=== PATIENT | female | born 2005 | race Caucasian/White ===

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

== ENCOUNTER 2024-01-23 22:48 | Emergency (ER) | payer BC, SELFPAY ==
[2024-01-23 22:49] VITALS: BP 115/69; PULSE 73; RESP 18; TEMP 36.1; O2SAT 100; BMI 21.1
--- NOTE | 2024-01-23 23:15 | EDS_ITS ---
HPI HPI - Psych History of Present Illness Chief Complaint: Mental Health Detail of Chief Complaint: Anxiety. Informant: patient and parent Onset/Context/Timing Onset: Days Context: Gradual Onset Timing: Continuous Current Severity: Moderate Maximum Severity: Moderate Associated Symptoms Associated Symptoms - Psych: Positive for - (Anxiety); Negative for Suicidal Thoughts Specific plan (suicidal thought): No suicide plan Narrative Narrative: 18-year-old female history of anxiety. Currently on Lexapro. Recently moved to the area has appointment to follow-up with the counseling center on Sunday. She has not been evaluated by them as of yet. She has been on the Lexapro for months. Says she has been very emotional lately. It has been a roller coaster over the last week. States her dad has bipolar. She denies being homicidal or suicidal. She did have a mental health admission earlier this year. Denies any drug or alcohol use. States she is not . Prior similar symptoms: Yes Recent Illness/Hospitalization: No PFSH [facility] [place] Medical History (Updated 01/24/24 @ 01:[address] Chester Roach MD) Depression Anxiety Scoliosis Home Medications ?Medication ?Instructions ?Recorded ?Last Taken ?Type escitalopram oxalate 20 mg tablet 20 mg PO QHS mood 12/15/23 12/14/23 19:00 History (Lexapro) 20 mg Allergy/AdvReac Type Severity Reaction Status Date / Time No Known Allergies Allergy Verified 01/23/24 22:51 Social History Smoking Status: Never smoker ROS ROS ED ROS Narrative Denies recent illness. Constitutional Constitutional ED: Denies fever(s) Eyes Eyes: Denies blurry vision ENT ENT ED: Denies ear pain Cardiovascular Cardiovascular: Denies chest pain Respiratory/Chest Respiratory/Chest: Denies cough Gastrointestinal Gastrointestinal: Denies abdominal pain Genitourinary Genitourinary ED: Denies dysuria Musculoskeletal Musculoskeletal: Denies arthralgias Integumentary Denies abscess Neurologic Neurologic: Denies headache(s) Psychiatric Psychiatric: Reports anxiety and depression; Denies suicidal ideation or suicidal thoughts Endocrine Endocrinology: Denies polydipsia Hematologic/Lymphatic Hematologic/Lymphatic: Denies easy bleeding Allergic/Immunologic Allergic/Immunologic ED: Denies mouth swelling EXAM Physical Exam Narrative Exam Narrative: 89-year-old female very emotionally upset. Tearful. Anxious. Physically no acute distress. Vital signs stable afebrile. Female present in the room with her I believe it is her mom. H EENT exam unremarkable. Neck nontender. No signs of trauma. Lungs clear to auscultation bilaterally. Heart regular rhythm no murmur. Abdomen soft nontender. Moving all 4 extremities. Nontender no edema. Neurologically she is awake and alert. No focal motor deficits. Const Vital Signs: 01/23/24 22:49 Temperature 96.9 F L Temperature Source Temporal Pulse Rate 73 Respiratory Rate 18 Blood Pressure 115/69 Blood Pressure Mean 84 Pulse Ox 100 Oxygen Delivery Method Room Air Positive well nourished and well developed; Negative for obese, cachectic, contractures or unkempt General Appearance ED: well developed and NAD; Negative for unkempt, cachectic, contractures or pallor Nutritional Appearance: Negative for cachectic or obese HEENT Reports moist mucous membranes normocephalic and atraumatic; Negative for trauma or tenderness Eyes PERRL and EOMs intact bilaterally General Eye ED: Negative for pale conjunctiva Neck no lymphadenopathy, supple and no JVD General: Negative for tenderness Resp normal respiratory effort and clear to auscultation bilaterally Effort and Inspection: Negative for retractions Auscultation: Negative for rales, rhonchi or wheezes Cardio S1 normal heart sound, S2 normal heart sound and no murmurs Rate: regular rate Rhythm: regular rhythm GI non-tender, non-distended and no masses Palpation: soft; Negative for tender or guarding Back/Spine no CVA tenderness General Back: Negative for CVA tenderness Cervical Spine: Negative for cervical spine tenderness Extremity normal to inspection General Extremety ED: Negative for edema or tenderness General Extremity: Negative for edema Neuro oriented x3 and CN's II-XII intact bilaterally Sensorium / Orientation: alert, oriented to person, oriented to place and oriented to time; Negative for orientation impaired, confused or lethargic Motor Exam: strength 5/5 throughout Psych thought process normal, cooperative, speech normal, activity/motor behavior normal, denies hallucinations, denies homicidal ideation and denies suicidal ideation; Negative for mental status grossly normal or affect normal Appearance: grossly normal; Negative for unkempt Attitude: No calm, engaged, No paranoid and other Activity / Motor Behavior: fidgetting and restless Speech: normal speech Mood & Affect: anxious Thought Process: normal thought process Thought Content: normal thought content Attention / Concentration: attention grossly intact Memory / Cognition: memory grossly intact Insight: insight good Judgement: judgement good Skin General Skin Exam: Negative for jaundice or pallor Lesions: no lesions Rashes: no rashes Trauma: Negative for abrasion Wounds: Negative for amputation or wounds noted MDM MDM MDM Narrative Medical decision making narrative: 18-year-old female very anxious. History of mental health illness. Currently has been on Lexapro for months. She denies being suicidal or homicidal. She denies alcohol or drug use. Her exam physically is benign. Counseling center is here we will have them evaluate her. Alem orozco evaluated the patient. Spoke to me around 1:05 AM. They are more than comfortable with her being discharged home. 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 They will also follow her up they told me. I will write the patient for six 1 mg Ativan pills. Which she can use over the next several days for anxiety. Patient is accompanied by her grandmother sherwin. Both are comfortable with her being discharged to home. Patient again verbalizes to me that she is neither suicidal or homicidal. History & Record Review Discussion w/independent historian: Patient Additional record(s) reviewed:: Prior inpatient record, Prior outpatient record, Prior ED visit and Prior labs Discharge Plan Triage Chief Complaint: Mental Health ED Provider: Chester Roach Dx/Rx/DC Orders Clinical Impression: Anxiety Instructions: ED Anxiety Reaction Prescriptions: No Action escitalopram oxalate [Lexapro] 20 mg tablet 20 mg PO QHS Patient Comments: pt takes at hs Primary Care Provider: Care Physician,No Primary Referrals: Care Physician,No Primary [Primary Care Provider] - Counseling,Center [Group of Physicians] - As soon as possible (Call them tomorrow to get set up with an appointment as soon as possible.) Activity Restrictions/Additional Instructions: Follow-up with [facility] with your scheduled appointment next week. Call the counseling center later today and get set up with an appointment with them as soon as possible. Ativan as needed and prescribed for anxiety. Do not drive or drink alcohol if using the Ativan. Return if you are feeling worse or develop any suicidal thoughts. Print Language: Yakut Disposition Disposition: Home, Self Care
[2024-01-23] MEDS: LORazepam 1 MG Tablet PO (23:22)
[2024-01-24] MEDS: LORazepam 1 MG Tablet PO (01:49)
--- NOTE | 2024-01-24 01:59 | ED.RN ---
Addendum entered by Irina Thompson 01/24/24 02:20: Pt refused for vitals to be taken again. Explained to mom and pt again that they need to follow up with all resources that they were given. Pt stomped out of room and out of ER. Mom thanked this nurse for care and apologized numerous times for pts behavior. Original Note: This nurse into d/c pt and give PO ativan. Pt upset, yelling at mom, pacing/stomping around the room. Expressing concerns to be frustrated with hospital, doctor, and the whole mental health system. This nurse explained process to pt of being seen by the doctor and crisis. Explained all paperwork to pt and pts mother of following up with counseling center and [facility]. I came here for a script for a mood stabilizer and you guys have not done anything for me. Why can I not just stay here and sleep and you give me a script for something better? Explained to pt that there was a script for a medications sent to the pharmacy that will need picked up in the morning for Ativan. Pt expressing concerns of wanting to stay in the ER. This nurse questioning why pt needs to stay here d/t mom and this nurse not understanding pt. This nurse went into through detail about the process of being seen in the ER, crisis talking to pt and coming up with a plan for discharge after. Explained to pt again that the ER is not a place to just sleep and again went into thorough detail about how the process works. pt stating You do not understand me and where I am coming from. You should be able to give me a script for a mood stabilizer and that is it. Can you admit me here for my mental health? This nurse went into great detail again how [facility] does not have a psychiatric unit in the hospital and if the pt would require placement that she would be transferred somewhere else. pt expressing concerns again about not being SI/HI or needing to go somewhere. Pts mom agreeable with this nurse and understand D/C paperwork and attempting to educate pt on the same information as this nurse. Pt yelling at mom and stomping around in room. Mom in agreence with all the information Tami Callejas from crisis and myself gave pt and herself. Pts o
== END 2024-01-24 02:20 | disposition home or self-care (01) ==
PROVIDERS: Emergency Provider Emergency Medicine; Visit Provider Emergency Medicine
DX: F41.9 Anxiety disorder, unspecified (principal); Z79.899 Other long term (current) drug therapy; F32.A Depression, unspecified; M41.9 Scoliosis, unspecified
CPT/HCPCS: 99284

== ENCOUNTER 2024-02-14 18:25 | Emergency (ER) | payer BC, SELFPAY ==
[2024-02-14 18:26] VITALS: BP 73/63; PULSE 73; RESP 18; TEMP 36.6; O2SAT 100; BMI 21.6
[2024-02-14 18:28] VITALS: BP 96/61; RESP 16
== END 2024-02-14 19:00 | disposition left against medical advice (07) ==
LOC: ED 19:17
DX: F41.9 Anxiety disorder, unspecified (principal); Z53.21 Procedure and treatment not carried out due to patient leaving prior to being seen by health care provider

== ENCOUNTER → 2024-02-28 | Outpatient (CLI) | payer BC, SELFPAY ==
[2024-02-28 15:19] LABS: Absolute Lymphocyte Count 1.67 X10^3/uL (0.83-4.51); Absolute Neutrophil Count 3.4 X10^3/uL (2.0-7.7); Basophil# 0.04 X10^3/uL; Basophil% 0.7 % (0-1); Eosinophil# 0.12 X10^3/uL; Eosinophils% 2.2 % (0-5); Hemoglobin 12.4 g/dL (12.0-15.0); Lymphocyte # 1.67 X10^3/ul (0.83-4.51); Lymphocyte % 30.4 % (19-41); Mean Corpuscular Hgb 27.3 pg (27.0-32.0); Mean Corpuscular Volume 88.1 fL (81-99); Mean Platelet Vol. 11.3 fl (6.2-12.0); Monocyte# 0.23 X10^3/uL; Monocyte% 4.2 % (0-10); NRBC Flagged by Analyzer 0 % (0-5); Neutrophil # 3.41 X10^3/uL (2.7-7.7); Neutrophil % 62.1 % (47-70); Platelet Count 226 K/mm3 (150-450); RBC Distribution Width CV 13.2 % (11.6-14.6); RBC Distribution Width SD 42.8 fl (35.1-43.9); Red Blood Count 4.54 M/mm3 (4.2-5.4); White Blood Count 5.5 K/mm3 (4.4-11.0)
[2024-02-28 15:29] LABS: ALB/GLOB Ratio 1.2 RATIO (0.9-2.4); AST(SGOT) 19 U/L (15-37); Alanine Aminotransfer ALT/SGPT 19 U/L (13-56); Albumin, Serum 4.1 g/dL (3.2-5.0); Alkaline Phosphatase 63 U/L (45-117); Anion Gap 6 (5-15); BUN 12 mg/dL (7-18); BUN/Creat Ratio 18.1 RATIO (10-20); Calcium,Total 9.4 mg/dL (8.5-10.1); Chloride 105 mmol/L (98-107); Creatinine, Serum 0.66 mg/dL (0.55-1.02); EST Glomerular Filtration Rate 121 mL/min (>60); Est Glom Filt Rate - Afr Amer 147 mL/min (>60); Globulin 3.5 g/dL (2.2-4.2); Glucose 90 mg/dL (74-106); Potassium 3.8 mmol/L (3.5-5.1); Protein, Total 7.6 g/dL (6.4-8.2); Sodium Level 140 mmol/L (136-145)
[2024-02-29 11:06] LABS: Vitamin D,25 Hydroxy 34.4 ng/mL
== END | disposition home or self-care (01) ==
LOC: MFPLAB 11:03
PROVIDERS: PCP Family Medicine; Visit Provider Family Medicine
DX: R53.83 Other fatigue (principal); R41.840 Attention and concentration deficit
CPT/HCPCS: 36415; 80053; 82306; 84443; 85025

== ENCOUNTER 2024-03-08 18:47 | Emergency (ER) | payer BC, SELFPAY ==
[2024-03-08 18:48] VITALS: BP 110/68; PULSE 82; RESP 20; TEMP 36.2; O2SAT 100; BMI 22.1
--- NOTE | 2024-03-08 19:00 | EDS_ITS ---
HPI History of Present Illness Chief Complaint: Anxiety Informant: patient Onset/Context/Timing Onset: Month(s) Context: Gradual Onset Timing: Continuous Quality: Restless Location: Generalized Worsened by: Nothing Relieved by: Nothing Narrative Narrative: Patient presents with increased anxiety that has been getting worse over the past few months. Patient states she has been on Lexapro for a long time. Patient was recently started on BuSpar. Patient was also instructed to increase her Lexapro from 20 mg to 30 mg. Patient states this made it worse and mother states that she went back to the 20 mg dosage. Patient is also on Abilify. Patient states she just feels restless. Patient states nothing makes it worse and nothing makes it better. Mother states patient does see a counselor for this. Mother states that patient has an appoint with a psychiatrist in the near future. [facility] Medical History Depression Anxiety Scoliosis Home Medications ?Medication ?Instructions ?Recorded ?Last Taken ?Type escitalopram oxalate 20 mg tablet 20 mg PO QHS mood 12/15/23 12/14/23 19:00 History (Lexapro) 20 mg lorazepam 1 mg tablet (Ativan) 1 mg PO BID PRN anxiety 3 days #6 01/24/24 Unknown Rx tabs hydroxyzine pamoate 25 mg capsule 50 mg (2 x 25 mg) PO TID PRN PRN 03/08/24 Unknown Rx Anxiety #30 CAPSULES Allergy/AdvReac Type Severity Reaction Status Date / Time No Known Allergies Allergy Verified 03/08/24 18:48 Surgical History no surgical history no surgical history Social History Smoking Status: Never smoker ROS ROS ED Constitutional Constitutional ED: Denies chills or fever(s) Eyes Eyes: Denies blurry vision or change in vision ENT ENT ED: Denies rhinorrhea or sore throat Cardiovascular Cardiovascular: Denies chest pain or palpitations Respiratory/Chest Respiratory/Chest: Denies cough or dyspnea Gastrointestinal Gastrointestinal: Denies nausea or vomiting Genitourinary Genitourinary ED: Denies dysuria or hematuria Musculoskeletal Musculoskeletal: Reports back pain; Denies neck pain Integumentary Denies abscess or rash Neurologic Neurologic: Denies headache(s) or weakness Psychiatric Psychiatric: Reports anxiety; Denies suicidal ideation or suicidal thoughts Allergic/Immunologic Allergic/Immunologic ED: Denies mouth swelling or urticaria EXAM Physical Exam Const Vital Signs: 03/08/24 18:48 Temperature 97.2 F L Temperature Source Temporal Pulse Rate 82 Respiratory Rate 20 H Blood Pressure 110/68 Blood Pressure Mean 82 Pulse Ox 100 Oxygen Delivery Method Room Air Positive well nourished and well developed General Appearance ED: well developed and NAD HEENT Reports moist mucous membranes Neck supple and no JVD Resp normal respiratory effort and clear to auscultation bilaterally Cardio regular rate and regular rhythm GI non-tender and non-distended Palpation: soft Neuro oriented x3, CN's II-XII intact bilaterally and no sensory deficits noted Sensorium / Orientation: alert Motor Exam: strength 5/5 throughout Psych Mood & Affect: anxious MDM MDM MDM Narrative Medical decision making narrative: Patient was ordered a dose of hydroxyzine here. Patient was instructed to continue her medications as previously prescribed. Patient is given a prescription for a short course of hydroxyzine to take as needed. Patient did not want to wait for her medication. Patient left prior to completing treatment. Patient was instructed to follow-up with her primary care physician in 3 to 5 days for further evaluation. Patient was instructed return if worse in any way. Patient and mother understood and were agreeable with the plan. All questions were answered. Discharge Plan Triage Chief Complaint: Anxiety ED Provider: Urban Martel Dx/Rx/DC Orders Clinical Impression: Acute anxiety Instructions: ED Anxiety Reaction Prescriptions: New hydroxyzine pamoate 25 mg capsule 50 mg PO TID PRN PRN (Reason: Anxiety) Qty: 30 0RF No Action escitalopram oxalate [Lexapro] 20 mg tablet 20 mg PO QHS Patient Comments: pt takes at hs lorazepam [Ativan] 1 mg tablet 1 mg PO BID MDD 2 PRN (Reason: anxiety) 3 Days Qty: 6 0RF Primary Care Provider: Ashlyn Mart Referrals: Ashlyn Mart MD [Primary Care Provider] - 3-5 Days Print Language: Polish Disposition Disposition: Home, Self Care
--- NOTE | 2024-03-08 19:20 | ED.RN ---
Pt came out of room several times stating she was leaving. This RN informed pt that MD had signed up for her case and would be in. Pt returned to room. After pt was seen by MD she stated she was going to leave and this RN stated that the MD was putting meds in for her as we were speaking. Pt felt it was going to take too long to get the meds from pharmacy. This RN attempted to assure pt that as soon as the med was available this RN would be in to give it to her. Pt returned to her room for a few minutes then came out again and said she couldn't stay. Left prior to prescribed treatment. MD informed.
--- OUTSIDE RECORDS SUMMARY | 2024-03-08 19:25 | XMS RPT_ITS | CCD ---
Author Organization [facility] Care Team Providers Care Bath Steward Name Role Phone BEBE PLASCENCIA Primary Care Unavailable JAVIER HEIN Attending Unavailable REFERRED, SELF Referring Unavailable BEBE PLASCENCIA Primary Care Unavailable BEBE PLASCENCIA Attending Unavailable REFERRED, SELF Referring Unavailable BEBE PLASCENCIA Primary Care Unavailable REFERRED, SELF Referring Unavailable ARNOLDO KRUSE Attending Unavail able Inc, [facility] Primary Care Provider Unav ailable Venita Antunez DO Primary Care Provider Unavailable Primary Care Provider UnavailSammie Montes MD Primary Care Provider [phone] Nayla Coy MD Primary Care Provider Jaime Macias MD Unavailable Venita Antunez DO Primary Care Provider [phone] VENITA ANTUNEZ Primary Care Unavailable JAIME MACIAS Attending Unavailable VENITA ANTUNEZ Primary Care Unavailable VENITA ANTUNEZ Primary Care Unavailable VENITA ANTUNEZ Primary Care Unavailable JAIME MACIAS Referring Unavailable JAIME MACIAS Attending Unavailable NAYLA COY Primary Care Unavailable RIKKI CHAVEZ Attending Unavailable NAYLA COY Primary Care Unavailable SAMMIE CHOI Attending Unavailable SAMMIE CHOI Primary Care Unavailable [facility] Unavailable PRABHA CORONA Admitting Unavailable ROSE MASON Attending Unavailable Medications Current Medications Medication Drug Class(es) Dates Sig (Normalized) Sig (Original) ARIPiprazole 2 mg oral tablet (2 sources) Atypical Antipsychotic Start: 01-29-2024 End: 02-28-2024 take 1 tablet by mouth once daily ARIPiprazole (Abilify) 2 MG tablet Indications: Severe episode of recurrent major depressive disorder, without psychotic features (HCC) , Anxiety , Mood disorder (HCC) Take 1 tablet (2 mg) by mouth Nightly. 30 tablet 01/29/2024 02/28/2024 Active famotidine 20 mg oral tablet (12 sources) Histamine-2 Receptor Antagonist Start: 08-27-2023 End: 02-23-2024 take 1 tablet by mouth once daily famotidine (Pepcid) 20 MG tablet Indications: Nausea , Decreased appetite TAKE 1 TABLET BY MOUTH EVERY DAY 90 tablet 1 12/31/2023 Active Multiple Vitamin (multivitamin) capsule (8 sources) take 1 capsule by mouth once daily Multiple Vitamin (multivitamin) capsule Take 1 capsule by mouth daily. Active take 1 capsule by mouth once helena ly Multiple Vitamin (multivitamin) capsule Take 1 capsule by mouth daily. 0 Active sulfamethoxazole 800 mg / trimethoprim 160 mg oral tablet (3 sources) Dihydrofolate Reductase Inhibitor Antibacterial, Sulfonamide Antimicrobial Start: 12-14-2023 End: 12-28-2023 take 1 tablet by mouth twice daily sulfamethoxazole-trimethoprim (BACTRIM DS) 800-160 mg per tablet Take 1 tablet by mouth two times a day for 14 days. 28 tablet 0 12/14/2023 12/28/2023 Active Completed/Discontinued Medications Medication Drug Class(es) Dates Sig (Normalized) Sig (Original) Acetaminophen (2 sources) Start: 12-30-2022 End: 12-30-2022 take 1 tablet by mouth every six hours as needed for pain and fever acetaminophen (Tylenol) tablet 650 mg 0.4 ml enoxaparin sodium 100 mg/ml prefilled syringe (2 sources) Low Molecular Weight Heparin Start: 12-30-2022 End: 12-30-2022 enoxaparin (Lovenox) syringe 40 mg escitalopram 20 mg oral tablet (20 sources) Serotonin Reuptake Inhibitor Start: 04-19-2023 End: 04-28-2024 take 1 tablet by mouth once daily escitalopram (Lexapro) 20 MG tablet Indications: Major Depressive Disorder Take 1 tablet (20 mg) by mouth Nightly. 90 tablet 08/27/2023 01/29/2024 Discontinued (Reorder) Comment on above: Take 20 mg by mouth once daily. ibuprofen 400 mg oral tablet (2 sources) Nonsteroidal Anti-inflammatory Drug Start: 12-30-2022 End: 12-30-2022 ibuprofen tablet 400 mg levonorgestrel 0.634035 mg/hr intrauterine system (9 sources) Progestin, Progestin-containi ng Intrauterine Device Start: 03-13-2023 End: 03-13-2023 levonorgestrel 17.5 mcg/24 hrs (5 yrs) 19.5 mg 1 Each intrauterine device (KYLEENA) Levonorgestrel ( Kyleena) 19.5 MG intrauterine device Indications: Contraceptive Therapy 1 each by IntraUTERine route Once. Placed by dr graham macias 02/2203 Active ondansetron ODT (Zofran-ODT) disintegrating tablet 4 mg (2 sources) Start: 12-30-2022 End: 12-30-2022 take 1 tablet by mouth every eight hours as needed for nausea and vomiting ondansetron ODT (Zofran-ODT) disintegrating tablet 4 mg polyethylene glycol 3350 52399 mg powder for oral solution (2 sources) Osmotic Laxative Start: 12-30-2022 End: 12-30-2022 take 17 g by mouth every twenty-four hours as needed for constipation polyethylene glycol (PEG) 3350 (Miralax) packet 17 g rizatriptan 10 mg oral tablet (1 source) Serotonin-1b and Serotonin-1d Receptor Agonist Start: 11-15-2018 End: 01-23-2023 rizatriptan (MAXALT) 10 mg tablet Take one at onset of migraine. Repeat once if no better in 2 hours. 0 11/15/2018 01/23/2023 Discontinued Comment on above: Take one at onset of migraine. Repeat once if no better in 2 hours. 50 ml sodium chloride 9 mg/ml injection (4 sources) Start: 12-30-2022 End: 12-30-2022 sodium chloride 0.9 % bolus 500 mL Start: 12-30-2022 End: 12-30-2022 sodium chloride 0.9 % infusi on topiramate 25 mg oral tablet (1 source) Start: 01-03-2019 End: 01-23-2023 topiramate (TOPAMAX) 25 mg tablet See titrations scale 0 01/03/2019 01/23/2023 Discontinued Comment on above: See titrations scale Problems Active Problems Problem Classification Problem Date Documented Da te Episodic/Chronic Anxiety disorders (15 sources) Anxiety; Translations: [Anxiety disorder, unspecified] Onset: 08-27-2023 08-27-2023 Chronic Genitourinary symptoms and ill-defined conditions (1 source) Scalding pain on urination ; Translations: [Dysuria] 12-14-2023 Episodic Headache; including migraine (7 sources) Migraine; Translations: [Migraine, unspecified, not intractable, without status migrainosus] Onset: 01-23-2023 01-23-2023 Chronic Menstrual disorders (9 sources) Menometrorrhagia; Translations: [Excessive and frequent menstruation with irregular cycle] Onset: 01-23-2023 01-23-2023 Chronic Mood disorders (20 sources) Depressive disorder; Translations: [Depression] Onset: 04-18-2023 04-18-2023 Chronic Other screening for suspected conditions (not mental disorders or infectious disease) (4 sources) Decreased vitamin D; Translations: [Other specified abnormal findings of blood chemistry] Onset: 01-29-2024 01-29-2024 Episodic Superficial injury; contusion (1 source) Blister of foot; Translations: [Blister (nonthermal), left foot, initial encounter] 12-14-2023 Episodic Unclassified (1 source) New Patient Onset: 01-23-2023 Urinary tract infections (1 source) Urinary tract infectious disease; Translations: [Urinary tract infection, site not specified] 12-14-2023 Episodic Past or Other Problems Problem Classification Problem Date Documented Date Episodic/Chronic Conditions associated with dizziness or vertigo (4 sources) Dizziness; Translations: [Dizziness and giddiness] Onset: 10-09-2023 10-09-2023 Episodic Contraceptive and procreative management (20 sources) Patient encounter status; Translations: [Encounter for initial prescription of intrauterine contraceptive device] Onset: 01-23-2023 01-23-2023 Episodic Immunizations and screening for infectious disease (9 sources) Viral screening status; Translations: [Encounter for screening for other viral diseases] Onset: 08-27-2023 08-27-2023 Episodic Mood disorders (9 sources) Mood disorders Onset: 04-18-2023 04-18-2023 Nausea and vomiting (6 sources) Nausea; Translations: [Nausea] Onset: 08-27-2023 08-27-2023 Episodic Other nutritional; endocrine; and metabolic disorders (12 sources) Decrease in appetite; Translations: [Anorexia] Onset: 08-27-2023 08-27-2023 Episodic Other nutritional; endocrine; and metabolic disorders (2 sources) Anorexia; Translations: [Anorexia] Onset: 08-27-2023 Episodic Poisoning by nonmedicinal substances (20 sources) Ingestion of foreign material; Translations: [Toxic effect of unspecified substance, accidental (unintentional), initial encounter] Onset: 12-30-2022 Resolved: 08-21-2023 12-30-2022 Episodic Screening and history of mental health and substance abuse codes (8 sources) H/O: attempted suicide; Translations: [H/O suicide attempt] Onset: 12-30-2022 08-22-2023 Episodic Suicide and intentional self-inflicted injury (11 sources) Suicidal thoughts; Translations: [Suicidal ideations] Onset: 04-17-2023 Resolved: 08-22-2023 04-17-2023 Episodic Results Test Name Value Interpretation Reference Range Facility 36on 02-20-2024 36 Last office visit: 08/26 telemed on 01/29/24 Next office visit: none- pt no showed to appt 02/19/24, pt cancelled appt 02/27/24 reason: changed provider [facility] 36on 02-13-2024 36 This will have to be addressed during her office visit on 02/19/2024 [facility] Progress Noteon 01-29-2024 Progress Note [address] [address] Dept: [phone] Dept Loc: [phone] Subjective Sara Chiang is a 18 y.o. who presents for a telehealth visit. Patient was identified and seen today via Telehealth by agreement and consent. I used the following Telehealth technology: Audio and video capabilities. Patient location: Patient Location: Home. This patient encounter is appropriate and reasonable under the circumstances: Behavioral Health . The patient has been advised of the potential risks and limitations of this mode of treatment (including but not limited to the absence of in-person examination) and has agreed to be treated in a remote fashion in spite of them. Any and all of the patient's/patient's family's questions on this issue have been answered and I have made no promises or guarantees to the patient. The patient has also been advised to contact this office for worsening conditions or problems, and seek emergency medical treatment and/or call 911 if the patient deems either necessary. The patient stated that they are currently in the [facility]. If the patient is a minor, permission has been obtained by the parent or guardian for the patient to receive medical care at this visit. Chief complaint: Chief Complaint Patient presents with Follow-up Depression Mood disorder HPI Hx provided by patient's mother, patient was not cooperative during the telehealth visit. Patient has hx of depression and anxiety and possible mood disorder. Mother states that patient thinks that the lexapro 20mg is not working. Hx of bipolar disorder in father. Thinks she needs to be on a mood stabilizer. Patient saw her Counsellor today for therapy. Patient denies SI/HI Patient has trouble with sleep. Patient refuses to answer when asked No Known Allergies [x] PMH, allergies, and social history reviewed and updated as appropriate [x] Medication list reviewed/updated [x] Allergies reviewed/updated [x] Problem list reviewed/updated [] Patient requests medication refills, see below for orders. Depression: None or minimal depression (04/18/2023) PHQ-9 PHQ-9 Score: 2 (Provider: if last PHQ done >/= 9 mos from today, consider repeating today or include in plan for next visit): Failed to redirect to the Timeline version of the [employer]. If PHQ-2 is positive, in the follow up for this appointment, please have them scheduled for an appointment to discuss depression. O: -pt reported vitals: none Patient seen laying on the sofa and whenever put on the video camera she will cover her head with her blanket. Patient refused to talk and give further answers. Only answered to her mother for some questions. Does not appear to be in manic state. Assessment/Plan 1. Severe episode of recurrent major depressive disorder, without psychotic features (HCC) - ARIPiprazole (Abilify) 2 MG tablet; Take 1 tablet (2 mg) by mouth Nightly., Starting Sun01/29/2024, Until Sun02/28/2024, Normal 2. Anxiety - TSH - escitalopram (Lexapro) 20 MG tablet; Take 1 tablet (20 mg) by mouth Nightly., Starting Sun01/29/2024, Until Sun04/28/2024, Normal - ARIPiprazole (Abilify) 2 MG tablet; Take 1 tablet (2 mg) by mouth Nightly., Starting Sun01/29/2024, Until Radha 02/28/2024, Normal 3. Recurrent major depressive disorder, remission status unspecified (HCC) - escitalopram (Lexapro) 20 MG tablet; Take 1 tablet (20 mg) by mouth Nightly., Starting Sun01/29/2024, Until Sun04/28/2024, Normal 4. Mood disorder (HCC) - escitalopram (Lexapro) 20 MG tablet; Take 1 tablet (20 mg) by mouth Nightly., Starting Sun01/29/2024, Until Sun04/28/2024, Normal - ARIPiprazole (Abilify) 2 MG tablet; Take 1 tablet (2 mg) by mouth Nightly., Starting Sun01/29/2024, Until Radha 02/28/2024, Normal 5. Low vitamin D level - Vitamin D Deficiency Screening (Vit D 25) Continue lexapro 20 mg and start Abilify 2 mg for mood stabilizer and augmentation purposes. Patient will need to be seen in clinic in 2 weeks for close follow up. Patient not cooperative during the telehealth. Denies SI/HI. Follow up in about 2 weeks (around 02/12/2024) for mood. Patient acknowledged full understanding and agreeable with plan. All questions were answered appropriately. Costs of various treatment options were considered in formulating this treatment plan with the patient. Rikki Chavez MD 01/29/24 5:47 PM [facility] Progress Note INDIRECT SUPERVISION THIS SERVICE IS TO BE BILLED UNDER THE PRIMARY CARE EXCEPTION (MODIFIER -GE) During or immediately after this visit, I discussed this case with the treating resident. Our discussion included the history obtained by the resident, the resident's exam findings, and the resident's treatment plan. The resident's note reflects the information we discussed, and I agree with the resident's assessment and treatment plan. -Alex Riddle MDSALAS Family Medicine [facility] 36on 12-31-2023 36 Last office visit: 08/27/23 Next office visit: none ( supposed to follow up 5 weeks 10/01/23) [facility] CNCOon 12-18-2023 CNCO Letter Text [facility] 12-18-2023 CNPN Telephone (OBGWMA) SARA CHIANG ([id number]) 3 F Date Time Provider Department 12/18/23 JAIME MACIAS [facility] During your visit today, we recorded the following information about you: Aditya Mccrary 12/18/2023 3:26 PM Signed Patient did not arrive for her scheduled appointment today. A missed appointment letter sent by mail. Allergies As of Date: 12/18/2023 (No Known Allergies) Date Reviewed: 12/14/2023 Reviewed by: Gayatri Suarez MA - Fully Assessed Reason for Visit: Missed Appointment [1304] Cmt: No show Prescriptions as of 12/18/2023 - famotidine (PEPCID) 20 mg tablet Take 20 mg by mouth once daily. - sulfamethoxazole-trim ethoprim (BACTRIM DS) 800-160 mg per tablet Take 1 tablet by mouth two times a day for 14 days. - escitalopram oxalate (LEXAPRO) 20 mg tablet Take 20 mg by mouth once daily. Problem List As Of Date 12/18/2023 Noted Resolved Migraine without status migrainosus, not intrac*01/23/2023 Menorrhagia with irregular cycle [N92.1] 01/23/2023 Encounter for initial prescription of intrauter*01/23/2023 Encounter Status:Closed [facility]WSTR[facility] SARA CHIANG ([id number]) 3 F Date Time Provider Department 12/16/23 YASSINE HOWARD [facility] During your visit today, we recorded the following information about you: Yassine Howard, KEERTHI 12/16/2023 8:14 AM Signed Called mom to make sure patient is improving. She ended up in ER and is on different antibiotic. Mom unsure what it is called. Advised to continue as prescribed and follow-up with PCP. Allergies As of Date: 12/16/2023 (No Known Allergies) Date Reviewed: 12/14/2023 Reviewed by: Gayatri Suarez MA - Fully Assessed Reason for Visit: Results [95] Prescriptions as of 12/16/2023 - famotidine (PEPCID) 20 mg tablet Take 20 mg by mouth once daily. - sulfamethoxazole-trim ethoprim (BACTRIM DS) 800-160 mg per tablet Take 1 tablet by mouth two times a day for 14 days. - escitalopram oxalate (LEXAPRO) 20 mg tablet Take 20 mg by mouth once daily. Problem List As Of Date 12/16/2023 Noted Resolved Migraine without status migrainosus, not intrac*01/23/2023 Menorrhagia with irregular cycle [N92.1] 01/23/2023 Encounter for initial prescription of intrauter*01/23/2023 Encounter Status:Closed by YASSINE HOWARD on 12/16/23 Normal [facility] Bacteria Ur Culton 4 Bacteria identified Cx Nom (U) ORGANISM ID: 1 >=100,000 CFU/ml Staphylococcus saprophyticus Routine susceptibility testing of S. saprophyticus urine isolates is not performed because uncomplicated UTIs respond to urine concentrations of agents commonly used (e.g. Nitrofurantoin, TMP/SMX, or a quinolone). Normal [facility] Comment on above: Performed By: #### 6 30-4 #### [facility] CLIA [id number] [address] [place] [address] [place] CNOVon 12-14-2023 CNOV Office Visit (UCWSTR ) SARA CHIANG ([id number]) 3 F Date Time Provider Department 12/14/23 3:00 PM YASSINE HOWARD [facility] During your visit today, we recorded the following information about you: Temperature Pulse Respiration Blood pressure 100 degrees 102/minute 18/minute 102/69 Weight 62.5 kg Yassine Howard PA 12/14/2023 3:13 PM Signed This note was created using [employer]. Subjective Sara Chiang is a 18 year old female. HPI 18-year-old female presents for dysuria, urgency, frequency x 1 week. Patient states that she has been having urinary frequency, urgency and dysuria for the past week. She states that she had to urinate urgently the other day and actually urinated in her pants because she did not make it to the bathroom in time. Otherwise, has not had any incontinence. She has not seen any blood in her urine. She had bodyaches yesterday and fever today. She has not had any Tylenol or Motrin. Patient does report she has some low back pain. She denies any vomiting. Still eating and drinking. No vaginal discharge, concern for STD. She has an IUD, no concern for . Patient also reporting blister of left foot after walking on hot pavement yesterday. No drainage. No other complaint regarding the blister. PAST MEDICAL HISTORY No date: Migraine No date: Scoliosis No past surgical history on file. ALLERGIES Patient has no known allergies. MEDICATIONS escitalopram oxalate (LEXAPRO) 20 mg tablet Take 20 mg by mouth once daily. famotidine (PEPCID) 20 mg tablet Take 20 mg by mouth once daily. (Patient not taking: Reported on 12/14/2023) FAMILY HISTORY Problem Relation Age of Onset Diabetes Paternal Grandmother Breast Cancer Paternal Grandmother Social History Tobacco Use Smoking status: Never Smokeless tobacco: Never Review of Systems Constitutional: Positive for chills and fever. HENT: Negative for congestion, ear pain and sore throat. Respiratory: Negative for cough and shortness of breath. Cardiovascular: Negative for chest pain. Gastrointestinal: Negative for diarrhea and vomiting. Genitourinary: Positive for dysuria, frequency and urgency. Negative for decreased urine volume and flank pain. Musculoskeletal: Positive for back pain. Objective BP 102/69 Pulse 102 Temp 37.8 ?C (100 ?F) Resp 18 Wt 62.5 kg (137 lb 12.6 oz) LMP 02/27/2023 (Approximate) SpO2 97% Physical Exam Vitals and nursing note reviewed. Constitutional: General: She is not in acute distress. Appearance: Normal appearance. She is not toxic-appearing. HENT: Nose: Nose normal. Mouth/Throat: Mouth: Mucous membranes are moist. Eyes: Conjunctiva/sclera: Conjunctivae normal. Cardiovascular: Rate and Rhythm: Normal rate and regular rhythm. Pulmonary: Effort: Pulmonary effort is normal. Breath sounds: Normal breath sounds. Abdominal: General: Abdomen is flat. Palpations: Abdomen is soft. Tenderness: There is no abdominal tenderness. There is right CVA tenderness. There is no left CVA tenderness, guarding or rebound. Comments: Mild right CVA tenderness. No abdominal tenderness. Musculoskeletal: Feet: Feet: Left foot: Skin integrity: Blister present. Comments: Small blister on bottom of left foot. No erythema, warmth, drainage. No signs of infection. Skin: General: Skin is warm and dry. Neurological: Mental Status: She is alert. Assessment and Plan ASSESSMENT/PLAN: 1. Urinary tract infection with hematuria, site unspecified - ICD9: 599.0, 599.70, ICD10: N39.0, R31.9 (primary diagnosis) acute - UA positive for caity esterase, hematuria, and proteinuria - Send urine for culture -Patient does have fever today and mild CVA tenderness, will cover for potential early pyelonephritis. She is nontoxic appearing. - Begin treatment with Bactrim DS BID for 14 days - Patient education for prevention given 2. Burning with urination - ICD9: 788.1, ICD10: R30.0 - UA DIP, URINE (POC) - URINE CULTURE 3. Blister of left foot, initial encounter - ICD9: 917.2, ICD10: S90.822A -Recommend corn pad around the blister if is difficult to walk on. -No signs of infection. Diagnosis and treatment plan were discussed and questions were answered to the patient's satisfaction. Pt acknowledged understanding of concepts and follow up plan. Specific signs and symptoms that would indicate the need for higher level of care were discussed in detail warranting prompt ER evaluation. KEERTHI Cortes Allergies As of Date: 12/14/2023 (No Known Allergies) Date Reviewed: 12/14/2023 Reviewed by: Gayatri Suarez MA - Fully Assessed Reason for Visit: UTI [116] Cmt: Low back pain, burning with urination x1 week Primary Visit Diagnosis:Urinary tract infection with hematuria, site unspecified [N39.0, R31.9] Other Visit Diagnoses:Burning with ur (more content not included)... Normal [facility] UA DIP, URINE (POC)on 2023 BILIRUBIN UA (POCT) Small Abnormal Negative [facility] CLARITY UA (POCT) Slightly Cloudy Cl [facility] COLOR UA (POCT) Yellow [facility] GLUCOSE UA (POCT) Negative Negative mg/dL [facility] Hemoglobin Ql (U) Moderate Abnormal Negative [facility] Interpretation and review of laboratory results Abnormal [facility] KETONE UA (POCT) 15 mg/dL Abnormal Negative [facility] LEUKOCYTES UA (POCT) Moderate Abnormal Negative [facility] NITRITE UA (POCT) Negative Negative [facility] PH UA (POCT) 6.5 4.5 - 8.0 [facility] Protein Ql (U) 100 mg/dL Abnormal Negative [facility] SPECIFIC GRAVITY UA (POCT) 1.020 1.005 - 1.030 [facility] UROBILINOGEN UA (POCT) 1.0 Makenzie l E.U./dL [facility] Location:[address], [place], [place], [id number] [place] [address] POINT OF CARE [facility] Progress Noteon 10-11-2023 Progress Note RN CARE COORDINATION NOTE: ED DISCHARGE FOLLOW UP Care Coordination goal: ED follow up Patient seen in [facility] on 10/09/2023 Reason:Dizziness ED visits in last yr:3 Hosp/ED adm risk: 52 % Per ED discharge instructions: Follow up with PCP LAST APPOINTMENT: 08/27/2023 NEXT APPOINTMENT: Visit date not found Plan: Left voicemail requesting callback to schedule ED follow-up appointment (per ED discharge instructions). If patient calls back, please assist with scheduling a ED follow up appointment. This result has been reviewed by Jenni López RN on 10/11/23 at 11:55 AM. Normal [facility] ECG 12-LEADon 10-10-2023 ECG 12-LEAD IMPRESSION: Sinus rhythm RSR' in V1 or V2, probably normal variant Electronically Signed On 10-10-2023 07:46:06 EDT by Evan Berg Normal [facility] CBC W Auto Differential pane l (Bld)Ordered By: Camila Chiang on 10-09-2023 Basophils (Bld) [#/Vol] 0.0 10*3/uL 0.0 - 0.2 10*3/uL [facility] Basophils/100 WBC (Bld) 0.7 % 0.0 - 2.0 % [facility] Eosinophils (Bld) [#/Vol] 0.2 10*3/uL 0.0 - 0.5 10*3/uL [facility] Eosinophils/100 WBC (Bld) 2.9 % 0.0 - 6.0 % [facility] Erythrocyte distribution width (RBC) [Ratio] 15.0 % 11.5 - 15.0 % [facility] Hematocrit (Bld) [Volume fraction] 38.8 % 35.0 - 47.0 % [facility] Hemoglobin (Bld) [Mass/Vol] 12.2 g/dL 11.7 - 16.0 g/dL [facility] [employer] Immature granulocytes (Bld) [#/Vol] 0.0 10*3/uL NINF - 0.1 10*3/uL [facility] [employer] Immature granulocytes/100 WBC (Bld) 0.2 % 0.0 - 2.0 % [facility] [employer] Interpretation and review of laboratory results Normal [facility] Lymphocytes (Bld) [#/Vol] 2.1 10*3/uL 1.0 - 4.3 10*3/uL [facility] Lymphocytes/100 WBC (Bld) 35.6 % 15.0 - 45.0 % [facility] MCH (RBC) [Entitic mass] 26.0 pg 26.0 - 34.0 pg [facility] MCHC (RBC) [Mass/Vol] 31.4 % 30.5 - 36.0 % [facility] MCV (RBC) [Entitic vol] 82.7 fL 77.0 - 99.0 fL [facility] Monocytes (Bld) [#/Vol] 0.3 10*3/uL 0.0 - 0.9 10*3/uL [facility] Monocytes/100 WBC (Bld) 5.5 % 5.0 - 13.0 % [facility] Neutrophils (Bld) [#/Vol] 3.3 10*3/uL 1.8 - 7.5 10*3/uL [facility] Neutrophils/100 WBC (Bld) 55.1 % 38.0 - 82.0 % [facility] Nucleated RBC/100 WBC (Bld) [Ratio] 0.0 % [facility] Platelet mean volume (Bld) [Entitic vol] 10.8 fL 9.0 - 12.7 fL [facility] Comment on above: MPV is a calculated measurement using platelet volume ratio Platelets (Bld) [#/Vol] 200 10*3/uL 140 - 440 10*3/uL [facility] RBC (Bld) [#/Vol] 4.69 10*6/uL 3.80 - 5.2 0 10*6/uL [facility] WBC (Bld) [#/Vol] 6.0 10*3/uL 3.6 - 10.7 10*3/uL [facility] CBC WITH AUTO DIFFERENTIALon 10-09-2023 Basophils (Bld) [#/Vol] 0.0 10*3/uL Normal 0.0-0.2 [facility] Comment on above: Performed By: #### L [id number] ####Washer Repairman: CHRISTA FORD ([id number])[facility] ([facility])[address] [place] [address] Basophils/100 WBC (Bld) 0.7 % Normal 0.0-2.0 [facility] Comment on above: Performed By: #### L [id number] ####Washer Repairman: CHRISTA FORD ([id number])[facility] Eosinophils (Bld) [#/Vol] 0.2 10*3/uL Normal 0.0-0.5 [facility] Comment on above: Performed By: #### L [id number] ####Washer Repairman: CHRISTA FORD ([phone])[facility])[address] Eosinophils/100 WBC (Bld) 2.9 % Normal 0.0-6.0 [facility] Comment on above: Performed By: #### L [id number] ####Washer Repairman: CHRISTA FORD ([phone])[facility])[address] Erythrocyte distribution width (RBC) [Ratio] 15.0 % Normal 11.5-15.0 [facility] Comment on above: Performed By: #### L [id number] ####Washer Repairman: CHRISTA FORD ([phone])[facility])[address] Hematocrit (Bld) [Volume fraction] 38.8 % Normal 35.0-47.0 [facility] Comment on above: Performed By: #### L [id number] ####Washer Repairman: CHRISTA FORD ([id number])[facility])[address] Hemoglobin (Bld) [Mass/Vol] 12.2 g/dL Normal 11.7-16.0 [facility] Comment on above: Performed By: #### L [id number] ####Washer Repairman: CHRISTA FORD ([id number])[facility] IMMATURE GRANS % 0.2 % Normal 0.0-2.0 [facility] Comment on above: Performed By: #### L [id number] ####Washer Repairman: CHRISTA FORD ([phone])[facility] IMMATURE GRANS ABSOLUTE 0.0 10*3/uL Normal <0.1 [facility] Comment on above: Performed By: #### L [id number] ####Washer Repairman: CHRISTA FORD ([id number])[facility])[address] Lymphocytes (Bld) [#/Vol] 2.1 10*3/uL Normal 1.0-4.3 [facility] Comment on above: Performed By: #### L [id number] ####Washer Repairman: CHRISTA FORD ([phone])[facility] ([facility])[address] Lymphocytes/100 WBC (Bld) 35.6 % Normal 15.0-45.0 [facility] Comment on above: Performed By: #### L [id number] ####Washer Repairman: CHRISTA FORD ([phone])[facility] ([facility])[address] MCH (RBC) [Entitic mass] 26.0 pg Normal 26.0-34.0 [facility] Comment on above: Performed By: #### L [id number] ####Washer Repairman: CHRISTA FORD ([phone])[facility])[address] MCHC 31.4 % Normal 30.5-36.0 [facility] Comment on above: Performed By: #### L [id number] ####Washer Repairman: CHRISTA FORD ([id number])[facility] MCV (RBC) [Entitic vol] 82.7 fL Normal 77.0-99.0 [facility] Comment on above: Performed By: #### L [id number] ####Washer Repairman: CHRISTA FORD ([id number])[facility] Monocytes (Bld) [#/Vol] 0.3 10*3/uL Normal 0.0-0.9 [facility] Comment on above: Performed By: #### L [id number] ####Washer Repairman: CHRISTA FORD ([phone])[facility] [place] [address] [place] Monocytes/100 WBC (Bld) 5.5 % Normal 5.0-13.0 [facility] Comment on above: Performed By: #### L [id number] ####Washer Repairman: CHRISTA FORD ([id number])[facility] [place] [address] [place] NEUTROPHILS ABSOLUTE 3.3 10*3/uL Normal 1.8-7.5 [facility] Comment on above: Performed By: #### L [id number] ####Washer Repairman: CHRISTA FORD ([id number])[facility] [place] [address] [place] Neutrophils/100 WBC (Bld) 55.1 % Normal 38.0-82.0 [facility] Comment on above: Performed By: #### L [id number] ####Washer Repairman: CHRISTA FORD ([phone])[facility] [place] [address] [place] NRBC 0.0 /100 WBCs Normal 0.0-2.0 [facility] Comment on above: Performed By: #### L [id number] ####Washer Repairman: CHRISTA FORD ([phone])[facility])[address] Platelet mean volume (Bld) [Entitic vol] 10.8 fL Normal 9.0-12.7 [facility] Comment on above: Result Comment: MPV is a calculated measurement using platelet volume ratio Performed By: #### L [id number] ####Washer Repairman: CHRISTA FORD ([id number])[facility] ([facility])[address] [place] [address] Platelets (Bld) [#/Vol] 200 10*3/uL Normal 140-440 [facility] Comment on above: Performed By: #### L [id number] ####Washer Repairman: CHRISTA FORD ([phone])[facility] RBC (Bld) [#/Vol] 4.69 10*6/uL Normal 3.80-5.20 [facility] Comment on above: Performed By: #### L [id number] ####Washer Repairman: CHRISTA FORD ([id number])[facility])[address] WBC (Bld) [#/Vol] 6.0 10*3/uL Normal 3.6-10.7 [facility] Comment on above: Performed By: #### L [id number] ####Washer Repairman: CHRISTA FORD ([id number])[facility])[address] COMPREHENSIVE METABOLIC PANE Mendez 10-09-2023 Albumin [Mass/Vol] 4.4 g/dL Normal 3.5-5.0 [facility] Comment on above: Performed By: #### L [id number], [id number] ####Washer Repairman: CHRISTA FORD ([id number])[facility] [place] [address] [facility] ALP [Catalytic activity/Vol] 53 U/L Normal 38-126 [facility] Comment on above: Performed By: #### L AB17, [id number] ####Washer Repairman: CHRISTA FORD ([id number])[facility] [place] [address] [facility] ALT [Catalytic activity/Vol] 14 U/L Normal 0-34 [facility] Comment on above: Performed By: #### L AB17, [id number] ####Washer Repairman: CHRISTA FORD ([id number])[facility] ([facility])[address] Anion gap [Moles/Vol] 8 mmol/L Normal 3-13 [facility] Comment on above: Performed By: #### L AB17, [id number] ####Washer Repairman: CHRISTA FORD ([phone])[facility] ([facility])[address] [place] [address] [place] AST [Catalytic activity/Vol] 20 U/L Normal 15-46 [facility] Comment on above: Performed By: #### L AB17, [id number] ####Washer Repairman: CHRISTA FORD ([id number])[facility] [place] [address] [facility] Bilirubin [Mass/Vol] 0.5 mg/dL Normal 0.2-1.3 [facility] Comment on above: Performed By: #### L AB17, [id number] ####Washer Repairman: CHRISTA FORD ([phone])[facility] ([facility])[address] [place] [address] [place] Calcium [Mass/Vol] 9.5 mg/dL Normal 8.4-10.4 [facility] Comment on above: Performed By: #### L AB17, [id number] ####Washer Repairman: CHRISTA FORD ([id number])[facility] [place] [address] [place] Chloride [Moles/Vol] 106 mmol/L Normal 98-107 [facility] Comment on above: Performed By: #### L AB17, [id number] ####Washer Repairman: CHRISTA FORD ([phone])[facility] [place] [address] [place] CO2 [Moles/Vol] 27 mmol/L Normal 22-30 [facility] Comment on above: Performed By: #### Maryellen ADAIR, [id number] ####Washer Repairman: CHRISTA FORD ([phone])[facility] [place] [address] [place] Creatinine [Mass/Vol] 0.51 mg/dL Low 0.52-1.04 [facility] Comment on above: Performed By: #### Maryellen CALI17, [id number] ####Washer Repairman: CHRISTA FORD ([id number])[facility] [place] [address] [facility] GLOMERULAR FILTRATION RATE ML/MIN/1.73 SQ M.PREDICTED >90.0 Normal >60.0 [facility] Comment on above: Result Comment: Calc ulation based on the Chronic Kidney Disease Epidemiology Collaboration (CKD-EPI) equation refit without adjustment for race Performed By: #### L 17, [id number] ####Washer Repairman: CHRISTA FORD ([id number])[facility] [place] [address] [place] Glucose [Mass/Vol] 88 mg/dL Normal 70-100 [facility] Comment on above: Performed By: #### L AB17, [id number] ####Washer Repairman: CHRISTA FORD ([id number])[facility] [place] [address] [facility] Potassium [Moles/Vol] 4.0 mmol/L Normal 3.5-5.1 [facility] Comment on above: Performed By: #### L AB17, [id number] ####Washer Repairman: CHRISTA FORD ([phone])[facility] [place] [address] [facility] Protein [Mass/Vol] 7.6 g/dL Normal 6.3-8.2 [facility] Comment on above: Performed By: #### L AB17, [id number] ####Washer Repairman: CHRISTA FORD ([id number])[facility] ([facility])[address] [place] [address] [facility] Sodium [Moles/Vol] 141 mmol/L Normal 135-145 [facility] Comment on above: Performed By: #### L AB17, [id number] ####Washer Repairman: CHRISTA FORD ([phone])[facility] [place] [address] [facility] Urea nitrogen [Mass/Vol] 10 mg/dL Normal 7-17 [facility] Comment on above: Performed By: #### L AB17, [id number] ####Washer Repairman: CHRISTA FORD ([id number])[facility] [place] [address] [facility] Comprehensive metabolic 1998 panelon 10-09-2023 Albumin [Mass/Vol] 4.4 g/dL 3.5 - 5.0 g/dL [facility] ALP [Catalytic activity/Vol] 53 U/L 38 - 126 U/L [facility] ALT [Catalytic activity/Vol] 14 U/L 0 - 34 U/L [facility] Anion gap [Moles/Vol] 8 mmol/L 3 - 13 mmol/L [facility] AST [Catalytic activity/Vol] 20 U/L 15 - 46 U/L [facility] Bilirubin [Mass/Vol] 0.5 mg/dL 0.2 - 1 .3 mg/dL [facility] Calcium [Mass/Vol] 9.5 mg/dL 8.4 - 10. 4 mg/dL [facility] Chloride [Moles/Vol] 106 mmol/L 98 - 10 7 mmol/L [facility] CO2 [Moles/Vol] 27 mmol/L 22 - 30 mmol/L [facility] Creatinine [Mass/Vol] 0.51 mg/dL Low 0.52 - 1.04 mg/dL [facility] GFR/1.73 sq M.predicted MDRD (S/P/Bld) [Vol rate/Area] - PINF [facility] Comment on above: Calculation based on the Chronic Kidney Disease Epidemiology Collaboration (CKD-EPI) equation refit without adjustment for race Glucose [Mass/Vol] 88 mg/dL 70 - 100 mg/dL [facility] Interpretation and review of laboratory results Abnormal [facility] Potassium [Moles/Vol] 4.0 mmol/L 3.5 - 5.1 mmol/L [facility] Protein [Mass/Vol] 7.6 g/dL 6.3 - 8.2 g/dL [facility] Sodium [Moles/Vol] 141 mmol/L 135 - 145 mmol/L [facility] Urea nitrogen [Mass/Vol] 10 mg/dL 7 - 17 mg/dL [facility] ED Provider Noteon ED Provider Note EMERGENCY DEPARTMENT ENCOUNTER Pt Name: Sara Chiang Birthdate 2005 Date of evaluation: 10/09/2023 ED Provider: Stephany Davila PA-C CHIEF COMPLAINT Chief Complaint Patient presents with Dizziness Pt reports dizziness on and off for 3 months, pt also reports lower abdominal pain and decreased appetite for 3 months. Per pt's mother she is supposed to have outpatient lab work down but has not followed up. Pt placed on pepcid but unsure why. Denies dizziness at this time. Pt also reports headaches. HISTORY OF PRESENT ILLNESS (Location/Symptom, Timing/Onset, Context/Setting, Quality, Duration, Modifying Factors, Severity) Note limiting factors. I wore appropriate PPE for the entirety of this encounter. HPI Sara Chiang is a 18 y.o. female who presents to the emergency department for dizziness that has been ongoing since June with associated decreased appetite and lower abdominal discomfort. The patient states she has been seen by her primary care for this and was ordered outpatient blood work but states that she did not get this done because she did not feel that that was going to answer any of her questions. The patient denies any worsening symptoms today prompting her visit to the ED. She states that her primary care gave her a prescription of Pepcid and states that she does not know why that she was given this but will not take it. She denies chance of , urinary symptoms, fever, chills. She does note that after she eats she will occasionally feel nauseous causing her lack of appetite. Nursing Notes were reviewed. Limitations to history: None Outside historians: None REVIEW OF SYSTEMS Review of Systems 14 systems reviewed, positives and pertinent negatives as per HPI. All other systems were reviewed and are negative. PAST MEDICAL HISTORY Past Medical History: Diagnosis Date Anxiety Depression SURGICAL HISTORY No past surgical history on file. CURRENT MEDICATIONS Previous Medications ESCITALOPRAM (LEXAPRO) 20 MG TABLET Take 1 tablet (20 mg) by mouth Nightly. FAMOTIDINE (PEPCID) 20 MG TABLET Take 1 tablet (20 mg) by mouth daily. LEVONORGESTREL (KYLEENA) 19.5 MG INTRAUTERINE DEVICE 1 each by IntraUTERine route Once. Placed by dr graham macias 02/2203 MULTIPLE VITAMIN (MULTIVITAMIN) CAPSULE Take 1 capsule by mouth daily. ALLERGIES Patient has no known allergies. FAMILY HISTORY Family History Problem Relation Name Age of Onset Drug abuse Father Depression Father Substance Abuse Father Bipolar disorder Father Anxiety disorder Father Breast cancer Paternal Grandmother Diabetes Paternal Grandmother Bipolar disorder Paternal Grandmother SOCIAL HISTORY Social History Socioeconomic History Marital status: Single Tobacco Use Smoking status: Never Passive exposure: Never Smokeless tobacco: Never Vaping Use Vaping Use: Never used Substance and Sexual Activity Alcohol use: Never Drug use: Never Sexual activity: Yes Social Determinants of Health Financial Resource Strain: Low Risk (04/18/2023) Overall Financial Resource Strain (CARDIA) Difficulty of Paying Living Expenses: Not hard at all Food Insecurity: No Food Insecurity (04/18/2023) Hunger Vital Sign Worried About Running Out of Food in the Last Year: Never true Ran Out of Food in the Last Year: Never true Transportation Needs: No Transportation Needs (04/18/2023) PRAPARE - Transportation Lack of Transportation (Medical): No Lack of Transportation (Non-Medical): No Physical Activity: Sufficiently Active (04/18/2023) Exercise Vital Sign Days of Exercise per Week: 7 days Minutes of Exercise per Session: 40 min Stress: No Stress Concern Present (04/18/2023) [employer] - Occupational Stress Questionnaire Feeling of Stress : Only a little Social Connections: Moderately Integrated (04/18/2023) Social Connection and Isolation Panel [NHANES] Frequency of Communication with Friends and Family: More than three times a week Frequency of Social Gatherings with Friends and Family: More than three times a week Attends Judaism Services: More than 4 times per year Active Member of Clubs or Organizations: Yes Attends Club or Organization Meetings: More than 4 times per year Marital Status: Never Housing Stability: Low Risk (04/18/2023) Housing Stability Vital Sign Unable to Pay for Housing in the Last Year: No Number of Places Lived in the Last Year: 1 Unstable Housing in the Last Year: No SCREENINGS Emmett Coma Scale Best Eye Response: Spontaneous Best Verbal Response: Oriented Best Motor Response: Follows commands Elisha Coma Scale Score: 15 PHYSICAL EXAM ED Triage Vitals [10/09/23 1524] Temp Heart Rate Resp BP 36.7 ?C (98.1 ?F) 69 16 120/75 SpO2 Temp Source Heart Rate Source Patient Position 99 % Oral Monitor Sitting BP Location FiO2 (%) Left arm -- Physical Exam Kylie (more content not included)... Normal [facility] HCG QUANTITATIVE BLOODon HCG QUANTITATIVE <2 Normal Females <=5 [facility] Comment on above: Result Comment: JAMES Ramírez COMMENTS: Values in should double every 2 to 3 days for the first 6 weeks. Elevated concentrations of human chorionic gonadotropin (hCG) measured in the first trimester of are observed in normal , but may serve as an indication of chorionic carcinoma, hydatiform mole, or multiple . Decreasing hCG concentrations indicate threatened or missed , recent termination of , ectopic , gestosis or intrauterine . Elizabeth- and postmenopausal females may have detectable hCG concentrations (< or = to 14 mIU/mL) due to pituitary production of hCG. Serum follicle-stimulating hormone measurement may aid in ruling-out in this population. Cutoffs of greater than 20 to 45 mIU/mL have been suggested and are method dependent. False-elevations (called phantom human chorionic gonadotropin: hCG) may occur with patients who have human antianimal or heterophilic antibodies. Some specimens may not dilute linearly due to abnormal forms of hCG. Elevated hCG concentrations not associated with are found in patients with other diseases such as tumors of the germ cells, ovaries, bladder, pancreas, stomach, lungs, and liver. This test is not intended to detect or monitor tumors or gestational trophoblastic disease. Performed By: #### L AB17, [id number] ####Washer Repairman: CHRISTA FORD ([phone])[facility] ([facility])[address] Laboratory - Chemistry and C hemistry - challengeon 10-09-2023 HCG.beta subunit Qn Females <=5 mIU/mL [facility] No Panel Informationon 10-08 Values in should double every 2 to 3 days for the first 6 weeks. Elevated concentrations of human chorionic gonadotropin (hCG) measured in the first trimester of are observed in normal , but may serve as an indication of chorionic carcinoma, hydatiform mole, or multiple . Decreasing hCG concentrations indicate threatened or missed , recent termination of , ectopic , gestosis or intrauterine . Elizabeth- and postmenopausal females may have detectable hCG concentrations (< or = to 14 mIU/mL) due to pituitary production of hCG. Serum follicle-stimulating hormone measurement may aid in ruling-out in this population. Cutoffs of greater than 20 to 45 mIU/mL have been suggested and are method dependent. False-elevations (called phantom human chorionic gonadotropin: hCG) may occur with patients who have human antianimal or heterophilic antibodies. Some specimens may not dilute linearly due to abnormal forms of hCG. Elevated hCG concentrations not associated with are found in patients with other diseases such as tumors of the germ cells, ovaries, bladder, pancreas, stomach, lungs, and liver. This test is not intended to detect or monitor tumors or gestational trophoblastic disease. [facility] CHLAMYDIA/GONORRHEAon 2023 CHLAMYDIA/GONORRHEA NEISSERIA GONORRHOEA E DNA PROBE Reference Not Detected Not Detected CHLAMYDIA TRACHOMATIS DNA PROBE Reference Not Detected Not Detected ORDER COMMENTS: Methodology: real-time PCR This test is intended for medical purposes only and is not intended for the evaluation of suspected sexual abuse or for other forensic purposes. In certain contexts, culture may be required to meet applicable laws and regulations for diagnosis of C. trachomatis and N. gonorrhoeae infections. Per 2014 CDC recommmendations, this test does not include confirmation of positive results by an alternative nucleic acid target. A negative result does not exclude the possibility of infection. A result of invalid indicates that a new specimen should be collected if clinically indicated. Normal [facility] Comment on above: Order Comment: [facility] - PLEASE SEND TO [facility]. Performed By: #### L [id number] ####Washer Repairman: RANDY JOLLY ([phone])[facility] ([facility])[address] [place] [address] N. gonorrhoeae DNA ALIREZA+probe Ql (Cervical mucus)on 08-27-2023 C. trachomatis DNA ALIREZA+probe Ql (Unsp spec) Not detected Not Detected [facility] Interpretation and review of laboratory results Normal [facility] N gonorrhoeae, DNA Probe Not detected Not Detected [facility] Methodology: real-time PCR This test is intended for medical purposes only and is not intended for the evaluation of suspected sexual abuse or for other forensic purposes. In certain contexts, culture may be required to meet applicable laws and regulations for diagnosis of C. trachomatis and N. gonorrhoeae infections. Per 2014 CDC recommmendations, this test does not include confirmation of positive results by an alternative nucleic acid target. A negative result does not exclude the possibility of infection. A result of invalid indicates that a new specimen should be collected if clinically indicated. [facility] Office Visiton 08-27-2023 Follow-up visit [id number] Sara Chiang 2005 F Date Provider Department Center 08/27/2023 [facility] FAMILY P None Family History Problem Relation Age of Onset Drug abuse Father Depression Father Substance Abuse Father Bipolar disorder Father Anxiety disorder Father Breast cancer Paternal Grandmother Diabetes Paternal Grandmother Bipolar disorder Paternal Grandmother Family Status - Relation Status Age at Mother Alive Father Alive Maternal Grandmother Alive Maternal Grandfather Paternal Grandmother Alive Paternal Grandfather Alive Level of Service:07992 [place] OFFICE/OUTPATIENT NEW MODERATE MDM 45 MINUTES Reason for Visit and Comments: New Patient [542] - Check up Referral [825] - Would like to get set up with a counselor Nausea [70] - Has been going on for 4-6 weeks Normal [facility] PATINSon 08-27-2023 PATINS keep a food diary fo r 2 weeks Take multivitamin and famotidine daily Keep fluids up up to 64 ounces daily Start eating pb and j / soups/ based on symptoms expand [facility] Health Resources office: [address] [phone] 2. [facility]: [address] [facility] And other locations in [facility]. [phone] 3.[facility]: [address] [facility], 4. [facility] 580 [facility] [phone] 5. [facility]: [address] [facility] [phone] .6. [facility], [facility] [address] [place] [address], [facility] [address] PH: Other options: [facility] at [phone], [facility] at [phone] [facility] at [phone] You may also go to [email or web address] and find a counselor in your area and refine the search by adding your insurance. The following options do not always take medicaid types of insurance, but you can call and discuss finances with them to find out their billing process. [facility] [address] [place] [address] or [address] [place], [place] [phone] for Appointments www.[employer] Suzanne Delarosa, EdS, [facility] [address] [facility] [address] [place], [place] [email or web address] [phone] [facility] Women [address] [facility] [phone] [facility], [address], [address] [place], [place] [phone] [facility] ([facility]) [address] [place] [address] (on line counseling available to those who live in [place] and are unable to get to the office) [facility] ([facility]) [phone] - You can request woman counselor specializing in Women's issues and life adjustment issues. National suicide hotline - (TALK) or call/text 781 Crisis Text Line Text 4HOPE to 507590 anytime, any day and anonymous [facility] resources: Mental Health Hotline: 796.866.1350 ADM Addiction crisis hotline 762-873-4457 [facility] Emergency Services (PES) 04/12 Support Hotline: 648.701.4884 Addiction Helpline at 807-920-0811 when someone is ready to make an appointment for addiction help. Hours of operation are Sunday through Sunday from 8:30am - 4:00pm. Mental Health Crisis anytime at 925-585-2239 [facility] Psychiatric Intake Response Center at 950-109-8330 or 066-148-2832 National Suicide Prevention Lifeline anytime at 3-752-034-VXDQ (7034) Homeless Hotline at 642-527-0457 Domestic Violence help line anytime at 943-362-3702 [facility] at 880-434-7507 National Disaster Distress Helpline at 603-164-7409 or text TalkWithUs to 55461 Additional resources for food, housing, and emergency services available on the [employer] Card or call 211 to be connected with resources. [facility]: 04/12 Crisis & Behavioral Health Helpline: [facility]: Crisis line: [phone] Normal [facility] Progress Noteon 08-27-2023 Progress Note Patient was able to ambulate safely to the examination room. Provider was not notified of possible fall risk Normal [facility] Progress Note Pt asked if they hav e been to specialist,been in ER /hospitalized or had testing since last visit. No Normal [facility] Progress Note [facility] [address] [facility] [address] Dept: [phone] Dept Loc: [phone] Visit type: New patient Reason for Visit: New Patient (Check up), Referral (Would like to get set up with a counselor ), and Nausea (Has been going on for 4-6 weeks ) Assessment and Plan 1. Recurrent major depressive disorder, remission status unspecified (HCC) - [facility] - escitalopram (Lexapro) 20 MG tablet; Take 1 tablet (20 mg) by mouth Nightly., Starting 08/27/2023, Until 11/25/2023, Normal 2. Routine screening for STI (sexually transmitted infection) - Chlamydia/Gonorrhea 3. Need for hepatitis C screening test - Hepatitis C antibody 4. Encounter for screening for HIV - HIV-1 and HIV-2 Antigen-Antibody Screen 5. Anxiety - escitalopram (Lexapro) 20 MG tablet; Take 1 tablet (20 mg) by mouth Nightly., Starting 08/27/2023, Until 11/25/2023, Normal 6. Nausea - famotidine (Pepcid) 20 MG tablet; Take 1 tablet (20 mg) by mouth daily., Starting 08/27/2023, Until 02/23/2024, Normal 7. Decreased appetite - famotidine (Pepcid) 20 MG tablet; Take 1 tablet (20 mg) by mouth daily., Starting 08/27/2023, Until 02/23/2024, Normal Chronic issue. Patient currently on Lexapro 20mg daily, refilled. Interested in counseling, provided resources and referral. 2. - 4. Screening. Pt amenable to STI screening. 6. - 7. Acute issues. 1.5 month history, decreased tolerance to food due to nausea. Encouraged to keep food journal, increase water intake, daily multivitamin, and active intake when able. Will trial famotidine and fu in 5wks. Patient was involved and agreeable in shared decision making.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 ([facility])[address] Monocytes (Bld) [#/Vol] 0.4 10*3/uL Normal 0.3-0.6 [facility] Comment on above: Performed By: #### L [id number] ####Washer Repairman: CHRISTA CRYSTALSUZIDES ([id number])[facility] [place] ([facility])[address] Monocytes/100 WBC (Bld) 4.8 % Normal 3.0-6.0 [facility] Comment on above: Performed By: #### L [id number] ####Washer Repairman: CHRISTA JONESDES ([id number])[facility] [place] ([facility])[address] Neutrophils (Bld) [#/Vol] 6.0 10*3/uL Normal 3.4-6.1 [facility] Comment on above: Performed By: #### L [id number] ####Washer Repairman: CHRISTA JONESDES ([id number])[facility] [place] ([facility])[address] Neutrophils/100 WBC (Bld) 75.8 % High 34.0-64.0 [facility] Comment on above: Performed By: #### L [id number] ####Washer Repairman: CHRISTA JONESDES ([id number])[facility] [place] ([facility])[address] NRBC (PER 100 WBCS) BY AUTOMATED COUNT 0.1 /100 WBCs Normal 0.0-2.0 [facility] Comment on above: Performed By: #### L [id number] ####Washer Repairman: CHRISTA FORD ([id number])[facility] [place] ([facility])[address] Platelet mean volume (Bld) [Entitic vol] 8.5 fL Normal 7.4-12.4 [facility] Comment on above: Performed By: #### L [id number] ####Washer Repairman: CHRISTA FORD ([id number])[facility] [place] ([facility])[address] Platelets (Bld) [#/Vol] 264 10*3/uL Normal 150-450 [facility] Comment on above: Performed By: #### L [id number] ####Washer Repairman: CHRISTA FORD ([id number])[facility] ([facility])[address] RBC (Bld) [#/Vol] 5.31 10*6/uL High 4.10-4.80 [facility] Comment on above: Performed By: #### L [id number] ####Washer Repairman: CHRISTA FORD ([id number])[facility] ([facility])[address] WBC (Bld) [#/Vol] 8.0 10*3/uL Normal 4.5-13.0 [facility] Comment on above: Performed By: #### L [id number] ####Washer Repairman: CHRISTA FORD ([id number])[facility] ([facility])[address] COMPLETE URINALYSISon 2022 BACTERIA (#/HPF) IN URINE Few Abnormal Negative [facility] Comment on above: Performed By: #### L [id number] #### Washer Repairman: CHRISTA FORD ([id number]) [facility] ([facility]) [address] BILIRUBIN, TOTAL PRESENCE IN URINE Negative Normal Negative [facility] Comment on above: Performed By: #### L [id number] #### Washer Repairman: CHRISTA FORD ([phone]) [facility]) [address] Clarity (U) Clear Normal Clear [facility] Comment on above: Performed By: #### L AB347 #### Washer Repairman: CHRISTA FORD ([id number]) [facility]) [address] Color (U) Light Yellow Normal Lt. Yellow [facility] Comment on above: Performed By: #### L [id number] #### Washer Repairman: CHRISTA FORD ([id number]) [facility]) [address] GLUCOSE (MG/DL) IN URINE Normal Normal Normal (<70) [facility] Comment on above: Performed By: #### L [id number] #### Washer Repairman: CHRISTA FORD ([id number]) [facility]) [address] HEMOGLOBIN PRESENCE IN URINE Negative Normal Negative [facility] Comment on above: Performed By: #### L [id number] #### Washer Repairman: CHRISTA FORD ([id number]) [facility]) [address] Ketones Ql (U) Trace Abnormal Negative [facility] Comment on above: Performed By: #### L [id number] #### Washer Repairman: CHRISTA FORD ([id number]) [facility]) [address] LEUKOCYTE ESTERASE PRESENCE IN URINE BY TEST STRIP Negative Normal Negative [facility] Comment on above: Performed By: #### L [id number] #### Washer Repairman: CHRISTA FORD ([id number]) [facility]) [address] [place] [address] [place] MUCUS (#/LPF) IN URINE SEDIMENT Many Abnormal Negative [facility] Comment on above: Performed By: #### L [id number] #### Washer Repairman: CHRISTA JONESDES ([id number]) [facility] [address] NITRITE PRESENCE IN URINE Negative Normal Negative [facility] Comment on above: Performed By: #### L [id number] #### Washer Repairman: CHRISTA FORD ([id number]) [facility] [address] pH (U) 6.0 [pH] Normal 5.0-8.0 [facility] Comment on above: Performed By: #### L [id number] #### Washer Repairman: CHRISTA JONESDES ([id number]) [facility] [address] Protein (U) [Mass/Vol] 10 mg/dL Abnormal Negative [facility] Comment on above: Performed By: #### L [id number] #### Washer Repairman: CHRISTA JONESDES ([id number]) [facility] [address] [place] [address] [place] RBC (#/HPF) IN URINE SEDIMENT 0-2 Normal 0-2 [facility] Comment on above: Performed By: #### L [id number] #### Washer Repairman: CHRISTA FORD ([id number]) [facility] [address] Specific gravity (U) [Rel density] 1.024 Normal 1.005-1.030 [facility] Comment on above: Performed By: #### L [id number] #### Washer Repairman: CHRISTA FORD ([id number]) [facility] [address] SQUAMOUS EPITHELIAL CELLS (#/HPF) IN URINE SEDIMENT 3-5 Normal 3-5 [facility] Comment on above: Performed By: #### L [id number] #### Washer Repairman: CHRISTA FORD ([id number]) [facility] ([facility]) [address] UROBILINOGEN (MG/DL) IN URINE Normal Normal Normal (0-1) [facility] Comment on above: Performed By: #### L [id number] #### Washer Repairman: CHRISTA FORD ([id number]) [facility] ([facility]) [address] WBC (LEUKOCYTE) (#/HPF) IN URINE SEDIMENT 0-2 Normal 0-5 [facility] Comment on above: Performed By: #### L [id number] #### Washer Repairman: CHRISTA FORD ([id number]) [facility] ([facility]) [address] [place] [address] COMPREHENSIVE METABOLIC PANE Mendez 04-17-2023 Albumin [Mass/Vol] 4.9 g/dL Normal 3.5-5.0 [facility] Comment on above: Performed By: #### L AB46, LAB17 ####Washer Repairman: CHRISTA FORD ([id number])[facility] ([facility])[address] ALP [Catalytic activity/Vol] 71 U/L Normal 38-126 [facility] Comment on above: Performed By: #### L AB46, LAB17 ####Washer Repairman: CHRISTA FORD ([id number])[facility] ([facility])[address] ALT [Catalytic activity/Vol] 16 U/L Normal 0-34 [facility] Comment on above: Performed By: #### L AB46, LAB17 ####Washer Repairman: CHRISTA FORD ([id number])[facility] ([facility])[address] Anion gap [Moles/Vol] 16 mmol/L High 3-13 [facility] Comment on above: Performed By: #### L AB46, LAB17 ####Washer Repairman: CHRISTA FORD ([id number])[facility] [place] ([facility])[address] AST [Catalytic activity/Vol] 24 U/L Normal 15-46 [facility] Comment on above: Performed By: #### L AB46, LAB17 ####Washer Repairman: CHRISTA FORD ([id number])[facility] ([facility])[address] Bilirubin [Mass/Vol] 1.0 mg/dL Normal 0.2-1.3 [facility] Comment on above: Performed By: #### L AB46, LAB17 ####Washer Repairman: CHRISTA FORD ([id number])[facility] ([facility])[address] Calcium [Mass/Vol] 9.7 mg/dL Normal 8.4-10.4 [facility] Comment on above: Performed By: #### L AB46, LAB17 ####Washer Repairman: CHRISTA FORD ([id number])[facility] ([facility])[address] [place] [address] [place] Chloride [Moles/Vol] 103 mmol/L Normal 98-107 [facility] Comment on above: Performed By: #### L AB46, LAB17 ####Washer Repairman: CHRISTA FORD ([id number])[facility] ([facility])[address] [place] [address] [place] CO2 [Moles/Vol] 22 mmol/L Normal 22-30 [facility] Comment on above: Performed By: #### L AB46, LAB17 ####Washer Repairman: CHRISTA FORD ([id number])[facility] [place] ([facility])[address] [place] [address] [place] Creatinine [Mass/Vol] 0.57 mg/dL Normal 0.52-1.04 [facility] Comment on above: Performed By: #### L AB46, LAB17 ####Washer Repairman: CHRISTA FORD ([id number])[facility] ([facility])[address] [place] [address] [place] GLOMERULAR FILTRATION RATE ML/MIN/1.73 SQ M.PREDICTED >90.0 Normal >60.0 [facility] Comment on above: Result Comment: Calc ulation based on the Chronic Kidney Disease Epidemiology Collaboration (CKD-EPI) equation refit without adjustment for race Performed By: #### L AB46, LAB17 ####Washer Repairman: CHRISTA FORD ([id number])[facility] ([facility])[address] [place] [address] [place] Glucose [Mass/Vol] 109 mg/dL High 70-100 [facility] Comment on above: Performed By: #### L AB46, LAB17 ####Washer Repairman: CHRISTA JONESDES ([id number])[facility] ([facility])[address] [place] [address] [place] Potassium [Moles/Vol] 3.6 mmol/L Normal 3.5-5.1 [facility] Comment on above: Performed By: #### L AB46, LAB17 ####Washer Repairman: CHRISTA FORD ([id number])[facility] ([facility])[address] [place] [address] [place] Protein [Mass/Vol] 9.1 g/dL High 6.3-8.2 [facility] Comment on above: Performed By: #### L AB46, LAB17 ####Washer Repairman: CHRISTA FORD ([id number])[facility] ([facility])[address] [place] [address] [place] Sodium [Moles/Vol] 141 mmol/L Normal 135-145 [facility] Comment on above: Performed By: #### L AB46, LAB17 ####Washer Repairman: CHRISTA FORD ([id number])[facility] ([facility])[address] [place] [address] [place] Urea nitrogen [Mass/Vol] 10 mg/dL Normal 7-17 [facility] Comment on above: Performed By: #### L AB46, LAB17 ####Washer Repairman: CHRISTA FORD ([id number])[facility] [place] ([facility])[address] DRUGS OF ABUSEon 04-17-2023 AMPHETAMINE SCREEN Negative Normal [facility] Comment on above: Performed By: #### L [id number] ####Washer Repairman: CHRISTA FORD ([id number])[facility] [place] ([facility])[address] BARBITURATES SCREEN Negative Normal [facility] Comment on above: Performed By: #### L [id number] ####Washer Repairman: CHRISTA FORD ([id number])[facility] [place] ([facility])[address] BENZODIAZEPINE SCREEN Negative Normal [facility] Comment on above: Performed By: #### L [id number] ####Washer Repairman: CHRISTA FORD ([id number])[facility] [place] ([facility])[address] COCAINE METAB. SCREEN Negative Normal [facility] Comment on above: Performed By: #### L [id number] ####Washer Repairman: CHRISTA FORD ([id number])[facility] [place] ([facility])[address] METHADONE SCREEN Negative Normal [facility] Comment on above: Performed By: #### L [id number] ####Washer Repairman: CHRISTA FORD ([id number])[facility] [place] ([facility])[address] OPIATES SCREEN Negative Normal [facility] Comment on above: Performed By: #### L [id number] ####Washer Repairman: CHRISTA FORD ([id number])[facility] [place] ([facility])[address] OXYCODONE SCREEN Negative Normal [facility] Comment on above: Performed By: #### L [id number] ####Washer Repairman: CHRISTA JONESDES ([id number])[facility] ([facility])[address] [place] [address] PHENCYCLIDINE SCREEN Negative [facility] Comment on above: Result Comment: JAMES Ramírez COMMENTS: The expected value for all of the drugs listed above is Negative. The following drugs or drug groups have been screened for by Immunoassay at the following thresholds: Amphetamine class (1000 ng/mL) Barbiturates (200 ng/mL) Benzodiazepines (200 ng/mL) Cocaine (300 ng/mL) Methadone (300 ng/mL) Opiates (300 ng/mL) Oxycodone (100 ng/mL) PCP (25 ng/mL) NOTE: These results are for medical treatment only. Analysis performed using non-forensic procedures. POSITIVE results are NOT confirmed by a more specific alternative method unless requested. If confirmation is needed, request confirmation under separate order. Performed By: #### L [id number] ####Washer Repairman: CHRISTA FORD ([id number])[facility] [place] [address] ED Nursing Noteon 04-17-2023 ED Nursing Note Bed: 15 Expected date: Expected time: Means of arrival: Comments: EMS Bibiana Abernathy RN 04/17/231926 [facility] ED Nursing Note Pt stated her boyfriend and her were fighting. Pt stated he broke up with her and that she wanted to kill herself. Pt denies having active suicidal thoughts. Pt stated she has been having active suicidal thoughts for years and actively tried to commit suicide taking her prescription medication. [facility] ED Provider Noteon 3 ED Provider Note EMERGENCY DEPARTMENT ENCOUNTER Pt Name: Sara Chiang Birthdate 2005 Date of evaluation: 04/17/2023 ED Provider: Jesus Oliver MD CHIEF COMPLAINT No chief complaint on file. HISTORY OF PRESENT ILLNESS (Location/Symptom, Timing/Onset, Context/Setting, Quality, Duration, Modifying Factors, Severity) Note limiting factors. I wore appropriate PPE for the entirety of this encounter. HPI Sara Chiang is a 17 y.o. female who presents to the emergency department with chief complaint of suicidal thoughts. Patient states she texted her boyfriend who she states just broke up with her. She texted him that she was going to harm herself. She has a history of a suicide attempt earlier this year leading to psychiatric evaluation in the hospital few months ago. She notes that she had not followed up with any counseling or psychiatry since that hospitalization. Apparently the boyfriend's family called police and patient was brought in by paramedics per police. Patient denies recent fevers chills cough or cold. Patient denies drug or alcohol use Nursing Notes were reviewed. Limitations to history: None Outside historians: None REVIEW OF SYSTEMS Review of Systems: Pertinent positives as above per history of present illness. Other systems reviewed and found to be negative to a total of 10 systems reviewed. PAST MEDICAL HISTORY Past Medical History: Diagnosis Date Anxiety Depression SURGICAL HISTORY No past surgical history on file. CURRENT MEDICATIONS Previous Medications ESCITALOPRAM (LEXAPRO) 20 MG TABLET Take 20 mg by mouth Nightly. ALLERGIES Patient has no known allergies. FAMILY HISTORY No family history on file. SOCIAL HISTORY Social History Socioeconomic History Marital status: Single Tobacco Use Smoking status: Never Smokeless tobacco: Never Substance and Sexual Activity Alcohol use: Never Drug use: Never Sexual activity: Yes SCREENINGS PHYSICAL EXAM ED Triage Vitals [04/17/231931] Temp Heart Rate Resp BP 36.8 ?C (98.3 ?F) 79 20 136/82 SpO2 Temp Source Heart Rate Source Patient Position 100 % Temporal Monitor -- BP Location FiO2 (%) -- -- Physical Exam: Vital signs reviewed in nurse's notes. Patient is nontoxic in appearance. No respiratory distress. Head: Normocephalic, atraumatic Eyes: Pupils are equal, round and reactive to light. EOMI. Conjunctiva clear. Sclera anicteric ENT: Mucous membranes moist. Throat shows no erythema exudates or edema. Neck: No anterior adenopathy. No tenderness or stiffness. Lungs: Clear to auscultation bilaterally. No wheezing rales or rhonchi. Heart: Regular rate and rhythm. No audible murmur or gallop. Abdomen: Soft, nondistended, nontender. No rebound or guarding. No signs of peritonitis. Back: No midline tenderness. No flank area tenderness. Extremities: No gross deformity. No obvious tenderness. No obvious joint swelling. No calf tenderness. Good distal pulses in all 4 extremities. Neurologic: Alert and fully oriented. No focal motor, sensory deficits in all 4 extremities. Cranial nerves II through XII grossly intact. Cerebellar testing intact. DIAGNOSTIC RESULTS LABS: Labs Reviewed CBC WITH AUTO DIFFERENTIAL - Abnormal Result Value Auto WBC 8.0 RBC 5.31 (*) Hemoglobin 13.2 Hematocrit 41.3 MCV 77.8 (*) MCH 24.9 (*) MCHC 32.0 RDW 16.9 (*) Platelets 264 MPV 8.5 nRBC 0.1 Neutrophils Relative 75.8 (*) Lymphocytes Relative 17.1 (*) Monocytes Relative 4.8 Eosinophils Relative 1.6 Basophils Relative 0.7 Neutrophils Absolute 6.0 Lymphocytes Absolute 1.4 (*) Monocytes Absolute 0.4 Eosinophils Absolute 0.1 Basophils Absolute 0.1 COMPREHENSIVE METABOLIC PANEL - Abnormal SODIUM 141 POTASSIUM 3.6 CHLORIDE 103 CARBON DIOXIDE 22 ANION GAP 16 (*) UREA NITROGEN 10 CREATININE 0.57 GLUCOSE 109 (*) CALCIUM 9.7 AST (SGOT) 24 ALT 16 ALKALINE PHOSPHATASE 71 ALBUMIN 4.9 BILIRUBIN, TOTAL 1.0 TOTAL PROTEIN 9.1 (*) eGFR >90.0 COMPLETE URINALYSIS - Abnormal Color, Urine Light Yellow Clarity, Urine Clear pH, Urine 6.0 Leukocytes, Urine Negative Nitrite, Urine Negative Protein, Urine 10 (*) Glucose, Urine Normal Bilirubin, Urine Negative Ketones, Urine Trace (*) Urobilinogen, Urine Normal Blood, Urine Negative RBC, Urine 0-2 WBC, Urine 0-2 Squamous Epithelial, Urine 3-5 Bacteria, Urine Few (*) Mucus, Urine Many (*) SPECIFIC GRAVITY OF URINE (NUMERIC) 1.024 SARS-COV-2 ANTIGEN - Normal SARS-CoV-2 Antigen Negative ETHANOL - Normal ETHANOL IN SER/PLAS <0.010 Narrative: NOTE: This result is for medical treatment only. Analysis performed using non-forensic procedures. DRUGS OF ABUSE AMPHETAMINE SCREEN Negative BARBITURATES SCREEN Negative BENZODIAZEPINE SCREEN Negative COCAINE METAB. SCREEN Negative METHADONE SCREEN Negative OPIATES SCREEN Negative OXYCODONE SCREEN Negative PHENCYCLI (more content not included)... Normal [facility] ETHANOLon 04-17-2023 ETHANOL IN SER/PLAS <0.010 Normal 0.000-0.010 [facility] Comment on above: Result Comment: JAMES Ramírez COMMENTS: NOTE: This result is for medical treatment only. Analysis performed using non-forensic procedures. Performed By: #### L [id number], [id number] ####Washer Repairman: CHRISTA FORD ([id number])[facility] [place] [address] HCG QUALITATIVE URINEon 12-0 Beta HCG ( test) Ql (U) Negative Normal Negative [facility] Comment on above: Result Comment: Jen liriano note: Very dilute urine specimens, as indicated by a low specific gravity, may not contain community service representative levels of hCG. If is still suspected, a first morning urine specimen should be collected 48 hours later and tested. ORDER COMMENTS: is the most common reason for HCG in urine, although choriocarcinoma, hydatidiform mole, and certain nontrophoblastic malignancies also result in detectable urinary HCG levels. Sensitivity = 20mIU/mL. Performed By: #### L [id number] ####Washer Repairman: CHRISTA FORD ([phone])[facility])[address] [place] [address] SARS-COV-2 ANTIGENon 023 SARS-COV-2 ANTIGEN SARS-COV-2 ANTIGEN -BINAX Reference Negative Negative A negative result does not rule out the possibility of SARS-CoV-2 infection. NAAT-based methods should be considered for symptomatic patients presenting greater than seven days after onset of symptoms. Method: Lateral flow immunoassay. Fact sheets for healthcare providers and patients can be found at the following sites: https://www.fda.gov/m edia/905542/download https://www.fda.gov/m edia/267146/download Normal [facility] Comment on above: Performed By: #### L [id number] #### Washer Repairman: CHRISTA FORD ([id number]) [facility]) [address] CNOVon 03-13-2023 CNOV Office Visit (OBGWMA ) SARA CHIANG ([id number]) 3 F Date Time Provider Department 03/13/23 2:45 PM JAIME MACIAS During your visit today, we recorded the following information about you: Blood pressure Weight Height Last Period 118/75 69.1 kg 1.651 m 02/27/23 Jaime Macias MD 03/13/2023 3:02 PM Signed Sara Chiang presents today for IUD insertion for contraception. Patient's last menstrual period was 02/27/2023 (approximate). INFORMED CONSENT The procedure including risks, benefits, options and personnel performing the procedure was discussed with the patient. There are no contraindications to the procedure. Sara Chiang expressed understanding and agreed to proceed. UNIVERSAL PROTOCOL / SAFETY CHECKLIST Procedure to be performed: IUD Insertion Sign in Communication: Completed Time Out: Team Confirms the Correct Patient, Correct Procedure, Correct Site and Site Marking, Correct Position (if applicable). Time: yes Affirmation of Time Out: YES Sign Out Discussion: Completed Jaime Macias MD, MD IUD INFO: Type: KYLEENA Lot#: [id number] Expiration Date: Anesthesia: The uterus was sounded to 7 cm and the uterus is Midposition.. After prepping the cervix with betadine and using sterile technique, the Kyleena IUD was inserted without difficulty and the string was cut to 2cm's from the external os of the cervix. The patient tolerated the procedure well. PLAN: Pt. understands to look for signs and symptoms of infection including but not limited to fever, malodorous vaginal discharge and/or pain. Antibiotic ordered no. She was told to check the string monthly for accurate placement and shown how to do it. ASSESSMENT/PLAN: 1. Encounter for IUD insertion - ICD9: V25.11, ICD10: Z30.430 - Recheck in 4 weeks - LEVONORGESTREL 17.5 MCG/24 HRS (5YRS) 19.5MG INTRAUTERINE DEVICE Jaime Macias MD Referring Provider: JAIME MACIAS [[id number]] Allergies As of Date: 03/13/2023 (No Known Allergies) Date Reviewed: 03/13/2023 Reviewed by: Jaime Macias MD - Fully Assessed Reason for Visit: Procedure [88] Cmt: Kyleena Primary Visit Diagnosis:Encounter for IUD insertion [Z30.430] Order(s):[] levonorgestrel 17.5 mcg/24 hrs (5 yrs) 19.5 mg 1 Each intrauterine device (KYLEENA)Disp: Rfl: Prescriptions as of 03/13/2023 - escitalopram oxalate (LEXAPRO) 20 mg tablet Take 20 mg by mouth once daily. Problem List As Of Date 03/13/2023 Noted Resolved Migraine without status migrainosus, not intrac*01/23/2023 Menorrhagia with irregular cycle [N92.1] 01/23/2023 Encounter for initial prescription of intrauter*01/23/2023 Prescriptions ordered this encounter Disp Refills Start End LEVONORGESTREL 17.5 MCG/24 HRS (5YRS* 03/13/2023 03/13/2023 Route: INTRAUTERINE Disposition: Return in about 4 weeks (around 04/10/2023). Follow-up and Disposition History for Encounter Date Provider Department Center 03/13/2023 [id number] MACIAS OBGW[facility] ER[facility]Y Sadia CLAY Encounter Status:Closed by JAIME MACIAS on 03/13/23 Normal [facility] B-HCG SerPl-aCncon 3 HCG.beta subunit Qn m[IU]/mL Normal <5.0 [facility] Comment on above: Order Comment: Speci men Type: BLOOD SPECIMEN Ordering Facility: [facility] Address: [address] [place] [id number] Performed By: #### 2 1198-7 #### [facility] CLIA [id number] [address] [place] [id number] [place] Nathalie 01-25-2023 DAPHNEY Telephone (AGOBGRN) SARA CHIANG ([id number]) 3 F Date Time Provider Department 01/25/23 JAIME MACIASBGRCelia During your visit today, we recorded the following information about you: Allergies As of Date: 01/25/2023 (No Known Allergies) Date Reviewed: 01/23/2023 Reviewed by: Jaime Macias MD - Fully Assessed Reason for Visit: Orders [681] Primary Visit Diagnosis:Secondary amenorrhea [N91.1] Order(s):HCG QUANTITATIVE [SQHCGQT] Order #: [id number] FUTURE Prescriptions as of 01/25/2023 - escitalopram oxalate (LEXAPRO) 20 mg tablet Take 20 mg by mouth once daily. Problem List As Of Date 01/25/2023 Noted Resolved Migraine without status migrainosus, not intrac*01/23/2023 Menorrhagia with irregular cycle [N92.1] 01/23/2023 Encounter for initial prescription of intrauter*01/23/2023 Encounter Status:Closed by JAIME MACIAS on 01/25/23 [facility] Celestine 01-23-2023 CNOV Office Visit (OBGWMA ) SARA CHIANG ([id number]) 3 F Date Time Provider Department 01/23/23 3:00 PM JAIME MACIASGELIAS During your visit today, we recorded the following information about you: Blood pressure Weight Height Last Period 106/74 65.8 kg 1.651 m 01/09/23 Jaime Macias MD 01/23/2023 2:58 PM Signed Sara Chiang is an 17 year old woman who presents for contraception. LMP: Patient's last menstrual period was 01/09/2023 (approximate). Periods are irregular, lasting 6 days. Dysmenorrhea:moderate , occurring first 1-2 days of flow. Cyclic symptoms include moodiness. Sexually active? Yes Contraception: none Sexual dysfunction: none Vaginitis symptoms: none PAST MEDICAL HISTORY Diagnosis Date Migraine Scoliosis History reviewed. No pertinent surgical history. FAMILY HISTORY Problem Relation Age of Onset Diabetes Paternal Grandmother Breast Cancer Paternal Grandmother Social History Tobacco Use Smoking status: Never Smokeless tobacco: Never MEDICATIONS: escitalopram oxalate (LEXAPRO) 20 mg tablet Take 20 mg by mouth once daily. ALLERGIES:Patient has no known allergies. Hx of abnormal pap? Not Applicable Regular self-breast exam? Not Applicable History of abnormal mammogram? Not Applicable REVIEW OF SYSTEMS: GENERAL:Denies fever, chills, night sweats, or changes in weight. DERMATOLOGIC: Denies any new skin conditions, rashes or changing moles. EYES: Denies recent visual changes. ENT: Denies hearing loss or tinnitus. RESPIRATORY: Denies any cough, dyspnea, or wheezing. CARDIOVASCULAR:Denies any chest pain with exertion or at rest, palpitations, syncope, shortness of breath or edema. BREASTS: Denies any breast lumps, tenderness, dimpling, skin changes, or nipple discharge. GASTROINTESTINAL: Denies any nausea, vomiting, or abdominal pain. , Denies heartburn., Denies any change in bowel habits. GENITOURINARY:Denies urinary frequency, dysuria, hematuria, nocturia, incontinence. 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 NEURO:Denies weakness, numbness or tingling., Reports headaches PSYCHIATRIC: Positive for depression. HEMATOLOGIC/LYMPHATIC /IMMUNOLOGIC: Denies anemia, bruising, bleeding abnormalities. ENDOCRINE: Denies any heat or cold intolerance, polyuria, polyphasia or polydipsia. OBJECTIVE: GENERAL APPEARANCE: cooperative, in no acute distress, alert. SKIN:Color normal, Vascularity normal, No evidence of bleeding or bruising, No lesions noted, No edema, Temperature normal, Texture normal, Mobility and turgor normal, Nails normal without clubbing NECK: Supple, no adenopathy; thyroid symmetric, normal size, no bruits BREASTS: deferred exam HEART:Normal PMI, Regular rate and rhythm, Normal heart sounds, S1 and S2, and No murmurs. ABDOMEN: soft, non-tender, no masses, no hepatosplenomegaly, and no lymphadenopathy EXTREMITIES: No skin discoloration, No edema, and Normal pulses bilaterally. PELVIC EXAM : deferred RECTAL EXAM: deferred PATIENT EDUCATION:Women's Health counselling done. ASSESSMENT/PLAN: 1. Menorrhagia with irregular cycle - ICD9: 626.2, ICD10: N92.1 (primary diagnosis) - We discussed BCP vs IUD 2. Migraine without status migrainosus, not intractable, unspecified migraine type - ICD9: 346.90, ICD10: G43.909 - She was using the patch, but experienced an increase in her headaches 3. Encounter for initial prescription of intrauterine contraceptive device (IUD) - ICD9: V25.02, ICD10: Z30.014 - Rx Haider Macias MD Allergies As of Date: 01/23/2023 (No Known Allergies) Date Reviewed: 01/23/2023 Reviewed by: Jaime Macias MD - Fully Assessed Reason for Visit: New Patient [172] Cmt: control Primary Visit Diagnosis:Menorrhagia with irregular cycle [N92.1] Other Visit Diagnoses:Migraine without status migrainosus, not intractable, unspecified migraine type [G43.909] Encounter for initial prescription of intrauterine contraceptive device (IUD) [Z30.014] Prescriptions as of 01/23/2023 - escitalopram oxalate (LEXAPRO) 20 mg tablet Take 20 mg by mouth once daily. Problem List As Of Date 01/23/2023 Noted Resolved Migraine without status migrainosus, not intrac*01/23/2023 Menorrhagia with irregular cycle [N92.1] 01/23/2023 Encounter for initial prescription of intrauter*01/23/2023 Medications Discontinued During This Encounter Prescriptions - rizatriptan (MAXALT) 10 mg tablet (Discontinued) No sig reported - topiramate (TOPAMAX) 25 mg tablet (Discontinued) No sig reported Encounter Status:Closed by JAIME MACIAS on 01/23/23 Normal [facility] No Panel InformationOrdered By: Rekha Fitch on 12-31-2022 P [place] 54 degrees [facility] Work Phone: AR Interval 134 ms [facility] Work Phone: QRS [place] 30 degrees [facility] Work Phone: QRSD Interval 84 ms [facility] Work Phone: QT Interval 406 ms [facility] Work Phone: QTC Interval 484 ms [facility] Work Phone: T Wave [place] 37 degrees [facility] Work Phone: [facility] [employer] Work Phone: No Panel Informationon 12-31 Sinus rhythm Probable left atrial enlargement RSR' in V1 or V2, probably normal variant Borderline prolonged QT interval No previous ECG available for comparison Electronically Signed On 12-31-2022 1:04:36 EDT by Rekha Chavez DO - 12/31/2022 IMPRESSION: Sinus rhythm Probable left atrial enlargement RSR' in V1 or V2, probably normal variant Borderline prolonged QT interval No previous ECG available for comparison Electronically Signed On 12-31-2022 1:04:36 EDT by Rekha Fitch [facility] [employer] Vital signsOrdered By: Lazaro Fitch on 12-31-2022 Heart rate 85 /min bpm [employer] Work Phone: CBC W Auto Differential pane l (Bld)Ordered By: Ana Luisa Knox on 12-30-2022 Basophils (Bld) [#/Vol] 0.0 10*3/uL 0.0 - 0.1 10*3/uL [employer] [facility] Basophils/100 WBC (Bld) 0.9 % 0.0 - 1.0 % [employer] [facility] Eosinophils (Bld) [#/Vol] 0.0 10*3/uL 0.0 - 0.5 10*3/uL [employer] [facility] Eosinophils/100 WBC (Bld) 0.6 % 0.0 - 3.0 % [facility] [employer] Erythrocyte distribution width (RBC) [Ratio] 16.4 % High 11.5 - 14.5 % [facility] Hematocrit (Bld) [Volume fraction] 35.9 % Low 37.0 - 46.0 % [facility] Hemoglobin (Bld) [Mass/Vol] 11.3 g/dL Low 12.0 - 15.0 g/dL [facility] Interpretation and review of laboratory results Abnormal [facility] Lymphocytes (Bld) [#/Vol] 1.4 10*3/uL Low 2.5 - 4.5 10*3/uL [facility] Lymphocytes/100 WBC (Bld) 27.3 % 25.0 - 45.0 % [facility] MCH (RBC) [Entitic mass] 23.5 pg Low 26.0 - 34.0 pg [facility] MCHC (RBC) [Mass/Vol] 31.5 % 31.0 - 37.0 % [facility] MCV (RBC) [Entitic vol] 74.4 fL Low 78.0 - 96.0 fL [facility] Monocytes (Bld) [#/Vol] 0.3 10*3/uL 0.3 - 0.6 10*3/uL [facility] Monocytes/100 WBC (Bld) 6.2 % High 3.0 - 6.0 % [facility] Neutrophils (Bld) [#/Vol] 3.5 10*3/uL 3.4 - 6.1 10*3/uL [facility] Neutrophils/100 WBC (Bld) 65.0 % High 34.0 - 64.0 % [facility] Nucleated RBC/100 WBC (Bld) [Ratio] 0.1 % [facility] Platelet mean volume (Bld) [Entitic vol] 8.3 fL 7.4 - 12.4 fL [facility] Platelets (Bld) [#/Vol] 271 10*3/uL 150 - 450 10*3/uL [facility] RBC (Bld) [#/Vol] 4.83 10*6/uL High 4.10 - 4.8 0 10*6/uL [facility] WBC (Bld) [#/Vol] 5.3 10*3/uL 4.5 - 13.0 10*3/uL [facility] Comprehensive metabolic 1998 panelon 12-30-2022 Albumin [Mass/Vol] 4.6 g/dL 3.5 - 5.0 g/dL [facility] ALP [Catalytic activity/Vol] 60 U/L 38 - 126 U/L [facility] ALT [Catalytic activity/Vol] 12 U/L 0 - 34 U/L [facility] Anion gap [Moles/Vol] 9 mmol/L 3 - 13 mmol/L [facility] AST [Catalytic activity/Vol] 27 U/L 15 - 46 U/L [facility] Bilirubin [Mass/Vol] 0.3 mg/dL 0.2 - 1 .3 mg/dL [facility] Calcium [Mass/Vol] 8.7 mg/dL 8.4 - 10. 4 mg/dL [facility] Chloride [Moles/Vol] 104 mmol/L 98 - 10 7 mmol/L [facility] CO2 [Moles/Vol] 29 mmol/L 22 - 30 mmol/L [facility] Creatinine [Mass/Vol] 0.60 mg/dL 0.52 - 1.04 mg/dL [facility] GFR/1.73 sq M.predicted MDRD (S/P/Bld) [Vol rate/Area] - PINF [facility] Comment on above: Calculation based on the Chronic Kidney Disease Epidemiology Collaboration (CKD-EPI) equation refit without adjustment for race Glucose [Mass/Vol] 96 mg/dL 70 - 100 mg/dL [facility] Potassium [Moles/Vol] 4.1 mmol/L 3.5 - 5.1 mmol/L [facility] Protein [Mass/Vol] 8.2 g/dL 6.3 - 8.2 g/dL [facility] Sodium [Moles/Vol] 142 mmol/L 135 - 145 mmol/L [facility] Urea nitrogen [Mass/Vol] 7 mg/dL 7 - 17 mg/dL [facility] Ethanol (Bld) [Mass/Vol]on 0 12-30-2022 Ethanol [Mass/Vol] 0.097 g/dL High 0.000 - 0 .010 g/dL [facility] Laboratory - Chemistry and C hemistry - challengeon 12-30-2022 Lactate [Moles/Vol] 0.5 mmol/L Low 0.7 - 2. 0 mmol/L [facility] HCG.beta subunit Qn Females < 5 mIU/mL [facility] - Drug toxicology Ordered By: Garcia Emmanuel on 12-30-2022 Amphetamines Screen method >1000 ng/mL Ql (U) Negative [facility] Barbiturates Screen method >200 ng/mL Ql (U) Negative [facility] Benzodiazepines Ql (U) Negative [facility] Methadone Screen Ql (U) Negative [facility] Opiates Screen Ql (U) Negative [facility] oxyCODONE Ql (U) Negative [facility] alth Phencyclidine Ql (U) Negative [facility] - Drug toxicology on 12-30-2022 Acetaminophen [Mass/Vol] ug/mL Low 10.0 - 30.0 ug/mL [facility] Salicylates [Mass/Vol] mg/dL 0.0 - 20.0 mg/dL [facility] No Panel Informationon 12-30 Interpretation and review of laboratory results Abnormal [facility] Values in should double every 2 to 3 days for the first 6 weeks. Elevated concentrations of human chorionic gonadotropin (hCG) measured in the first trimester of are observed in normal , but may serve as an indication of chorionic carcinoma, hydatiform mole, or multiple . Decreasing hCG concentrations indicate threatened or missed , recent termination of , ectopic , gestosis or intrauterine . Elizabeth- and postmenopausal females may have detectable hCG concentrations (< or = to 14 mIU/mL) due to pituitary production of hCG. Serum follicle-stimulating hormone measurement may aid in ruling-out in this population. Cutoffs of greater than 20 to 45 mIU/mL have been suggested and are method dependent. False-elevations (called phantom human chorionic gonadotropin: hCG) may occur with patients who have human antianimal or heterophilic antibodies. Some specimens may not dilute linearly due to abnormal forms of hCG. Elevated hCG concentrations not associated with are found in patients with other diseases such as tumors of the germ cells, ovaries, bladder, pancreas, stomach, lungs, and liver. This test is not intended to detect or monitor tumors or gestational trophoblastic disease. [facility] Interpretation and review of laboratory results Abnormal [facility] Interpretation and review of laboratory results Normal [facility] No Panel InformationOrdered By: Garcia Emmanuel on 12-30-2022 COCAINE METAB. SCREEN Negative [facility] The expected value for all of the drugs listed above is Negative. The following drugs or drug groups have been screened for by Immunoassay at the following thresholds: Amphetamine class (1000 ng/mL) Barbiturates (200 ng/mL) Benzodiazepines (200 ng/mL) Cocaine (300 ng/mL) Methadone (300 ng/mL) Opiates (300 ng/mL) Oxycodone (100 ng/mL) PCP (25 ng/mL) NOTE: These results are for medical treatment only. Analysis performed using non-forensic procedures. POSITIVE results are NOT confirmed by a more specific alternative method unless requested. If confirmation is needed, request confirmation under separate order. [employer] [facility] [facility] C. trachomatis/GC PCR Panel on [employer] 07-07-2022 C. trachomatis/GC PCR Panel on Gene[employer] Reason for preventing automatic release->Other Is this specimen being sent to an external lab?->No Release to patient->Manual release only [id number]&Urine-First Void^^^Urine&Urine C. trachomatis PCR on GeneXpert: NEGATIVE-Chlamydia trachomatis DNA: NOT DETECTED. Source: [facility] Collected: 07/07/22 11:21 Site: Urine Received : 07/07/22 15:06 C. trachomatis PCR on [employer] FINAL 07/08/22 09:14 NEGATIVE-Chlamydia trachomatis DNA: NOT DETECTED. - GC PCR on Gene[employer] FINAL 07/08/22 09:14 NEGATIVE-Neisseria gonorrhea DNA: NOT DETECTED. - Method: DNA detection by RT PCR on a GeneXpert analyzer. - NOTE: This Amplified DNA Assay should not be used for the evaluation of suspected sexual abuse or for other medico-legal indications. - Screening urine specimens for Chlamydia trachomatis and Neisseria gonorrhoeae using nucleic acid amplification is an accurate and sensitive method compared to standard techniques of detection of these pathogens. Because the pathogen is diluted in urine, it is somewhat less sensitive than a direct swab specimen evaluated by nucleic acid amplification techniques. Normal [facility] Comment on above: Performed By: #### [facility] #### [place] [address] Progress Noteon 07-07-2022 Digital Marketing Intern Authentication Interface Message Text Patient ID: Sara Chiang is a 17 y.o. female. Her chief complaint(s) include: Depression (Anxiety recheck) Assessment 1. Moderate episode of recurrent major depressive disorder 2. examination or test, unconfirmed 3. Encounter for other general counseling and advice on contraception 4. Tuberculosis screening 5. Screening examination for pulmonary tuberculosis Plan Sara was seen today for depression. Diagnoses and associated orders for this visit: Moderate episode of recurrent major depressive disorder - escitalopram (LEXAPRO) 20 MG tablet; Take 1 Tablet (20 mg) by mouth daily examination or test, unconfirmed - POCT Urine HCG - C.trachomatis/GC PCR Panel Encounter for other general counseling and advice on contraception - norelgestromin-ethiny l estradiol (XULANE) 150-35 MCG/24HR patch; Place 1 Patch onto the skin once a week Tuberculosis screening - Cancel: PPD - place [place] Screening examination for pulmonary tuberculosis Return in 6 months (on 01/04/2023) for 30m. Sara Chiang is here for depression/anxiety recheck and has additional concerns as below: Depression/anxiety - stopped counseling. Doing ok on medications and desires to stay on dose for now. Occasionally misses doses and feeling a slump after. We discussed consistency of medication. If worsening, attempt to find new counselor. Otherwise would have to switch to zoloft or see psych as on max dose lexapro. control: desires management for cycles and contraception. Start patch. Discussed benefits (controls cycles, decreases length of bleeding and heaviness and acne control) and risks (nausea, bloating, breast tenderness and headaches, Blood clots minimal, rare HTN (we screen your history), unscheduled bleeding). Still use condoms for STD prevention. HCG negative. ANA/raman sent - call [phone]- Sara's number with results. Needs PPD for job-placed today. Return early Sunday morning before 11 am for read. Counseling and /or coordination of care was greater then 45min which is more then 50% of the total time of minutes spent on the encounter. Discussed with the family regarding diagnosis , benefits and side effects of medication, follow up and prescription refill policy. Subjective HPI Comments: Taking 20mg lexapro Its working well. Out of counselor for few months. Pretty good with mediction. Prozac didn't fit. Less panic than previous. Tolerating. Drinking well. Senior at [employer] - no plans after. Mom: medications. Also interested in control. Depression is worse at night. No Friends is go. Mom is go to. Home: mom; cat, guinea pig Likes Lexapro 20mg. Menarche: 6th grade. Periods are predicdable in the same 4 weeks. 4-5 days. Tampon: heaviest days 5-6 tampons, sometimes bleed trhough. Cramps - beginning. Midol. Consult for OCPs: Is there a close Family member with a history of blood clots in legs or lungs? no If so, under what circumstance: travel, cancer, obesity, immobility, . no Did you or a close family member require blood thinning medication? no DO YOU HAVE A MEDICAL HISTORY OF; Migraines with aura - NO Sickle cell disease - NO HTN - NO Liver disease - NO History of a stroke - NO Diabetes - NO Seizures/ seizure medication - NO Do you smoke - NO Clotting problems - NO She is accompanied by her mother. Independent history obtained from mother. Depression Primary Care Review of Systems Objective Vital Signs 07/07/22 1024 BP: 108/63 Pulse: 87 Weight: 62.9 kg Height: 167 cm Body mass index is 22.55 kg/m . Physical Exam Nursing note reviewed. Constitutional: She appears well. She is active. No distress. HENT: Head: Atraumatic. Ears: Right Ear: Tympanic membrane normal. Left Ear: Tympanic membrane normal. Mouth/Throat: Mucous membranes are moist. Cardiovascular: Normal rate and regular rhythm. Heart murmur not heard. Pulmonary/Chest: Breath sounds normal. There is normal air entry. Neurological: She is alert. Vitals reviewed: Blood pressure 108/63, pulse 87, height 167 cm, weight 62.9 kg. Last Result POCT Urine HCG Collection Time: 07/07/22 11:23 AM Result Value Ref Range hCG Urine POCT Negative Negative Control Line *Present Clear Background *Present LOT # [id number] Normal [facility] Progress Noteon 12-01-2021 Digital Marketing Intern Authentication Interface Message Text Patient ID: Sara Chiang is a 16 y.o. female. Her chief complaint(s) include: 16 YEAR WELL CHILD Assessment 1. Encounter for routine child health examination without abnormal findings 2. Exercise counseling 3. Encounter for dietary counseling and surveillance 4. Need for vaccination 5. Moderate episode of recurrent major depressive disorder 6. Anxiety 7. Inattention 8. Adolescent idiopathic scoliosis of thoracolumbar region 9. DUB (dysfunctional uterine bleeding) 10. Dysmenorrhea Plan Sara was seen today for 16 year well child. Diagnoses and all orders for this visit: Encounter for routine child health examination without abnormal findings Exercise counseling Encounter for dietary counseling and surveillance - Meningococcal conjugate ACWY vaccine (MENQUADFI) - PHQ9 Assessment With Score = 6 - Health Risk Assessment - CRAFFT = 0 - COVID-19 MRNA VACCINE PFIZER 30MCG/0.3ML IM SUSP - Meningococcal B (BEXSERO) Need for vaccination - Meningococcal conjugate ACWY vaccine (MENQUADFI) - COVID-19 MRNA VACCINE PFIZER 30MCG/0.3ML IM SUSP - Meningococcal B (BEXSERO) Moderate episode of recurrent major depressive disorder Anxiety Inattention - escitalopram (LEXAPRO) 20 MG tablet; Take 10 mg (0.5 tab) PO qday for the first 3 weeks, then increase to 20 mg (1 tab) PO qday onwards. - PHQ = 6, no SI/HI/Solomon; chronic depression, anxiety, inattention for years, worse over this past year. Established with private counselor, recommended increasing frequency of visits to q2w as she had done over last school year. Responded poorly to Prozac, so instead will start Lexapro, [facility] review with PCP at recheck in 6-8 weeks. Mental health counseling, supportive care, anticipatory guidance provided. - Discussed the risks, benefits, and alternatives to the use of antidepressant medication, as well as the expected outcomes with and without medications. Discussed the possible risk of suicidal thinking and behavior in children and adolescents treated with antidepressants. Also discussed risk of behavioral activation, plus physical complaints such as headache or upset stomach. Guardians expressed understanding and provided consent to begin treatment with medication. Adolescent idiopathic scoliosis of thoracolumbar region - AMB Referral To Orthopedic Surgery; Future - SCOLIOSIS SERIES 2 to 3 VIEWS; Future - Previously established with Ortho for scoliosis, nocturnal bracing, lost to follow-up after October 2017 encounter; stopped wearing brace during interim and c/o constant back pain. Overt scoliosis on exam, repeat XR ordered, re-referred to Ortho to reestablish care. DUB (dysfunctional uterine bleeding) Dysmenorrhea - heterosexual, acoitarchal female who achieved menarche at 11yo, has always had menses abnormal in frequency and excessively painful. No concern for or STI today. - DUB/dysmenorrhea counseling, supportive care, anticipatory guidance provided. Patient adamant against further intervention, hormone management. At least recommended helping mental health dx, which will hopefully improve lifestyle habits and result in less symptomatic menses. - Keep track of menses on period rory, reassess at follow-up visit Return in about 2 months (around 02/01/2022) for new behavioral health check with [facility]CP [facility]), DUB/dysmenorrhea recheck (30 min). Total time spent managing this patient's extra dx today: 50 Minutes (MDD, anxiety, inattention, scoliosis, DUB, dysmenorrhea). Subjective HPI Comments: May 2021, referred to psych Mom calling, she has concerns that Sara is depressed and may be bi polar as dad is bi polar. Mom says she has tried several counseling agencies but they are either not taking new patients or have a long wait. I did give her several other [facility] She said she would try those to see if she can get Sara in somewhere. Private counselor mentioned concerns for ADHD, depression, anxiety. Counselor q2w during school, over the summer has had a couple visits (last visit 2 weeks ago). Rising senior in , last year mom has noticed grades starting to slip. More withdrawn, less motivated. Works at local [employer], no hobbies or regular hang outs with friends. On phone all the time. Worsening over the past year, but has been ongoing for years. COVID last December 2020, had to be out of tennis for 2 weeks, then decided not to continue tennis (lost interest). Mom and patient want to start SSRI today. H/O panic attack on Prozac (half initial dose) on day 3 of initiation years ago. Dad with BP disorder. +Scoliosis requiring nocturnal bracing, established with Ortho, last visit October 2017 with recs to RTC 6mos to discuss discontinuing brace, lost to follow-up. Stopped wearing brace, still with constant back pain. She is accompanied by her mother (Meg). Independen (more content not included)... Normal [facility] XR HAND 3V PA/LAT/OBL BILon 02-02-2019 XR HAND 3V PA/LAT/OBL MARIANNE * * *Final Report* * * DATE OF EXAM: Feb 02 2019 5:10PM [id number] - XR HAND 3V PA/LAT/OBL MARIANNE / PROCEDURE REASON: Hand pain, traumatic * * * * Physician Interpretation * * * * TECHNIQUE: XR HAND 3V PA/LAT/OBL MARIANNE - EXAM DATE: 02/02/2019 5:10 PM CLINICAL HISTORY: Hand pain, traumatic COMPARISON: None FINDINGS: 3 views of the right hand show no fracture, dislocation, or radiopaque foreign body. 3 views of the left hand show no fracture, dislocation, or radiopaque foreign body. IMPRESSION: Normal radiographs of the hands. Cotton Tipper: PSCB Transcribe Date/Time: Feb 02 2019 5:45P Dictated by : GENARO MEYER MD This examination was interpreted and the report reviewed and electronically signed by: GENARO MEYER MD on Feb 02 2019 5:46PM EST Normal [facility] ABDOMEN 1 VIEWon 02-06-2018 ABDOMEN 1 VIEW Performed at [facility] APPROVED BY: ASH CONN MD TYPE OF EXAM: Abdomen single supine view INDICATION: Constipation IMPRESSION: . There is no evidence of bowel obstruction. There are no abnormal calcifications. The included lung bases are clear. Scoliosis of the lumbar spine is present convex towards the left. Moderately large amount of stool is present in the colon consistent with the clinical history of constipation This report has been created using voice recognition software Normal [facility] Vital Signs Date Time Vital Sign Value Performing Clinician Mehul lazo 12-14-2023 14:54-0400 Body temperature 100 [degF] Krislyn Aberegg PA Work Phone: [facility] 12-14-2023 14:54-0400 Body weight 62.5 kg Krislyn Aberegg PA Work Phone: [facility] 12-14-2023 14:54-0400 Diastolic blood pressure 69 mm[Hg] Krislyn Aberegg PA Work Phone: [facility] 12-14-2023 14:54-0400 Heart rate 102 /min Krislyn Aberegg PA Work Phone: [facility] 12-14-2023 14:54-0400 Respiratory rate 18 /min Krislyn Aberegg PA Work Phone: [facility] 12-14-2023 14:54-0400 SaO2% (BldA) [Mass fraction] 97 % Krislyn Aberegg PA Work Phone: [facility] 12-14-2023 14:54-0400 Systolic blood pressure 102 mm[Hg] Krislyn Aberegg PA Work Phone: [facility] 10-09-2023 15:26-0400 Body height 167.6 cm Nayla Coy MD Work Phone: [facility] 10-09-2023 15:26-0400 Body mass index (BMI) [Ratio] 24.21 kg/m2 Nayla Coy MD Work Phone: [facility] 10-09-2023 15:26-0400 Body weight 68.04 kg Nayla Coy MD Work Phone: [facility] 10-09-2023 15:24-0400 Body temperature 98.1 [degF] Nayla Coy MD Work Phone: [facility] 10-09-2023 15:24-0400 Diastolic blood pressure 75 mm[Hg] Nayla Coy MD Work Phone: [facility] 10-09-2023 15:24-0400 Heart rate 69 /min Nayla Coy MD Work Phone: [facility] 10-09-2023 15:24-0400 Respiratory rate 16 /min Nayla Coy MD Work Phone: [facility] 10-09-2023 15:24-0400 SaO2% (BldA) [Mass fraction] 99 % Nayla Coy MD Work Phone: [facility] 10-09-2023 15:24-0400 Systolic blood pressure 120 mm[Hg] Nayla Coy MD Work Phone: [facility] 08-27-2023 14:08-0400 Body height 167.6 cm Sammie Choi MD Work Phone: [facility] 08-27-2023 14:08-0400 Body mass index (BMI) [Ratio] 24.18 kg/m2 Sammei Choi MD Work Phone: [facility] 08-27-2023 14:08-0400 Body temperature 97.5 [degF] Sammie Choi MD Work Phone: [facility] 08-27-2023 14:08-0400 Body weight 67.95 kg Sammie Choi MD Work Phone: [facility] 08-27-2023 14:08-0400 Diastolic blood pressure 56 mm[Hg] Sammie Choi MD Work Phone: [facility] 08-27-2023 14:08-0400 Heart rate 64 /min Sammie Choi MD Work Phone: [facility] 08-27-2023 14:08-0400 Systolic blood pressure 93 mm[Hg] Sammie Choi MD Work Phone: [facility] 03-13-2023 14:37-0400 Body height 165.1 cm Jaime Macias MD Work Phone: [facility] 03-13-2023 14:37-0400 Body mass index (BMI) [Percentile] Per age and sex 82.38 % Jaime Macias MD Work Phone: [facility] 03-13-2023 14:37-0400 Body weight 69.13 kg Jaime Macias MD Work Phone: [facility] 03-13-2023 14:37-0400 Diastolic blood pressure 75 mm[Hg] Jaime Macias MD Work Phone: [facility] 03-13-2023 14:37-0400 Systolic blood pressure 118 mm[Hg] Jaime Macias MD Work Phone: [facility] 01-23-2023 14:27-0400 Body height 165.1 cm Jaime Macias MD Work Phone: [facility] 01-23-2023 14:27-0400 Body mass index (BMI) [Percentile] Per age and sex 75.76 % Jaime Macias MD Work Phone: [facility] 01-23-2023 14:27-0400 Body weight 65.77 kg Jaime Macias MD Work Phone: [facility] 01-23-2023 14:27-0400 Diastolic blood pressure 74 mm[Hg] Jaime Macias MD Work Phone: [facility] 01-23-2023 14:27-0400 Systolic blood pressure 106 mm[Hg] Jaime Macias MD Work Phone: [facility] 12-30-2022 18:10-0400 Diastolic blood pressure 76 mm[Hg] Maduh Nesheim DO Work Phone: [facility] 12-30-2022 18:10-0400 Heart rate 89 /min Madhu Nesheim DO Work Phone: [facility] 12-30-2022 18:10-0400 Systolic blood pressure 131 mm[Hg] Madhu Nesheim DO Work Phone: [facility] 12-30-2022 15:55-0400 Body temperature 97.5 [degF] Madhu Nesheim DO Work Phone: [facility] 12-30-2022 15:55-0400 Respiratory rate 16 /min Madhu Nesheim DO Work Phone: [facility] 12-30-2022 15:55-0400 SaO2% (BldA) [Mass fraction] 98 % Madhu Nesheim DO Work Phone: [facility] 12-30-2022 09:51-0400 Body height 167.6 cm Madhu Nesheim DO Work Phone: [facility] 12-30-2022 09:51-0400 Body mass index (BMI) [Percentile] Per age and sex 63.33 % Madhu Nesheim DO Work Phone: [facility] 12-30-2022 09:51-0400 Body mass index (BMI) [Ratio] 22.6 kg/m2 Madhu [facility] Work Phone: [facility] 12-30-2022 09:51-0400 Body weight 63.5 kg Archiver's Work Phone: [facility] Encounters Encounter Date Encounter Type Care Provider Facility Start: 01-29-2024 End: 01-29-2024 Office outpatient visit 15 minutes Rikki Chavez MD Work Phone: [facility] Comment on above: Severe episode of re current major depressive disorder, without psychotic features (HCC) (Primary Dx); Anxiety; Recurrent major depressive disorder, remission status unspecified (HCC); Mood disorder (HCC); Low vitamin D level Start: 01-29-2024 End: 01-29-2024 ambulatory [facility] Start: 12-29-2023 End: 12-31-2023 Refill Sammie Choi MD Work Phone: [facility] Comment on above: Nausea; Decreased appetite Start: 12-18-2023 Telephone encounter Jaime Tejeda MD Work Phone: [facility] Comment on above: Missed Appointment ( No show) Start: 12-16-2023 Telephone encounter Yassine PENDLETON Work Phone: [facility] Comment on above: Results Start: 12-14-2023 End: 12-14-2023 ambulatory VENITA ANTUNEZ Facility:[facility] Start: 12-14-2023 End: 12-14-2023 Patient encounter procedure Yassine PENDLETON Work Phone: [facility] Comment on above: Urinary tract infect ion with hematuria, site unspecified (Primary Dx); Burning with urination; Blister of left foot, initial encounter Start: 10-09-2023 End: 10-09-2023 Emergency department patient visit NAYLA COY [facility] Comment on above: Dizziness (Primary D x) Start: 08-27-2023 End: 08-27-2023 Office outpatient new 45 minutes Sammie Choi MD Work Phone: [facility] Comment on above: Recurrent major depr essive disorder, remission status unspecified (HCC) (Primary Dx); Routine screening for STI (sexually transmitted infection); Need for hepatitis C screening test; Encounter for screening for HIV; Anxiety; Nausea; Decreased appetite Start: 08-27-2023 End: 08-27-2023 ambulatory SAMMIE CHOI [facility] Start: 04-19-2023 Telephone encounter Nayla bansal MD Work Phone: [facility] Comment on above: Appointment; New Pat ient Start: 04-17-2023 End: 04-19-2023 ambulatory [facility] Start: 03-13-2023 End: 03-13-2023 Patient encounter procedure Jaime Macias MD Work Phone: [facility] Comment on above: Encounter for IUD in sertion (Primary Dx) Start: 03-13-2023 End: 03-13-2023 ambulatory VENITA ANTUNEZ Facility:[facility] Start: 03-12-2023 End: 03-12-2023 ambulatory VENITA ANTUNEZ Facility:[facility] Start: 01-25-2023 Telephone encounter Jaime Tejeda MD Work Phone: [facility] Comment on above: Orders Start: 01-23-2023 End: 01-23-2023 Patient encounter procedure Jaime Macias MD Work Phone: [facility] Comment on above: Menorrhagia with irr egular cycle (Primary Dx); Migraine without status migrainosus, not intractable, unspecified migraine type; Encounter for initial prescription of intrauterine contraceptive device (IUD) Start: 01-23-2023 End: 01-23-2023 ambulatory JAIME MACIAS Facility:[facility] Start: 12-30-2022 End: 12-30-2022 Evaluation and management of inpatient Madhu Esparza DO Work Phone: [facility] Comment on above: Ingestion of substan ce, intentional self-harm, initial encounter (HCC) (Primary Dx) Start: 07-10-2022 End: 07-10-2022 ambulatory [facility] Start: 07-07-2022 End: 07-07-2022 ambulatory [facility] Start: 12-01-2021 End: 12-01-2021 ambulatory [facility] Procedures Date Procedure Procedure Detail Performing Clinician Start: 12-14-2023 Urnls dip stick/tabl et rgnt auto w/o microscopy Yassine PENDLETON Work Phone: Start: 10-09-2023 Comprehensive metabo lic panel Stephany Davila PA-C Work Phone: Start: 10-09-2023 Ecg routine ecg w/le ast 12 lds trcg only w/o i&r Stephany PENDLETON-C Work Phone: Start: 08-27-2023 Iadna chlamydia trac homatis amplified probe tq Sammie Choi MD Work Phone: Start: 12-30-2022 Assay of lactate Ross Cheatham MD Work Phone: Start: 12-30-2022 Comprehensive metabo lic panel Madhu G Nesheim DO Work Phone: Start: 12-30-2022 End: 12-30-2022 Drug screen analgesics non-opioid 1 or 2 Madhu G Nesheim DO Work Phone: Start: 12-30-2022 Ecg routine ecg w/le ast 12 lds trcg only w/o i&r Madhu G Nesheim DO Work Phone: Plan of Treatment Date Care Activity Detail Author Start: 2064 RSV Immunization age d 60 or older (1 - 1-dose 60+ series) RSV Immunization aged 60 or older (1 - 1-dose 60+ series) [facility] Start: 2054 Zoster Vaccines (1 of 2) Zoste r Vaccines (1 of 2) [facility] Start: 10-21-2025 DTaP/Tdap/Td Vaccine s (7 - Td or Tdap) DTaP/Tdap/Td Vaccines (7 - Td or Tdap) [facility] Start: 10-21-2025 Urine microalbumin profile DTaP,Tdap,Td Vaccine (7 - Td or Tdap) [facility] Start: 08-26-2024 Screening for Chlamy genia trachomatis Chlamydia and Gonorrhea Screening [facility] Start: 04-19-2024 Diabetes mellitus screening Diabetes Screening [facility] Start: 04-18-2024 Adolescent Depressio n Screening Adolescent Depression Screening [facility] Start: 02-19-2024 End: 02-19-2024 Patient encounter procedure 02/19/2024 2:45 PM EDT [facility] Visit [facility] [address] [place] [address] Rikki Chavez MD [address] [place] [address] [facility] Start: 01-29-2024 End: 01-28-2025 25-hydroxyvitamin D3 [Mass/volume] in Serum or Plasma Vitamin D Deficiency Screening (Vit D 25) Lab Routine Low vitamin D level Expected: 01/29/2024 (Approximate), Expires: 01/28/2025 [facility] Comment on above: Expected: 01/29/2024 (Approximate), Expires: 01/28/2025 Start: 01-29-2024 End: 01-28-2025 Thyrotropin [Units/volume] in Serum or Plasma TSH Lab Routine Anxiety Expected: 01/29/2024 (Approximate), Expires: 01/28/2025 [facility] Work Phone: Comment on above: Expected: 01/29/2024 (Approximate), Expires: 01/28/2025 Start: 01-13-2024 COVID-19 Vaccine ( season) COVID-19 Vaccine ( season) [facility] Start: 01-13-2024 Influenza vaccination [facility] Start: 12-18-2023 End: 12-18-2023 Patient encounter procedure 12/18/2023 3:00 PM EDT Office Visit [facility] [address] [place] [address] Jaime Macias MD [address] [place], [place] [id number] Grabiel Maloney [facility] Comment on above: Graibel Maloney Start: 10-18-2023 Depression Monitoring Depression Mon itoring [facility] Start: 10-18-2023 Depresssion Monitoring Depresssion M antionetet [facility] Start: 08-27-2023 End: 08-26-2024 Hepatitis C virus Ab [Presence] in Serum or Plasma by Immunoassay Hepatitis C antibody Lab Routine Need for hepatitis C screening test Expected: 08/27/2023 (Approximate), Expires: 08/26/[address] [facility] Work Phone: Comment on above: Expected: 08/27/2023 (Approximate), Expires: 08/26/2024 Start: 08-27-2023 End: 08-26-2024 HIV 1+2 Ab+HIV1 p24 Ag [Presence] in Serum or Plasma by Immunoassay HIV-1 and HIV-2 Antigen-Antibody Screen Lab Routine Encounter for screening for HIV Expected: 08/27/2023 (Approximate), Expires: 08/26/2024 [facility] Comment on above: Expected: 08/27/2023 (Approximate), Expires: 08/26/2024 Start: 06-01-2023 End: 06-01-2023 Patient encounter procedure 06/01/2023 10:45 AM EST Office Visit [address] [address] Nayla Coy MD [address] [place] [address] [facility] Start: 01-25-2023 End: 03-27-2023 Choriogonadotropin.beta subunit [Units/volume] in Serum or Plasma HCG QUANTITATIVE Lab Routine Secondary amenorrhea Expected: 01/25/2023, Expires: 03/27/2023 [facility] Work Phone: Comment on above: Expected: 01/25/2023 , Expires: 03/27/2023 Start: 01-12-2023 Covid-19 Vaccine ( season) Covid-19 Vaccine () [facility] Start: 01-12-2023 Influenza vaccination Influenza Vacc ine (#1) [facility] Start: 2022 Anxiety Screening Anxiety Screening [facility] Start: 2022 Chlamydia Screening () Chlamydia Screening () [facility] Start: 2022 Depression Screening Depression Scre ening [facility] Start: 2022 Diabetes mellitus screening Diabetes Screening [facility] Start: 2022 GC (Gonorrhea) Scree kayla () GC (Gonorrhea) Screening () [facility] Start: 2022 Hepatitis C [facility] Start: 2022 Hepatitis C Screening Hepatitis C Sc reening [facility] Start: 2022 HIV Screening HIV Screening [facility] Start: 2022 HIV screening HIV Screening [facility] Start: 2022 Screening for Chlamy genia trachomatis Chlamydia Screening () [facility] Start: 05-14-2022 Depression Assessment Depression Ass essment [facility] Start: 01-26-2022 COVID-19 Vaccine (3 - Booster for Pfizer series) COVID-19 Vaccine (3 - Booster for Pfizer series) [facility] Start: 01-26-2022 Covid-19 Vaccine (4 - Pfizer series) Covid-19 Vaccine (4 - Pfizer series) [facility] Start: 12-29-2021 Meningococcal B Vacc ine: Consider Based On Risk (2 of 2 - Risk Bexsero 2-dose series) Meningococcal B Vaccine: Consider Based On Risk (2 of 2 - Risk Bexsero 2-dose series) [facility] Start: 2020 Meningococcal B Vacc ine: Consider Based On Risk (1 of 2 - Patient Seeks Protection) Meningococcal B Vaccine: Consider Based On Risk (1 of 2 - Patient Seeks Protection) [facility] Start: 2020 Meningococcal Conjug ate Vaccine (1 - 2-dose series) Meningococcal Conjugate Vaccine (1 - 2-dose series) [facility] Start: 2018 Peds To Adult Transi tion Annual Assessment Peds To Adult Transition Annual Assessment [facility] Start: 2016 Adolescent Depressio n Screening Adolescent Depression Screening [facility] Start: 2016 Depression Screening Depression Scre ening [facility] Start: 2016 Peds To Adult Transi tion Initial Discussion Peds To Adult Transition Initial Discussion [facility] Start: 2013 HPV Vaccine (1 - 2-d ose series) HPV Vaccine (1 - 2-dose series) [facility] Start: 2011 Urine microalbumin profile DTaP,Tdap,Td Vaccine (1 - Tdap) [facility] Start: 02-15-2005 Application of denta l fluoride varnish Fluoride Varnish [facility] Start: 2004 Hepatitis B Vaccine (1 of 3 - 3-dose series) Hepatitis B Vaccine (1 of 3 - 3-dose series) [facility] Start: 2004 HIV screening HIV Screening [facility] Start: 2004 Screening for Chlamy genia trachomatis Chlamydia and Gonorrhea Screening [facility] Bacteria identified in Urine by Culture URINE CULTURE Microbiology Routine Burning with urination Ordered: 12/14/2023 [facility] Work Phone: Comment on above: Ordered: 12/14/2023 ECG 12 lead ECG 12 lead CV E CG STAT 10/09/2023 4:22 PM EDT [facility] Work Phone: [facility] Immunizations Immunization Date Immunization Notes Care Provider Fa cility 06-24-2019 influenza virus vacc ine, unspecified formulation Madhu Esparza DO Work Phone: [facility] Payers Date Payer Category Payer Unknown [id number] 2017 Unknown [id number] 2004 Unknown [id number] 2004 Unknown [id number] 1980 Unknown [id number] Social History Date Type Detail Facility Start: 12-30-2022 End: 08-27-2023 Tobacco smoking status NHIS Never smoked tobacco [facility] Start: 12-30-2022 End: 08-27-2023 Tobacco use and exposure Smokeless tobacco non-user [facility] Start: 12-30-2022 End: 08-27-2023 Alcohol intake Lifetime non-drinker (finding) [facility] Start: 12-30-2022 End: 04-18-2023 History of Social function [facility] Start: 12-30-2022 End: 04-18-2023 Tobacco use panel [facility] Start: 2004 Sex Assigned At Not on file [facility] Start: 12-20-2022 End: 12-30-2022 Exposure to SARS-CoV-2 (event) Not sure [facility] Do you belong to any clubs or organizations such as hoahaoism groups, unions, fraternal or athletic groups, or school groups? Yes [facility] Are you now , , , , never or living with a partner? Never [facility] How often to you hav e a drink containing alcohol? Never [facility] Do you feel stress - tense, restless, nervous, or anxious, or unable to sleep at night because your mind is troubled all the time - these days [OSQ] Only a little [facility] (I/We) worried wheth er (my/our) food would run out before (I/we) got money to buy more. Never true [facility] In the past 12 month s, was there a time when you were not able to pay the mortgage or rent on time? No [facility] NEGATED: Highlighted rowStart: NINF History of tobacco use Passive smoker [facility] Clinical Notes 12-30-2022 to 01-29-2024 Rikki Chavez MD - 01/29/2024 4:15 PM EDChary Chavez MD - 01/29/2024 4:15 PM Preeti Riddle MD - 01/29/2024 4:15 PM Yassine More PA - 12/14/2023 3:00 PM EDT Note Date & Type Note Facility 01-29-2024 History of Presen t illness Narrative Images from the original note were not included. [facility] [address] [facility] [address] Dept: [phone] Dept Loc: [phone] Subjective Sara Chiang is a 18 y.o. who presents for a telehealth visit. Patient was identified and seen today via Telehealth by agreement and consent. I used the following Telehealth technology: Audio and video capabilities. Patient location: Patient Location: Home. This patient encounter is appropriate and reasonable under the circumstances: Behavioral Health . The patient has been advised of the potential risks and limitations of this mode of treatment (including but not limited to the absence of in-person examination) and has agreed to be treated in a remote fashion in spite of them. Any and all of the patient's/patient's family's questions on this issue have been answered and I have made no promises or guarantees to the patient. The patient has also been advised to contact this office for worsening conditions or problems, and seek emergency medical treatment and/or call 911 if the patient deems either necessary. The patient stated that they are currently in the [facility]. If the patient is a minor, permission has been obtained by the parent or guardian for the patient to receive medical care at this visit. Chief complaint: Chief Complaint Patient presents with Follow-up Depression Mood disorder HPI Hx provided by patient's mother, patient was not cooperative during the telehealth visit. Patient has hx of depression and anxiety and possible mood disorder. Mother states that patient thinks that the lexapro 20mg is not working. Hx of bipolar disorder in father. Thinks she needs to be on a mood stabilizer. Patient saw her Counsellor today for therapy. Patient denies SI/HI Patient has trouble with sleep. Patient refuses to answer when asked No Known Allergies [x] PMH, allergies, and social history reviewed and updated as appropriate [x] Medication list reviewed/updated [x] Allergies reviewed/updated [x] Problem list reviewed/updated [] Patient requests medication refills, see below for orders. Depression: None or minimal depression (04/18/2023) PHQ-9 PHQ-9 Score: 2 (Provider: if last PHQ done >/= 9 mos from today, consider repeating today or include in plan for next visit): Failed to redirect to the Timeline version of the [employer]. If PHQ-2 is positive, in the follow up for this appointment, please have them scheduled for an appointment to discuss depression. O: -pt reported vitals: none Patient seen laying on the sofa and whenever put on the video camera she will cover her head with her blanket. Patient refused to talk and give further answers. Only answered to her mother for some questions. Does not appear to be in manic state. Assessment/Plan 1. Severe episode of recurrent major depressive disorder, without psychotic features (HCC) - ARIPiprazole (Abilify) 2 MG tablet; Take 1 tablet (2 mg) by mouth Nightly., Starting Sun01/29/2024, Until Sun02/28/2024, Normal 2. Anxiety - TSH - escitalopram (Lexapro) 20 MG tablet; Take 1 tablet (20 mg) by mouth Nightly., Starting Sun01/29/2024, Until Sun04/28/2024, Normal - ARIPiprazole (Abilify) 2 MG tablet; Take 1 tablet (2 mg) by mouth Nightly., Starting Sun01/29/2024, Until Sun02/28/2024, Normal 3. Recurrent major depressive disorder, remission status unspecified (HCC) - escitalopram (Lexapro) 20 MG tablet; Take 1 tablet (20 mg) by mouth Nightly., Starting Sun01/29/2024, Until Sun04/28/2024, Normal 4. Mood disorder (HCC) - escitalopram (Lexapro) 20 MG tablet; Take 1 tablet (20 mg) by mouth Nightly., Starting Sun01/29/2024, Until Sun04/28/2024, Normal - ARIPiprazole (Abilify) 2 MG tablet; Take 1 tablet (2 mg) by mouth Nightly., Starting 01/29/2024, Until Radha 02/28/2024, Normal 5. Low vitamin D level - Vitamin D Deficiency Screening (Vit D 25) Continue lexapro 20 mg and start Abilify 2 mg for mood stabilizer and augmentation purposes. Patient will need to be seen in clinic in 2 weeks for close follow up. Patient not cooperative during the telehealth. Denies SI/HI. Follow up in about 2 weeks (around 02/12/2024) for mood. Patient acknowledged full understanding and agreeable with plan. All questions were answered appropriately. Costs of various treatment options were considered in formulating this treatment plan with the patient. Rikki Chavez MD 01/29/24 5:47 PM documented in this encounter [facility] 01-29-2024 History of Presen t illness Narrative Images from the original note were not included. [address] [address] Dept: [phone] Dept Loc: [phone] Subjective Sara Chiang is a 18 y.o. who presents for a telehealth visit. Patient was identified and seen today via Telehealth by agreement and consent. I used the following Telehealth technology: Audio and video capabilities. Patient location: Patient Location: Home. This patient encounter is appropriate and reasonable under the circumstances: Behavioral Health . The patient has been advised of the potential risks and limitations of this mode of treatment (including but not limited to the absence of in-person examination) and has agreed to be treated in a remote fashion in spite of them. Any and all of the patient's/patient's family's questions on this issue have been answered and I have made no promises or guarantees to the patient. The patient has also been advised to contact this office for worsening conditions or problems, and seek emergency medical treatment and/or call 911 if the patient deems either necessary. The patient stated that they are currently in the state [facility]. If the patient is a minor, permission has been obtained by the parent or guardian for the patient to receive medical care at this visit. Chief complaint: Chief Complaint Patient presents with Follow-up Depression Mood disorder HPI Hx provided by patient's mother, patient was not cooperative during the telehealth visit. Patient has hx of depression and anxiety and possible mood disorder. Mother states that patient thinks that the lexapro 20mg is not working. Hx of bipolar disorder in father. Thinks she needs to be on a mood stabilizer. Patient saw her Counsellor today for therapy. Patient denies SI/HI Patient has trouble with sleep. Patient refuses to answer when asked No Known Allergies [x] PMH, allergies, and social history reviewed and updated as appropriate [x] Medication list reviewed/updated [x] Allergies reviewed/updated [x] Problem list reviewed/updated [] Patient requests medication refills, see below for orders. Depression: None or minimal depression (04/18/2023) PHQ-9 PHQ-9 Score: 2 (Provider: if last PHQ done >/= 9 mos from today, consider repeating today or include in plan for next visit): Failed to redirect to the Timeline version of the [employer]. If PHQ-2 is positive, in the follow up for this appointment, please have them scheduled for an appointment to discuss depression. O: -pt reported vitals: none Patient seen laying on the sofa and whenever put on the video camera she will cover her head with her blanket. Patient refused to talk and give further answers. Only answered to her mother for some questions. Does not appear to be in manic state. Assessment/Plan 1. Severe episode of recurrent major depressive disorder, without psychotic features (HCC) - ARIPiprazole (Abilify) 2 MG tablet; Take 1 tablet (2 mg) by mouth Nightly., Starting Sun01/29/2024, Until Radha 02/28/2024, Normal 2. Anxiety - TSH - escitalopram (Lexapro) 20 MG tablet; Take 1 tablet (20 mg) by mouth Nightly., Starting Sun01/29/2024, Until 04/28/2024, Normal - ARIPiprazole (Abilify) 2 MG tablet; Take 1 tablet (2 mg) by mouth Nightly., Starting Sun01/29/2024, Until Radha 02/28/2024, Normal 3. Recurrent major depressive disorder, remission status unspecified (HCC) - escitalopram (Lexapro) 20 MG tablet; Take 1 tablet (20 mg) by mouth Nightly., Starting Sun01/29/2024, Until Sun04/28/2024, Normal 4. Mood disorder (HCC) - escitalopram (Lexapro) 20 MG tablet; Take 1 tablet (20 mg) by mouth Nightly., Starting Sun01/29/2024, Until Sun04/28/2024, Normal - ARIPiprazole (Abilify) 2 MG tablet; Take 1 tablet (2 mg) by mouth Nightly., Starting Sun01/29/2024, Until Radha 02/28/2024, Normal 5. Low vitamin D level - Vitamin D Deficiency Screening (Vit D 25) Continue lexapro 20 mg and start Abilify 2 mg for mood stabilizer and augmentation purposes. Patient will need to be seen in clinic in 2 weeks for close follow up. Patient not cooperative during the telehealth. Denies SI/HI. Follow up in about 2 weeks (around 02/12/2024) for mood. Patient acknowledged full understanding and agreeable with plan. All questions were answered appropriately. Costs of various treatment options were considered in formulating this treatment plan with the patient. Rikki Chavez MD 01/29/24 5:47 PM Images from the original note were not included. INDIRECT SUPERVISION THIS SERVICE IS TO BE BILLED UNDER THE PRIMARY CARE EXCEPTION (MODIFIER -GE) During or immediately after this visit, I discussed this case with the treating resident. Our discussion included the history obtained by the resident, the resident's exam findings, and the resident's treatment plan. The resident's note reflects the information we discussed, and I agree with the resident's assessment and treatment plan. -Alex Riddle MD, [facility] Family Medicine documented in this encounter [facility] 12-31-2023 Telephone encounter Note Last office visit: 08/27/23 Next office visit: none ( supposed to follow up 5 weeks 10/01/23) [facility] 12-31-2023 Miscellaneous Notes Last office visit: 08/27/23 Next office visit: none ( supposed to follow up 5 weeks 10/01/23) documented in this encounter [facility] 12-18-2023 Miscellaneous Notes Patient did not arrive for her scheduled appointment today. A missed appointment letter sent by mail. documented in this encounter [facility] 12-18-2023 Telephone encounter Note Patient did not arrive for her scheduled appointment today. A missed appointment letter sent by mail. [facility] 12-16-2023 Telephone encounter Note Called mom to make sure patient is improving. She ended up in ER and is on different antibiotic. Mom unsure what it is called. Advised to continue as prescribed and follow-up with PCP. [facility] 12-16-2023 Miscellaneous Notes Called mom to make sure patient is improving. She ended up in ER and is on different antibiotic. Mom unsure what it is called. Advised to continue as prescribed and follow-up with PCP. documented in this encounter [facility] 12-14-2023 Note HNO ID: [id number] Author: YASSINE HOWARD PA Service: ? Author Type: Physician Implementation Project Coordinator Type: Progress Notes Filed: 12/14/2023 15:13 Note Text: This note was created using [employer]. Subjective Sara Chiang is a 18 year old female. HPI 18-year-old female presents for dysuria, urgency, frequency x 1 week. Patient states that she has been having urinary frequency, urgency and dysuria for the past week. She states that she had to urinate urgently the other day and actually urinated in her pants because she did not make it to the bathroom in time. Otherwise, has not had any incontinence. She has not seen any blood in her urine. She had bodyaches yesterday and fever today. She has not had any Tylenol or Motrin. Patient does report she has some low back pain. She denies any vomiting. Still eating and drinking. No vaginal discharge, concern for STD. She has an IUD, no concern for . Patient also reporting blister of left foot after walking on hot pavement yesterday. No drainage. No other complaint regarding the blister. PAST MEDICAL HISTORY No date: Migraine No date: Scoliosis No past surgical history on file. ALLERGIES Patient has no known allergies. MEDICATIONS escitalopram oxalate (LEXAPRO) 20 mg tablet Take 20 mg by mouth once daily. famotidine (PEPCID) 20 mg tablet Take 20 mg by mouth once daily. (Patient not taking: Reported on 12/14/2023) FAMILY HISTORY Problem Relation Age of Onset Diabetes Paternal Grandmother Breast Cancer Paternal Grandmother Social History Tobacco Use Smoking status: Never Smokeless tobacco: Never Review of Systems Constitutional: Positive for chills and fever. HENT: Negative for congestion, ear pain and sore throat. Respiratory: Negative for cough and shortness of breath. Cardiovascular: Negative for chest pain. Gastrointestinal: Negative for diarrhea and vomiting. Genitourinary: Positive for dysuria, frequency and urgency. Negative for decreased urine volume and flank pain. Musculoskeletal: Positive for back pain. Objective BP 102/69 Pulse 102 Temp 37.8 ?C (100 ?F) Resp 18 Wt 62.5 kg (137 lb 12.6 oz) LMP 02/27/2023 (Approximate) SpO2 97% Physical Exam Vitals and nursing note reviewed. Constitutional: General: She is not in acute distress. Appearance: Normal appearance. She is not toxic-appearing. HENT: Nose: Nose normal. Mouth/Throat: Mouth: Mucous membranes are moist. Eyes: Conjunctiva/sclera: Conjunctivae normal. Cardiovascular: Rate and Rhythm: Normal rate and regular rhythm. Pulmonary: Effort: Pulmonary effort is normal. Breath sounds: Normal breath sounds. Abdominal: General: Abdomen is flat. Palpations: Abdomen is soft. Tenderness: There is no abdominal tenderness. There is right CVA tenderness. There is no left CVA tenderness, guarding or rebound. Comments: Mild right CVA tenderness. No abdominal tenderness. Musculoskeletal: Feet: Feet: Left foot: Skin integrity: Blister present. Comments: Small blister on bottom of left foot. No erythema, warmth, drainage. No signs of infection. Skin: General: Skin is warm and dry. Neurological: Mental Status: She is alert. Assessment and Plan ASSESSMENT/PLAN: 1. Urinary tract infection with hematuria, site unspecified - ICD9: 599.0, 599.70, ICD10: N39.0, R31.9 (primary diagnosis) acute - UA positive for caity esterase, hematuria, and proteinuria - Send urine for culture -Patient does have fever today and mild CVA tenderness, will cover for potential early pyelonephritis. She is nontoxic appearing. - Begin treatment with Bactrim DS BID for 14 days - Patient education for prevention given 2. Burning with urination - ICD9: 788.1, ICD10: R30.0 - UA DIP, URINE (POC) - URINE CULTURE 3. Blister of left foot, initial encounter - ICD9: 917.2, ICD10: S90.822A -Recommend corn pad around the blister if is difficult to walk on. -No signs of infection. Diagnosis and treatment plan were discussed and questions were answered to the patient's satisfaction. Pt acknowledged understanding of concepts and follow up plan. Specific signs and symptoms that would indicate the need for higher level of care were discussed in detail warranting prompt ER evaluation. KEERTHI Cortes [facility] 12-14-2023 History of Presen t illness Narrative Images from the original note were not included. This note was created using [employer]. Subjective Sara Chiang is a 18 year old female. HPI 18-year-old female presents for dysuria, urgency, frequency x 1 week. Patient states that she has been having urinary frequency, urgency and dysuria for the past week. She states that she had to urinate urgently the other day and actually urinated in her pants because she did not make it to the bathroom in time. Otherwise, has not had any incontinence. She has not seen any blood in her urine. She had bodyaches yesterday and fever today. She has not had any Tylenol or Motrin. Patient does report she has some low back pain. She denies any vomiting. Still eating and drinking. No vaginal discharge, concern for STD. She has an IUD, no concern for . Patient also reporting blister of left foot after walking on hot pavement yesterday. No drainage. No other complaint regarding the blister. PAST MEDICAL HISTORY No date: Migraine No date: Scoliosis No past surgical history on file. ALLERGIES Patient has no known allergies. MEDICATIONS escitalopram oxalate (LEXAPRO) 20 mg tablet Take 20 mg by mouth once daily. famotidine (PEPCID) 20 mg tablet Take 20 mg by mouth once daily. (Patient not taking: Reported on 12/14/2023) FAMILY HISTORY Problem Relation Age of Onset Diabetes Paternal Grandmother Breast Cancer Paternal Grandmother Social History Tobacco Use Smoking status: Never Smokeless tobacco: Never Review of Systems Constitutional: Positive for chills and fever. HENT: Negative for congestion, ear pain and sore throat. Respiratory: Negative for cough and shortness of breath. Cardiovascular: Negative for chest pain. Gastrointestinal: Negative for diarrhea and vomiting. Genitourinary: Positive for dysuria, frequency and urgency. Negative for decreased urine volume and flank pain. Musculoskeletal: Positive for back pain. Objective BP 102/69 Pulse 102 Temp 37.8 C (100 F) Resp 18 Wt 62.5 kg (137 lb 12.6 oz) LMP 02/27/2023 (Approximate) SpO2 97% Physical Exam Vitals and nursing note reviewed. Constitutional: General: She is not in acute distress. Appearance: Normal appearance. She is not toxic-appearing. HENT: Nose: Nose normal. Mouth/Throat: Mouth: Mucous membranes are moist. Eyes: Conjunctiva/sclera: Conjunctivae normal. Cardiovascular: Rate and Rhythm: Normal rate and regular rhythm. Pulmonary: Effort: Pulmonary effort is normal. Breath sounds: Normal breath sounds. Abdominal: General: Abdomen is flat. Palpations: Abdomen is soft. Tenderness: There is no abdominal tenderness. There is right CVA tenderness. There is no left CVA tenderness, guarding or rebound. Comments: Mild right CVA tenderness. No abdominal tenderness. Musculoskeletal: Feet: Feet: Left foot: Skin integrity: Blister present. Comments: Small blister on bottom of left foot. No erythema, warmth, drainage. No signs of infection. Skin: General: Skin is warm and dry. Neurological: Mental Status: She is alert. Assessment and Plan ASSESSMENT/PLAN: 1. Urinary tract infection with hematuria, site unspecified - ICD9: 599.0, 599.70, ICD10: N39.0, R31.9 (primary diagnosis) acute - UA positive for caity esterase, hematuria, and proteinuria - Send urine for culture -Patient does have fever today and mild CVA tenderness, will cover for potential early pyelonephritis. She is nontoxic appearing. - Begin treatment with Bactrim DS BID for 14 days - Patient education for prevention given 2. Burning with urination - ICD9: 788.1, ICD10: R30.0 - UA DIP, URINE (POC) - URINE CULTURE 3. Blister of left foot, initial encounter - ICD9: 917.2, ICD10: S90.822A -Recommend corn pad around the blister if is difficult to walk on. -No signs of infection. Diagnosis and treatment plan were discussed and questions were answered to the patient's satisfaction. Pt acknowledged understanding of concepts and follow up plan. Specific signs and symptoms that would indicate the need for higher level of care were discussed in detail warranting prompt ER evaluation. KEERTHI Cortes documented in this encounter [facility] 10-09-2023 Emergency department Note Images from the original note were not included. EMERGENCY DEPARTMENT ENCOUNTER Pt Name: Sara Chiang Birthdate 2005 Date of evaluation: 10/09/2023 ED Provider: Stephany Davila PA-C CHIEF COMPLAINT Chief Complaint Patient presents with Dizziness Pt reports dizziness on and off for 3 months, pt also reports lower abdominal pain and decreased appetite for 3 months. Per pt's mother she is supposed to have outpatient lab work down but has not followed up. Pt placed on pepcid but unsure why. Denies dizziness at this time. Pt also reports headaches. HISTORY OF PRESENT ILLNESS (Location/Symptom, Timing/Onset, Context/Setting, Quality, Duration, Modifying Factors, Severity) Note limiting factors. I wore appropriate PPE for the entirety of this encounter. HPI Sara Chiang is a 18 y.o. female who presents to the emergency department for dizziness that has been ongoing since June with associated decreased appetite and lower abdominal discomfort. The patient states she has been seen by her primary care for this and was ordered outpatient blood work but states that she did not get this done because she did not feel that that was going to answer any of her questions. The patient denies any worsening symptoms today prompting her visit to the ED. She states that her primary care gave her a prescription of Pepcid and states that she does not know why that she was given this but will not take it. She denies chance of , urinary symptoms, fever, chills. She does note that after she eats she will occasionally feel nauseous causing her lack of appetite. Nursing Notes were reviewed. Limitations to history: None Outside historians: None REVIEW OF SYSTEMS Review of Systems 14 systems reviewed, positives and pertinent negatives as per HPI. All other systems were reviewed and are negative. PAST MEDICAL HISTORY Past Medical History: Diagnosis Date Anxiety Depression SURGICAL HISTORY No past surgical history on file. CURRENT MEDICATIONS Previous Medications ESCITALOPRAM (LEXAPRO) 20 MG TABLET Take 1 tablet (20 mg) by mouth Nightly. FAMOTIDINE (PEPCID) 20 MG TABLET Take 1 tablet (20 mg) by mouth daily. LEVONORGESTREL (KYLEENA) 19.5 MG INTRAUTERINE DEVICE 1 each by IntraUTERine route Once. Placed by dr graham macias 02/2203 MULTIPLE VITAMIN (MULTIVITAMIN) CAPSULE Take 1 capsule by mouth daily. ALLERGIES Patient has no known allergies. FAMILY HISTORY Family History Problem Relation Name Age of Onset Drug abuse Father Depression Father Substance Abuse Father Bipolar disorder Father Anxiety disorder Father Breast cancer Paternal Grandmother Diabetes Paternal Grandmother Bipolar disorder Paternal Grandmother SOCIAL HISTORY Social History Socioeconomic History Marital status: Single Tobacco Use Smoking status: Never Passive exposure: Never Smokeless tobacco: Never Vaping Use Vaping Use: Never used Substance and Sexual Activity Alcohol use: Never Drug use: Never Sexual activity: Yes Social Determinants of Health Financial Resource Strain: Low Risk (04/18/2023) Overall Financial Resource Strain (CARDIA) Difficulty of Paying Living Expenses: Not hard at all Food Insecurity: No Food Insecurity (04/18/2023) Hunger Vital Sign Worried About Running Out of Food in the Last Year: Never true Ran Out of Food in the Last Year: Never true Transportation Needs: No Transportation Needs (04/18/2023) PRAPARE - Transportation Lack of Transportation (Medical): No Lack of Transportation (Non-Medical): No Physical Activity: Sufficiently Active (04/18/2023) Exercise Vital Sign Days of Exercise per Week: 7 days Minutes of Exercise per Session: 40 min Stress: No Stress Concern Present (04/18/2023) [employer] - Occupational Stress Questionnaire Feeling of Stress : Only a little Social Connections: Moderately Integrated (04/18/2023) Social Connection and Isolation Panel [NHANES] Frequency of Communication with Friends and Family: More than three times a week Frequency of Social Gatherings with Friends and Family: More than three times a week Attends Judaism Services: More than 4 times per year Active Member of Clubs or Organizations: Yes Attends Club or Organization Meetings: More than 4 times per year Marital Status: Never Housing Stability: Low Risk (04/18/2023) Housing Stability Vital Sign Unable to Pay for Housing in the Last Year: No Number of Places Lived in the Last Year: 1 Unstable Housing in the Last Year: No SCREENINGS Emmett Coma Scale Best Eye Response: Spontaneous Best Verbal Response: Oriented Best Motor Response: Follows commands Emmett Coma Scale Score: 15 PHYSICAL EXAM ED Triage Vitals [10/09/23 1524] Temp Heart Rate Resp BP 36.7 C (98.1 F) 69 16 120/75 SpO2 Temp Source Heart Rate Source Patient Position 99 % Oral Monitor Sitting BP Location FiO2 (%) Left arm -- Physical Exam Vitals and nursing note reviewed. Constitutional: General: She is not in acute distress. Appearance: She is well-developed. Comments: 18-year-old female, in no acute distress. Answering questions appropriately. Nontoxic-appearing. HENT: Head: Normocephalic and atraumatic. Eyes: Conjunctiva/sclera: Conjunctivae normal. Cardiovascular: Rate and Rhythm: Normal rate and regular rhythm. Heart sounds: No murmur heard. Pulmonary: Effort: Pulmonary effort is normal. No respiratory distress. Breath sounds: Normal breath sounds. No wheezing. Abdominal: General: There is no distension. Palpations: Abdomen is soft. Tenderness: There is no abdominal tenderness. There is no right CVA tenderness, left CVA tenderness, guarding or rebound. Musculoskeletal: General: No swelling. Cervical back: Neck supple. Skin: General: Skin is warm and dry. Capillary Refill: Capillary refill takes less than 2 seconds. Neurological: Mental Status: She is alert. Psychiatric: Mood and Affect: Mood normal. DIAGNOSTIC RESULTS RADIOLOGY (Per Emergency Physician): Interpretation per the Radiologist below, if available at the time of this note: No orders to display LABS: Labs Reviewed COMPREHENSIVE METABOLIC PANEL - Abnormal Result Value SODIUM 141 POTASSIUM 4.0 CHLORIDE 106 CARBON DIOXIDE 27 ANION GAP 8 UREA NITROGEN 10 CREATININE 0.51 (*) GLUCOSE 88 CALCIUM 9.5 AST (SGOT) 20 ALT 14 ALKALINE PHOSPHATASE 53 ALBUMIN 4.4 BILIRUBIN, TOTAL 0.5 TOTAL PROTEIN 7.6 eGFR >90.0 CBC WITH AUTO DIFFERENTIAL - Normal Auto WBC 6.0 RBC 4.69 Hemoglobin 12.2 Hematocrit 38.8 MCV 82.7 MCH 26.0 MCHC 31.4 RDW 15.0 Platelets 200 MPV 10.8 nRBC 0.0 Neutrophils Relative 55.1 Lymphocytes Relative 35.6 Monocytes Relative 5.5 Eosinophils Relative 2.9 Basophils Relative 0.7 Immature Grans % 0.2 Neutrophils Absolute 3.3 Lymphocytes Absolute 2.1 Monocytes Absolute 0.3 Eosinophils Absolute 0.2 Basophils Absolute 0.0 Immature Grans Absolute 0.0 HCG QUANTITATIVE BLOOD HCG QUANTITATIVE <2 Narrative: Values in should double every 2 to 3 days for the first 6 weeks. Elevated concentrations of human chorionic gonadotropin (hCG) measured in the first trimester of are observed in normal , but may serve as an indication of chorionic carcinoma, hydatiform mole, or multiple . Decreasing hCG concentrations indicate threatened or missed , recent termination of , ectopic , gestosis or intrauterine . Elizabeth- and postmenopausal females may have detectable hCG concentrations (< or = to 14 mIU/mL) due to pituitary production of hCG. Serum follicle-stimulating hormone measurement may aid in ruling-out in this population. Cutoffs of greater than 20 to 45 mIU/mL have been suggested and are method dependent. False-elevations (called phantom human chorionic gonadotropin: hCG) may occur with patients who have human antianimal or heterophilic antibodies. Some specimens may not dilute linearly due to abnormal forms of hCG. Elevated hCG concentrations not associated with are found in patients with other diseases such as tumors of the germ cells, ovaries, bladder, pancreas, stomach, lungs, and liver. This test is not intended to detect or monitor tumors or gestational trophoblastic disease. All other labs were within normal range or not returned as of this dictation. EMERGENCY DEPARTMENT COURSE and DIFFERENTIAL DIAGNOSIS/MDM: Vitals: Vitals: 10/09/23 1524 10/09/23 1526 BP: 120/75 BP Location: Left arm Patient Position: Sitting Pulse: 69 Resp: 16 Temp: 36.7 C (98.1 F) TempSrc: Oral SpO2: 99% Weight: 68 kg (150 lb) Height: 1.676 m (5' 6 ) Medications - No data to display I independently evaluated the patient with supervising attending physician available as needed for collaboration. In brief, Sara Chiang is a 18 y.o. female who presented to the emergency department for dizziness, lower abdominal discomfort, decreased appetite intermittent for the past 3 months. She presents to the ED with complete unremarkable vital signs. Nursing notes and medical records reviewed, patient was previously admitted on 04/17/2023 for suicidal ideation -she denies SI or HI today. She has since been seen by her primary care on 08/27/2023 for recurrent major depression, STI screening, anxiety nausea and decreased appetite. She is on Lexapro 20 mg. It appears that these are chronic complaints for the patient and do not feel that emergent imaging is necessary at the time. She is completely neurovascularly intact, NIH of 0 with no head trauma. Will plan to obtain basic labs and an EKG to rule out dysrhythmia versus electrolyte abnormality versus anemia. Initial workup includes EKG, CBC, CMP, hCG Lab workup results hCG is negative. CMP shows no Qiana abnormality or ELIZABETH. CBC shows no leukocytosis or anemia. EKG is sinus rhythm with no dysrhythmias MEDICAL DECISION MAKING: I considered, but did not perform, additional testing such CT stroke and Brain MRI, as well as admission or transfer to a higher level of care. I utilized an evidence-based risk rating tool (CMT) along with my training and experience to weigh the risk of discharge against the risks of further testing, imaging, or hospitalization. At this time, I estimate the risks of additional testing, imaging, or hospitalization (in the case of discharge home) to be equal to or greater than the risk of discharge. I have performed and NIHSS exam, and it is 0 with no cerebellar findings. The chance of missing a stroke is less than 1%. MRI at this time would not benefit the patient. MRI is higher risk than performing a NIHSS, and MRI is not as sensitive for acute stroke. With an NIHSS of 0 and no cerebellar findings, acute interventions such as thrombolytics, angiogram, or new anticoagulation most likely have more risk than benefit. [id number] SHARED DECISION MAKING: I discussed my risk assessment with the patient. The patient understands and consents to the risk of disposition/plan, as well as the risk of uncertainty in estimating outcomes. [id number] Discussed ED return precautions, recommended consulting their primary doctor or returning to the ED if there are any new or worsening of symptoms, particularly chest pain, shortness of breath Follow-up with PCP in 1 week PROCEDURES: Unless otherwise noted below, none Procedures FINAL IMPRESSION 1. Dizziness DISPOSITION Discharge 10/09/2023 05:25:55 PM PATIENT REFERRED TO: Nayla Coy MD [address] [facility] [phone] Schedule an appointment as soon as possible for a visit in 1 week [facility] [address] [facility] [address] Go to If symptoms worsen DISCHARGE MEDICATIONS: New Prescriptions No medications on file (Comment: Please note this report has been produced using speech recognition software and may contain errors related to that system including errors in grammar, punctuation, and spelling, as well as words and phrases that may be inappropriate. If there are any questions or concerns please feel free to contact the dictating provider for clarification.) Stephany Davila PA-C (electronically signed) Emergency Medicine Provider Stephany Davila PA-C 10/09/23 1733 documented in this encounter [facility] 10-09-2023 Physician Emergency department Note Images from the original note were not included. EMERGENCY DEPARTMENT ENCOUNTER Pt Name: Sara Chiang Birthdate 2005 Date of evaluation: 10/09/2023 ED Provider: Stephany Davila PA-C CHIEF COMPLAINT Chief Complaint Patient presents with Dizziness Pt reports dizziness on and off for 3 months, pt also reports lower abdominal pain and decreased appetite for 3 months. Per pt's mother she is supposed to have outpatient lab work down but has not followed up. Pt placed on pepcid but unsure why. Denies dizziness at this time. Pt also reports headaches. HISTORY OF PRESENT ILLNESS (Location/Symptom, Timing/Onset, Context/Setting, Quality, Duration, Modifying Factors, Severity) Note limiting factors. I wore appropriate PPE for the entirety of this encounter. HPI Sara Chiang is a 18 y.o. female who presents to the emergency department for dizziness that has been ongoing since June with associated decreased appetite and lower abdominal discomfort. The patient states she has been seen by her primary care for this and was ordered outpatient blood work but states that she did not get this done because she did not feel that that was going to answer any of her questions. The patient denies any worsening symptoms today prompting her visit to the ED. She states that her primary care gave her a prescription of Pepcid and states that she does not know why that she was given this but will not take it. She denies chance of , urinary symptoms, fever, chills. She does note that after she eats she will occasionally feel nauseous causing her lack of appetite. Nursing Notes were reviewed. Limitations to history: None Outside historians: None REVIEW OF SYSTEMS Review of Systems 14 systems reviewed, positives and pertinent negatives as per HPI. All other systems were reviewed and are negative. PAST MEDICAL HISTORY Past Medical History: Diagnosis Date Anxiety Depression SURGICAL HISTORY No past surgical history on file. CURRENT MEDICATIONS Previous Medications ESCITALOPRAM (LEXAPRO) 20 MG TABLET Take 1 tablet (20 mg) by mouth Nightly. FAMOTIDINE (PEPCID) 20 MG TABLET Take 1 tablet (20 mg) by mouth daily. LEVONORGESTREL (KYLEENA) 19.5 MG INTRAUTERINE DEVICE 1 each by IntraUTERine route Once. Placed by dr graham macias 02/2203 MULTIPLE VITAMIN (MULTIVITAMIN) CAPSULE Take 1 capsule by mouth daily. ALLERGIES Patient has no known allergies. FAMILY HISTORY Family History Problem Relation Name Age of Onset Drug abuse Father Depression Father Substance Abuse Father Bipolar disorder Father Anxiety disorder Father Breast cancer Paternal Grandmother Diabetes Paternal Grandmother Bipolar disorder Paternal Grandmother SOCIAL HISTORY Social History Socioeconomic History Marital status: Single Tobacco Use Smoking status: Never Passive exposure: Never Smokeless tobacco: Never Vaping Use Vaping Use: Never used Substance and Sexual Activity Alcohol use: Never Drug use: Never Sexual activity: Yes Social Determinants of Health Financial Resource Strain: Low Risk (04/18/2023) Overall Financial Resource Strain (CARDIA) Difficulty of Paying Living Expenses: Not hard at all Food Insecurity: No Food Insecurity (04/18/2023) Hunger Vital Sign Worried About Running Out of Food in the Last Year: Never true Ran Out of Food in the Last Year: Never true Transportation Needs: No Transportation Needs (04/18/2023) PRAPARE - Transportation Lack of Transportation (Medical): No Lack of Transportation (Non-Medical): No Physical Activity: Sufficiently Active (04/18/2023) Exercise Vital Sign Days of Exercise per Week: 7 days Minutes of Exercise per Session: 40 min Stress: No Stress Concern Present (04/18/2023) [employer] - Occupational Stress Questionnaire Feeling of Stress : Only a little Social Connections: Moderately Integrated (04/18/2023) Social Connection and Isolation Panel [NHANES] Frequency of Communication with Friends and Family: More than three times a week Frequency of Social Gatherings with Friends and Family: More than three times a week Attends Judaism Services: More than 4 times per year Active Member of Clubs or Organizations: Yes Attends Club or Organization Meetings: More than 4 times per year Marital Status: Never Housing Stability: Low Risk (04/18/2023) Housing Stability Vital Sign Unable to Pay for Housing in the Last Year: No Number of Places Lived in the Last Year: 1 Unstable Housing in the Last Year: No SCREENINGS Elisha Coma Scale Best Eye Response: Spontaneous Best Verbal Response: Oriented Best Motor Response: Follows commands Elisha Coma Scale Score: 15 PHYSICAL EXAM ED Triage Vitals [10/09/23 1524] Temp Heart Rate Resp BP 36.7 C (98.1 F) 69 16 120/75 SpO2 Temp Source Heart Rate Source Patient Position 99 % Oral Monitor Sitting BP Location FiO2 (%) Left arm -- Physical Exam Vitals and nursing note reviewed. Constitutional: General: She is not in acute distress. Appearance: She is well-developed. Comments: 18-year-old female, in no acute distress.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 Helpline at 205-112-9572 when someone is ready to make an appointment for addiction help. Hours of operation are Sunday through Sunday from 8:30am - 4:00pm. Mental Health Crisis anytime at 387-885-8362 [facility] Psychiatric Intake Response Center at 973-960-7367 or 656-339-0448 National Suicide Prevention Lifeline anytime at 3-286-608-THCZ (8515) Homeless Hotline at 755-044-6879 Domestic Violence help line anytime at 423-997-2602 [facility] at 855-739-2334 National Disaster Distress Helpline at 807-849-5325 or text TalkWithUs to [address] Additional resources for food, housing, and emergency services available on the [employer] Card or call 211 to be connected with resources. [facility]: 04/12 Crisis & Behavioral Health Helpline: [facility]: Crisis line: [phone] documented in this encounter [facility] 04-19-2023 Telephone encounter Note Name of caller:Eunice Relation to patient: Nurse Contact phone number: [phone] Appointment scheduled with: Nayla Coy Appointment date & time: 06/01 at 10:45 Reason for visit (are you having any symptoms) : Establish Care Transportation issues/ concerns: no Snopecial accommodations? ( wheel chair, etc) : no Current medications: no Any refills need: no Any chronic conditions the provider should be aware of: no [facility] 04-19-2023 Miscellaneous Notes Name of caller:Eunice Relation to patient: Nurse Contact phone number: [phone] Appointment scheduled with: Nayla Coy Appointment date & time: 06/01 at 10:45 Reason for visit (are you having any symptoms) : Establish Care Transportation issues/ concerns: no Snopecial accommodations? ( wheel chair, etc) : no Current medications: no Any refills need: no Any chronic conditions the provider should be aware of: no documented in this encounter [facility] 04-19-2023 Note DEPARTMENT OF PSYCHI ATRY Resident History and Physical - Inpatient Adult IDENTIFYING INFORMATION Name: Sara Chiang : 2005 TODAY: 04/19/2023 CHIEF COMPLAINT: SI w/o plan [x] Patient was seen and examined in person [x] Chart reviewed [x] Labs reviewed [x] Patient's case discussed with staff/team Per ED Note: No chief complaint on file. HISTORY OF PRESENT ILLNESS Sara Chiang is a 17 y.o. female with a history of anxiety and depression (on Lexapro 20 mg at home) who presented to [facility] ED 04/17 via EMS for psychiatric evaluation of suicidal ideation. Per ED notes, patient sent texts threatening self harm to her boyfriend whose mother called police. ED labs largely unremarkable---CBC, CMP, UA, UDS and ethanol within normal limits. EKG from 12/2022 reveals sinus rhythm with Qtc 484. Patient seen this morning by attending, resident and medical student. Calm and cooperative on approach. She reports that she is here because she got into a fight with her boyfriend and said some things I didn't mean. Reports that she and her boyfriend have been arguing for the past few weeks about stupid stuff and he broke up with her over text two nights ago. I felt really upset because I felt like he ended things over something dumb. So, I texted him saying I was going to kill myself. She explains that she said that out of anger/frustration and had no intent of actually hurting her self and never started devising plans on how she could end her life. I just said that and then went and laid in bed. Explains that she expected her boyfriend to just say okay and wasn't sure what she was trying to get out of him by saying that. Sometimes I just don't think things through all the way. Says she ended up in the hospital because he told his mother, who called police. Patient denies any other stressors contributing to her presentation. Reports that she's just been arguing with her boyfriend for the past few weeks, which she attributes to both of them being off of their meds. Reports that she's been taking her Lexapro inconsistently for the past month, missing doses most days and only taking it when she remembers. She does mention that when she took it consistently for a few months after [place] hospitalization it was helpful. Patient currently denies SI, HI, AVH. Endorses a low mood for the past few weeks due to relationship issues, but denies anhedonia. Endorses some guilt related to threatening suicide. Endorses ongoing anxiety about work, romantic relationships & family that's excessive, difficult to control and has been keeping her up at night more recently. Also endorses difficulty concentrating and irritability due to her anxiety. At present, patient endorses a mood that is good now that I got to talk about all of this with you guys. Describes her plan to focus on herself when she leaves here. Specifically, patient mentions going back to therapy and starting to take her Lexapro consistently again. Spoke with patient's mother, Meg ([phone]): Meg denies any outstanding concerns for patient and attests to her return to psychiatric baseline. Feels she can return back home safely with outpatient psychiatry follow up. All questions answered. PSYCHIATRIC REVIEW OF SYSTEMS DEPRESSION: Endorses low mood, guilt, decreased concentration and appetite, but denies anhedonia, weight or energy changes AGUEDA: Denies euphoric mood, intense irritability, quick distraction, impulsiveness, risky behaviors, decrease need for sleep, racing thoughts, hyper-focused goals, difficulty calming down ANXIETY: Endorses excessive worry, restlessness, irritability, muscle tension, panic OCD: Denies obsessive thoughts, compulsions, irrational repetitive behaviors such as checking, counting, cleaning excessively, or other rituals EATING: Denies disordered binging, purging, caloric restriction, excessive exercise, negative body image PSYCHOSIS: Denies hallucinations, delusions, disorganized thinking, catatonic behavior, paranoid thoughts PTSD: Denies hyperarousal, flashbacks, nightmares, intrusive thoughts/behaviors, avoidance, trouble functioning due to past trauma CLUSTER B: Endorses dysregulated mood, unstable relationships, fear of abandonment DEMENTIA/DELIRIUM: Denies short or chcf memory loss, forgetfulness, abrupt personality change MEDICAL REVIEW OF SYSTEMS CONSTITUTIONAL: Negative for weight change, appetite change, fever, chills, night sweats HEENT: Negative for sinus congestion, sore throat, change in hearing, change in vision, eye pain RESPIRATORY: Negative for cough, shortness of breath, wheezing CARDIOVASCULAR: Negative for chest pain, palpitations NEUROLOGICAL: Negative for dizziness, numbness, tingling, weakness, tremors, seizures, headaches GASTROINTESTINAL: Negative for constipation, diarrhea, nausea, vomiting, dysphagia GENITOU (more content not included)... [facility] 04-18-2023 Note Sara Chiang is a 17 y.o.female No chief complaint on file. Patient here for panic attack, suicidal thoughts mother accompanies and patient declines private interview. Says BF broke up with her yesterday and she had a panic attack, says she told BF in a text that she was thinking of harming herself. She had attempted suicide earlier this year, prompting safety check and transport to ED via police and EMS. Patient tried to elope from ED due to anxiety and frustration at delays in receiving definitive care. Presently disavowing suicidal feelings. But winders if antidepressant could be increased (lexapro, already at 20 mg daily) Patient was referred to [facility] Psychiatry by Dr. Murcia after overdose (December 2022) Patient denies significant medical history. 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 Lives at home with family members. Denies substance use, except tobacco. Denies traumatic experiences. Past Medical History: Diagnosis Date Anxiety Depression Current Outpatient Medications Medication Instructions escitalopram (LEXAPRO) 20 mg, Oral, Nightly No Known Allergies No past surgical history on file. No family history on file. Social History Tobacco Use Smoking status: Never Smokeless tobacco: Never Substance Use Topics Alcohol use: Never Drug use: Never Vitals: 04/17/23 1932 04/17/23 1958 04/18/23 0237 04/18/23 0927 BP: 136/82 110/71 103/66 Pulse: 79 72 72 Resp: 20 16 16 Temp: 36.8 ?C (98.3 ?F) 36.8 ?C (98.2 ?F) 36.9 ?C (98.5 ?F) TempSrc: Temporal Temporal Temporal SpO2: 100% 98% 97% Height: 1.676 m (5' 6 ) Review of Systems Constitutional: Negative for fatigue and fever. Respiratory: Negative for cough and shortness of breath. Cardiovascular: Negative for chest pain and leg swelling. Gastrointestinal: Negative for diarrhea, nausea and vomiting. Musculoskeletal: Negative for gait problem. Psychiatric/Behavioral: Positive for dysphoric mood, sleep disturbance and suicidal ideas. The patient is nervous/anxious. Physical Exam Vitals reviewed. Constitutional: Appearance: Normal appearance. Cardiovascular: Rate and Rhythm: Normal rate. Pulmonary: Effort: Pulmonary effort is normal. Neurological: General: No focal deficit present. Mental Status: She is alert and oriented to person, place, and time. Mental status is at baseline. Psychiatric: Attention and Perception: She is attentive. She does not perceive auditory or visual hallucinations. Mood and Affect: Affect normal. Mood is anxious and depressed. Speech: She is communicative. Speech is not tangential. Behavior: Behavior is not agitated or hyperactive. Thought Content: Thought content is not paranoid or delusional. Thought content does not include suicidal ideation. Cognition and Memory: Cognition is not impaired. She does not exhibit impaired recent memory. Judgment: Judgment is not impulsive or inappropriate. Comments: Ortiz appears cognitively and emotionally able to consent to needed care and to medications Assessment Problem List Items Addressed This Visit Other * (Principal) Suicidal ideation - Primary Depression with anxiety Severe symptoms at present Plan Will admit to P-7, and discuss medication alternative regimen to present Rx (decrease lexapro and add mirtazapine, versus trial of SNRI, versus augmentation with SGA). Follow up with [facility] Psychiatry provider in [place], versus LIBRARY INFORMATION TECHNICIAN . Patient likely unable due to work schedule to participate in PHP or IOP. [facility] 03-13-2023 Note HNO ID: [id number] Author: Jaime Macais MD Service: ? Author Type: Physician Type: Progress Notes Filed: 03/13/2023 3:02 PM Note Text: Sara Chiang presents today for IUD insertion for contraception. Patient's last menstrual period was 02/27/2023 (approximate). INFORMED CONSENT The procedure including risks, benefits, options and personnel performing the procedure was discussed with the patient. There are no contraindications to the procedure. Sara Chiang expressed understanding and agreed to proceed. UNIVERSAL PROTOCOL / SAFETY CHECKLIST Procedure to be performed: IUD Insertion Sign in Communication: Completed Time Out: Team Confirms the Correct Patient, Correct Procedure, Correct Site and Site Marking, Correct Position (if applicable). Time: yes Affirmation of Time Out: YES Sign Out Discussion: Completed Jaime Macias MD, MD IUD INFO: Type: KYLEENA Lot#: [id number] Expiration Date: Anesthesia: The uterus was sounded to 7 cm and the uterus is Midposition.. After prepping the cervix with betadine and using sterile technique, the Kyleena IUD was inserted without difficulty and the string was cut to 2cm's from the external os of the cervix. The patient tolerated the procedure well. PLAN: Pt. understands to look for signs and symptoms of infection including but not limited to fever, malodorous vaginal discharge and/or pain. Antibiotic ordered no. She was told to check the string monthly for accurate placement and shown how to do it. ASSESSMENT/PLAN: 1. Encounter for IUD insertion - ICD9: V25.11, ICD10: Z30.430 - Recheck in 4 weeks - LEVONORGESTREL 17.5 MCG/24 HRS (5YRS) 19.5MG INTRAUTERINE DEVICE Jaime Macias MD [facility] 03-13-2023 History of Presen t illness Narrative Sara Chiang presents today for IUD insertion for contraception. Patient's last menstrual period was 02/27/2023 (approximate). INFORMED CONSENT The procedure including risks, benefits, options and personnel performing the procedure was discussed with the patient. There are no contraindications to the procedure. Sara Chiang expressed understanding and agreed to proceed. UNIVERSAL PROTOCOL / SAFETY CHECKLIST Procedure to be performed: IUD Insertion Sign in Communication: Completed Time Out: Team Confirms the Correct Patient, Correct Procedure, Correct Site and Site Marking, Correct Position (if applicable). Time: yes Affirmation of Time Out: YES Sign Out Discussion: Completed Jaime Macias MD, MD IUD INFO: Type: KYLEENA Lot#: [id number] Expiration Date: Anesthesia: The uterus was sounded to 7 cm and the uterus is Midposition.. After prepping the cervix with betadine and using sterile technique, the Kyleena IUD was inserted without difficulty and the string was cut to 2cm's from the external os of the cervix. The patient tolerated the procedure well. PLAN: Pt. understands to look for signs and symptoms of infection including but not limited to fever, malodorous vaginal discharge and/or pain. Antibiotic ordered no. She was told to check the string monthly for accurate placement and shown how to do it. ASSESSMENT/PLAN: 1. Encounter for IUD insertion - ICD9: V25.11, ICD10: Z30.430 - Recheck in 4 weeks - LEVONORGESTREL 17.5 MCG/24 HRS (5YRS) 19.5MG INTRAUTERINE DEVICE Jaime Macias MD documented in this encounter [facility] 01-23-2023 History of Presen t illness Narrative Sara Chiang is an 17 year old woman who presents for contraception. LMP: Patient's last menstrual period was 01/09/2023 (approximate). Periods are irregular, lasting 6 days. Dysmenorrhea:moderate, occurring first 1-2 days of flow. Cyclic symptoms include moodiness. Sexually active? Yes Contraception: none Sexual dysfunction: none Vaginitis symptoms: none PAST MEDICAL HISTORY Diagnosis Date Migraine Scoliosis History reviewed. No pertinent surgical history. FAMILY HISTORY Problem Relation Age of Onset Diabetes Paternal Grandmother Breast Cancer Paternal Grandmother Social History Tobacco Use Smoking status: Never Smokeless tobacco: Never MEDICATIONS: escitalopram oxalate (LEXAPRO) 20 mg tablet Take 20 mg by mouth once daily. ALLERGIES:Patient has no known allergies. Hx of abnormal pap? Not Applicable Regular self-breast exam? Not Applicable History of abnormal mammogram? Not Applicable REVIEW OF SYSTEMS: GENERAL:Denies fever, chills, night sweats, or changes in weight. DERMATOLOGIC: Denies any new skin conditions, rashes or changing moles. EYES: Denies recent visual changes. ENT: Denies hearing loss or tinnitus. RESPIRATORY: Denies any cough, dyspnea, or wheezing. CARDIOVASCULAR:Denies any chest pain with exertion or at rest, palpitations, syncope, shortness of breath or edema. BREASTS: Denies any breast lumps, tenderness, dimpling, skin changes, or nipple discharge. GASTROINTESTINAL: Denies any nausea, vomiting, or abdominal pain. , Denies heartburn., Denies any change in bowel habits. GENITOURINARY:Denies urinary frequency, dysuria, hematuria, nocturia, incontinence. 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 NEURO:Denies weakness, numbness or tingling., Reports headaches PSYCHIATRIC: Positive for depression. HEMATOLOGIC/LYMPHATIC/IMMUNOLOGI C: Denies anemia, bruising, bleeding abnormalities. ENDOCRINE: Denies any heat or cold intolerance, polyuria, polyphasia or polydipsia. OBJECTIVE: GENERAL APPEARANCE: cooperative, in no acute distress, alert. SKIN:Color normal, Vascularity normal, No evidence of bleeding or bruising, No lesions noted, No edema, Temperature normal, Texture normal, Mobility and turgor normal, Nails normal without clubbing NECK: Supple, no adenopathy; thyroid symmetric, normal size, no bruits BREASTS: deferred exam HEART:Normal PMI, Regular rate and rhythm, Normal heart sounds, S1 and S2, and No murmurs. ABDOMEN: soft, non-tender, no masses, no hepatosplenomegaly, and no lymphadenopathy EXTREMITIES: No skin discoloration, No edema, and Normal pulses bilaterally. PELVIC EXAM : deferred RECTAL EXAM: deferred PATIENT EDUCATION:Women's Health counselling done. ASSESSMENT/PLAN: 1. Menorrhagia with irregular cycle - ICD9: 626.2, ICD10: N92.1 (primary diagnosis) - We discussed BCP vs IUD 2. Migraine without status migrainosus, not intractable, unspecified migraine type - ICD9: 346.90, ICD10: G43.909 - She was using the patch, but experienced an increase in her headaches 3. Encounter for initial prescription of intrauterine contraceptive device (IUD) - ICD9: V25.02, ICD10: Z30.014 - Rx Haider Macias MD documented in this encounter [facility] 01-23-2023 Note HNO ID: [id number] Author: Jaime Macias MD Service: ? Author Type: Physician Type: Progress Notes Filed: 01/23/2023 2:58 PM Note Text: aSra Chiang is an 17 year old woman who presents for contraception. LMP: Patient's last menstrual period was 01/09/2023 (approximate). Periods are irregular, lasting 6 days. Dysmenorrhea:moderate, occurring first 1-2 days of flow. Cyclic symptoms include moodiness. Sexually active? Yes Contraception: none Sexual dysfunction: none Vaginitis symptoms: none PAST MEDICAL HISTORY Diagnosis Date Migraine Scoliosis History reviewed. No pertinent surgical history. FAMILY HISTORY Problem Relation Age of Onset Diabetes Paternal Grandmother Breast Cancer Paternal Grandmother Social History Tobacco Use Smoking status: Never Smokeless tobacco: Never MEDICATIONS: escitalopram oxalate (LEXAPRO) 20 mg tablet Take 20 mg by mouth once daily. ALLERGIES:Patient has no known allergies. Hx of abnormal pap? Not Applicable Regular self-breast exam? Not Applicable History of abnormal mammogram? Not Applicable REVIEW OF SYSTEMS: GENERAL:Denies fever, chills, night sweats, or changes in weight. DERMATOLOGIC: Denies any new skin conditions, rashes or changing moles. EYES: Denies recent visual changes. ENT: Denies hearing loss or tinnitus. RESPIRATORY: Denies any cough, dyspnea, or wheezing. CARDIOVASCULAR:Denies any chest pain with exertion or at rest, palpitations, syncope, shortness of breath or edema. BREASTS: Denies any breast lumps, tenderness, dimpling, skin changes, or nipple discharge. GASTROINTESTINAL: Denies any nausea, vomiting, or abdominal pain. , Denies heartburn., Denies any change in bowel habits. GENITOURINARY:Denies urinary frequency, dysuria, hematuria, nocturia, incontinence. 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 NEURO:Denies weakness, numbness or tingling., Reports headaches PSYCHIATRIC: Positive for depression. HEMATOLOGIC/LYMPHATIC/IMMUNOLOGI C: Denies anemia, bruising, bleeding abnormalities. ENDOCRINE: Denies any heat or cold intolerance, polyuria, polyphasia or polydipsia. OBJECTIVE: GENERAL APPEARANCE: cooperative, in no acute distress, alert. SKIN:Color normal, Vascularity normal, No evidence of bleeding or bruising, No lesions noted, No edema, Temperature normal, Texture normal, Mobility and turgor normal, Nails normal without clubbing NECK: Supple, no adenopathy; thyroid symmetric, normal size, no bruits BREASTS: deferred exam HEART:Normal PMI, Regular rate and rhythm, Normal heart sounds, S1 and S2, and No murmurs. ABDOMEN: soft, non-tender, no masses, no hepatosplenomegaly, and no lymphadenopathy EXTREMITIES: No skin discoloration, No edema, and Normal pulses bilaterally. PELVIC EXAM : deferred RECTAL EXAM: deferred PATIENT EDUCATION:Women's Health counselling done. ASSESSMENT/PLAN: 1. Menorrhagia with irregular cycle - ICD9: 626.2, ICD10: N92.1 (primary diagnosis) - We discussed BCP vs IUD 2. Migraine without status migrainosus, not intractable, unspecified migraine type - ICD9: 346.90, ICD10: G43.909 - She was using the patch, but experienced an increase in her headaches 3. Encounter for initial prescription of intrauterine contraceptive device (IUD) - ICD9: V25.02, ICD10: Z30.014 - Rx Haider Macias MD [facility] 12-30-2022 Hospital Discharg e instructions Jayjay Cheatham MD - 12/30/2022 4:56 PM EDT As tolerated Jayjay Cheatham MD - 12/30/2022 4:56 PM EDT Regular diet documented in this encounter [facility] 12-30-2022 Consult note Associated Order (s): IP CONSULT TO PSYCHIATRY [facility]SULT [facility] PATIENT NAME: Sara Chinag : 2005 ADMISSION DATE: 12/30/2022 REASON FOR CONSULT: overdose CHIEF COMPLAINT AND IDENTIFYING INFORMATION: Sara Chiang is a 17 y.o., not individual who was hospitalized at [facility] for overdose on Lexapro on 12/30/2022. HISTORY OF PRESENT ILLNESS: Sara is currently admitted to [facility] for medical management following an overdose on Lexapro 20mg x 5. Reports she was sad and took more than prescribed impulsively. Denies she was actually trying to kill herself. Afterwards she told her mother who brought her in to the hospital. Reports a history of depression and anxiety. States recently has had some intermittent depression but it comes and goes. Reports Lexapro has been helpful for mood since being on it. Denies isolation, anhedonia, poor sleep/appetite, though sometimes falling asleep is difficult. Reports recently losing job, but in process of finding another job. Currently denies SI/HI, no intent or plan. Denies AVH, delusional thoughts. Denies history of manic episodes, psychosis, OCD, PTSD. Her mother was present, who does not think she tried to kill herself. Does not believe she needs to be admitted to psych unit but would like her set up with outpatient care. PAST PSYCHIATRIC HISTORY: Depression, Anxiety. Does not see provider currently. Tried Prozac in past. Denies SA/admissions. SUBSTANCE USE HISTORY: Denies alcohol or drug use. SOCIAL AND DEVELOPMENTAL HISTORY: Reports from the area. Only child. Graduated HS. Currently lives with mother. Not working at this time. No children. FAMILY HISTORY: Hx of depression/bipolar with father MEDICALHISTORY: Past Medical History: Diagnosis Date Anxiety Depression History reviewed. No pertinent surgical history. MEDICATIONS: charcoal activated, 50 g, Oral, Once enoxaparin, 40 mg, SubCUTAneous, Daily sodium chloride, 500 mL, IntraVENous, Once sodium chloride, 125 mL/hr, Last Rate: 100 mL/hr (12/30/22 1022) PRN medications: acetaminophen OR acetaminophen, ondansetron ODT OR ondansetron, polyethylene glycol (PEG) 3350 PCP: Jasmin Chambers Allergies: No Known Allergies REVIEW OF SYSTEMS: ROS: [x] All negative/unchanged except if checked. Explain positive(checked items) below: [] Constitutional [] Eyes [] Ear/Nose/Mouth/Throat [] Respiratory [] CV [] GI [] [] Musculoskeletal [] Skin/Breast [] Neurological [] Endocrine [] Heme/Lymph [] Allergic/Immunologic Explanation: denies VITAL SIGNS: BP 97/64 (BP Location: Left arm, Patient Position: Lying) Pulse 86 Temp 36.4 C (97.5 F) (Temporal) Resp 16 Ht 1.676 m (5' 6 ) Wt 63.5 kg (140 lb) LMP 12/16/2022 (Approximate) SpO2 98% BMI 22.60 kg/m LABORATORY DATA AND IMAGING: Recent Labs 12/30/22 0607 WBC 5.3 HGB 11.3* PLT 271 Recent Labs 12/30/22 0607 NA 142 K 4.1 CL 104 CO2 29 BUN 7 CREATININE 0.60 GLUCOSE 96 Recent Labs 12/30/22 0607 BILITOT 0.3 ALKPHOS 60 AST 27 ALT 12 Lab Results Component Value Date COCAINESCRN Negative 12/30/2022 ETOH 0.097 (H) 12/30/2022 No results found for: TSH, FREET4 No results found for: LITHIUM No results found for: VALPROATE, CBMZ No results found for: LITHIUM, VALPROATE MENTAL STATUS EXAM: Vitals : BP 97/64 (BP Location: Left arm, Patient Position: Lying) Pulse 86 Temp 36.4 C (97.5 F) (Temporal) Resp 16 Ht 1.676 m (5' 6 ) Wt 63.5 kg (140 lb) LMP 12/16/2022 (Approximate) SpO2 98% BMI 22.60 kg/m APPEARANCE: Fairly groomed. BEHAVIOR: normal PSYCHOMOTOR: within normal limits SPEECH: Coherent and Regular rate, rhythm, volume and articulation LANGUAGE: Naming intact MOOD: Euthymic AFFECT: Euthymic, full-range THOUGHT PROCESS: Goal-directed THOUGHT CONTENT: normal PERCEPTIONS/HALLUCINATIONS: denies ABSTRACTION: good INSIGHT: good, including concerning psychiatric condition. JUDGMENT: good, including concerning psychiatric condition. ORIENTATION: oriented to person, place, time/date, and situation MEMORY: recent and remote memory intact ATTENTION SPAN: good CONCENTRATION: good FUND OF KNOWLEDGE: good GAIT: Within normal limits ASSESSMENT: 1.) Unspecified depressive disorder 2.) Unspecified anxiety disorder PLAN: -Patient denies this was a suicide attempt, and that it was impulsive and now regretful. Denies current suicidal ideation. Does not have a history of previous suicide attempts. Her mother who was present does not think she needs psychiatric admission, she lives with her and will be keeping an eye on her. Discussed talking to mom or calling suicide prevention hotline number in the future if needed. Recommend holding Lexapro while admitted and OK to restart when returns home. Will refer to [facility] Psych including PHP/IOP. OK for discharge home when medically stable. OK to stop sitter and yellow slip. Will sign off. Electronically signed by Brett Murcia MD 12/30/2022 4:25 PM Note: Please note this report has been produced using speech recognition software and may contain errors related to that system including errors in grammar, punctuation, and spelling, as well as words and phrases that may be inappropriate. If there are any questions or concerns please feel free to contact the dictating provider for clarification. [facility] 12-30-2022 Consult note Associated Order (s): IP CONSULT TO PSYCHIATRY [facility] PATIENT NAME: Sara Chiang : 2005 ADMISSION DATE: 12/30/2022 REASON FOR CONSULT: overdose CHIEF COMPLAINT AND IDENTIFYING INFORMATION: Sara Chiang is a 17 y.o., not individual who was hospitalized at [facility] for overdose on Lexapro on 12/30/2022. HISTORY OF PRESENT ILLNESS: Sara is currently admitted to [facility] for medical management following an overdose on Lexapro 20mg x 5. Reports she was sad and took more than prescribed impulsively. Denies she was actually trying to kill herself. Afterwards she told her mother who brought her in to the hospital. Reports a history of depression and anxiety. States recently has had some intermittent depression but it comes and goes. Reports Lexapro has been helpful for mood since being on it. Denies isolation, anhedonia, poor sleep/appetite, though sometimes falling asleep is difficult. Reports recently losing job, but in process of finding another job. Currently denies SI/HI, no intent or plan. Denies AVH, delusional thoughts. Denies history of manic episodes, psychosis, OCD, PTSD. Her mother was present, who does not think she tried to kill herself. Does not believe she needs to be admitted to psych unit but would like her set up with outpatient care. PAST PSYCHIATRIC HISTORY: Depression, Anxiety. Does not see provider currently. Tried Prozac in past. Denies SA/admissions. SUBSTANCE USE HISTORY: Denies alcohol or drug use. SOCIAL AND DEVELOPMENTAL HISTORY: Reports from the area. Only child. Graduated HS. Currently lives with mother. Not working at this time. No children. FAMILY HISTORY: Hx of depression/bipolar with father MEDICALHISTORY: Past Medical History: Diagnosis Date Anxiety Depression History reviewed. No pertinent surgical history. MEDICATIONS: charcoal activated, 50 g, Oral, Once enoxaparin, 40 mg, SubCUTAneous, Daily sodium chloride, 500 mL, IntraVENous, Once sodium chloride, 125 mL/hr, Last Rate: 100 mL/hr (12/30/22 1022) PRN medications: acetaminophen OR acetaminophen, ondansetron ODT OR ondansetron, polyethylene glycol (PEG) 3350 PCP: [employer] [facility] Allergies: No Known Allergies REVIEW OF SYSTEMS: ROS: [x] All negative/unchanged except if checked. Explain positive(checked items) below: [] Constitutional [] Eyes [] Ear/Nose/Mouth/Throat [] Respiratory [] CV [] GI [] [] Musculoskeletal [] Skin/Breast [] Neurological [] Endocrine [] Heme/Lymph [] Allergic/Immunologic Explanation: denies VITAL SIGNS: BP 97/64 (BP Location: Left arm, Patient Position: Lying) Pulse 86 Temp 36.4 C (97.5 F) (Temporal) Resp 16 Ht 1.676 m (5' 6 ) Wt 63.5 kg (140 lb) LMP 12/16/2022 (Approximate) SpO2 98% BMI 22.60 kg/m LABORATORY DATA AND IMAGING: Recent Labs 12/30/22 0607 WBC 5.3 HGB 11.3* PLT 271 Recent Labs 12/30/22 0607 NA 142 K 4.1 CL 104 CO2 29 BUN 7 CREATININE 0.60 GLUCOSE 96 Recent Labs 12/30/22 0607 BILITOT 0.3 ALKPHOS 60 AST 27 ALT 12 Lab Results Component Value Date COCAINESCRN Negative 12/30/2022 ETOH 0.097 (H) 12/30/2022 No results found for: TSH, FREET4 No results found for: LITHIUM No results found for: VALPROATE, CBMZ No results found for: LITHIUM, VALPROATE MENTAL STATUS EXAM: Vitals : BP 97/64 (BP Location: Left arm, Patient Position: Lying) Pulse 86 Temp 36.4 C (97.5 F) (Temporal) Resp 16 Ht 1.676 m (5' 6 ) Wt 63.5 kg (140 lb) LMP 12/16/2022 (Approximate) SpO2 98% BMI 22.60 kg/m APPEARANCE: Fairly groomed. BEHAVIOR: normal PSYCHOMOTOR: within normal limits SPEECH: Coherent and Regular rate, rhythm, volume and articulation LANGUAGE: Naming intact MOOD: Euthymic AFFECT: Euthymic, full-range THOUGHT PROCESS: Goal-directed THOUGHT CONTENT: normal PERCEPTIONS/HALLUCINATIONS: denies ABSTRACTION: good INSIGHT: good, including concerning psychiatric condition. JUDGMENT: good, including concerning psychiatric condition. ORIENTATION: oriented to person, place, time/date, and situation MEMORY: recent and remote memory intact ATTENTION SPAN: good CONCENTRATION: good FUND OF KNOWLEDGE: good GAIT: Within normal limits ASSESSMENT: 1.) Unspecified depressive disorder 2.) Unspecified anxiety disorder PLAN: -Patient denies this was a suicide attempt, and that it was impulsive and now regretful. Denies current suicidal ideation. Does not have a history of previous suicide attempts. Her mother who was present does not think she needs psychiatric admission, she lives with her and will be keeping an eye on her. Discussed talking to mom or calling suicide prevention hotline number in the future if needed. Recommend holding Lexapro while admitted and OK to restart when returns home. Will refer to [facility] Psych including PHP/IOP. OK for discharge home when medically stable. OK to stop sitter and yellow slip. Will sign off. Electronically signed by Brett Murcia MD 12/30/2022 4:25 PM Note: Please note this report has been produced using speech recognition software and may contain errors related to that system including errors in grammar, punctuation, and spelling, as well as words and phrases that may be inappropriate. If there are any questions or concerns please feel free to contact the dictating provider for clarification. documented in this encounter [facility] 12-30-2022 History and physical note Images from the original note were not included. Attending History and Physical Admit Date: 12/30/2022 PCP: Jasmin Chambers CHIEF COMPLAINT: lexapro overdose/possible suicide attempt Reason for Admission: lexapro overdose/possible suicide attempt History Obtained From: patient/grandmother/chart HISTORY OF PRESENT ILLNESS: Sara is a 17 y.o. female with past medical history below who presents with chief complaint listed above. She denies chest pain, sob, abdominal pain, nausea, vomiting, diarrhea, constipation, fevers, or chills. Will admit for further evaluation and management. D/w pt and grandmother at bedside. Past Medical History: Past Medical History: Diagnosis Date Anxiety Depression Past Surgical History: History reviewed. No pertinent surgical history. Social History: Social History Socioeconomic History Marital status: Single Spouse name: Not on file Number of children: Not on file Years of education: Not on file Highest education level: Not on file Occupational History Not on file Tobacco Use Smoking status: Never Smokeless tobacco: Never Substance and Sexual Activity Alcohol use: Never Drug use: Never Sexual activity: Yes Other Topics Concern Not on file Social History Narrative Not on file Social Determinants of Health Financial Resource Strain: Not on file Food Insecurity: Not on file Transportation Needs: Not on file Physical Activity: Not on file Stress: Not on file Social Connections: Not on file Intimate Partner Violence: Not on file Housing Stability: Not on file Family History: No family history on file. Medications Prior to Admission: No current facility-administered medications on file prior to encounter. Current Outpatient Medications on File Prior to Encounter Medication Sig Dispense Refill escitalopram (Lexapro) 20 MG tablet Take 20 mg by mouth Nightly. Allergies: No Known Allergies REVIEW OF SYSTEMS: As per HPI otherwise 10 system review is unremarkable. Vitals: BP 109/58 (BP Location: Right arm, Patient Position: Lying) Pulse 80 Temp 36.6 C (97.8 F) (Temporal) Resp 16 Ht 5' 6 (1.676 m) Wt 140 lb (63.5 kg) LMP 12/16/2022 (Approximate) SpO2 95% BMI 22.60 kg/m BMI Classification: Normal Weight (BMI 18.5-24.9) Pulse Ox: SpO2 Av.8 % Min: 95 % Max: 99 % Supplemental O2: PHYSICAL EXAM: Physical Exam Vitals and nursing note reviewed. Constitutional: Appearance: She is not toxic-appearing. HENT: Head: Normocephalic and atraumatic. Eyes: Extraocular Movements: Extraocular movements intact. Pupils: Pupils are equal, round, and reactive to light. Cardiovascular: Rate and Rhythm: Normal rate and regular rhythm. Pulses: Normal pulses. Pulmonary: Effort: Pulmonary effort is normal. Breath sounds: Normal breath sounds. Abdominal: General: Bowel sounds are normal. There is no distension. Palpations: Abdomen is soft. Tenderness: There is no abdominal tenderness. Musculoskeletal: General: Normal range of motion. Cervical back: Normal range of motion and neck supple. Right lower leg: No edema. Left lower leg: No edema. Skin: General: Skin is warm. Neurological: General: No focal deficit present. Mental Status: She is alert and oriented to person, place, and time. Mental status is at baseline. Psychiatric: Mood and Affect: Mood normal. DATA: CBC: Recent Labs 12/30/22 0607 WBC 5.3 RBC 4.83* HGB 11.3* HCT 35.9* MCV 74.4* RDW 16.4* PLT 271 BMP: Recent Labs 12/30/22 0607 NA 142 K 4.1 CL 104 CO2 29 BUN 7 CREATININE 0.60 GLUCOSE 96 CALCIUM 8.7 ANIONGAP 9 LIVER PROFILE: Recent Labs 12/30/22 0607 AST 27 ALT 12 BILITOT 0.3 ALKPHOS 60 PROT 8.2 PT/INR: No results for input(s): PROTIME, INR in the last 72 hours. CARDIAC ENZYMES: No results for input(s): TROPONINI in the last 72 hours. Procalcitonin: No results found for: PROCAL Urine Culture: No results found for this or any previous visit. COVID-19 PCR: No results for input(s): COVID19 in the last 72 hours. I reviewed: [x] laboratory results [x] radiographic results At the time of today's encounter. Pt was advised of the results. IMPRESSION: Lexapro overdose Possible suicidal ideation Depression/anxiety anemia Medical Decision Making: Discussed management with ED clinician and agree with hospitalization, monitor for signs of complications, monitor on telemetry, IVF, follow up labs, Psychiatry evaluation, discharge planning, see admission orders. -Discussed with ED provider and agree with their plan for admission -PT/OT eval/increase activity -am labs, replace lytes prn -vitals per routine -home meds as ordered -DVT prophylaxis: [x] Lovenox [] Heparin [] SCDs [x] Encourage ambulation [] Already on Anticoagulation Anticipated Discharge - Date - 12/31 - Location - Inpatient Psych - Pending the following - when OK with Psychiatry Total time spent (which include face to face and non face to face encounters) : 59 minutes Toxic drug monitoring/narrow therapeutic index drug monitoring : # Drug name : lovenox # Route administered : SQ # Method of monitoring : daily CBC Extended Emergency Contact Information Primary Emergency Contact: Meg Jenkins Relation: Mother Code status: Full Code -see below for additional orders, further recommendations to follow Orders Placed This Encounter Procedures CBC auto differential Comprehensive metabolic panel Drug screen panel, emergency Ethanol hCG, quantitative, Acetaminophen level Salicylate level CBC auto differential Comprehensive Metabolic Panel w/ Mg Reflex Adult diet Regular Vital Signs Telemetry monitoring for Arrhythmia Management Vital Signs Notify patient's primary care provider of admission Activity No Restrictions Pulse Oximetry Intake and output Daily weights Full code Inpatient consult to Psychiatry--[facility] Initiate Oxygen Therapy Protocol ECG 12 lead Insert peripheral IV Initiate observation status Admit to inpatient Suicide precautions Please forward a copy of this H&P to the patient's PCP. Thank you. [facility] 12-30-2022 History and physical note Images from the original note were not included. Attending History and Physical Admit Date: 12/30/2022 PCP: [facility] CHIEF COMPLAINT: lexapro overdose/possible suicide attempt Reason for Admission: lexapro overdose/possible suicide attempt History Obtained From: patient/grandmother/chart HISTORY OF PRESENT ILLNESS: Sara is a 17 y.o. female with past medical history below who presents with chief complaint listed above. She denies chest pain, sob, abdominal pain, nausea, vomiting, diarrhea, constipation, fevers, or chills. Will admit for further evaluation and management. D/w pt and grandmother at bedside. Past Medical History: Past Medical History: Diagnosis Date Anxiety Depression Past Surgical History: History reviewed. No pertinent surgical history. Social History: Social History Socioeconomic History Marital status: Single Spouse name: Not on file Number of children: Not on file Years of education: Not on file Highest education level: Not on file Occupational History Not on file Tobacco Use Smoking status: Never Smokeless tobacco: Never Substance and Sexual Activity Alcohol use: Never Drug use: Never Sexual activity: Yes Other Topics Concern Not on file Social History Narrative Not on file Social Determinants of Health Financial Resource Strain: Not on file Food Insecurity: Not on file Transportation Needs: Not on file Physical Activity: Not on file Stress: Not on file Social Connections: Not on file Intimate Partner Violence: Not on file Housing Stability: Not on file Family History: No family history on file. Medications Prior to Admission: No current facility-administered medications on file prior to encounter. Current Outpatient Medications on File Prior to Encounter Medication Sig Dispense Refill escitalopram (Lexapro) 20 MG tablet Take 20 mg by mouth Nightly. Allergies: No Known Allergies REVIEW OF SYSTEMS: As per HPI otherwise 10 system review is unremarkable. Vitals: BP 109/58 (BP Location: Right arm, Patient Position: Lying) Pulse 80 Temp 36.6 C (97.8 F) (Temporal) Resp 16 Ht 5' 6 (1.676 m) Wt 140 lb (63.5 kg) LMP 12/16/2022 (Approximate) SpO2 95% BMI 22.60 kg/m BMI Classification: Normal Weight (BMI 18.5-24.9) Pulse Ox: SpO2 Av.8 % Min: 95 % Max: 99 % Supplemental O2: PHYSICAL EXAM: Physical Exam Vitals and nursing note reviewed. Constitutional: Appearance: She is not toxic-appearing. HENT: Head: Normocephalic and atraumatic. Eyes: Extraocular Movements: Extraocular movements intact. Pupils: Pupils are equal, round, and reactive to light. Cardiovascular: Rate and Rhythm: Normal rate and regular rhythm. Pulses: Normal pulses. Pulmonary: Effort: Pulmonary effort is normal. Breath sounds: Normal breath sounds. Abdominal: General: Bowel sounds are normal. There is no distension. Palpations: Abdomen is soft. Tenderness: There is no abdominal tenderness. Musculoskeletal: General: Normal range of motion. Cervical back: Normal range of motion and neck supple. Right lower leg: No edema. Left lower leg: No edema. Skin: General: Skin is warm. Neurological: General: No focal deficit present. Mental Status: She is alert and oriented to person, place, and time. Mental status is at baseline. Psychiatric: Mood and Affect: Mood normal. DATA: CBC: Recent Labs 12/30/22 06 WBC 5.3 RBC 4.83* HGB 11.3* HCT 35.9* MCV 74.4* RDW 16.4* PLT 271 BMP: Recent Labs 12/30/22 06 NA 142 K 4.1 CL 104 CO2 29 BUN 7 CREATININE 0.60 GLUCOSE 96 CALCIUM 8.7 ANIONGAP 9 LIVER PROFILE: Recent Labs 12/30/22 0607 AST 27 ALT 12 BILITOT 0.3 ALKPHOS 60 PROT 8.2 PT/INR: No results for input(s): PROTIME, INR in the last 72 hours. CARDIAC ENZYMES: No results for input(s): TROPONINI in the last 72 hours. Procalcitonin: No results found for: PROCAL Urine Culture: No results found for this or any previous visit. COVID-19 PCR: No results for input(s): COVID19 in the last 72 hours. I reviewed: [x] laboratory results [x] radiographic results At the time of today's encounter. Pt was advised of the results. IMPRESSION: Lexapro overdose Possible suicidal ideation Depression/anxiety anemia Medical Decision Making: Discussed management with ED clinician and agree with hospitalization, monitor for signs of complications, monitor on telemetry, IVF, follow up labs, Psychiatry evaluation, discharge planning, see admission orders. -Discussed with ED provider and agree with their plan for admission -PT/OT eval/increase activity -am labs, replace lytes prn -vitals per routine -home meds as ordered -DVT prophylaxis: [x] Lovenox [] Heparin [] SCDs [x] Encourage ambulation [] Already on Anticoagulation Anticipated Discharge - Date - 12/31 - Location - Inpatient Psych - Pending the following - when OK with Psychiatry Total time spent (which include face to face and non face to face encounters) : 59 minutes Toxic drug monitoring/narrow therapeutic index drug monitoring : # Drug name : lovenox # Route administered : SQ # Method of monitoring : daily CBC Extended Emergency Contact Information Primary Emergency Contact: Meg Jenkins Relation: Mother Code status: Full Code -see below for additional orders, further recommendations to follow Orders Placed This Encounter Procedures CBC auto differential Comprehensive metabolic panel Drug screen panel, emergency Ethanol hCG, quantitative, Acetaminophen level Salicylate level CBC auto differential Comprehensive Metabolic Panel w/ Mg Reflex Adult diet Regular Vital Signs Telemetry monitoring for Arrhythmia Management Vital Signs Notify patient's primary care provider of admission Activity No Restrictions Pulse Oximetry Intake and output Daily weights Full code Inpatient consult to Psychiatry--[facility] Initiate Oxygen Therapy Protocol ECG 12 lead Insert peripheral IV Initiate observation status Admit to inpatient Suicide precautions Please forward a copy of this H&P to the patient's PCP. Thank you. documented in this encounter [facility] 12-30-2022 Emergency department Note Patient moved to 4S with protective services. Malinda Hernández RN 12/30/22818 [facility] 12-30-2022 Emergency department Note Patient moved to 4S with protective services. Malinda Hernández RN 12/30/22818 Emergency Department Encounter [facility] ED Patient: Sara Chiang : 2005 Date of Evaluation: 12/30/2022 ED Provider: Madhu Espraza DO Chief Complaint No chief complaint on file. JAYLEN Chiang is a 17 y.o. female who presents to the emergency department complaining of drug overdose. Patient reports that she took Lexapro about 40 minutes prior to arrival. She took 5 extra tablets. She is unsure why she did this as she states that she was feeling anxious. She will not commit to saying that she was trying to kill herself. States she currently feels nervous but denies any other symptoms. Additional history obtained from : n/a Barriers to obtaining history from patient: n/a ROS: Review of Systems completed as follows: (Bold = positive, Not bold = negative) GENERAL: fevers, chills, malaise ENT: runny nose, congestion, sore throat, ear pain NEURO: weakness, numbness of tingling, headache CARDIOVASCULAR: chest pain, syncope PULMONARY: shortness of breath, cough, wheezing GASTROINTESTINAL: nausea, vomiting, abdominal pain, diarrhea, constipation, MUSCULOSKELETAL: pain GENITAL/URINARY: dysuria, hematuria, increased urinary frequency, hesitancy, flank pain SKIN: rash, lesions, wound Past History No past medical history on file. No past surgical history on file. Social History Socioeconomic History Marital status: Single I have reviewed the history above as provided by nursing notes. Medications/Allergies Previous Medications No medications on file Not on File I have reviewed the history above as provided by nursing notes. Physical Exam ED Triage Vitals Temp Heart Rate Resp BP 12/30/2242112/30/2242112/30/2242112/30/22421 36.7 C (98 F) 109 18 (!) 110/95 SpO2 Temp Source Heart Rate Source Patient Position 12/30/2242112/30/2242112/30/2242112/30/22 043 99 % Temporal Monitor Sitting BP Location FiO2 (%) 12/30/22 0433 -- Left arm GENERAL: The patient appears nourished and normally developed. Vital signs as documented. EYES: PERRL. No scleral icterus or orbital trauma noted. HEENT: Mucous membranes moist. Nares patent without copious rhinorrhea. LUNGS: Lungs are clear to auscultation, without any respiratory distress. CARDIAC: Rhythm is regular. No murmur appreciated ABDOMEN: Nontender, soft, with no obvious masses, and no peritoneal signs. EXTREMITIES: Non edematous, with no obvious deformities. SKIN: Good color, with no significant rashes. No pallor. NEURO: No obvious neurological deficits, normal sensation and strength bilaterally. Diagnostics Labs: Results for orders placed or performed during the hospital encounter of 12/30/22 CBC auto differential Result Value Ref Range Auto WBC 5.3 4.5 - 13.0 10*3/uL RBC 4.83 (H) 4.10 - 4.80 10*6/uL Hemoglobin 11.3 (L) 12.0 - 15.0 g/dL Hematocrit 35.9 (L) 37.0 - 46.0 % MCV 74.4 (L) 78.0 - 96.0 fL MCH 23.5 (L) 26.0 - 34.0 pg MCHC 31.5 31.0 - 37.0 % RDW 16.4 (H) 11.5 - 14.5 % Platelets 271 150 - 450 10*3/uL MPV 8.3 7.4 - 12.4 fL nRBC 0.1 0.0 - 2.0 /100 WBCs Neutrophils Relative 65.0 (H) 34.0 - 64.0 % Lymphocytes Relative 27.3 25.0 - 45.0 % Monocytes Relative 6.2 (H) 3.0 - 6.0 % Eosinophils Relative 0.6 0.0 - 3.0 % Basophils Relative 0.9 0.0 - 1.0 % Neutrophils Absolute 3.5 3.4 - 6.1 10*3/uL Lymphocytes Absolute 1.4 (L) 2.5 - 4.5 10*3/uL Monocytes Absolute 0.3 0.3 - 0.6 10*3/uL Eosinophils Absolute 0.0 0.0 - 0.5 10*3/uL Basophils Absolute 0.0 0.0 - 0.1 10*3/uL Comprehensive metabolic panel Result Value Ref Range SODIUM 142 135 - 145 mmol/L POTASSIUM 4.1 3.5 - 5.1 mmol/L CHLORIDE 104 98 - 107 mmol/L CARBON DIOXIDE 29 22 - 30 mmol/L ANION GAP 9 3 - 13 mmol/L UREA NITROGEN 7 7 - 17 mg/dL CREATININE 0.60 0.52 - 1.04 mg/dL GLUCOSE 96 70 - 100 mg/dL CALCIUM 8.7 8.4 - 10.4 mg/dL AST (SGOT) 27 15 - 46 U/L ALT 12 0 - 34 U/L ALKALINE PHOSPHATASE 60 38 - 126 U/L ALBUMIN 4.6 3.5 - 5.0 g/dL BILIRUBIN, TOTAL 0.3 0.2 - 1.3 mg/dL TOTAL PROTEIN 8.2 6.3 - 8.2 g/dL eGFR >90.0 >60.0 mL/min/1.73m*2 Drug screen panel, emergency Result Value Ref Range AMPHETAMINE SCREEN Negative BARBITURATES SCREEN Negative BENZODIAZEPINE SCREEN Negative COCAINE METAB. SCREEN Negative METHADONE SCREEN Negative OPIATES SCREEN Negative OXYCODONE SCREEN Negative PHENCYCLIDINE SCREEN Negative Ethanol Result Value Ref Range ETHANOL IN SER/PLAS 0.097 (H) 0.000 - 0.010 g/dL hCG, quantitative, Result Value Ref Range HCG QUANTITATIVE <2 Females < 5 mIU/mL Acetaminophen level Result Value Ref Range ACETAMINOPHEN <10.0 (L) 10.0 - 30.0 ug/mL Salicylate level Result Value Ref Range SALICYLATES <1.0 0.0 - 20.0 mg/dL ECG 12 lead Result Value Ref Range Heart Rate 85 bpm QRSD Interval 84 ms QT Interval 406 ms QTC Interval 484 ms P [place] 54 degrees QRS [place] 30 degrees T Wave [place] 37 degrees AR Interval 134 ms Radiographs: No orders to display Procedures/EKG: EKG Interpreted in Twice software by myself SCREENINGS EMERGENCY DEPARTMENT COURSE and DIFFERENTIAL DIAGNOSIS/MDM: Vitals: Vitals: 12/30/22 0422 12/30/22 0433 BP: (!) 110/95 105/72 BP Location: Left arm Patient Position: Sitting Pulse: 109 100 Resp: 18 18 Temp: 36.7 C (98 F) 36.4 C (97.5 F) TempSrc: Temporal Temporal SpO2: 99% 98% The patient presented with a chief complaint of drug ingestion. Vital signs reviewed. Concern for possible suicidal intent. Coingestion considered. I spoke with poison control, reviewed patient's reported overdose of 100 mg of Lexapro. They recommended 7-hour observation time to ensure patient did not have complications. Laboratory evaluation was ordered, essentially unremarkable with exception of mildly elevated alcohol level. EKG shows normal QTc. Patient did have 1 episode of vomiting I initially considered treated with charcoal however after the vomiting I did not feel this would be appropriate. Patient now stating that she was not feeling suicidal and she would like to go home today. I would like her to be evaluated by psychiatry. Discussed with the hospitalist team, Dr. Schuster who agreed accept patient for continued cardiac observation, consultation of psychiatry when medically clear. Diagnoses as of 12/30/22 0749 Ingestion of substance, intentional self-harm, initial encounter ([facility]) Diagnostics interpreted by me: Personally reviewed EKG that shows sinus rhythm without acute ischemic findings, no QTc prolongation Discussions with other clinicians: Discussed with hospitalist as above Chronic conditions impacting care: Anxiety/depression ED Medications managed: Medications charcoal activated liquid 50 g (50 g Oral Not Given 12/30/22 0450) ibuprofen tablet 400 mg (has no administration in time range) Patients symptoms are consistent with sepsis, severe sepsis or septic shock (if yes, use .sepsiscoremeasure ) - no Critical Care note: This patient was unstable and required constant supervision by me for 45 minutes during their visit. The patient's condition requiring intervention included: Concern for overdose. The interventions included: Consultation with poison control, documentation, additional history taking, frequent reevaluation. This critical care time did not include time for procedures or time spent by the physicians elder assistant if they were caring for this patient. Final Impression 1. Ingestion of substance, intentional self-harm, initial encounter ([facility]) DISPOSITION admit Comment: Please note this report has been produced using speech recognition software and may contain errors related to that system including errors in grammar, punctuation, and spelling, as well as words and phrases that may be inappropriate. If there are any questions or concerns please feel free to contact the dictating provider for clarification. Madhu Esparza DO [employer] Madhu Esparza DO 12/30/22 0749 Madhu Esparza DO 12/31/22 0007 Pt presents from home after taking 5, 20mg lexapro at home in an attempt to end her life. Pt states she feels sad at night . Pt has had suicidal thoughts before around 3 years ago. documented in this encounter [facility] 12-30-2022 Note NOTE: This result is for medical treatment only. Analysis performed using non-forensic procedures. [facility] 12-30-2022 Emergency department Triage note Pt presents from home after taking 5, 20mg lexapro at home in an attempt to end her life. Pt states she feels sad at night . Pt has had suicidal thoughts before around 3 years ago. [facility] 12-30-2022 Physician Emergency department Note Emergency Department Encounter [facility] ED Patient: Sara Chiang : 2005 Date of Evaluation: 12/30/2022 ED Provider: Madhu Esparza DO Chief Complaint No chief complaint on file. JAYLEN Chiang is a 17 y.o. female who presents to the emergency department complaining of drug overdose. Patient reports that she took Lexapro about 40 minutes prior to arrival. She took 5 extra tablets. She is unsure why she did this as she states that she was feeling anxious. She will not commit to saying that she was trying to kill herself. States she currently feels nervous but denies any other symptoms. Additional history obtained from : n/a Barriers to obtaining history from patient: n/a ROS: Review of Systems completed as follows: (Bold = positive, Not bold = negative) GENERAL: fevers, chills, malaise ENT: runny nose, congestion, sore throat, ear pain NEURO: weakness, numbness of tingling, headache CARDIOVASCULAR: chest pain, syncope PULMONARY: shortness of breath, cough, wheezing GASTROINTESTINAL: nausea, vomiting, abdominal pain, diarrhea, constipation, MUSCULOSKELETAL: pain GENITAL/URINARY: dysuria, hematuria, increased urinary frequency, hesitancy, flank pain SKIN: rash, lesions, wound Past History No past medical history on file. No past surgical history on file. Social History Socioeconomic History Marital status: Single I have reviewed the history above as provided by nursing notes. Medications/Allergies Previous Medications No medications on file Not on File I have reviewed the history above as provided by nursing notes. Physical Exam ED Triage Vitals Temp Heart Rate Resp BP 12/30/2242112/30/2242112/30/2242112/30/22421 36.7 C (98 F) 109 18 (!) 110/95 SpO2 Temp Source Heart Rate Source Patient Position 12/30/22 0422 12/30/22 0422 12/30/2242112/30/22432 99 % Temporal Monitor Sitting BP Location FiO2 (%) 08/19/23 0433 -- Left arm GENERAL: The patient appears nourished and normally developed. Vital signs as documented. EYES: PERRL. No scleral icterus or orbital trauma noted. HEENT: Mucous membranes moist. Nares patent without copious rhinorrhea. LUNGS: Lungs are clear to auscultation, without any respiratory distress. CARDIAC: Rhythm is regular. No murmur appreciated ABDOMEN: Nontender, soft, with no obvious masses, and no peritoneal signs. EXTREMITIES: Non edematous, with no obvious deformities. SKIN: Good color, with no significant rashes. No pallor. NEURO: No obvious neurological deficits, normal sensation and strength bilaterally. Diagnostics Labs: Results for orders placed or performed during the hospital encounter of 12/30/22 CBC auto differential Result Value Ref Range Auto WBC 5.3 4.5 - 13.0 10*3/uL RBC 4.83 (H) 4.10 - 4.80 10*6/uL Hemoglobin 11.3 (L) 12.0 - 15.0 g/dL Hematocrit 35.9 (L) 37.0 - 46.0 % MCV 74.4 (L) 78.0 - 96.0 fL MCH 23.5 (L) 26.0 - 34.0 pg MCHC 31.5 31.0 - 37.0 % RDW 16.4 (H) 11.5 - 14.5 % Platelets 271 150 - 450 10*3/uL MPV 8.3 7.4 - 12.4 fL nRBC 0.1 0.0 - 2.0 /100 WBCs Neutrophils Relative 65.0 (H) 34.0 - 64.0 % Lymphocytes Relative 27.3 25.0 - 45.0 % Monocytes Relative 6.2 (H) 3.0 - 6.0 % Eosinophils Relative 0.6 0.0 - 3.0 % Basophils Relative 0.9 0.0 - 1.0 % Neutrophils Absolute 3.5 3.4 - 6.1 10*3/uL Lymphocytes Absolute 1.4 (L) 2.5 - 4.5 10*3/uL Monocytes Absolute 0.3 0.3 - 0.6 10*3/uL Eosinophils Absolute 0.0 0.0 - 0.5 10*3/uL Basophils Absolute 0.0 0.0 - 0.1 10*3/uL Comprehensive metabolic panel Result Value Ref Range SODIUM 142 135 - 145 mmol/L POTASSIUM 4.1 3.5 - 5.1 mmol/L CHLORIDE 104 98 - 107 mmol/L CARBON DIOXIDE 29 22 - 30 mmol/L ANION GAP 9 3 - 13 mmol/L UREA NITROGEN 7 7 - 17 mg/dL CREATININE 0.60 0.52 - 1.04 mg/dL GLUCOSE 96 70 - 100 mg/dL CALCIUM 8.7 8.4 - 10.4 mg/dL AST (SGOT) 27 15 - 46 U/L ALT 12 0 - 34 U/L ALKALINE PHOSPHATASE 60 38 - 126 U/L ALBUMIN 4.6 3.5 - 5.0 g/dL BILIRUBIN, TOTAL 0.3 0.2 - 1.3 mg/dL TOTAL PROTEIN 8.2 6.3 - 8.2 g/dL eGFR >90.0 >60.0 mL/min/1.73m*2 Drug screen panel, emergency Result Value Ref Range AMPHETAMINE SCREEN Negative BARBITURATES SCREEN Negative BENZODIAZEPINE SCREEN Negative COCAINE METAB. SCREEN Negative METHADONE SCREEN Negative OPIATES SCREEN Negative OXYCODONE SCREEN Negative PHENCYCLIDINE SCREEN Negative Ethanol Result Value Ref Range ETHANOL IN SER/PLAS 0.097 (H) 0.000 - 0.010 g/dL hCG, quantitative, Result Value Ref Range HCG QUANTITATIVE <2 Females < 5 mIU/mL Acetaminophen level Result Value Ref Range ACETAMINOPHEN <10.0 (L) 10.0 - 30.0 ug/mL Salicylate level Result Value Ref Range SALICYLATES <1.0 0.0 - 20.0 mg/dL ECG 12 lead Result Value Ref Range Heart Rate 85 bpm QRSD Interval 84 ms QT Interval 406 ms QTC Interval 484 ms P [place] 54 degrees QRS [place] 30 degrees T Wave [place] 37 degrees AR Interval 134 ms Radiographs: No orders to display Procedures/EKG: EKG Interpreted in Twice software by myself SCREENINGS EMERGENCY DEPARTMENT COURSE and DIFFERENTIAL DIAGNOSIS/MDM: Vitals: Vitals: 12/30/22 0422 12/30/22 0433 BP: (!) 110/95 105/72 BP Location: Left arm Patient Position: Sitting Pulse: 109 100 Resp: 18 18 Temp: 36.7 C (98 F) 36.4 C (97.5 F) TempSrc: Temporal Temporal SpO2: 99% 98% The patient presented with a chief complaint of drug ingestion. Vital signs reviewed. Concern for possible suicidal intent. Coingestion considered. I spoke with poison control, reviewed patient's reported overdose of 100 mg of Lexapro. They recommended 7-hour observation time to ensure patient did not have complications. Laboratory evaluation was ordered, essentially unremarkable with exception of mildly elevated alcohol level. EKG shows normal QTc. Patient did have 1 episode of vomiting I initially considered treated with charcoal however after the vomiting I did not feel this would be appropriate. Patient now stating that she was not feeling suicidal and she would like to go home today. I would like her to be evaluated by psychiatry. Discussed with the hospitalist team, Dr. Schuster who agreed accept patient for continued cardiac observation, consultation of psychiatry when medically clear. Diagnoses as of 12/30/22748 Ingestion of substance, intentional self-harm, initial encounter ([facility]) Diagnostics interpreted by me: Personally reviewed EKG that shows sinus rhythm without acute ischemic findings, no QTc prolongation Discussions with other clinicians: Discussed with hospitalist as above Chronic conditions impacting care: Anxiety/depression ED Medications managed: Medications charcoal activated liquid 50 g (50 g Oral Not Given 12/30/22 0450) ibuprofen tablet 400 mg (has no administration in time range) Patients symptoms are consistent with sepsis, severe sepsis or septic shock (if yes, use .sepsiscoremeasure ) - no Critical Care note: This patient was unstable and required constant supervision by me for 45 minutes during their visit. The patient's condition requiring intervention included: Concern for overdose. The interventions included: Consultation with poison control, documentation, additional history taking, frequent reevaluation. This critical care time did not include time for procedures or time spent by the physicians elder assistant if they were caring for this patient. Final Impression 1. Ingestion of substance, intentional self-harm, initial encounter ([facility]) DISPOSITION admit Comment: Please note this report has been produced using speech recognition software and may contain errors related to that system including errors in grammar, punctuation, and spelling, as well as words and phrases that may be inappropriate. If there are any questions or concerns please feel free to contact the dictating provider for clarification. Madhu Esparza DO [employer] Madhu Esparza DO 12/30/22 0749 Madhu Esparza DO 12/31/22 0007 [facility] Evaluation note Diagnosis Ingestion of substance, accidental or unintentional, initial encounter- Primary Ingestion of substance, intentional self-harm, initial encounter (HCC) Ingestion of substance, intentional self-harm, initial encounter ([facility]) documented in this encounter [facility] note* Diagnosis Menorrhagia with irregular cycle- Primary Excessive or frequent menstruation Migraine without status migrainosus, not intractable, unspecified migraine type Encounter for initial prescription of intrauterine contraceptive device (IUD) [facility] Diagnosis Secondary amenorrhea- Primary Absence of menstruation [facility]* Diagnosis Encounter for IUD insertion- Primary Encounter for insertion of intrauterine contraceptive device documented in this encounter [facility] note* Diagnosis Recurrent major depressive disorder, remission status unspecified ([facility])- Primary Routine screening for STI (sexually transmitted infection) Screening examination for venereal disease Need for hepatitis C screening test Special screening examination for other specified viral diseases Encounter for screening for HIV Anxiety Anxiety state, unspecified Nausea Nausea alone Decreased appetite Anorexia [facility] Diagnosis Dizziness- Primary Dizziness and giddiness [facility] Diagnosis Urinary tract infection with hematuria, site unspecified- Primary Burning with urination Dysuria Blister of left foot, initial encounter documented in this encounter [facility] note* Diagnosis Nausea Nausea alone Decreased appetite Anorexia documented in this encounter [facility] note* Diagnosis Severe episode of recurrent major depressive disorder, without psychotic features (HCC)- Primary Anxiety Anxiety state, unspecified Recurrent major depressive disorder, remission status unspecified (HCC) Mood disorder (HCC) Unspecified episodic mood disorder Low vitamin D level [facility] Diagnosis Severe episode of recurrent major depressive disorder, without psychotic features (HCC)- Primary Anxiety Anxiety state, unspecified Recurrent major depressive disorder, remission status unspecified (HCC) Mood disorder (HCC) Unspecified episodic mood disorder Low vitamin D level [facility]* Attachments The following attachments cannot be sent through Care Everywhere. * Dizziness, Adult ED ([place]) [facility] Attachments The following attachments cannot be sent through Care Everywhere. * Tips for How to Help Your Mood ([place]) * Tips for Getting Better Sleep ([place]) * Tips to Help You Worry Less ([place]) * Generalized Anxiety Disorder ([place]) * Depression ([place]) [facility]* Attachments The following attachments cannot be sent through Care Everywhere. * Tips for How to Help Your Mood ([place]) * Tips for Getting Better Sleep ([place]) * Tips to Help You Worry Less ([place]) * Generalized Anxiety Disorder ([place]) * Depression ([place]) documented in [facility] for referral (narrative)* Consultation (Routine) - Pending Review Specialty Diagnoses / Procedures Referred By Princess t Referred To Contact Psychology / Behavioral Health Diagnoses Recurrent major depressive disorder, remission status unspecified ([facility]) Procedures AR OFFICE/OUTPATIENT [facility] MDM 60 MINUTES Sammie Choi MD [address] [facility] [address] [place] [address] Octavia Flynn, PhD [facility] [place] [address] Referral ID Status Reason Start Date Expiration Date Visits Requested Visits Authorized [id number] Pending Review Specialty Services Required 08/27/2023 08/26/2024 [address] [facility] Health Summary Purpose Family History No Family History Records FoundNo Family History Records FoundNo Family History Records FoundNo Family History Records FoundNo Family History Records Found Advance Directives No Advanced Directives Records FoundLatest Code Status on File Code Status Date Activated Date Inactivated Comments Full Code 12/30/2022 9:46 AM 12/30/2022 9:09 PM Latest Code Status on File Code Status Date Activated Date Inactivated Comments Full Code 04/18/2023 6:11 PM 04/19/2023 5:45 PM Code Status History Code Status Date Activated Date Inactivated Comments Full Code 12/30/2022 9:46 AM 12/30/2022 9:09 PM Latest Code Status on File Code Status Date Activated Date Inactivated Comments Full Code 04/18/2023 6:11 PM 04/19/2023 5:45 PM Code Status History Code Status Date Activated Date Inactivated Comments Full Code 12/30/2022 9:46 AM 12/30/2022 9:09 PM Date Activated Date Inactivated Comments 04/18/2023 6:11 PM 04/19/2023 5:45 PM Date Activated Date Inactivated Comments 12/30/2022 9:46 AM 12/30/2022 9:09 PM Medications Administered Section Inactive Administered Medications - up to 3 most recent administrations Medication Order MAR Action Action Date Dose Rate Site levonorgestrel 17.5 mcg/24 hrs (5 yrs) 19.5 mg 1 Each intrauterine device (KYLEENA) 1 Each, INTRAUTERINE, ONCE (UP TO 30 DAYS AMB), 1 dose, On Sun03/13/23 at 1530, Hazardous Potential Reproductive Risk Drug: Use appropriate PPE. For Intrauterine Use Only. Given 03/13/2023 3:01 PM EDT 1 Each Other Additional Source Comments INFORMATION SOURCE (unrecogn ized section and content) DATE CREATED AUTHOR 02/02/2019 [facility] DATE CREATED AUTHOR AUTHOR'S ORGANIZ ATION 07/10/2022 [facility] DATE CREATED AUTHOR AUTHOR'S ORGANIZ ATION 12/17/2023 [facility] DATE CREATED AUTHOR AUTHOR'S ORGANIZ ATION 12/21/2023 [facility] DATE CREATED AUTHOR AUTHOR'S ORGANIZ ATION 02/22/2024 [facility] Scheduled Active and Recently Administ ered Medications (unrecognized section and content) Medication Order 12/28/2022 12/29/2022 12/30/2022 charcoal activated liquid 50 g 50 g, Oral, Once, On 12/30/22 at 0450, For 1 dose 0450 (Not Given - Pr ovider: Chester Jean-Baptiste RN - Reason: See Provider Order) enoxaparin (Lovenox) syringe 40 mg 40 mg, SubCUTAneous, Every 24 hours scheduled (Daily), First dose on 12/30/22 at 1000, Indication of Use: Prophylaxis-DVT/PE, Indications: Prophylaxis of Venous Thromboembolism 1000 (Not Given - Pr ovider: Michael Perez RN - Reason: Patient/family refused) ibuprofen tablet 400 mg (COMPLETED) 400 mg, Oral, Once, On 12/30/22 at 0630, For 1 dose 0749 (Given - Provid er: Malinda Hernández RN) sodium chloride 0.9 % bolus 500 mL (COMPLETED) 500 mL, IntraVENous, at 500 mL/hr, Administer over 1 Hours, Once, On 12/30/22 at 1630, For 1 dose 1641 (New Bag - Prov ider: Cami Foote, JONG)[id number] (Stopped - Provider: Cami Foote RN) Continuous Medication Order 12/28/2022 12/29/2022 12/30/2022 sodium chloride 0.9 % infusion 125 mL/hr, IntraVENous, Continuous, Starting on 12/30/22 at 1000 1022 (New Bag - Prov ider: Michael Perez RN)1619 (Rate/Dose Change - Provider: Cami Foote RN) PRN Medication Order 12/28/2022 12/29/2022 12/30/2022 acetaminophen (Tylenol) suppository 650 mg(Linked Group 1) 650 mg, Rectal, Every 6 hours PRN, mild pain (1-3), fever, For temp greater than 100.4 F (38 C), Starting on 12/30/22 at 0945, Administer if oral route cannot be used. Maximum dose of acetaminophen is 4000 mg from all sources in 24 hours. acetaminophen (Tylenol) tablet 650 mg(Linked Group 1) 650 mg, Oral, Every 6 hours PRN, mild pain (1-3), fever, For temp greater than 100.4 F (38 C), Starting on 12/30/22 at 0945, Maximum dose of acetaminophen is 4000 mg from all sources in 24 hours. ondansetron (Zofran) injection 4 mg(Linked Group 2) 4 mg, IntraVENous, Every 6 hours PRN, nausea, vomiting, Starting on 12/30/22 at 0945, 1st Line. Give IV if patient is unable to take orally. If inadequate response within 60 minutes, proceed to next-line agent or contact provider if no further options ordered. ondansetron ODT (Zofran-ODT) disintegrating tablet 4 mg(Linked Group 2) 4 mg, Oral, Every 8 hours PRN, nausea, vomiting, Starting on 12/30/22 at 0945, 1st Line. If inadequate response within 60 minutes, proceed to next-line agent or contact provider if no further options ordered. Patient should allow tablet to dissolve on tongue. Do not remove from blister pack until just before administering. polyethylene glycol (PEG) 3350 (Miralax) packet 17 g 17 g, Oral, Daily PRN, constipation, Starting on 12/30/22 at 0945, 1st line for treatment of constipation - give scheduled if no bowel movement in past 24 hours. Linked Groups Order Group 1: acetaminophen (Tylenol) tablet 650 mgJump to med 650 mg, Oral, Every 6 hours PRN, mild pain (1-3), fever, For temp greater than 100.4 F (38 C), Starting on 12/30/22 at 0945
Maximum dose of acetaminophen is 4000 mg from all sources in 24 hours.
Or acetaminophen (Tylenol) suppository 650 mgJump to med 650 mg, Rectal, Every 6 hours PRN, mild pain (1-3), fever, For temp greater than 100.4 F (38 C), Starting on 12/30/22 at 0945
Administer if oral route cannot be used. Maximum dose of acetaminophen is 4000 mg from all sources in 24 hours.
Group 2: ondansetron ODT (Zofran-ODT) disintegrating tablet 4 mgJump to med 4 mg, Oral, Every 8 hours PRN, nausea, vomiting, Starting on 12/30/22 at 0945
1st Line. If inadequate response within 60 minutes, proceed to next-line agent or contact provider if no further options ordered. Patient should allow tablet to dissolve on tongue. Do not remove from blister pack until just before administering.
Or ondansetron (Zofran) injection 4 mgJump to med 4 mg, IntraVENous, Every 6 hours PRN, nausea, vomiting, Starting on 12/30/22 at 0945
1st Line. Give IV if patient is unable to take orally. If inadequate response within 60 minutes, proceed to next-line agent or contact provider if no further options ordered.
Care Teams (unrecognized sec tion and content) Bath Steward Relationship Specialty Start Date End Date Jasmin Chambers [address] [place] [id number] PCP - General 12/30/22 Bath Steward Relationship Specialty Start Date End Date Venita Antunez DO PCP - General Pediatrics 09/16/20 Bath Steward Relationship Specialty Start Date End Date Venita Antunez DO PCP - General Pediatrics 09/16/20 Bath Steward Relationship Specialty Start Date End Date Venita Antunez DO PCP - General Pediatrics 09/16/20 Bath Steward Relationship Specialty Start Date End Date Sammie Choi MD [address] [address] PCP - General Family Medicine 08/27/23 Bath Steward Relationship Specialty Start Date End Date Nayla Coy MD [address] [place] [address] PCP - General Family Medicine 10/09/23 Jaime Macias MD [address] [place] [address] Gynecology 10/09/23 Bath Steward Relationship Specialty Start Date End Date Venita Antunez DO PCP - General Pediatrics 09/16/20 Bath Steward Relationship Specialty Start Date End Date Venita Antunez DO PCP - General Pediatrics 09/16/20 Bath Steward Relationship Specialty Start Date End Date Nayla Coy MD [address] [place] [address] PCP - General Family Medicine 10/09/23 Jaime Macias MD [address] [place], [place] [id number] Gynecology 10/09/23 Bath Steward Relationship Specialty Start Date End Date Nayla Coy MD [address] [place] [address] PCP - General Family Medicine 10/09/23 Jaime Macias MD [address] [place] [address] Gynecology 10/09/23 Bath Steward Relationship Specialty Start Date End Date Nayla Coy MD [address] [place] [address] PCP - General Family Medicine 10/09/23 Jaime Macias MD [address] [place] [id number] Gynecology 10/09/23 Source Comments (unrecognize d section and content) In the event this informatio n is protected by the Federal Confidentiality of Alcohol and Drug Abuse Patient Records regulations: The Federal rules restrict any use of the information to criminally investigate or prosecute any alcohol or drug abuse patient.[facility] Hospital[facility] the event this information is protected by the Federal Confidentiality of Alcohol and Drug Abuse Patient Records regulations: The Federal rules restrict any use of the information to criminally investigate or prosecute any alcohol or drug abuse patient.[facility] HospitalIn the event this information is protected by the Federal Confidentiality of Alcohol and Drug Abuse Patient Records regulations: The Federal rules restrict any use of the information to criminally investigate or prosecute any alcohol or drug abuse patient.[facility] the event this information is protected by the Federal Confidentiality of Alcohol and Drug Abuse Patient Records regulations: The Federal rules restrict any use of the information to criminally investigate or prosecute any alcohol or drug abuse patient.[facility] HospitalIn the event this information is protected by the Federal Confidentiality of Alcohol and Drug Abuse Patient Records regulations: The Federal rules restrict any use of the information to criminally investigate or prosecute any alcohol or drug abuse patient.[facility] HospitalIn the event this information is protected by the Federal Confidentiality of Alcohol and Drug Abuse Patient Records regulations: The Federal rules restrict any use of the information to criminally investigate or prosecute any alcohol or drug abuse patient.[facility] Reason for Visit (unrecogniz ed section and content) Reason Comments New Patient control Reason Comments Orders Reason Comments Procedure [place] Specialty Diagnoses / Procedures Referred By Contac t Referred To Contact [facility] Diagnoses Encounter for removal of intrauterine contraceptive device Encounter for insertion of intrauterine contraceptive device Procedures LEVONORGESTREL-RELEASING INTR CONTRACEPTIVE (KYLEENA), 19.5 MG [employer] [address] [place] [address] Referral ID Status Reason Start Date Expiration Date Visits Re quested Visits Authorized [id number] 1 1 Reason Onset Date Comments Appointment 04/19/2023 New Patient 04/19/2023 Reason Comments New Patient Check up Referral Would like to get se t up with a counselor Nausea Has been going on fo r 4-6 weeks Reason Comments Dizziness Pt reports dizziness on and off for 3 months, pt also reports lower abdominal pain and decreased appetite for 3 months. Per pt's mother she is supposed to have outpatient lab work down but has not followed up. Pt placed on pepcid but unsure why. Denies dizziness at this time. Pt also reports headaches. Reason Comments UTI Low back pain, burni ng with urination x1 week Reason Comments Results Reason Comments Missed Appointment No show Reason Comments Med Refill Reason Comments Follow-up Depression Mood disorder FOR RECORDS PERTAINING TO PATIENTS WHO ARE OR HAVE BEEN ENROLLED IN A CHEMICAL DEPENDENCY/SUBSTANCEABUSE PROGRAM, SOME INFORMATION MAY BE OMITTED. This clinical summary was aggregated from multiple sources. Caution should be exercised in using it in the provision of clinical care. This summary normalizes information from multiple sources, and as a consequence, information in this document may materially change the coding, format and clinical context of patient data. In addition, data may be omitted in some cases. CLINICAL DECISIONS SHOULD BE BASED ON THE PRIMARY CLINICAL RECORDS. [employer] provides no warranty or guarantee of the accuracy or completeness of information in this document.
== END 2024-03-08 19:25 | disposition left against medical advice (07) ==
LOC: ED 19:23
PROVIDERS: Emergency Provider Emergency Medicine; PCP Family Medicine; Visit Provider Emergency Medicine
DX: F41.9 Anxiety disorder, unspecified (principal); F32.A Depression, unspecified; Z79.899 Other long term (current) drug therapy
CPT/HCPCS: 99282

== ENCOUNTER 2025-01-18 00:05 | Emergency (ER) | payer BC, SELFPAY ==
[2025-01-18 00:06] VITALS: BP 125/66; PULSE 84; RESP 18; TEMP 36.6; O2SAT 100; BMI 30.8
[2025-01-18 00:38] VITALS: BP 120/56; PULSE 81; RESP 18; TEMP 36.6; O2SAT 96
--- NOTE | 2025-01-18 00:38 | EX.ED.DYSGE1 ---
HPI History of Present Illness Chief Complaint: Other, Pain/Inj Informant: patient and spouse/S.O. Narrative Narrative: Patient is a 19-year-old female who reports a past medical history of anxiety and depression. She states 2 days ago she was reaching for the phone when she accidentally struck the computer monitor with her right fifth finger and jammed the nail back into her hand. She states that she initially did not think anything of this as it was sore but not swollen or red. However over the last 2 days she now has redness and increasing pain to the finger around the nail and has concern for infection. She denies any fevers associated with this and states there is no history of immunosuppression. However with concern for developing infection she comes in for evaluation [facility] Medical History Depression Anxiety Scoliosis Home Medications ?Medication ?Instructions ?Recorded ?Last Taken ?Type escitalopram oxalate 20 mg tablet 20 mg PO QHS mood 12/15/23 12/14/23 19:00 History (Lexapro) 20 mg lorazepam 1 mg tablet (Ativan) 1 mg PO BID PRN anxiety 3 days #6 01/24/24 Unknown Rx tabs benzocaine 15 mg-menthol 3.6 mg 1 anup mucous membrane Q2H PRN sore 06/13/24 Unknown Rx lozenges (Cepacol Sore Throat throat #16 ea (benzocaine-menthol)) aripiprazole 5 mg tablet 5 mg PO QHS 01/18/25 Unknown History clindamycin HCl 300 mg capsule 300 mg PO 4X/DAY 7 days #28 caps 01/18/25 Unknown Rx (Cleocin HCl) Allergy/AdvReac Type Severity Reaction Status Date / Time No Known Allergies Allergy Verified 01/18/25 00:05 Social History Smoking Status: Never smoker ROS ROS ED Constitutional Constitutional ED: Denies chills or fever(s) Cardiovascular Cardiovascular: Denies chest pain Respiratory/Chest Respiratory/Chest: Denies cough or dyspnea Musculoskeletal Musculoskeletal: Reports other Details: Positive right fifth finger pain Integumentary Reports other Details: Positive redness and swelling right fifth finger ; Denies rash Neurologic Neurologic: Denies headache(s) Psychiatric Psychiatric: Reports anxiety and depression Hematologic/Lymphatic Hematologic/Lymphatic: Denies easy bleeding or easy bruising EXAM Physical Exam Const Vital Signs: 01/18/25 00:06 01/18/25 00:06 01/18/25 00:38 Temperature 97.9 F 97.9 F Temperature Source Oral Pulse Rate 84 81 Respiratory Rate 18 18 Respiratory Pattern Normal Blood Pressure 125/66 H 120/56 L Blood Pressure Mean 85 77 Pulse Ox 100 96 Oxygen Delivery Method Room Air Positive well nourished and well developed General Appearance ED: well developed HEENT HEENT Narrative: Normocephalic atraumatic Eyes PERRL and EOMs intact bilaterally General Eye ED: Negative for scleral icterus Neck supple Neck Narrative: No nuchal rigidity or meningeal signs Resp normal respiratory effort and clear to auscultation bilaterally Cardio regular rate and regular rhythm Extremity Extremity Narrative: Right upper extremity is neurovascularly intact; AIN/PIN are intact and normal Along the nailbed of the right fifth finger there is asymmetric erythema warmth and swelling consistent with early paronychia/cellulitis. No abscess formation noted. No lymphangitic streaking. The erythema and swelling is along the dorsal aspect not the finger pad going against felon. Remainder of the exam is normal Neuro oriented x3, CN's II-XII intact bilaterally and no sensory deficits noted Sensorium / Orientation: alert Motor Exam: strength 5/5 throughout Psych Mood & Affect: anxious Skin Skin Narrative: Soft tissue changes to the right fifth finger as documented above MDM MDM MDM Narrative Medical decision making narrative: Patient arrived to the ER with stable vitals. She denied any history of immunosuppression or history of recent fevers or chills. Physical exam is consistent with early paronychia secondary to the injury to the nail. However there is no abscess formation at this time so there is no need for incision and drainage. Patient also does not show any findings for systemic infection such as fever or lymphangitic streaking and she denies any history of immunosuppression so I feel no need for laboratory studies. The patient will be placed on antibiotics secondary to the developing infection but is otherwise safe for discharge History & Record Review Discussion w/independent historian: Patient and Significant other Discharge Plan Triage Chief Complaint: Other, Pain/Inj ED Provider: Sanchez Darling Dx/Rx/DC Orders Clinical Impression: Paronychia of finger, Anxiety and depression Instructions: ED Paronychia Prescriptions: New clindamycin HCl [Cleocin HCl] 300 mg capsule 300 mg PO 4X/DAY 7 Days Qty: 28 0RF No Action Cepacol Sore Throat (byron-men) 15-3.6 mg lozenge 1 anup mucous membrane Q2H PRN (Reason: sore throat) Qty: 16 0RF escitalopram oxalate [Lexapro] 20 mg tablet 20 mg PO QHS Patient Comments: pt takes at hs lorazepam [Ativan] 1 mg tablet 1 mg PO BID MDD 2 PRN (Reason: anxiety) 3 Days Qty: 6 0RF aripiprazole 5 mg tablet 5 mg PO QHS Primary Care Provider: Ashlyn Mart Referrals: Ashlyn Mart MD [Primary Care Provider] - Activity Restrictions/Additional Instructions: Please take the antibiotic as directed and perform the finger soaks to help reduce swelling and resolve the infection. If you develop a fever notice streaking or sudden increase in spreading of the redness please return to the ER for repeat evaluation. It will typically take 2 to 3 days before the antibiotics begin to help resolve the infection Print Language: Beninese Disposition Disposition: Home, Self Care Discharge Date/Time: 01/18/25 00:48
--- OUTSIDE RECORDS SUMMARY | 2025-01-18 00:46 | XMS RPT_ITS | CCD ---
Author Organization [facility] Care Team Providers Care Chief Pharmacist Name Role Phone BEBE PLASCENCIA Primary Care Unavailable JAVIER HEIN Attending Unavailable REFERRED, SELF Referring Unavailable BEBE PLASCENCIA Primary Care Unavailable BEBE PLASCENCIA Attending Unavailable REFERRED, SELF Referring Unavailable BEBE PLASCENCIA Primary Care Unavailable REFERRED, SELF Referring Unavailable ARNOLDO KRUSE Attending Unavail able Inc, [facility] Primary Care Provider Unav ailable Venita Antunez DO Primary Care Provider Unavailable Primary Care Provider UnavailSammie Montes MD Primary Care Provider Nayla Coy MD Primary Care Provider Jaime Macias MD Unavailable Venita Antunez DO Primary Care Provider VENITA ANTUNEZ Primary Care Unavailable COLJAIME Garcia Attending Unavailable VENITA ANTUNEZ Primary Care Unavailable VENITA ANTUNEZ Primary Care Unavailable VENITA ANTUNEZ Primary Care Unavailable COLJAIME Garcia Referring Unavailable JAIME MACIAS Attending Unavailable SAMMIE CHOI Attending Unavailable SAMMIE CHOI Primary Care Unavailable NAYLA COY Primary Care Unavailable RIKKI CHAVEZ Attending Unavailable NAYLA COY Primary Care Unavailable [facility], [facility] Primary Care Unavailable ROSE MASON Attending Unavailable PRABHA CORONA Admitting Unavailable Care Physician, No Primary Primary Care Unava ilable Rose Yanez Attending Unavailable Ashlyn Mart Attending Unavailable Ashlyn Mart Primary Care Unavailable Care Physician, No Primary Primary Care Unava ilable Rose Yanez Admitting Unavailable Rose Yanez Attending Unavailable Ashlyn Mart Primary Care Unavailable Urban Martel Attending Unavailable Provider, Ed Physician Attending Unavailab le Care Physician, No Primary Primary Care Unava ilable Phil PENDLETON, Fracisco Referring Unavailable Phil PENDLETON, Fracisco Attending Unavailable Brittny, Ashlyn Primary Care Unavailable Care Physician, No Primary Primary Care Unava ilable Chester Roach Attending Unavailable Phil PENDLETON, Fracisco Attending Unavailable Brittny, Chalon Primary Care Unavailable Brittny, Chalon Referring Unavailable Phil PENDLETON, Fracisco Attending Unavailable Brittny, Chalon Referring Unavailable Brittny, Chalon Primary Care Unavailable Phil PENDLETON, Fracisco Attending Unavailable Brittny, Chalon Primary Care Unavailable Brittny, Chalon Referring Unavailable Care Physician, No Primary Primary Care Unava ilable Rose Yanez Consulting Unavailable Rose Yanez Admitting Unavailable Rose Yanez Attending Unavailable Medications Current Medications Medication Drug Class(es) Dates Sig (Normalized) Sig (Original) ARIPiprazole 2 mg oral tablet (3 sources) Atypical Antipsychotic Start: 01-29-2024 End: 02-28-2024 take 1 tablet by mouth once daily ARIPiprazole (Abilify) 2 MG tablet Indications: Severe episode of recurrent major depressive disorder, without psychotic features (HCC) , Anxiety , Mood disorder (HCC) Take 1 tablet (2 mg) by mouth Nightly. 30 tablet 01/29/2024 Active famotidine 20 mg oral tablet (13 sources) Histamine-2 Receptor Antagonist Start: 08-27-2023 End: 02-23-2024 take 1 tablet by mouth once daily famotidine (Pepcid) 20 MG tablet Indications: Nausea , Decreased appetite TAKE 1 TABLET BY MOUTH EVERY DAY 90 tablet 1 12/31/2023 Active Multiple Vitamin (multivitamin) capsule (9 sources) take 1 capsule by mouth once [...] (20 mg) by mouth Nightly. 90 tablet 01/29/2024 03/13/2024 Discontinued Comment on above: Take 20 mg by mouth once daily. ibuprofen 400 mg oral tablet (2 sources) Nonsteroidal Anti-inflammatory Drug Start: 12-30-2022 End: 12-30-2022 ibuprofen tablet 400 mg levonorgestrel 0.263067 mg/hr intrauterine system (10 sources) Progestin, Progestin-containi ng Intrauterine Device Start: [...] disintegrating tablet 4 mg polyethylene glycol 3350 37365 mg powder for oral solution (2 sources) [...] Active Problems Problem Classification Problem Date Documented Date Episodic/Chronic Administrative/social admission (1 source) Encounter for pre-employment examination; Translations: [Encounter for pre-employment examination] Onset: 04-24-2024 Episodic Anxiety disorders (18 sources) Anxiety; Translations: [Anxiety disorder, unspecified] Onset: [...] Translations: [Depression] Onset: 04-18-2023 04-18-2023 Chronic Other nervous system disorders (1 source) Attention and concentration deficit; Translations: [Attention and concentration deficit] Onset: 03-25-2024 Chronic Other screening for suspected conditions (not mental disorders or infectious disease) (4 sources) Decreased vitamin D; Translations: [Other specified abnormal findings of blood chemistry] Onset: 01-29-2024 01-29-2024 Episodic Superficial injury; contusion (1 source) Blister of foot; Translations: [Blister (nonthermal), left foot, initial encounter] 12-14-2023 Episodic Unclassified (1 source) New Patient Onset: 01-23-2023 Past or Other Problems Problem Classification Problem Date Documented Date Episodic/Chronic Abdominal pain (1 source) Unspecified abdominal pain; Translations: [Unspecified abdominal pain] Onset: 01-09-2024 Episodic Conditions associated with dizziness or vertigo (4 [...] diseases] Onset: 08-27-2023 08-27-2023 Episodic Mood disorders (10 sources) Mood disorders Onset: 04-18-2023 04-18-2023 Nausea and vomiting (6 sources) Nausea; Translations: [Nausea] Onset: 08-27-2023 08-27-2023 Episodic Other nutritional; endocrine; and metabolic disorders (13 sources) Decrease in appetite; Translations: [Anorexia] Onset: 08-27-2023 08-27-2023 Episodic Other nutritional; endocrine; and metabolic disorders (2 sources) Anorexia; Translations: [Anorexia] Onset: 08-27-2023 Episodic Poisoning by nonmedicinal substances (20 sources) Ingestion of foreign material; Translations: [Toxic effect of unspecified substance, accidental (unintentional), initial encounter] Onset: 12-30-2022 Resolved: 08-21-2023 12-30-2022 Episodic Screening and history of mental health and substance abuse codes (9 sources) H/O: attempted suicide; Translations: [H/O suicide attempt] Onset: 12-30-2022 08-22-2023 Episodic Suicide and intentional self-inflicted injury (12 sources) Suicidal thoughts; Translations: [Suicidal ideations] Onset: 04-17-2023 Resolved: 08-22-2023 04-17-2023 Episodic Urinary tract infections (2 sources) Urinary tract infectious disease; Translations: [Urinary tract infection, site not specified] Onset: 12-17-2023 12-14-2023 Episodic Results Test Name Value Interpretation Reference Range Facility Urgent Care Visit Reporton 0 06-13-2024 Urgent Care Visit Report [facility] [address], [address] [place] [address] OFFICE VISIT Date of Service: 06/13/24 MR#: [id number] Acct: [id number] Name: SARA CHIANG Rep #: [id number] : 2005 Provider: KEERTHI Wade Age/Sex: 18/F Location: [facility] Status: Signed Intake Vital Signs 03/08/24 18:48 06/13/24 15:03 Height 5 ft 6 in 5 ft 6 in Weight: 137 lb 4.8 oz 141 lb 2 oz BMI 22.1 22.7 BP 110/68 102/68 Position Sitting Respiration 20 H Pulse 82 85 Temp 97.2 F L 98.1 F Temp Source Temporal Oral Pulse Oximetry (%) 100 99 Oxygen Delivery Method room air Intake Visit Reasons: SORE THROAT, BODY ACHES Accompanied by: Self Allergies No Known Allergies Allergy (Verified 06/13/24 15:10) Medications ???Medication ???Instructions ???Recorded ???Confirmed ???Type escitalopram oxalate 20 mg tablet 20 mg PO QHS mood 12/15/23 History (Lexapro) lorazepam 1 mg tablet (Ativan) 1 mg PO BID PRN anxiety 3 days #6 01/24/24 06/13/24 Rx tabs benzocaine 15 mg-menthol 3.6 mg 1 anup mucous membrane Q2H PRN sore 06/13/24 06/13/24 Rx lozenges (Cepacol Sore Throat throat #16 ea (benzocaine-menthol)) Nurse's Note: Patient has ST,BA,ORNELAS, Cough for 2 days now. PFSH Medical History Depression Anxiety Scoliosis Social History Smoking Status: Never smoker HPI HPI Details: SARA CHIANG, is a 18 F who presents to the office today for complaint of sore throat, bodyaches, headache and cough for the past 2 days. Patient denies hemoptysis, shortness of breath or difficulty breathing. No nausea, vomiting or diarrhea. No loss of taste or smell. No other associated symptoms or alleviating/aggravati ng factors. ROS Const Constitutional: No other (6 system ROS completed with pertinent findings in the HPI otherwise normal.) Exam Const General: cooperative and well developed HENMT Head: normal to inspection and atraumatic Ears: hearing grossly normal bilaterally Nose: nasal discharge clear Face and sinus: normal facial exam Mouth: oral mucosae normal Throat: abnormal tonsil bilaterally hypertrophy 1+ Resp Effort Inspection: normal respiratory effort and no audible wheezes Auscultation: Bilateral: Clear to Auscultation Cardio Palpation: normal PMI Rate: regular rate Rhythm: regular rhythm Neuro General: patient alert and CN's II-XI intact bilaterally Psych Appearance: grossly normal Mental Status: mental status grossly normal Coding Level of Care Code Off vis,new,level 3 Diagnoses Contact with or suspected exposure to other viral communicable disease Z20.828 Acute upper respiratory infection J06.9 Assessment and Plan Assessment and Plan (1) Contact with or suspected exposure to other viral communicable disease: Status: Acute (2) Acute upper respiratory infection: Status: Acute Orders: Orders POC Hien Covid FLUAB PCR Today Medications: New benzocaine-menthol 15-3.6 mg (Cepacol Sore Throat (benzocaine-menthol)) 1 anup mucous membrane Q2H PRN 16 ea 0RF sore throat Plan Patient tested negative for influenza and COVID in the office today. Cepacol as prescribed today. Encouraged to get plenty of rest, drink lots of clear liquids, and use Tylenol or Ibuprofen (unless contraindicated) for fever and comfort. Patient also educated on other symptomatic management techniques. To be seen in 7-10 days if no improvement; sooner if worsening of symptoms. Patient advised of potential red flags and when appropriate to report to the ED. Patient verbalized understanding and agreement with all the above. 06/13/24 1551 Date Fracisco PENDLETON J Luisafrica Signature: Date (if applicable) CC: Normal [facility] Quantiferon TB-Gold+on 04-28 QFT MITOGEN JABARI > 10.[address] [facility] Comment on above: Performed By: #### L 3400.8000 ####[facility] [address] [place], [place], [id number] QFT NIL VALUE 0 IU/mL Normal . [facility] Comment on above: Performed By: #### L 3400.8000 ####[facility] [address] [place], [place], [id number] QFT TB GOLD+ Comment Normal . [facility] Comment on above: Result Comment: Toño tiFERON-TB Gold Plus is a qualitative indirect test for M tuberculosis infection (including disease) and is intended for use in conjunction with risk assessment, radiography, and other medical and diagnostic evaluations. The QuantiFERON-TB Gold Plus result is determined by subtracting the Nil value from either TB antigen (Ag) value. The Mitogen tube serves as a control for the test. Performed By: #### L 3400.8000 ####[facility] [address] [place], [place], [id number] QFT TB POS CRIT Negative Normal Negative [facility] Comment on above: Result Comment: No r esponse to M tuberculosis antigens detected. Infection with M tuberculosis is unlikely, but high risk individuals should be considered for additional testing (ATS/IDSA/CDC Clinical Practice Guidelines, 2017). The reference range is an Antigen minus Nil result of <0.35 IU/mL. The specimen received for QuantiFERON testing was incubated by the ordering institution. Specific procedures outlined in our Directory of Services and in the package insert for the QuantiFERON Gold (In Tube) test must be followed to enable for proper stimulation of cells for the production of interferon gamma. Chemiluminescence immunoassay methodology Performed at: [facility] [id number] Assorter: Jack Sung PhD, Phone: [phone] Performed By: #### L 3400.8000 ####[facility] [address] [place], [place], [address] QFT TB1+ AG JABARI 0 IU/mL Normal . [facility] Comment on above: Performed By: #### L 3400.8000 ####[facility] [address] [place], [place], [address] QFT TB2+ AG JABARI 0 IU/mL Normal . [facility] Comment on above: Performed By: #### L 3400.8000 ####[facility] [address] [place], [place], [id number] Office Visit Reporton 2023 Office Visit Report [facility] [address] [place] [address] OFFICE VISIT Date of Service: 04/24/24 MR#: [id number] Acct: [id number] Patient: SARA CHIANG Rep #: [id number] : 2005 Provider: KEERTHI Wade Age/Sex: 18/F Location: [facility] Status: Signed Intake Vital Signs 03/08/24 18:48 Height 5 ft 6 in Weight: 137 lb 4.8 oz BMI 22.1 BP 110/68 Respiration 20 H Pulse 82 Temp 97.2 F L Temp Source Temporal Pulse Oximetry (%) 100 Intake Visit Reasons: QUANT/RESP FIT TEST/[facility] Allergies No Known Allergies Allergy (Verified 03/08/24 18:48) Office Procedures [facility] Billing Sheet Testing Pre-Employment PE: Yes Respirator Fit Testing: Yes Occquant-Quantiferon: Yes 04/25/24 1208 Date Fracisco PENDLETON Cosigner Signature: Date (if applicable) CC: Normal [facility] Urgent Care Visit Reporton 1 06-25-2023 Urgent Care Visit Report [facility] [address] , [address] [place] [address] OFFICE VISIT Date of Service: 04/24/24 MR#: [id number] Acct: [id number] Name: SARA CHIANG Rep #: [id number] : 2005 Provider: KEERTHI Wade Age/Sex: 18/F Location: [facility] Status: Signed Intake Vital Signs 03/08/24 18:48 Height 5 ft 6 in Intake Visit Reasons: PE/NON DOT/PHYSICAL/[facility] Allergies No Known Allergies Allergy (Verified 03/08/24 18:48) PFSH Medical History Depression Anxiety Scoliosis Social History Smoking Status: Never smoker HPI HPI Details: SARA CHIANG, is a 18 F who presents to the office today for preemployment physical. Please see corresponding scanned documents with today's date. Office Procedures Physical Exam Coding PE Coding Pre-employment PE: Yes Coding Level of Care Code No Charge Diagnoses Encounter for pre-employment health screening examination Z02.1 Assessment and Plan Assessment and Plan (1) Encounter for pre-employment health screening examination: Status: Acute Orders: Orders Quantiferon TB-Gold+ Today Z02.1 - Encounter for pre-employment examination 04/24/24 1546 Date Fracisco PENDLETON Cosigner Signature: Date (if applicable) CC: Normal [facility] 36on 03-12-2024 36 Last office visit: 01/29/24-Telemedicine Next office visit: none follow up 02/12/24 [facility] Emergency Department Summary on 03-08-2024 Emergency Department Summary [facility] [address] [place] [address] Emergency Department Summary 03/08/24 MR#: [id number] Acct: [id number] Name: SARA CHIANG Rep #: [id number] : 2005 18 From: Urban Martel DO PCP: Dr. Ashlyn Mart MD Status:DEP ER Location: ED HPI History of Present Illness Chief Complaint: Anxiety Informant: patient Onset/Context/Timing Onset: Month(s) Context: Gradual Onset Timing: Continuous Quality: Restless Location: Generalized Worsened by: Nothing Relieved by: Nothing Narrative Narrative: Patient presents with increased anxiety that has been getting worse over the past few months. Patient states she has been on Lexapro for a long time. Patient was recently started on BuSpar. Patient was also instructed to increase her Lexapro from 20 mg to 30 mg. Patient states this made it worse and mother states that she went back to the 20 mg dosage. Patient is also on Abilify. Patient states she just feels restless. Patient states nothing makes it worse and nothing makes it better. Mother states patient does see a counselor for this. Mother states that patient has an appoint with a psychiatrist in the near future. [facility] Medical History Depression Anxiety Scoliosis Home Medications ???Medication ???Instructions ???Recorded ???Last Taken ???Type escitalopram oxalate 20 mg tablet 20 mg PO QHS mood 12/15/23 12/14/23 19:00 History (Lexapro) 20 mg lorazepam 1 mg tablet (Ativan) 1 mg PO BID PRN anxiety 3 days #6 01/24/24 Unknown Rx tabs hydroxyzine pamoate 25 mg capsule 50 mg (2 x 25 mg) PO TID PRN PRN 03/08/24 Unknown Rx Anxiety #30 CAPSULES Allergy/AdvReac Type Severity Reaction Status Date / Time No Known Allergies Allergy Verified 03/08/24 18:48 Surgical History no surgical history no surgical history Social History Smoking Status: Never smoker ROS ROS ED Constitutional Constitutional ED: Denies chills or fever(s) Eyes Eyes: Denies blurry vision or change in vision ENT ENT ED: Denies rhinorrhea or sore throat Cardiovascular Cardiovascular: Denies chest pain or palpitations Respiratory/Chest Respiratory/Chest: Denies cough or dyspnea Gastrointestinal Gastrointestinal: Denies nausea or vomiting Genitourinary Genitourinary ED: Denies dysuria or hematuria Musculoskeletal Musculoskeletal: Reports back pain; Denies neck pain Integumentary Denies abscess or rash Neurologic Neurologic: Denies headache(s) or weakness Psychiatric Psychiatric: Reports anxiety; Denies suicidal ideation or suicidal thoughts Allergic/Immunologic Allergic/Immunologic ED: Denies mouth swelling or urticaria EXAM Physical Exam Const Vital Signs: 03/08/24 18:48 Temperature 97.2 F L Temperature Source Temporal Pulse Rate 82 Respiratory Rate 20 H Blood Pressure 110/68 Blood Pressure Mean 82 Pulse Ox 100 Oxygen Delivery Method Room Air Positive well nourished and well developed General Appearance ED: well developed and NAD HEENT Reports moist mucous membranes Neck supple and no JVD Resp normal respiratory effort and clear to auscultation bilaterally Cardio regular rate and regular rhythm GI non-tender and non-distended Palpation: soft Neuro oriented x3, CN's II-XII intact bilaterally and no sensory deficits noted Sensorium / Orientation: alert Motor Exam: strength 5/5 throughout Psych Mood Affect: anxious MDM MDM MDM Narrative Medical decision making narrative: Patient was ordered a dose of hydroxyzine here. Patient was instructed to continue her medications as previously prescribed. Patient is given a prescription for a short course of hydroxyzine to take as needed. Patient did not want to wait for her medication. Patient left prior to completing treatment. Patient was instructed to follow-up with her primary care physician in 3 to 5 days for further evaluation. Patient was instructed return if worse in any way. Patient and mother understood and were agreeable with the plan. All questions were answered. Discharge Plan Triage Chief Complaint: Anxiety ED Provider: Urban Martel Dx/Rx/DC Orders Clinical Impression: Acute anxiety Instructions: ED Anxiety Reaction Prescriptions: New hydroxyzine pamoate 25 mg capsule 50 mg PO TID PRN PRN (Reason: Anxiety) Qty: 30 0RF No Action escitalopram oxalate [Lexapro] 20 mg tablet 20 mg PO QHS Patient Comments: pt takes at hs lorazepam [Ativan] 1 mg tablet 1 mg PO BID MDD 2 PRN (Reason: anxiety) 3 Days Qty: 6 0RF Primary Care Provider: Ashlyn Mart Referrals: Ashlyn Mart MD [Primary Care Provider] - 3-5 Days Print Language: Slovenian (more content not included)... Normal [facility] Vitamin D,25 Hydroxyon 02-28 Vitamin D 25-OH 34.4 ng/mL Normal [facility] Comment on above: Result Comment: Kylie min D 25(OH) Status Range Deficiency <20 ng/mL (50nmol/L) Insufficiency 20 - 30 ng/mL (50 - 75 nmol/L) Sufficiency 30 - 100 ng/mL (75 - 250 nmol/L) Toxicity >100 ng/mL (>250 nmol/L) Performed By: #### L 100.0100, L501.9520, L500.4050, L506.1000 ####[facility] [address] [place], [address] CBC W/Diff, Automatedon 02-11 Absolute Lymph 1.67 X10 3/uL Normal 0.83-4.[address] [facility] Comment on above: Performed By: #### L 100.0100, L501.9520, L500.4050, L506.1000 ####[facility] [address] [place], [address] Absolute Neut 3.4 X10 3/uL Normal 2.0-7.[address] [facility] Comment on above: Performed By: #### L 100.0100, L501.9520, L500.4050, L506.1000 ####[facility] [address] [place], [address] Basophils/100 WBC (Bld) 0.7 % Normal 0-1 [facility] Comment on above: Performed By: #### L 100.0100, L501.9520, L500.4050, L506.1000 ####[facility] [address] [place], [address] Eosinophils/100 WBC (Bld) 2.2 % Normal 0-[address] [facility] Comment on above: Performed By: #### L 100.0100, L501.9520, L500.4050, L506.1000 ####[facility] [address] [place], [address] Erythrocyte distribution width (RBC) [Ratio] 13.2 % Normal 11.6-14.[address] [facility] Comment on above: Performed By: #### L 100.0100, L501.9520, L500.4050, L506.1000 ####[facility] [address] [place], [address] Hematocrit (Bld) [Volume fraction] 40.0 % Normal 37-[address] [facility] Comment on above: Performed By: #### L 100.0100, L501.9520, L500.4050, L506.1000 ####[facility] [address] [place], [address] Hemoglobin (Bld) [Mass/Vol] 12.4 g/dL Normal 12.0-15.[address] [facility] Comment on above: Performed By: #### L 100.0100, L501.9520, L500.4050, L506.1000 ####[facility] [address] [place], [address] IG% 0.400 Normal 0.0-0.[address] [facility] Comment on above: Result Comment: IG% - Immature Granulocytes (promyelocytes, myelocytes and metamyelocytes) > 1% indicates that a LEFT SHIFT is Present. Performed By: #### L 100.0100, L501.9520, L500.4050, L506.1000 ####[facility] [address] [place], [address] Lymphocytes/100 WBC (Bld) 30.4 % Normal 19-[address] [facility] Comment on above: Performed By: #### L 100.0100, L501.9520, L500.4050, L506.1000 ####[facility] [address] [place], [address] MCH (RBC) [Entitic mass] 27.3 pg Normal 27.0-32.[address] [facility] Comment on above: Performed By: #### L 100.0100, L501.9520, L500.4050, L506.1000 ####[facility] [address] [place], [address] MCHC (RBC) [Mass/Vol] 31.0 g/dL Low 32-36 [facility] Comment on above: Performed By: #### L 100.0100, L501.9520, L500.4050, L506.1000 ####[facility] [address] [place], [address] MCV (RBC) [Entitic vol] 88.1 fL Normal 81-99 [facility] Comment on above: Performed By: #### L 100.0100, L501.9520, L500.4050, L506.1000 ####[facility] [address] [place], [address] Monocytes/100 WBC (Bld) 4.2 % Normal 0-10 [facility] Comment on above: Performed By: #### L 100.0100, L501.9520, L500.4050, L506.1000 ####[facility] [address] [place], [address] Neutrophils/100 WBC (Bld) 62.1 % Normal 47-[address] [facility] Comment on above: Performed By: #### L 100.0100, L501.9520, L500.4050, L506.1000 ####[facility] [address] [place], [address] Nucleated RBC (Bld) [#/Vol] 0 10*3/uL Normal 0-[address] [facility] Comment on above: Performed By: #### L 100.0100, L501.9520, L500.4050, L506.1000 ####[facility] [address] [place], [address] Platelet mean volume (Bld) [Entitic vol] 11.3 fL Normal 6.2-12.[address] [facility] Comment on above: Performed By: #### L 100.0100, L501.9520, L500.4050, L506.1000 ####[facility] [address] [place], [address] Platelets (Bld) [#/Vol] 226 10*3/uL Normal 150-[address] [facility] Comment on above: Performed By: #### L 100.0100, L501.9520, L500.4050, L506.1000 ####[facility] [address] [place], [address] RBC (Bld) [#/Vol] 4.54 10*6/uL Normal 4.2-5.4 [facility] [facility] Comment on above: Performed By: #### L 100.0100, L501.9520, L500.4050, L506.1000 ####[facility] [address] [place], [address] RDW SD 42.8 fl Normal 35.1-43.[address] [facility] Comment on above: Performed By: #### L 100.0100, L501.9520, L500.4050, L506.1000 ####[facility] [address] [place], [address] WBC (Bld) [#/Vol] 5.5 10*3/uL Normal 4.4-11.0 [facility] Comment on above: Performed By: #### L 100.0100, L501.9520, L500.4050, L506.1000 ####[facility] [address] [place], [address] Comprehensive Metabolic [facility] ilon 02-28-2024 Albumin [Mass/Vol] 4.1 g/dL Normal 3.2-5.0 [facility] Comment on above: Performed By: #### L 100.0100, L501.9520, L500.4050, L506.1000 ####[facility] [address] [place], [address] Albumin/Globulin [Mass ratio] 1.2 {ratio} Normal 0.9-2.[address] [facility] Comment on above: Performed By: #### L 100.0100, L501.9520, L500.4050, L506.1000 ####[facility] [address] [place], [address] ALK P 63 U/L Normal 45-[address] [facility] Comment on above: Performed By: #### L 100.0100, L501.9520, L500.4050, L506.1000 ####[facility] [address] [place], [address] ALT [Catalytic activity/Vol] 19 U/L Normal 13-[address] [facility] Comment on above: Performed By: #### L 100.0100, L501.9520, L500.4050, L506.1000 ####[facility] [address] [place], [address] AST [Catalytic activity/Vol] 19 U/L Normal 15-[address] [facility] Comment on above: Performed By: #### L 100.0100, L501.9520, L500.4050, L506.1000 ####[facility] [address] [place], [address] Bilirubin [Mass/Vol] 0.40 mg/dL Normal 0.20-1.00 [facility] Comment on above: Result Comment: For patients on eltrombopag therapy, use of [place] TBIL is not recommended. Performed By: #### L 100.0100, L501.9520, L500.4050, L506.1000 ####[facility] [address] [place], [address] BUN/CRE 18.1 RATIO Normal 10-[address] [facility] Comment on above: Performed By: #### L 100.0100, L501.9520, L500.4050, L506.1000 ####[facility] [address] [place], [address] CA,Total 9.4 mg/dL Normal 8.5-10.[address] [facility] Comment on above: Performed By: #### L 100.0100, L501.9520, L500.4050, L506.1000 ####[facility] [address] [place], [address] Chloride [Moles/Vol] 105 mmol/L Normal 98-107 [facility] Comment on above: Performed By: #### L 100.0100, L501.9520, L500.4050, L506.1000 ####[facility] [address] [place], [address] CO2 [Moles/Vol] 29.0 mmol/L Normal 21.0-32.[address] [facility] Comment on above: Performed By: #### L 100.0100, L501.9520, L500.4050, L506.1000 ####[facility] [address] [place], [address] Creatinine [Mass/Vol] 0.66 mg/dL Normal 0.55-1.02 [facility] Comment on above: Result Comment: The validity of the calculated GFR GFRAA in patients over 70 years has not been determined. Clinical correlation is essential. Performed By: #### L 100.0100, L501.9520, L500.4050, L506.1000 ####[facility] [address] [place], [address] EST GFR - AA 147 mL/min Normal >[address] [facility] Comment on above: Result Comment: Afri can [place] GFR Calc Performed By: #### L 100.0100, L501.9520, L500.4050, L506.1000 ####[facility] [address] [place], [address] GAP 6 Normal 5-[address] [facility] Comment on above: Performed By: #### L 100.0100, L501.9520, L500.4050, L506.1000 ####[facility] [address] [place], [address] GFR/1.73 sq M.predicted among non-blacks MDRD (S/P/Bld) [Vol rate/Area] 121 mL/min/{1.73_m2} Normal >[address] [facility] Comment on above: Result Comment: Non- GFR Calc Performed By: #### L 100.0100, L501.9520, L500.4050, L506.1000 ####[facility] [address] [place], [address] Globulin (S) [Mass/Vol] 3.5 g/dL Normal 2.2-4.2 [facility] Comment on above: Performed By: #### L 100.0100, L501.9520, L500.4050, L506.1000 ####[facility] [address] [place], [address] Glucose [Mass/Vol] 90 mg/dL Normal 74-106 [facility] Comment on above: Performed By: #### L 100.0100, L501.9520, L500.4050, L506.1000 ####[facility] [address] [place], [address] Potassium [Moles/Vol] 3.8 mmol/L Normal 3.5-5.1 [facility] Comment on above: Performed By: #### L 100.0100, L501.9520, L500.4050, L506.1000 ####[facility] [address] [place], [address] Sodium [Moles/Vol] 140 mmol/L Normal 136-145 [facility] Comment on above: Performed By: #### L 100.0100, L501.9520, L500.4050, L506.1000 ####[facility] [address] [place], [address] T PROT 7.6 g/dL Normal 6.4-8.[address] [facility] Comment on above: Performed By: #### L 100.0100, L501.9520, L500.4050, L506.1000 ####[facility] [address] [place], [address] Urea nitrogen [Mass/Vol] 12 mg/dL Normal 7-[address] [facility] Comment on above: Performed By: #### L 100.0100, L501.9520, L500.4050, L506.1000 ####[facility] [address] [place], [address] Thyroid Stim Hormone (TSH)on 02-28-2024 TSH 1.570 uIU/mL Normal 0.358-3.[address] [facility] Comment on above: Performed By: #### L 100.0100, L501.9520, L500.4050, L506.1000 ####[facility] [address] [place], [address] 36on 02-20-2024 36 Last office visit: 08/26 telemed on 01/29/24 Next office visit: none- pt no showed to appt 02/19/24, pt cancelled appt 02/27/24 reason: changed provider Normal [facility] 36on 02-13-2024 36 This will have to be addressed during her office visit on 02/19/2024 Normal [facility] Progress Noteon 01-29-2024 Progress Note [place] [address] [address] Dept: [phone] Dept Loc: [phone] Subjective Sara Chiang is a 18 y.o. [...] that they are currently in the state [facility]. If the patient is a minor, permission [...] redirect to the Timeline version of the [facility]. If PHQ-2 is positive, in the [...] mouth Nightly., Starting Sun01/29/2024, Until Sun02/28/2024, Normal 5. Low vitamin D level - [...] patient. Rikki Chavez MD 01/29/24 5:47 PM [facility] Progress Note INDIRECT SUPERVISION THIS SERVICE IS [...] assessment and treatment plan. -Alex Riddle MD, [facility] Family Medicine [facility] Emergency Department Summary on 01-23-2024 Emergency Department Summary [facility] Medical Records Department [address] [place] [address] Emergency Department Summary 01/23/24 MR#: [id number] Acct: [id number] Name: SARA CHIANG Rep #: [id number] : 2005 18 From: Chester Roach MD PCP: Care Physician,No Primary Status:DEP ER Location: ED HPI HPI - Psych History of Present Illness Chief Complaint: Mental Health Detail of Chief Complaint: Anxiety. Informant: patient and parent Onset/Context/Timing Onset: Days Context: Gradual Onset Timing: Continuous Current Severity: Moderate Maximum Severity: Moderate Associated Symptoms Associated Symptoms - Psych: Positive for - (Anxiety); Negative for Suicidal Thoughts Specific plan (suicidal thought): No suicide plan Narrative Narrative: 18-year-old female history of anxiety. Currently on Lexapro. Recently moved to the area has appointment to follow-up with the counseling center on Sunday. She has not been evaluated by them as of yet. She has been on the Lexapro for months. Says she has been very emotional lately. It has been a roller coaster over the last week. States her dad has bipolar. She denies being homicidal or suicidal. She did have a mental health admission earlier this year. Denies any drug or alcohol use. States she is not . Prior similar symptoms: Yes Recent Illness/Hospitalizati on: No [facility] Medical History (Updated 01/24/24 @ 01:[address] Chester Roach MD) Depression Anxiety Scoliosis Home Medications ???Medication ???Instructions ???Recorded ???Last Taken ???Type escitalopram oxalate 20 mg tablet 20 mg PO QHS mood 12/15/23 12/14/23 19:00 History (Lexapro) 20 mg Allergy/AdvReac Type Severity Reaction Status Date / Time No Known Allergies Allergy Verified 01/23/24 22:51 Social History Smoking Status: Never smoker ROS ROS ED ROS Narrative Denies recent illness. Constitutional Constitutional ED: Denies fever(s) Eyes Eyes: Denies blurry vision ENT ENT ED: Denies ear pain Cardiovascular Cardiovascular: Denies chest pain Respiratory/Chest Respiratory/Chest: Denies cough Gastrointestinal Gastrointestinal: Denies abdominal pain Genitourinary Genitourinary ED: Denies dysuria Musculoskeletal Musculoskeletal: Denies arthralgias Integumentary Denies abscess Neurologic Neurologic: Denies headache(s) Psychiatric Psychiatric: Reports anxiety and depression; Denies suicidal ideation or suicidal thoughts Endocrine Endocrinology: Denies polydipsia Hematologic/Lymphatic Hematologic/Lymphatic : Denies easy bleeding Allergic/Immunologic Allergic/Immunologic ED: Denies mouth swelling EXAM Physical Exam Narrative Exam Narrative: 89-year-old female very emotionally upset. Tearful. Anxious. Physically no acute distress. Vital signs stable afebrile. Female present in the room with her I believe it is her mom. H EENT exam unremarkable. Neck nontender. No signs of trauma. Lungs clear to auscultation bilaterally. Heart regular rhythm no murmur. Abdomen soft nontender. Moving all 4 extremities. Nontender no edema. Neurologically she is awake and alert. No focal motor deficits. Const Vital Signs: 01/23/24 22:49 Temperature 96.9 F L Temperature Source Temporal Pulse Rate 73 Respiratory Rate 18 Blood Pressure 115/69 Blood Pressure Mean 84 Pulse Ox 100 Oxygen Delivery Method Room Air Positive well nourished and well developed; Negative for obese, cachectic, contractures or unkempt General Appearance ED: well developed and NAD; Negative for unkempt, cachectic, contractures or pallor Nutritional Appearance: Negative for cachectic or obese HEENT Reports moist mucous membranes normocephalic and atraumatic; Negative for trauma or tenderness Eyes PERRL and EOMs intact bilaterally General Eye ED: Negative for pale conjunctiva Neck no lymphadenopathy, supple and no JVD General: Negative for tenderness Resp normal respiratory effort and clear to auscultation bilaterally Effort and Inspection: Negative for retractions Auscultation: Negative for rales, rhonchi or wheezes Cardio S1 normal heart sound, S2 normal heart sound and no murmurs Rate: regular rate Rhythm: regular rhythm GI non-tender, non-distended and no masses Palpation: soft; Negative for tender or guarding Back/Spine no CVA tenderness General Back: Negative for CVA tenderness Cervical Spine: Negative for cervical spine tenderness Extremity normal to inspection General Extremety ED: Negative for edema or tenderness General Extremity: Negative for edema Neuro oriented x3 and CN's II-XII intact bilaterally Sensorium / Orientation: alert, oriented to person, oriented to place and oriented to time; Negative for orientation impaired, confus (more content not included)... Normal [facility] 36on 12-31-2023 36 Last office visit: 08/27/23 Next office visit: none ( supposed to follow up 5 weeks 10/01/23) Normal [facility] Basic Metabolic Profile (BMP )on 12-18-2023 BUN Normal -[address] [facility] Comment on above: Result Comment: Canc elled via OM: Order cancelled - Patient discharged Performed By: #### L 100.0100, L500.2500 #### [facility] [address] [place], [address] BUN/CRE Normal - [facility] Comment on above: Result Comment: Canc elled via OM: Order cancelled - Patient discharged Performed By: #### L 100.0100, L500.2500 #### [facility] [address] [place], [address] CA,Total Normal 8.5-10.[address] [facility] Comment on above: Result Comment: Canc elled via OM: Order cancelled - Patient discharged Performed By: #### L 100.0100, L500.2500 #### [facility] [address] [place], [address] CL Normal 98-[address] [facility] Comment on above: Result Comment: Canc elled via OM: Order cancelled - Patient discharged Performed By: #### L 100.0100, L500.2500 #### [facility] [address] [place], [address] CO2 Normal 21.0-32.[address] [facility] Comment on above: Result Comment: Canc elled via OM: Order cancelled - Patient discharged Performed By: #### L 100.0100, L500.2500 #### [facility] [address] [place], [address] CREAT,SERUM Normal 0.55-1.[address] [facility] Comment on above: Result Comment: Canc elled via OM: Order cancelled - Patient discharged Performed By: #### L 100.0100, L500.2500 #### [facility] [address] [place], [address] EST GFR Normal >[address] [facility] Comment on above: Result Comment: Canc elled via OM: Order cancelled - Patient discharged Performed By: #### L 100.0100, L500.2500 #### [facility] [address] [place], [address] EST GFR - AA Normal >[address] [facility] Comment on above: Result Comment: Canc elled via OM: Order cancelled - Patient discharged Performed By: #### L 100.0100, L500.2500 #### [facility] [address] [place], [address] GAP Normal 5-[address] [facility] Comment on above: Result Comment: Canc elled via OM: Order cancelled - Patient discharged Performed By: #### L 100.0100, L500.2500 #### [facility] [address] [place], [address] GLU Normal 74-[address] [facility] Comment on above: Result Comment: Canc elled via OM: Order cancelled - Patient discharged Performed By: #### L 100.0100, L500.2500 #### [facility] [address] [place], [address] Potassium Normal 3.5-5.[address] [facility] Comment on above: Result Comment: Canc elled via OM: Order cancelled - Patient discharged Performed By: #### L 100.0100, L500.2500 #### [facility] [address] [place], [address] Basic Metabolic Profile (BMP) Normal 136-[address] [facility] Comment on above: Result Comment: Canc elled via OM: Order cancelled - Patient discharged Performed By: #### L 100.0100, L500.2500 #### [facility] [address] [place], [address] CBC W/Diff, Automatedon 08-0 -2023 Absolute Neut Normal 2.0-7.[address] [facility] Comment on above: Result Comment: Canc elled via OM: Order cancelled - Patient discharged Performed By: #### L 100.0100, L500.2500 #### [facility] [address] [place], [address] HCT Normal 37-[address] [facility] Comment on above: Result Comment: Canc elled via OM: Order cancelled - Patient discharged Performed By: #### L 100.0100, L500.2500 #### [facility] [address] [place], [address] HGB Normal 12.0-15.[address] [facility] Comment on above: Result Comment: Canc elled via OM: Order cancelled - Patient discharged Performed By: #### L 100.0100, L500.2500 #### [facility] [address] [place], [address] MCH Normal 27.0-32.[address] [facility] Comment on above: Result Comment: Canc elled via OM: Order cancelled - Patient discharged Performed By: #### L 100.0100, L500.2500 #### [facility] [address] [place], [address] MCHC Normal 32-[address] [facility] Comment on above: Result Comment: Canc elled via OM: Order cancelled - Patient discharged Performed By: #### L 100.0100, L500.2500 #### [facility] [address] [place], [address] MCV Normal 81-[address] [facility] Comment on above: Result Comment: Canc elled via OM: Order cancelled - Patient discharged Performed By: #### L 100.0100, L500.2500 #### [facility] [address] [place], [address] NEUT% Normal 47-[address] [facility] Comment on above: Result Comment: Canc elled via OM: Order cancelled - Patient discharged Performed By: #### L 100.0100, L500.2500 #### [facility] [address] [place], [address] PLT Normal 150-[address] [facility] Comment on above: Result Comment: Canc elled via OM: Order cancelled - Patient discharged Performed By: #### L 100.0100, L500.2500 #### [facility] [address] [place], [address] RBC Normal 4.2-5.[address] [facility] Comment on above: Result Comment: Canc elled via OM: Order cancelled - Patient discharged Performed By: #### L 100.0100, L500.2500 #### [facility] [address] [place], [address] RDW CV Normal 11.6-14.[address] [facility] Comment on above: Result Comment: Canc elled via OM: Order cancelled - Patient discharged Performed By: #### L 100.0100, L500.2500 #### [facility] [address] [place], [address] RDW SD Normal 35.1-43.[address] [facility] Comment on above: Result Comment: Canc elled via OM: Order cancelled - Patient discharged Performed By: #### L 100.0100, L500.2500 #### [facility] [address] [place], [address] WBC Normal 4.4-11.[address] [facility] Comment on above: Result Comment: Canc elled via OM: Order cancelled - Patient discharged Performed By: #### L 100.0100, L500.2500 #### [facility] [address] [place], [address] CNCOon 12-18-2023 [facility] Letter Text Normal [facility] Nathalie 12-18-2023 [facility] Telephone (KIRILLGSadiaMA) SARA CHIANG ([id number]) 3 F Date Time Provider Department 12/18/23 JAIME MACIASELIAS During your visit today, we recorded the [...] Encounter Status:Closed by ADITYA MCCRARY on 12/18/23 Normal [facility] Basic Metabolic Profile (BMP )on 12-17-2023 BUN Normal 7-[address] [facility] Comment on above: Result Comment: Canc elled via OM: Order cancelled - Patient discharged Performed By: #### L 100.0100, L500.2500 ####[facility] [address] [place], [address] BUN/CRE Normal 10-[address] [facility] Comment on above: Result Comment: Canc elled via OM: Order cancelled - Patient discharged Performed By: #### L 100.0100, L500.2500 ####[facility] [address] [place], [address] CA,Total Normal 8.5-10.[address] [facility] Comment on above: Result Comment: Canc elled via OM: Order cancelled - Patient discharged Performed By: #### L 100.0100, L500.2500 ####[facility] [address] [place], [address] CL Normal 98-[address] [facility] Comment on above: Result Comment: Canc elled via OM: Order cancelled - Patient discharged Performed By: #### L 100.0100, L500.2500 ####[facility] [address] [place], [address] CO2 Normal 21.0-32.[address] [facility] Comment on above: Result Comment: Canc elled via OM: Order cancelled - Patient discharged Performed By: #### L 100.0100, L500.2500 ####[facility] [address] [place], [address] CREAT,SERUM Normal 0.55-1.[address] [facility] Comment on above: Result Comment: Canc elled via OM: Order cancelled - Patient discharged Performed By: #### L 100.0100, L500.2500 ####[facility] [address] [place], [address] EST GFR Normal >[address] [facility] Comment on above: Result Comment: Canc elled via OM: Order cancelled - Patient discharged Performed By: #### L 100.0100, L500.2500 ####[facility] [address] [place], [address] EST GFR - AA Normal >[address] [facility] Comment on above: Result Comment: Canc elled via OM: Order cancelled - Patient discharged Performed By: #### L 100.0100, L500.2500 ####[facility] [address] [place], [address] GAP Normal 5-[address] [facility] Comment on above: Result Comment: Canc elled via OM: Order cancelled - Patient discharged Performed By: #### L 100.0100, L500.2500 ####[facility] [address] [place], [address] GLU Normal 74-[address] [facility] Comment on above: Result Comment: Canc elled via OM: Order cancelled - Patient discharged Performed By: #### L 100.0100, L500.2500 ####[facility] [address] [place], [address] Potassium Normal 3.5-5.[address] [facility] Comment on above: Result Comment: Canc elled via OM: Order cancelled - Patient discharged Performed By: #### L 100.0100, L500.2500 ####[facility] [address] [place], [address] Basic Metabolic Profile (BMP) Normal 136-[address] [facility] Comment on above: Result Comment: Canc elled via OM: Order cancelled - Patient discharged Performed By: #### L 100.0100, L500.2500 ####[facility] [address] [place], [address] CBC W/Diff, Automatedon 08-0 Absolute Neut Normal 2.0-7.[address] [facility] Comment on above: Result Comment: Canc elled via OM: Order cancelled - Patient discharged Performed By: #### L 100.0100, L500.2500 ####[facility] [address] [place], [address] HCT Normal 37-[address] [facility] Comment on above: Result Comment: Canc elled via OM: Order cancelled - Patient discharged Performed By: #### L 100.0100, L500.2500 ####[facility] [address] [place], [address] HGB Normal 12.0-15.[address] [facility] Comment on above: Result Comment: Canc elled via OM: Order cancelled - Patient discharged Performed By: #### L 100.0100, L500.2500 ####[facility] [address] [place], [address] MCH Normal 27.0-32.[address] [facility] Comment on above: Result Comment: Canc elled via OM: Order cancelled - Patient discharged Performed By: #### L 100.0100, L500.2500 ####[facility] [address] [place], [address] MCHC Normal 32-[address] [facility] Comment on above: Result Comment: Canc elled via OM: Order cancelled - Patient discharged Performed By: #### L 100.0100, L500.2500 ####[facility] [address] [place], [address] MCV Normal 81-[address] [facility] Comment on above: Result Comment: Canc elled via OM: Order cancelled - Patient discharged Performed By: #### L 100.0100, L500.2500 ####[facility] [address] [place], [address] NEUT% Normal 47-[address] [facility] Comment on above: Result Comment: Canc elled via OM: Order cancelled - Patient discharged Performed By: #### L 100.0100, L500.2500 ####[facility] [address] [place], [address] PLT Normal 150-[address] [facility] Comment on above: Result Comment: Canc elled via OM: Order cancelled - Patient discharged Performed By: #### L 100.0100, L500.2500 ####[facility] [address] [place], [address] RBC Normal 4.2-5.[address] [facility] Comment on above: Result Comment: Canc elled via OM: Order cancelled - Patient discharged Performed By: #### L 100.0100, L500.2500 ####[facility] [address] [place], [address] RDW CV Normal 11.6-14.[address] [facility] Comment on above: Result Comment: Canc elled via OM: Order cancelled - Patient discharged Performed By: #### L 100.0100, L500.2500 ####[facility] [address] [place], [address] RDW SD Normal 35.1-43.[address] [facility] Comment on above: Result Comment: Canc elled via OM: Order cancelled - Patient discharged Performed By: #### L 100.0100, L500.2500 ####[facility] [facility] [address] [place], [address] WBC Normal 4.4-11.[address] [facility] Comment on above: Result Comment: Canc elled via OM: Order cancelled - Patient discharged Performed By: #### L 100.0100, L500.2500 ####[facility] [address] [place], [address] Urine Cultureon 12-17-2023 URC Below infection level. Mixed Gram Positive Organisms Newcastle Count 1000-10,000 MIXC Mixed contaminants. Submit a new specimen if indicated. Normal [facility] Comment on above: Performed By: #### M 100.2200 ####[facility] [address] [place], [address] CBC W/Diff, Automatedon Absolute Neut Normal 2.0-7.[address] [facility] Comment on above: Result Comment: Canc elled via OM: Order cancelled - Patient discharged Performed By: #### L 100.0100 ####[facility] [address] [place], [address] HCT Normal 37-[address] [facility] Comment on above: Result Comment: Canc elled via OM: Order cancelled - Patient discharged Performed By: #### L 100.0100 ####[facility] [address] [place], [address] HGB Normal 12.0-15.[address] [facility] Comment on above: Result Comment: Canc elled via OM: Order cancelled - Patient discharged Performed By: #### L 100.0100 ####[facility] [address] [place], [address] MCH Normal 27.0-32.[address] [facility] Comment on above: Result Comment: Canc elled via OM: Order cancelled - Patient discharged Performed By: #### L 100.0100 ####[facility] [address] [place], [address] MCHC Normal 32-[address] [facility] Comment on above: Result Comment: Canc elled via OM: Order cancelled - Patient discharged Performed By: #### L 100.0100 ####[facility] [address] [place], [address] MCV Normal 81-[address] [facility] Comment on above: Result Comment: Canc elled via OM: Order cancelled - Patient discharged Performed By: #### L 100.0100 ####[facility] [address] [place], [address] NEUT% Normal 47-[address] [facility] Comment on above: Result Comment: Canc elled via OM: Order cancelled - Patient discharged Performed By: #### L 100.0100 ####[facility] [address] [place], [address] PLT Normal 150-[address] [facility] Comment on above: Result Comment: Canc elled via OM: Order cancelled - Patient discharged Performed By: #### L 100.0100 ####[facility] [address] [place], [address] RBC Normal 4.2-5.[address] [facility] Comment on above: Result Comment: Canc elled via OM: Order cancelled - Patient discharged Performed By: #### L 100.0100 ####[facility] [address] [place], [address] RDW CV Normal 11.6-14.[address] [facility] Comment on above: Result Comment: Canc elled via OM: Order cancelled - Patient discharged Performed By: #### L 100.0100 ####[facility] [address] [place], [address] RDW SD Normal 35.1-43.[address] [facility] Comment on above: Result Comment: Canc elled via OM: Order cancelled - Patient discharged Performed By: #### L 100.0100 ####[facility] [address] [place], [place], [address] WBC Normal 4.4-11.[address] [facility] Comment on above: Result Comment: Canc elled via OM: Order cancelled - Patient discharged Performed By: #### L 100.0100 ####[facility] [address] [place], [place], [address] [facility] SARA CHIANG ([id number]) 3 F Date Time Provider Department 12/16/23 YASSINE HOWARD [facility] During your visit today, we recorded the following information about you: Yassine Howard, PA 12/16/2023 8:14 AM Signed Called mom to [...] Status:Closed by YASSINE HOWARD on 12/16/23 Normal [facility] Abdomen/Pelvis without Conto n 12-15-2023 Abdomen/Pelvis without Cont [facility] Services [address], [place] [address] Abdomen/Pelvis without Cont MR#: [id number] Acct: [id number] Name: SARA CHIANG Rep #: [id number] : 2005 F 18 From: Raymond Lynne MD PCP: Care Physician,No Primary Status: REG ER Study: Abdomen/Pelvis without Cont Date of Exam: 08/04 Exam# [id number] Ordering Dr: Akanksha Cash DO [id number] STUDY: CT ABDOMEN AND PELVIS WITHOUT CONTRAST REASON FOR EXAM: Female, 18 years old. Right flank pain. RADIATION DOSAGE (If Supplied By Facility): CTDIvol = ( 6.55 ) mGy, DLP = ( 335.37 ) mGycm TECHNIQUE: Transaxial images were obtained from the dome of the diaphragm to the symphysis pubis without oral contrast, and without intravenous contrast. Sagittal and coronal images were reconstructed. Individualized dose optimization techniques were used for this CT. COMPARISON: No relevant prior comparison study available FINDINGS: Evaluation of the abdominal viscera is limited in the absence of intravenous contrast. LOWER THORAX: The visualized lung bases are clear. The visualized portions of the heart and pericardium are within normal limits. GALLBLADDER / BILE DUCTS: There are no calcified gallstones present. The common bile duct is normal in caliber. There are no calcified ductal stones. LIVER: The liver demonstrates an unremarkable unenhanced appearance. SPLEEN: The spleen is normal in size. PANCREAS: The pancreas demonstrates an unremarkable unenhanced appearance. ADRENAL GLANDS: The adrenal glands are within normal limits. KIDNEYS / BLADDER: There is mild bilateral perinephric stranding. There are no renal or ureteral stones. There is no hydronephrosis. There are no focal renal lesions identified on this noncontrast exam. The urinary bladder is partially distended and appears grossly unremarkable. STOMACH / BOWEL: Normal visualized stomach. There is no bowel obstruction or inflammation. The appendix is not visualized, but there are no findings to suggest acute appendicitis. PERITONEUM / RETROPERITONEUM: There is a small amount of pelvic free fluid. There is no free air or fluid collection. There is a 3 cm right adnexal cyst. There is an intrauterine device in place. There is no abdominal or pelvic lymphadenopathy. VESSELS: The aorta is normal in caliber. The IVC is unremarkable. BONES: There are no destructive osseous lesions. SOFT TISSUES: The visualized soft tissues are within normal limits. CT/Abdomen/Pelvis without Cont IMPRESSION: 3 cm right adnexal cyst with a small amount pelvic free fluid. If indicated, further evaluation with ultrasound can be performed. No urinary calculi. No hydronephrosis. Bilateral perinephric stranding which is a nonspecific finding. However, please note that infection cannot be excluded without contrast. No bowel obstruction or inflammation. Electronically Signed: Raymond Lynne MD at 11:26 EDT Reading Location ID and State: [facility] / [place] Tel , Service support , CC: Dr. Akanksha Cash, DO; No Primary Care Physician Product Analyst: Signed Normal [facility] CBC W/Diff, Automatedon 08-0 Absolute Lymph 0.58 X10 3/uL Low 0.83-4.[address] [facility] Comment on above: Performed By: #### L 500.4050, L700.6800, L100.0100 #### [facility] [address] [place], [place], [address] Absolute Neut 16.3 X10 3/uL High 2.0-7.[address] [facility] Comment on above: Performed By: #### L 500.4050, L700.6800, L100.0100 #### [facility] [address] [place], [address] Basophils/100 WBC (Bld) 0.3 % Normal 0-1 [facility] Comment on above: Performed By: #### L 500.4050, L700.6800, L100.0100 #### [facility] [address] [place], [address] Eosinophils/100 WBC (Bld) 0.2 % Normal 0-[address] [facility] Comment on above: Performed By: #### L 500.4050, L700.6800, L100.0100 #### [facility] [address] [place], [address] Erythrocyte distribution width (RBC) [Ratio] 13.9 % Normal 11.6-14.[address] [facility] Comment on above: Performed By: #### L 500.4050, L700.6800, L100.0100 #### [facility] [address] [place], [address] Hematocrit (Bld) [Volume fraction] 38.9 % Normal 37-[address] [facility] Comment on above: Performed By: #### L 500.4050, L700.6800, L100.0100 #### [facility] [address] [place], [address] Hemoglobin (Bld) [Mass/Vol] 12.3 g/dL Normal 12.0-15.[address] [facility] Comment on above: Performed By: #### L 500.4050, L700.6800, L100.0100 #### [facility] [address] [place], [address] IG% 0.500 Normal 0.0-0.[address] [facility] Comment on above: Result Comment: IG% - Immature Granulocytes (promyelocytes, myelocytes and metamyelocytes) > 1% indicates that a LEFT SHIFT is Present. Performed By: #### L 500.4050, L700.6800, L100.0100 #### [facility] [address] [place], [address] Lymphocytes/100 WBC (Bld) 3.1 % Low 19-[address] [facility] Comment on above: Performed By: #### L 500.4050, L700.6800, L100.0100 #### [facility] [address] [place], [address] MCH (RBC) [Entitic mass] 27.0 pg Normal 27.0-32.[address] [facility] Comment on above: Performed By: #### L 500.4050, L700.6800, L100.0100 #### [facility] [address] [place], [address] MCHC (RBC) [Mass/Vol] 31.6 g/dL Low 32-36 [facility] Comment on above: Performed By: #### L 500.4050, L700.6800, L100.0100 #### [facility] [address] [place], [address] MCV (RBC) [Entitic vol] 85.3 fL Normal 81-99 [facility] Comment on above: Performed By: #### L 500.4050, L700.6800, L100.0100 #### [facility] [address] [place], [address] Monocytes/100 WBC (Bld) 7.3 % Normal 0-10 [facility] Comment on above: Performed By: #### L 500.4050, L700.6800, L100.0100 #### [facility] [address] [place], [address] Neutrophils/100 WBC (Bld) 88.6 % High 47-[address] [facility] Comment on above: Performed By: #### L 500.4050, L700.6800, L100.0100 #### [facility] [address] [place], [address] Nucleated RBC (Bld) [#/Vol] 0 10*3/uL Normal 0-[address] [facility] Comment on above: Performed By: #### L 500.4050, L700.6800, L100.0100 #### [facility] [address] [place], [address] Platelet mean volume (Bld) [Entitic vol] 10.2 fL Normal 6.2-12.[address] [facility] Comment on above: Performed By: #### L 500.4050, L700.6800, L100.0100 #### [facility] [address] [place], [address] Platelets (Bld) [#/Vol] 181 10*3/uL Normal 150-[address] [facility] Comment on above: Performed By: #### L 500.4050, L700.6800, L100.0100 #### [facility] [address] [place], [address] RBC (Bld) [#/Vol] 4.56 10*6/uL Normal 4.2-5.4 [facility] Comment on above: Performed By: #### L 500.4050, L700.6800, L100.0100 #### [facility] [address] [place], [address] RDW SD 43.0 fl Normal 35.1-43.[address] [facility] Comment on above: Performed By: #### L 500.4050, L700.6800, L100.0100 #### [facility] [address] [place], [address] WBC (Bld) [#/Vol] 18.4 10*3/uL High 4.4-11.0 [facility] Comment on above: Performed By: #### L 500.4050, L700.6800, L100.0100 #### [facility] [address] [place], [address] Comprehensive Metabolic Prof ilon 12-15-2023 Albumin [Mass/Vol] 3.5 g/dL Normal 3.2-5.0 [facility] Comment on above: Performed By: #### L 500.4050, L700.6800, L100.0100 #### [facility] [address] [place], [address] Albumin/Globulin [Mass ratio] 0.8 {ratio} Low 0.9-2.[address] [facility] Comment on above: Performed By: #### L 500.4050, L700.6800, L100.0100 #### [facility] [address] [place], [address] ALK P 74 U/L Normal 45-[address] [facility] Comment on above: Performed By: #### L 500.4050, L700.6800, L100.0100 #### [facility] [address] [place], [address] ALT [Catalytic activity/Vol] 14 U/L Normal 13-[address] [facility] Comment on above: Performed By: #### L 500.4050, L700.6800, L100.0100 #### [facility] [address] [place], [address] AST [Catalytic activity/Vol] 12 U/L Low 15-[address] [facility] Comment on above: Performed By: #### L 500.4050, L700.6800, L100.0100 #### [facility] [address] [place], [address] Bilirubin [Mass/Vol] 1.30 mg/dL High 0.20-1.00 [facility] Comment on above: Result Comment: For patients on eltrombopag therapy, use of [place] TBIL is not recommended. Performed By: #### L 500.4050, L700.6800, L100.0100 #### [facility] [address] [place], [address] BUN/CRE 20.1 RATIO High 10-[address] [facility] Comment on above: Performed By: #### L 500.4050, L700.6800, L100.0100 #### [facility] [address] [place], [address] CA,Total 9.0 mg/dL Normal 8.5-10.[address] [facility] Comment on above: Performed By: #### L 500.4050, L700.6800, L100.0100 #### [facility] [address] [place], [address] Chloride [Moles/Vol] 102 mmol/L Normal 98-107 [facility] Comment on above: Performed By: #### L 500.4050, L700.6800, L100.0100 #### [facility] [address] [place], [address] CO2 [Moles/Vol] 24.0 mmol/L Normal 21.0-32.[address] [facility] Comment on above: Performed By: #### L 500.4050, L700.6800, L100.0100 #### [facility] [address] [place], [address] Creatinine [Mass/Vol] 0.90 mg/dL Normal 0.55-1.02 [facility] Comment on above: Result Comment: The validity of the calculated GFR GFRAA in patients over 70 years has not been determined. Clinical correlation is essential. Performed By: #### L 500.4050, L700.6800, L100.0100 #### [facility] [address] [place], [address] ECRCL 94.12 ml/min Normal [facility] Comment on above: Performed By: #### L 500.4050, L700.6800, L100.0100 #### [facility] [address] [place], [address] EST GFR - AA 104 mL/min Normal >[address] [facility] Comment on above: Result Comment: Afri can [place] GFR Calc Performed By: #### L 500.4050, L700.6800, L100.0100 #### [facility] [address] [place], [address] GAP 8 Normal 5-[address] [facility] Comment on above: Performed By: #### L 500.4050, L700.6800, L100.0100 #### [facility] [address] [place], [address] GFR/1.73 sq M.predicted among non-blacks MDRD (S/P/Bld) [Vol rate/Area] 86 mL/min/{1.73_m2} Normal >[address] [facility] Comment on above: Result Comment: Non- GFR Calc Performed By: #### L 500.4050, L700.6800, L100.0100 #### [facility] [address] [place], [address] Globulin (S) [Mass/Vol] 4.4 g/dL High 2.2-4.2 [facility] Comment on above: Performed By: #### L 500.4050, L700.6800, L100.0100 #### [facility] [address] [place], [address] Glucose [Mass/Vol] 114 mg/dL High 74-106 [facility] Comment on above: Result Comment: Fast ing Glucose result from 100 to 125 mg/dL suggests IMPAIRED HOMEOSTASIS per A.D.A. criteria. Performed By: #### L 500.4050, L700.6800, L100.0100 #### [facility] [address] [place], [address] Potassium [Moles/Vol] 3.7 mmol/L Normal 3.5-5.1 [facility] Comment on above: Performed By: #### L 500.4050, L700.6800, L100.0100 #### [facility] [address] [place], [address] Sodium [Moles/Vol] 134 mmol/L Low 136-145 [facility] Comment on above: Performed By: #### L 500.4050, L700.6800, L100.0100 #### [facility] [address] [place], [address] T PROT 7.9 g/dL Normal 6.4-8.[address] [facility] Comment on above: Performed By: #### L 500.4050, L700.6800, L100.0100 #### [facility] [address] [place], [address] Urea nitrogen [Mass/Vol] 18 mg/dL Normal 7-[address] [facility] Comment on above: Performed By: #### L 500.4050, L700.6800, L100.0100 #### [facility] [address] [place], [address] Emergency Department Summary on 12-15-2023 Emergency Department Summary [facility] Medical Records Department [address] [place] [address] Emergency Department Summary 12/15/23 MR#: [id number] Acct: [id number] Name: SARA CHIANG Rep #: [id number] : 2005 18 From: Akanksha Cash DO PCP: Care Physician,No Primary Status:DIS IN Location: MS3 [place]389-6 HPI History of Present Illness Chief Complaint: Complaint Detail of Chief Complaint: Vomiting and right lower back and abdomen pain Informant: patient Narrative Narrative: Patient presents the emergency department with complaint of vomiting and sore yesterday. Patient states that she started with some low back pain about a week ago. She is complaining of some urinary frequency and urgency. She went to urgent care yesterday and had a urinalysis performed and was started on Bactrim. Since she started taking Bactrim she is been having episodes of vomiting. Continues to complain of pain in her back especially on the right side now and right lower abdomen. She had a low-grade temp yesterday 200.0. She denies any diarrhea. Patient has an IUD and does not have regular periods. PFSH PFSH Home Medications ???Medication ???Instructions ???Recorded ???Last Taken ???Type escitalopram oxalate 20 mg tablet 20 mg PO DAILY 12/15/23 Unknown History (Lexapro) Allergy/AdvReac Type Severity Reaction Status Date / Time No Known Allergies Allergy Verified 12/15/23 10:10 Social History Smoking Status: Never smoker ROS ROS ED Review of Systems ROS Unobtainable: other Constitutional Constitutional ED: Reports lethargy; Denies chills, fever(s), sweats or weight loss Eyes Eyes: Denies blurry vision, change in vision or diplopia ENT ENT ED: Denies rhinorrhea or sore throat Cardiovascular Cardiovascular: Denies chest pain, orthopnea or racing heartbeat Respiratory/Chest Respiratory/Chest: Denies cough, dyspnea, dyspnea on exertion, orthopnea or sputum Gastrointestinal Gastrointestinal: Reports abdominal pain; Denies diarrhea, nausea or vomiting Genitourinary Genitourinary ED: Reports urinary frequency; Denies dysuria or hematuria Musculoskeletal Musculoskeletal: Reports back pain; Denies arthralgias, myalgias or neck pain Integumentary Denies abscess, Abrasions or rash Neurologic Neurologic: Denies headache(s) or weakness Psychiatric Psychiatric: Denies anxiety, depression or suicidal thoughts Endocrine Endocrinology: Denies polydipsia, polyphagia or polyuria Hematologic/Lymphatic Hematologic/Lymphatic : Denies easy bleeding, easy bruising or lymphadenopathy Allergic/Immunologic Allergic/Immunologic ED: Denies mouth swelling, tongue swelling or urticaria EXAM Physical Exam Const Vital Signs: 12/15/23 10:07 Temperature 97.5 F L Temperature Source Temporal Pulse Rate 108 H Respiratory Rate 17 Blood Pressure 122/74 H Blood Pressure Mean 90 Pulse Ox 98 Oxygen Delivery Method Room Air Positive well nourished and well developed General Appearance ED: well developed and NAD HEENT Reports TM's clear and moist mucous membranes normocephalic and atraumatic; Negative for trauma or tenderness Tympanic Membrane ED: Yes TM's clear Eyes PERRL and EOMs intact bilaterally General Eye ED: Negative for pale conjunctiva or scleral icterus Neck no lymphadenopathy, supple and no JVD General: Negative for tenderness Chest Wall inspection of chest normal and palpation of chest normal Chest: Negative for tenderness Resp normal respiratory effort and clear to auscultation bilaterally Effort and Inspection: Negative for respiratory distress or pain with movement Auscultation: Negative for rhonchi, wheezes or diminished lung sounds Cardio regular rate, regular rhythm, S1 normal heart sound, S2 normal heart sound and no murmurs Peripheral Pulses: pulses 2+ throughout GI normal to inspection, nondistended, normoactive bowel sounds, soft to palpation, non-distended and no masses GI Narrative: Mild tenderness over right lower quadrant. No rebound, rigidity, or perineal signs. No mass palpated. Back/Spine no thoracic nor lumbar tenderness Back/Spine Narrative: CVA tenderness on the right. Extremity normal to inspection General Extremety ED: Negative for edema General Extremity: Negative for edema Neuro oriented x3, CN's II-XII intact bilaterally, no sensory deficits noted and gait normal Sensorium / Orientation: awake, alert, oriented to person, oriented to place and oriented to time Motor Exam: strength 5/5 throughout and strength abnormal Psych mental status grossly normal Skin no rashes or lesions noted and no wounds MDM MDM MDM Narrative Medical decision making narrative: Patient presents with diagnosis of UTI recently on antibiotics and now vomiting. She complains of pain in her back. Patient wi (more content not included)... Normal [facility] H AND P Exam - [facility] 12-15-2023 H&P Exam - Hospitalist [facility] Medical Records Department [address] [place] [address] H P Exam - Hospitalist 12/15/23 1219 MR#: [id number] Acct: [id number] Name: SARA CHIANG Rep #: [id number] : 2005 18 From: Rose Yanez MD PCP: Care Physician,No Primary Status:REG ER Location: ED HPI - General General Date of Admission: 12/15/23 Date of Service: 12/15/23 Chief Complaint: Right flank pain HPI Narrative SARA CHIANG, is a 18 F who presents with right flank pain. Patient symptoms started about a week prior to her admission. She had been seen at an urgent care facility treated with antibiotics for acute cystitis. Patient symptoms however did not improve. In addition to the flank pain she did develop nausea and vomiting as well as fever and chills. Presented to the emergency department and assessment of acute pyelonephritis made patient admitted to regular nursing floor for further management PFSH Home Medications ???Medication ???Instructions ???Recorded ???Last Taken ???Type escitalopram oxalate 20 mg tablet 20 mg PO DAILY 12/15/23 Unknown History (Lexapro) Allergy/AdvReac Type Severity Reaction Status Date / Time No Known Allergies Allergy Verified 12/15/23 10:10 Social History Smoking Status: Never smoker ROS ROS Narrative GENERAL: fever, chills, HEENT: denies headache, sinus congestion, or drainage, dysphagia RESPIRATORY: denies cough, sputum production, shortness of breath, dyspnea on exertion CARDIAC: denies chest pain, palpitations, orthopnea, PND GASTROINTESTINAL: nausea, vomiting, GENITOURINARY: Right flank pain EXTREMITY: denies swelling MUSCULOSKELETAL: denies current joint pain or tenderness NEUROLOGIC: denies focal numbness, weakness, tingling HEMATOLOGIC: denies easy bruising and/or hemorrhage INTEGUMENT: denies rashes PSYCHIATRIC: denies suicidal or homicidal ideation Vital Signs Vital Signs Vital Signs: 12/15/23 10:07 12/15/23 11:43 Temperature 97.5 F L 98 F Temperature Source Temporal Pulse Rate 108 H 68 Respiratory Rate 17 17 Blood Pressure 122/74 H 120/72 Blood Pressure Mean 90 88 Pulse Ox 98 99 Oxygen Delivery Method Room Air Weight Weight: 63.503 kg Body Mass Index (BMI) 22.6 Results Lab / Micro Data 12/15/23 10:25 12/15/23 10:25 Labs: Laboratory Results - last 24 hr 12/15/23 10:25: WBC 18.4 H, RBC 4.56, Hgb 12.3, Hct 38.9, MCV 85.3, MCH 27.0, MCHC 31.6 L, RDW Std Deviation 43.0, RDW Coeff of [place] 13.9, Plt Count 181, MPV 10.2, Immature Gran % (Auto) 0.500, Neut % (Auto) 88.6 H, Lymph % (Auto) 3.1 L, Iron % (Auto) 7.3, Eos % (Auto) 0.2, Baso % (Auto) 0.3, A bsolute Neuts (auto) 16.3 H, Absolute Lymphs (auto) 0.58 L, Nucleated RBC % 0, Sodium 134 L, Potassium 3.7, Chloride 102, Carbon Dioxide 24.0, Anion Gap 8, BUN 18, Creatinine 0.90, Estim Creat Clear Calc 94.12, Est GFR (MDRD) Af Amer 104, Est GFR (MDRD) Non-Af 86, BUN/Creatinine Ratio 20.1 H, Glucose 114 H, Calcium 9.0, Total Bilirubin 1.30 H, AST 12 L, ALT 14, Alkaline Phosphatase 74, Total Protein 7.9, Albumin 3.5, Globulin 4.4 H, Albumin/Globulin Ratio 0.8 L, Serum , Qual NEGATIVE 12/15/23 10:40: Urine Color Bernie, Urine Clarity Turbid, Urine pH 5.0, Ur Specific Dalton 1.025, U rine Protein 100 H, Urine Glucose (UA) Normal, Urine Ketones 15 H, Urine Occult Blood 250 H, Urine Nitrite Positive H, Urine Bilirubin 3 H, Urine Urobilinogen 4 H, Ur Leukocyte Esterase 500 H, Urine RBC 50-100 SEEN, Urine WBC >100 SEEN, Ur Squamous Epith Cells 25-50 SEEN, Urine Bacteria 3+, Urine Mucus 4+ Imaging Radiology Impression Abdomen/Pelvis CT 12/15/23 10:20 IMPRESSION: 3 cm right adnexal cyst with a small amount pelvic free fluid. If indicated, further evaluation with ultrasound can be performed. No urinary calculi. No hydronephrosis. Bilateral perinephric stranding which is a nonspecific finding. However, please note that infection cannot be excluded without contrast. No bowel obstruction or inflammation. Electronically Signed: Raymond Lynne MD at 11:26 EDT , Assessment Plan Assessment/Plan (1) Pyelonephritis: PLAN: Plan Patient is a 18-year-old female presenting with right flank pain 1. Acute pyelonephritis ??? Patient did fail outpatient treatment for acute UTI. Admitted to regular nursing floor started on IV fluids pain meds antinausea medication. Response to therapy being monitored with daily CBC ordered. 2. Hyponatremia ??? Secondary to hypovolemia patient be resuscitated with IV fluids with monitoring of BMP ordered daily 3. Anxiety disorder ??? Patient is on Lexapro did continue 4. DVT prophylaxis ??? Low risk w (more content not included)... Normal [facility] ,Serum,hCG Quali.on 12-15-2023 HCG, SERUM QUAL Negative Normal [facility] Comment on above: Performed By: #### L 500.4050, L700.6800, L100.0100 #### [facility] [address] [place], [address] Urinalysis, Completeon 12-14 RBC 50-100 SEEN Normal 0-[address] [facility] Comment on above: Order Comment: COLOR OF URINE MAY AFFECT DIPSTICK RESULTS. DRAWER HARDWARE WORKER TO SPECIFY Performed By: #### L 400.0001 #### [facility] [address] [facility] [address] WBC >100 SEEN Normal 0-[address] [facility] Comment on above: Order Comment: COLOR OF URINE MAY AFFECT DIPSTICK RESULTS. DRAWER HARDWARE WORKER TO SPECIFY Performed By: #### L 400.0001 #### [facility] [address] [place], [address] BACTERIA 3+ /hpf Normal None Seen [facility] Comment on above: Order Comment: COLOR OF URINE MAY AFFECT DIPSTICK RESULTS. DRAWER HARDWARE WORKER TO SPECIFY Performed By: #### L 400.0001 #### [facility] [address] [facility] [address] EPI,SQUAMOUS 25-50 SEEN Normal 5-[address] [facility] Comment on above: Order Comment: COLOR OF URINE MAY AFFECT DIPSTICK RESULTS. DRAWER HARDWARE WORKER TO SPECIFY Performed By: #### L 400.0001 #### [facility] [address] [place], [place], [address] Mucus Ql (Urine sed) 4+ /hpf Normal [facility] Comment on above: Order Comment: COLOR OF URINE MAY AFFECT DIPSTICK RESULTS. DRAWER HARDWARE WORKER TO SPECIFY Performed By: #### L 400.0001 #### [facility] [address] [place], [address] Bacteria Ur Culton 4 Bacteria identified Cx Nom (U) ORGANISM ID: 1 >=100,000 CFU/ml Staphylococcus saprophyticus Routine susceptibility testing of S. saprophyticus urine isolates is not performed because uncomplicated UTIs respond to urine concentrations of agents commonly used (e.g. Nitrofurantoin, TMP/SMX, or a quinolone). Normal [facility] Comment on above: Performed By: #### 6 30-4 #### [facility] CLIA [id number] [address] [place] [address] OF [facility] CNOVon 12-14-2023 CNOV Office Visit ([facility]WSTR ) SARA CHIANG ([id number]) 3 F Date Time Provider Department 12/14/23 3:00 PM YASSINE HOWARD [facility] During your visit today, we recorded the following information about you: Temperature Pulse Respiration Blood pressure 100 degrees 102/minute 18/minute 102/69 Weight 62.5 kg Yassine Howard PA 12/14/2023 3:13 PM Signed This note was created using Kid[employer]. Subjective Sara Chiang is a 18 year [...] with ur (more content not included)... Normal [facility] UA DIP, URINE (POC)on 2023 BILIRUBIN UA (POCT) Small Abnormal Negative Tim land [facility] CLARITY UA (POCT) Slightly [facility] COLOR UA ([facility]) Yellow [facility] GLUCOSE UA (POCT) Negative Negative mg/dL [facility] Hemoglobin Ql (U) Moderate Abnormal Negative [facility] Interpretation and review of laboratory results Abnormal [facility] KETONE UA (POCT) 15 mg/dL Abnormal Negative [facility] d [facility] LEUKOCYTES UA (POCT) Moderate Abnormal Negative [facility] NITRITE UA (POCT) Negative Negative [facility] nd [facility] PH UA (POCT) 6.5 4.5 - 8.0 [facility] Protein Ql (U) 100 mg/dL Abnormal Negative [facility] SPECIFIC GRAVITY UA (POCT) 1.020 1.005 - 1.030 [facility] UROBILINOGEN UA (POCT) 1.0 Makenzie l E.U./dL [facility] Location:[address], [address] [place] [address] POINT OF CARE [facility] Progress Noteon 10-11-2023 Progress Note RN CARE COORDINATION NOTE: ED DISCHARGE FOLLOW UP Care Coordination goal: ED follow up Patient seen in [facility] on 10/09/2023 Reason:Dizziness ED visits in [...] RN on 10/11/23 at 11:55 AM. Normal [facility] ECG 12-LEADon 10-10-2023 ECG 12-LEAD IMPRESSION: Sinus rhythm RSR' in V1 or V2, probably normal variant Electronically Signed On 10-10-2023 07:46:06 EDT by Evan Berg [facility] CBC W Auto Differential pane l (Bld)Ordered By: Camila Chiang on 10-09-2023 Basophils (Bld) [#/Vol] 0.0 10*3/uL 0.0 - 0.2 10*3/uL [facility] Basophils/100 WBC (Bld) 0.7 % 0.0 - 2.0 % [facility] Eosinophils (Bld) [#/Vol] 0.2 10*3/uL 0.0 - 0.5 10*3/uL [facility] Eosinophils/100 WBC (Bld) 2.9 % 0.0 - 6.0 % [facility] Erythrocyte distribution width (RBC) [Ratio] 15.0 % 11.5 - 15.0 % [facility] Hematocrit (Bld) [Volume fraction] 38.8 % 35.0 - 47.0 % [facility] Hemoglobin (Bld) [Mass/Vol] 12.2 g/dL 11.7 - 16.0 g/dL [facility] Immature granulocytes (Bld) [#/Vol] 0.0 10*3/uL NINF - 0.1 10*3/uL [facility] Immature granulocytes/100 WBC (Bld) 0.2 % 0.0 - 2.0 % [facility] Interpretation and review of laboratory results Normal [facility] Lymphocytes (Bld) [#/Vol] 2.1 10*3/uL 1.0 - 4.3 10*3/uL [facility] Lymphocytes/100 WBC (Bld) 35.6 % 15.0 - 45.0 % [facility] MCH (RBC) [Entitic mass] 26.0 pg 26.0 - 34.0 pg [facility] MCHC (RBC) [Mass/Vol] 31.4 % 30.5 - 36.0 % [facility] MCV (RBC) [Entitic vol] 82.7 fL 77.0 - 99.0 fL [facility] Monocytes (Bld) [#/Vol] 0.3 10*3/uL 0.0 - 0.9 10*3/uL [facility] Monocytes/100 WBC (Bld) 5.5 % 5.0 - 13.0 % [facility] Neutrophils (Bld) [#/Vol] 3.3 10*3/uL 1.8 - 7.5 10*3/uL [facility] Neutrophils/100 WBC (Bld) 55.1 % 38.0 - 82.0 % [facility] Nucleated RBC/100 WBC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 Nursing Noteon 04-18-2023 ED Nursing Note Bedside report given to [facility] on arrival. Security called to bedside to wand pt/go over belongings. Pt confirmed belongings, given to EMT. Denies any complaints. Report previously called to JONG Pillai RN 04/18/23 1639 [facility] ED Nursing Note Pt resting in bed. Respirations even and non-labored. Rachel Echevarria RN 04/18/23 1259 [facility] ED Nursing Note Pt's mom updated on POC. Rachel Echevarria RN 04/18/23 1059 [facility] ED Nursing Note Guided mother back after asking nurse if ok Minna Arrieta, EMT 04/18/23 0922 [facility] ED Nursing Note Patient came out of [...] f*ck alone. Kaela Jacobson RN 04/18/23 0055 [facility] Progress Noteon 04-18-2023 Progress Note Patient expressed [...] staff of any needs, questions, or concerns. Normal [facility] Progress Note Patient out in day area on approach, social with peers. Behavior is calm and cooperative. Denies SI/HI/AVH. Focused on discharge. Compliant with scheduled medication, PRN trazodone given per patient request. Encouraged to notify staff of any needs, questions, or concerns. Normal [facility] Progress Note Patient arrived on [facility] 7 from [facility]. Per report, pt texted her [...] monitor for safety on the unit. Normal [facility] CBC WITH AUTO DIFFERENTIALon 04-17-2023 Basophils (Bld) [#/Vol] 0.1 10*3/uL Normal 0.0-0.1 [facility] Comment on above: Performed By: #### L [id number] ####Recruitment And Outreach Assistant: CHRISTA FORD ([id number])[facility] ([facility])[address] [place], [place] [id number] [facility] Basophils/100 WBC (Bld) 0.7 % Normal 0.0-1.0 [facility] Comment on above: Performed By: #### L [id number] ####Recruitment And Outreach Assistant: CHRISTA CRYSTALIrmaDES ([id number])[facility])[address] Eosinophils (Bld) [#/Vol] 0.1 10*3/uL Normal 0.0-0.5 [facility] Comment on above: Performed By: #### L [id number] ####Recruitment And Outreach Assistant: CHRISTA LOGAN ([id number])[facility])[address] Eosinophils/100 WBC (Bld) 1.6 % Normal 0.0-3.0 [facility] Comment on above: Performed By: #### L [id number] ####Recruitment And Outreach Assistant: CHRISTA LOGAN ([id number])[facility])[address] [place] [address] Erythrocyte distribution width (RBC) [Ratio] 16.9 % High 11.5-14.5 [facility] Comment on above: Performed By: #### L [id number] ####Recruitment And Outreach Assistant: CHRISTA JONESDES ([id number])[facility])[address] [place] [address] ERYTHROCYTE MEAN CORPUSCULAR HEMOGLOBIN CONCENTRATION (G/DL) BY AUTOMATED 32.0 % Normal 31.0-37.0 [facility] Comment on above: Performed By: #### L [id number] ####Recruitment And Outreach Assistant: CHRISTA JONESDES ([id number])[facility] ([facility])[address] [place] [address] Hematocrit (Bld) [Volume fraction] 41.3 % Normal 37.0-46.0 [facility] Comment on above: Performed By: #### L [id number] ####Recruitment And Outreach Assistant: CHRISTA JONESDES ([id number])[facility])[address] [place] [address] Hemoglobin (Bld) [Mass/Vol] 13.2 g/dL Normal 12.0-15.0 [facility] Comment on above: Performed By: #### L [id number] ####Recruitment And Outreach Assistant: CHRISTA FORD ([id number])[facility])[address] Lymphocytes (Bld) [#/Vol] 1.4 10*3/uL Low 2.5-4.5 [facility] Comment on above: Performed By: #### L [id number] ####Recruitment And Outreach Assistant: CHRISTA FORD ([id number])[facility])[address] Lymphocytes/100 WBC (Bld) 17.1 % Low 25.0-45.0 [facility] Comment on above: Performed By: #### L [id number] ####Recruitment And Outreach Assistant: CHRISTA FORD ([id number])[facility] ([facility])[address] MCH (RBC) [Entitic mass] 24.9 pg Low 26.0-34.0 [facility] Comment on above: Performed By: #### L [id number] ####Recruitment And Outreach Assistant: CHRISTA FORD ([id number])[facility] ([facility])[address] [place] [address] MCV (RBC) [Entitic vol] 77.8 fL Low 78.0-96.0 S [facility] Comment on above: Performed By: #### L [id number] ####Recruitment And Outreach Assistant: CHRISTA FORD ([id number])[facility])[address] [place] [address] Monocytes (Bld) [#/Vol] 0.4 10*3/uL Normal 0.3-0.6 [facility] Comment on above: Performed By: #### L [id number] ####Recruitment And Outreach Assistant: CHRISTA FORD ([id number])[facility])[address] Monocytes/100 WBC (Bld) 4.8 % Normal 3.0-6.0 [facility] Comment on above: Performed By: #### L [id number] ####Recruitment And Outreach Assistant: CHRISTA FORD ([id number])[facility] ([facility])[address] Neutrophils (Bld) [#/Vol] 6.0 10*3/uL Normal 3.4-6.1 [facility] Comment on above: Performed By: #### L [id number] ####Recruitment And Outreach Assistant: CHRISTA FORD ([id number])[facility] ([facility])[address] Neutrophils/100 WBC (Bld) 75.8 % High 34.0-64.0 [facility] Comment on above: Performed By: #### L [id number] ####Recruitment And Outreach Assistant: CHRISTA FORD ([id number])[facility])[address] NRBC (PER 100 WBCS) BY AUTOMATED COUNT 0.1 /100 WBCs Normal 0.0-2.0 [facility] Comment on above: Performed By: #### L [id number] ####Recruitment And Outreach Assistant: CHRISTA FORD ([id number])[facility] ([facility])[address] Platelet mean volume (Bld) [Entitic vol] 8.5 fL Normal 7.4-12.4 [facility] Comment on above: Performed By: #### L [id number] ####Recruitment And Outreach Assistant: CHRISTA FORD ([id number])[facility])[address] [place] [address] [place] Platelets (Bld) [#/Vol] 264 10*3/uL Normal 150-450 [facility] Comment on above: Performed By: #### L [id number] ####Recruitment And Outreach Assistant: CHRISTA FORD ([id number])[facility])[address] [place] [address] [place] RBC (Bld) [#/Vol] 5.31 10*6/uL High 4.10-4.80 [facility] Comment on above: Performed By: #### L [id number] ####Recruitment And Outreach Assistant: CHRISTA FORD ([id number])[facility] ([facility])[address] WBC (Bld) [#/Vol] 8.0 10*3/uL Normal 4.5-13.0 [facility] Comment on above: Performed By: #### L [id number] ####Recruitment And Outreach Assistant: CHRISTA FORD ([id number])[facility])[address] [place] [address] COMPLETE URINALYSISon 2022 BACTERIA (#/HPF) IN URINE Few Abnormal Negative [facility] Comment on above: Performed By: #### L [id number] #### Recruitment And Outreach Assistant: CHRISTA FORD ([id number]) [facility]) [address] [place] [address] BILIRUBIN, TOTAL PRESENCE IN URINE Negative Normal Negative [facility] Comment on above: Performed By: #### L [id number] #### Recruitment And Outreach Assistant: CHRISTA FORD ([id number]) [facility] ([facility]) [address] [place] [address] Clarity (U) Clear Normal Clear [facility] Comment on above: Performed By: #### L [id number] #### Recruitment And Outreach Assistant: CHRISTA FORD ([id number]) [facility] [address] [place] [address] Color (U) Light Yellow Normal Lt. Yellow [facility] Comment on above: Performed By: #### L [id number] #### Recruitment And Outreach Assistant: CHRISTA FORD ([id number]) [facility] ([facility]) [address] [place] [address] GLUCOSE (MG/DL) IN URINE Normal Normal Normal (<70) [facility] Comment on above: Performed By: #### L [id number] #### Recruitment And Outreach Assistant: CHRISTA JONESDES ([id number]) [facility] ([facility]) [address] HEMOGLOBIN PRESENCE IN URINE Negative Normal Negative [facility] Comment on above: Performed By: #### L [id number] #### Recruitment And Outreach Assistant: CHRISTA JONESDES ([id number]) [facility] ([facility]) [address] Ketones Ql (U) Trace Abnormal Negative [facility] Comment on above: Performed By: #### L [id number] #### Recruitment And Outreach Assistant: CHRISTA FORD ([id number]) [facility] [address] LEUKOCYTE ESTERASE PRESENCE IN URINE BY TEST STRIP Negative Normal Negative [facility] Comment on above: Performed By: #### L [id number] #### Recruitment And Outreach Assistant: CHRISTA FORD ([id number]) [facility]) [address] [place] [address] [place] MUCUS (#/LPF) IN URINE SEDIMENT Many Abnormal Negative [facility] Comment on above: Performed By: #### L [id number] #### Recruitment And Outreach Assistant: CHRISTA FORD ([id number]) [facility] [address] NITRITE PRESENCE IN URINE Negative Normal Negative [facility] Comment on above: Performed By: #### L [id number] #### Recruitment And Outreach Assistant: CHRISTA FORD ([id number]) [facility] ([facility]) [address] pH (U) 6.0 [pH] Normal 5.0-8.0 [facility] Comment on above: Performed By: #### L [id number] #### Recruitment And Outreach Assistant: CHRISTA FORD ([id number]) [facility] ([facility]) [address] [place] [address] [place] Protein (U) [Mass/Vol] 10 mg/dL Abnormal Negative [facility] Comment on above: Performed By: #### L [id number] #### Recruitment And Outreach Assistant: CHRISTA FORD ([id number]) [facility] [address] RBC (#/HPF) IN URINE SEDIMENT 0-2 Normal 0-2 [facility] Comment on above: Performed By: #### L [id number] #### Recruitment And Outreach Assistant: CHRISTA FORD ([id number]) [facility] [address] Specific gravity (U) [Rel density] 1.024 Normal 1.005-1.030 [facility] Comment on above: Performed By: #### L [id number] #### Recruitment And Outreach Assistant: CHRISTA FORD ([id number]) [facility] ([facility]) [address] SQUAMOUS EPITHELIAL CELLS (#/HPF) IN URINE SEDIMENT 3-5 Normal 3-5 [facility] Comment on above: Performed By: #### L [id number] #### Recruitment And Outreach Assistant: CHRISTA FORD ([phone]) [facility] [address] UROBILINOGEN (MG/DL) IN URINE Normal Normal Normal (0-1) [facility] Comment on above: Performed By: #### L AB347 #### Recruitment And Outreach Assistant: CHRISTA FORD ([id number]) [facility] [address] WBC (LEUKOCYTE) (#/HPF) IN URINE SEDIMENT 0-2 Normal 0-5 [facility] Comment on above: Performed By: #### L [id number] #### Recruitment And Outreach Assistant: CHRISTA FORD ([id number]) [facility] ([facility]) [address] COMPREHENSIVE METABOLIC PANE Mendez 04-17-2023 Albumin [Mass/Vol] 4.9 g/dL Normal 3.5-5.0 [facility] Comment on above: Performed By: #### L AB46, LAB17 ####Recruitment And Outreach Assistant: CHRISTA FORD ([id number])[facility])[address] ALP [Catalytic activity/Vol] 71 U/L Normal 38-126 [facility] Comment on above: Performed By: #### L AB46, LAB17 ####Recruitment And Outreach Assistant: CHRISTA FORD ([id number])[facility] ([facility] ALT [Catalytic activity/Vol] 16 U/L Normal 0-34 [facility] Comment on above: Performed By: #### L AB46, LAB17 ####Recruitment And Outreach Assistant: CHRISTA FORD ([phone])[facility] [place] ([facility])[address] Anion gap [Moles/Vol] 16 mmol/L High 3-13 [facility] Comment on above: Performed By: #### L AB46, LAB17 ####Recruitment And Outreach Assistant: CHRISTA FORD ([id number])[facility] AST [Catalytic activity/Vol] 24 U/L Normal 15-46 [facility] Comment on above: Performed By: #### L AB46, LAB17 ####Recruitment And Outreach Assistant: CHRISTA FORD ([id number])[facility] ([facility])[address] Bilirubin [Mass/Vol] 1.0 mg/dL Normal 0.2-1.3 [facility] Comment on above: Performed By: #### L AB46, LAB17 ####Recruitment And Outreach Assistant: CHRISTA FORD ([phone])[facility] ([facility])[address] Calcium [Mass/Vol] 9.7 mg/dL Normal 8.4-10.4 [facility] Comment on above: Performed By: #### L AB46, LAB17 ####Recruitment And Outreach Assistant: CHRISTA FORD ([phone])[facility] [place] ([facility])[address] Chloride [Moles/Vol] 103 mmol/L Normal 98-107 [facility] Comment on above: Performed By: #### L AB46, LAB17 ####Recruitment And Outreach Assistant: CHRISTA FORD ([id number])[facility] [place] ([facility])[address] CO2 [Moles/Vol] 22 mmol/L Normal 22-30 [facility] Comment on above: Performed By: #### L AB46, LAB17 ####Recruitment And Outreach Assistant: CHRISTA FORD ([id number])[facility] [place] ([facility])[address] Creatinine [Mass/Vol] 0.57 mg/dL Normal 0.52-1.04 [facility] Comment on above: Performed By: #### L AB46, LAB17 ####Recruitment And Outreach Assistant: CHRISTA FORD ([id number])[facility] [place] ([facility])[address] GLOMERULAR FILTRATION RATE ML/MIN/1.73 SQ M.PREDICTED >90.0 Normal >60.0 [facility] Comment on above: Result Comment: Calc ulation based on the Chronic Kidney Disease Epidemiology Collaboration (CKD-EPI) equation refit without adjustment for race Performed By: #### L AB46, LAB17 ####Recruitment And Outreach Assistant: CHRISTA FORD ([phone])[facility] [place] ([facility])[address] [place] [address] [place] Glucose [Mass/Vol] 109 mg/dL High 70-100 [facility] Comment on above: Performed By: #### L AB46, LAB17 ####Recruitment And Outreach Assistant: CHRISTA FORD ([phone])[facility] [place] ([facility])[address] [place] [address] [place] Potassium [Moles/Vol] 3.6 mmol/L Normal 3.5-5.1 [facility] Comment on above: Performed By: #### L AB46, LAB17 ####Recruitment And Outreach Assistant: CHRISTA FORD ([phone])[facility] [place] ([facility])[address] Protein [Mass/Vol] 9.1 g/dL High 6.3-8.2 [facility] Comment on above: Performed By: #### L AB46, LAB17 ####Recruitment And Outreach Assistant: CHRISTA FORD ([id number])[facility] [place] ([facility])[address] Sodium [Moles/Vol] 141 mmol/L Normal 135-145 [facility] Comment on above: Performed By: #### L AB46, LAB17 ####Recruitment And Outreach Assistant: CHRISTA FORD ([id number])[facility] [place] ([facility])[address] Urea nitrogen [Mass/Vol] 10 mg/dL Normal 7-17 [facility] Comment on above: Performed By: #### L AB46, LAB17 ####Recruitment And Outreach Assistant: CHRISTA FORD ([id number])[facility] [place] ([facility])[address] DRUGS OF ABUSEon 04-17-2023 AMPHETAMINE SCREEN Negative Normal [facility] Comment on above: Performed By: #### L [id number] ####Recruitment And Outreach Assistant: CHRISTA FORD ([id number])[facility] [place] ([facility])[address] BARBITURATES SCREEN Negative Normal [facility] Comment on above: Performed By: #### L [id number] ####Recruitment And Outreach Assistant: CHRISTA FORD ([id number])[facility] [place] ([facility])[address] BENZODIAZEPINE SCREEN Negative Normal [facility] Comment on above: Performed By: #### L [id number] ####Recruitment And Outreach Assistant: CHRISTA FORD ([id number])[facility] ([facility])[address] COCAINE METAB. SCREEN Negative Normal [facility] Comment on above: Performed By: #### L [id number] ####Recruitment And Outreach Assistant: CHRISTA FORD ([id number])[facility] ([facility])[address] METHADONE SCREEN Negative Normal [facility] Comment on above: Performed By: #### L [id number] ####Recruitment And Outreach Assistant: CHRISTA FORD ([id number])[facility] ([facility])[address] OPIATES SCREEN Negative Normal [facility] Comment on above: Performed By: #### L [id number] ####Recruitment And Outreach Assistant: CHRISTA FORD ([id number])[facility] ([facility])[address] OXYCODONE SCREEN Negative Normal [facility] Comment on above: Performed By: #### L [id number] ####Recruitment And Outreach Assistant: CHRISTA FORD ([id number])[facility] [place] ([facility])[address] PHENCYCLIDINE SCREEN Negative Normal [facility] Comment on above: Result Comment: JAMES Ramírez [...] under separate order. Performed By: #### L [id number] ####Recruitment And Outreach Assistant: CHRISTA FORD ([id number])[facility] ([facility])[address] [place] [address] [facility] ED Nursing Noteon 04-17-2023 ED Nursing Note Bed: 15 Expected date: Expected time: Means of arrival: Comments: EMS Bibiana Abernathy RN 04/17/231926 [facility] ED Nursing Note Pt stated her boyfriend and her were fighting. Pt stated he broke up with her and that she wanted to kill herself. Pt denies having active suicidal thoughts. Pt stated she has been having active suicidal thoughts for years and actively tried to commit suicide taking her prescription medication. [facility] ED Provider Noteon 3 ED Provider Note [...] Negative PHENCYCLI (more content not included)... Normal [facility] ETHANOLon 04-17-2023 ETHANOL IN SER/PLAS <0.010 Normal 0.000-0.010 [facility] Comment on above: Result Comment: JAMES Ramírez COMMENTS: NOTE: This result is for medical treatment only. Analysis performed using non-forensic procedures. Performed By: #### L AB46, LAB17 ####Recruitment And Outreach Assistant: CHRISTA FORD ([id number])[address] HCG QUALITATIVE URINEon Beta HCG ( test) Ql (U) Negative Normal Negative [facility] Comment on above: Result Comment: Jen liriano note: Very dilute urine specimens, as indicated by a low specific gravity, may not contain career representative levels of hCG. If is still suspected, a first morning urine specimen should be collected 48 hours later and tested. ORDER COMMENTS: is the most common reason for HCG in urine, although choriocarcinoma, hydatidiform mole, and certain nontrophoblastic malignancies also result in detectable urinary HCG levels. Sensitivity = 20mIU/mL. Performed By: #### L [id number] ####Recruitment And Outreach Assistant: CHRISTA FORD ([id number])[facility] ([facility])[address] [place] [address] SARS-COV-2 ANTIGENon 023 SARS-COV-2 ANTIGEN SARS-COV-2 ANTIGEN -BINAX Reference Negative Negative A negative result does not rule out the possibility of SARS-CoV-2 infection. NAAT-based methods should be considered for symptomatic patients presenting greater than seven days after onset of symptoms. Method: Lateral flow immunoassay. Fact sheets for healthcare providers and patients can be found at the following sites: https://www.fda.gov/m edia/357398/download https://www.fda.gov/m edia/783108/download Normal [facility] Comment on above: Performed By: #### L [id number] #### Recruitment And Outreach Assistant: CHRISTA FORD ([phone]) [facility] ([facility]) [address] [place] [address] CNOVon 03-13-2023 CNOV Office Visit (OBGWMA ) CHIANGSARA CARLISLE ([id number]) 3 Date Time Provider Department 03/13/23 2:45 PM JAIME MACIASGWCURLY During your visit today, we recorded the following information about you: Blood pressure Weight Height Last Period 118/75 69.1 kg 1.651 m 02/27/23 Jaime Macias MD 03/13/2023 3:02 PM Signed Sara Carlisle Андрей presents today for IUD insertion for contraception. Patient's last menstrual period was 02/27/2023 (approximate). INFORMED CONSENT The procedure including risks, benefits, options and personnel performing the procedure was discussed with the patient. There are no contraindications to the procedure. Sarajeannine Chiang expressed understanding and agreed to proceed. UNIVERSAL PROTOCOL / SAFETY CHECKLIST Procedure to be performed: IUD Insertion Sign in Communication: Completed Time Out: Team Confirms the Correct Patient, Correct Procedure, Correct Site and Site Marking, Correct Position (if applicable). Time: yes Affirmation of Time Out: YES Sign Out Discussion: Completed Jaime Macias MD, MD IUD INFO: Type: KYLEENA Lot#: [id number] Expiration Date: Anesthesia: The uterus was sounded [...] Jaime Macias MD Referring Provider: JAIME MACIAS [[id number]] Allergies As of Date: 03/13/2023 (No Known [...] for Encounter Date Provider Department Center 03/13/2023 [id number] MACIAS OBGWCURLY MARTHA CLAY Encounter Status:Closed by JAIME MACIAS on 03/13/23 Normal [facility] B-HCG SerPl-aCncon 3 HCG.beta subunit Qn m[IU]/mL Normal <5.0 [facility] Comment on above: Order Comment: Speci men Type: BLOOD SPECIMEN Ordering Facility: [facility] Address: [address] [place] [address] Performed By: #### 2 1198-7 #### [facility] CLIA [id number] [address] [place] [address] [facility] CNPNon 01-25-2023 CNPN Telephone (AGOBGRN) SARA CHIANG ([id number]) 3 F Date Time Provider Department 01/25/23 JAIME MACIAS During your visit today, we recorded the following information about you: Allergies As of Date: 01/25/2023 (No Known Allergies) Date Reviewed: 01/23/2023 Reviewed by: Jaime Macias MD - Fully Assessed Reason for Visit: Orders [681] Primary Visit Diagnosis:Secondary amenorrhea [N91.1] Order(s):HCG QUANTITATIVE [SQHCGQT] Order #: [id number] FUTURE Prescriptions as of 01/25/2023 - escitalopram oxalate (LEXAPRO) 20 mg tablet Take 20 mg by mouth once daily. Problem List As Of Date 01/25/2023 Noted Resolved Migraine without status migrainosus, not intrac*01/23/2023 Menorrhagia with irregular cycle [N92.1] 01/23/2023 Encounter for initial prescription of intrauter*01/23/2023 Encounter Status:Closed by JAIME MACIAS on 01/25/23 [facility] CNOVon 01-23-2023 CNOV Office Visit (OBGWMA ) АНДРЕЙSARA ORESTES ([id number]) 3 F Date Time Provider Department 01/23/23 3:00 PM JAIME MACIAS OBGWMA During your visit today, we recorded the following information about you: Blood pressure Weight Height Last Period 106/74 65.8 kg 1.651 m 01/09/23 Jaime Macias MD 01/23/2023 2:58 PM Signed Sarajeannine Chiang is an 17 year old woman [...] hematuria, nocturia, incontinence. 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 No Panel InformationOrdered By: Rekha Fitch on 12-31-2022 P Secor 54 degrees [employer] Work Phone: MI Interval 134 ms [employer] Work Phone: QRS Secor 30 degrees [employer] Work Phone: QRSD Interval 84 ms Pulse [employer] Work Phone: QT Interval 406 ms [employer] Work Phone: QTC Interval 484 ms [employer] Work Phone: T Wave Secor 37 degrees [employer] Work Phone: [employer] Work Phone: No Panel Informationon 12-31 Sinus rhythm Probable left atrial enlargement RSR' in V1 or V2, probably normal variant Borderline prolonged QT interval No previous ECG available for comparison Electronically Signed On 12-31-2022 1:04:36 EDT by Rekha Chavez, DO - 12/31/2022 IMPRESSION: Sinus rhythm Probable left atrial enlargement RSR' in V1 or V2, probably normal variant Borderline prolonged QT interval No previous ECG available for comparison Electronically Signed On 12-31-2022 1:04:36 EDT by Rekha Fitch [facility] Vital signsOrdered By: Lazaro Fitch on 12-31-2022 Heart rate 85 /min bpm [facility] Work Phone: CBC W Auto Differential pane l (Bld)Ordered By: Ana Luisa Knox on 12-30-2022 Basophils (Bld) [#/Vol] 0.0 10*3/uL 0.0 - 0.1 10*3/uL [facility] Basophils/100 WBC (Bld) 0.9 % 0.0 - 1.0 % [facility] Eosinophils (Bld) [#/Vol] 0.0 10*3/uL 0.0 - 0.5 10*3/uL [facility] Eosinophils/100 WBC (Bld) 0.6 % 0.0 - 3.0 % [facility] Erythrocyte distribution width (RBC) [Ratio] 16.4 % High 11.5 - 14.5 % [facility] Hematocrit (Bld) [Volume fraction] 35.9 % Low 37.0 - 46.0 % [facility] Hemoglobin (Bld) [Mass/Vol] 11.3 g/dL Low 12.0 - 15.0 g/dL [facility] Interpretation and review of laboratory results Abnormal [facility] Lymphocytes (Bld) [#/Vol] 1.4 10*3/uL Low 2.5 - 4.5 10*3/uL [facility] Lymphocytes/100 WBC (Bld) 27.3 % 25.0 - 45.0 % [facility] MCH (RBC) [Entitic mass] 23.5 pg Low 26.0 - 34.0 pg [facility] MCHC (RBC) [Mass/Vol] 31.5 % 31.0 - 37.0 % [facility] MCV (RBC) [Entitic vol] 74.4 fL Low 78.0 - 96.0 fL [facility] Monocytes (Bld) [#/Vol] 0.3 10*3/uL 0.3 - 0.6 10*3/uL [facility] Monocytes/100 WBC (Bld) 6.2 % High 3.0 - 6.0 % [facility] Neutrophils (Bld) [#/Vol] 3.5 10*3/uL 3.4 - 6.1 10*3/uL [facility] Neutrophils/100 WBC (Bld) 65.0 % High 34.0 - 64.0 % [facility] Nucleated RBC/100 WBC (Bld) [Ratio] 0.1 % [facility] Platelet mean volume (Bld) [Entitic vol] 8.3 fL 7.4 - 12.4 fL [facility] Platelets (Bld) [#/Vol] 271 10*3/uL 150 - 450 10*3/uL [facility] RBC (Bld) [#/Vol] 4.83 10*6/uL High 4.10 - 4.8 0 10*6/uL [facility] WBC (Bld) [#/Vol] 5.3 10*3/uL 4.5 - 13.0 10*3/uL [facility] Comprehensive metabolic 1998 panelon 12-30-2022 Albumin [Mass/Vol] 4.6 g/dL 3.5 - 5.0 g/dL [facility] ALP [Catalytic activity/Vol] 60 U/L 38 - 126 U/L [facility] ALT [Catalytic activity/Vol] 12 U/L 0 - 34 U/L [facility] Anion gap [Moles/Vol] 9 mmol/L 3 - 13 mmol/L [facility] AST [Catalytic activity/Vol] 27 U/L 15 - 46 U/L [facility] Bilirubin [Mass/Vol] 0.3 mg/dL 0.2 - 1 .3 mg/dL [facility] Calcium [Mass/Vol] 8.7 mg/dL 8.4 - 10. 4 mg/dL [facility] Chloride [Moles/Vol] 104 mmol/L 98 - 10 7 mmol/L [facility] CO2 [Moles/Vol] 29 mmol/L 22 - 30 mmol/L [facility] Creatinine [Mass/Vol] 0.60 mg/dL 0.52 - 1.04 mg/dL [facility] GFR/1.73 sq M.predicted MDRD (S/P/Bld) [Vol rate/Area] - PINF [facility] Comment on above: Calculation based on the Chronic Kidney Disease Epidemiology Collaboration (CKD-EPI) equation refit without adjustment for race Glucose [Mass/Vol] 96 mg/dL 70 - 100 mg/dL [facility] Potassium [Moles/Vol] 4.1 mmol/L 3.5 - 5.1 mmol/L [facility] Protein [Mass/Vol] 8.2 g/dL 6.3 - 8.2 g/dL [facility] Sodium [Moles/Vol] 142 mmol/L 135 - 145 mmol/L [facility] Urea nitrogen [Mass/Vol] 7 mg/dL 7 - 17 mg/dL [facility] Ethanol (Bld) [Mass/Vol]on 0 12-30-2022 Ethanol [Mass/Vol] 0.097 g/dL High 0.000 - 0 .010 g/dL [facility] Laboratory - Chemistry and C hemistry - challengeon 12-30-2022 Lactate [Moles/Vol] 0.5 mmol/L Low 0.7 - 2. 0 mmol/L [facility] HCG.beta subunit Qn Females < 5 mIU/mL [facility] Laboratory - Drug toxicology Ordered By: Garcia Emmanuel on 12-30-2022 Amphetamines Screen method >1000 ng/mL Ql (U) Negative [facility] Barbiturates Screen method >200 ng/mL Ql (U) Negative [facility] Benzodiazepines Ql (U) Negative [facility] Methadone Screen Ql (U) Negative [facility] Opiates Screen Ql (U) Negative [facility] oxyCODONE Ql (U) Negative [facility] Phencyclidine Ql (U) Negative [facility] - Drug toxicology on 12-30-2022 Acetaminophen [Mass/Vol] ug/mL Low 10.0 - 30.0 ug/mL [facility] Salicylates [Mass/Vol] mg/dL 0.0 - 20.0 mg/dL [facility] No Panel Informationon 12-30 Interpretation and review of laboratory results Abnormal [facility] Values in should double every 2 [...] or monitor tumors or gestational trophoblastic disease. [facility] Interpretation and review of laboratory results Abnormal [facility] Interpretation and review of laboratory results Normal [facility] No Panel InformationOrdered By: Garcia Emmanuel on 12-30-2022 COCAINE METAB. SCREEN Negative [facility] The expected value for all [...] is needed, request confirmation under separate order. [facility] C. trachomatis/GC PCR Panel on [facility] 07-07-2022 C. trachomatis/GC PCR Panel on [facility] Reason for preventing automatic release->Other Is this specimen being sent to an external lab?->No Release to patient->Manual release only [id number]&Urine-First Void^^^Urine&Urine C. trachomatis PCR on GeneXpert: NEGATIVE-Chlamydia [...] evaluated by nucleic acid amplification techniques. Normal [facility] Comment on above: Performed By: #### [facility] #### [place] [address] Progress Noteon 07-07-2022 Steam Roller Operator Authentication Interface Message Text Patient ID: Sara [...] prevention. HCG negative. ANA/raman sent - call [phone] Ruiz's number with results. Needs PPD for job-placed [...] than previous. Tolerating. Drinking well. Senior at [employer] - no plans after. Mom: medications. Also [...] Line *Present Clear Background *Present LOT # [id number] Normal [facility] Progress Noteon 12-01-2021 Steam Roller Operator Authentication Interface Message Text Patient ID: Sara [...] instead will start Lexapro, complete initial parent/teacher [facility] to review with PCP at recheck in [...] new behavioral health check with PCP ([facility]), DUB/dysmenorrhea recheck (30 min). Total time [...] visit 2 weeks ago). 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 Independen (more content not included)... Normal [facility] XR HAND 3V PA/LAT/OBL BILon 02-02-2019 XR [...] body. IMPRESSION: Normal radiographs of the hands. Product Analyst: PSCB Transcribe Date/Time: Feb 02 2019 5:45P Dictated by : GENARO MEYER MD This examination was interpreted and the report reviewed and electronically signed by: GENARO MEYER MD on Feb 02 2019 5:46PM EST Normal [facility] ABDOMEN 1 VIEWon 02-06-2018 ABDOMEN 1 VIEW Performed at [facility] APPROVED BY: ASH CONN MD TYPE OF [...] been created using voice recognition software Normal [facility] Vital Signs Date Time Vital Sign Value Performing Clinician Mehul lazo 12-14-2023 14:54-0400 Body temperature 100 [degF] Krislyn Aberegg PA Work Phone: [facility] 12-14-2023 14:54-0400 Body weight 62.5 kg Krislyn Aberegg PA Work Phone: [facility] 12-14-2023 14:54-0400 Diastolic blood pressure 69 mm[Hg] Krislyn Aberegg PA Work Phone: [facility] 12-14-2023 14:54-0400 Heart rate 102 /min Krislyn Aberegg PA Work Phone: [facility] 12-14-2023 14:54-0400 Respiratory rate 18 /min Krislyn Aberegg PA Work Phone: [facility] 12-14-2023 14:54-0400 SaO2% (BldA) [Mass fraction] 97 % Krislyn Aberegg PA Work Phone: [facility] 12-14-2023 14:54-0400 Systolic blood pressure 102 mm[Hg] Krislyn Aberegg PA Work Phone: [facility] 10-09-2023 15:26-0400 Body height 167.6 cm Nayla Coy MD Work Phone: [facility] 10-09-2023 15:26-0400 Body mass index (BMI) [Ratio] 24.21 kg/m2 Nayla Coy MD Work Phone: [facility] 10-09-2023 15:26-0400 Body weight 68.04 kg Nayla Coy MD Work Phone: [facility] 05-28-2024 15:24-0400 Body temperature 98.1 [degF] Nayla Coy MD Work Phone: [facility] 10-09-2023 15:24-0400 Diastolic blood pressure 75 mm[Hg] Nayla Coy MD Work Phone: [facility] 10-09-2023 15:24-0400 Heart rate 69 /min Nayla Coy MD Work Phone: [facility] 10-09-2023 15:24-0400 Respiratory rate 16 /min Nayla Coy MD Work Phone: [facility] 10-09-2023 15:24-0400 SaO2% (BldA) [Mass fraction] 99 % Nayla Coy MD Work Phone: [facility] 10-09-2023 15:24-0400 Systolic blood pressure 120 mm[Hg] Nayla Coy MD Work Phone: [facility] 08-27-2023 14:08-0400 Body height 167.6 cm Sammie Choi MD Work Phone: [facility] [employer] 08-27-2023 14:08-0400 Body mass index (BMI) [Ratio] 24.18 kg/m2 Sammie Choi MD Work Phone: [facility] 08-27-2023 14:08-0400 Body temperature 97.5 [degF] Sammie Choi MD Work Phone: [facility] 08-27-2023 14:08-0400 Body weight 67.95 kg Sammie Choi MD Work Phone: [facility] [employer] 08-27-2023 14:08-0400 Diastolic blood pressure 56 mm[Hg] Sammie Choi MD Work Phone: [facility] 08-27-2023 14:08-0400 Heart rate 64 /min Sammie Choi MD Work Phone: [facility] [employer] 08-27-2023 14:08-0400 Systolic blood pressure 93 mm[Hg] Sammie Choi MD Work Phone: [facility] 03-13-2023 14:37-0400 Body height 165.1 cm Jaime Macias MD Work Phone: [facility] 03-13-2023 14:37-0400 Body mass index (BMI) [Percentile] Per age and sex 82.38 % Jaime Macias MD Work Phone: [facility] 03-13-2023 14:37-0400 Body weight 69.13 kg Jaime Macias MD Work Phone: [facility] 03-13-2023 14:37-0400 Diastolic blood pressure 75 mm[Hg] Jaime Macias MD Work Phone: [facility] 03-13-2023 14:37-0400 Systolic blood pressure 118 mm[Hg] Jaime Macias MD Work Phone: [facility] 01-23-2023 14:27-0400 Body height 165.1 cm Jaime Macias MD Work Phone: [facility] 01-23-2023 14:27-0400 Body mass index (BMI) [Percentile] Per age and sex 75.76 % Jaime Macias MD Work Phone: [facility] 01-23-2023 14:27-0400 Body weight 65.77 kg Jaime Macias MD Work Phone: [facility] 01-23-2023 14:27-0400 Diastolic blood pressure 74 mm[Hg] Jaime Macias MD Work Phone: [facility] 01-23-2023 14:27-0400 Systolic blood pressure 106 mm[Hg] Jaime Macias MD Work Phone: [facility] 12-30-2022 18:10-0400 Diastolic blood pressure 76 mm[Hg] Madhu Nesheim DO Work Phone: [facility] 12-30-2022 18:10-0400 Heart rate 89 /min Madhu Nesheim DO Work Phone: [employer] 12-30-2022 18:10-0400 Systolic blood pressure 131 mm[Hg] Madhu Nesheim DO Work Phone: [facility] 12-30-2022 15:55-0400 Body temperature 97.5 [degF] Madhu Nesheim DO Work Phone: [facility] 12-30-2022 15:55-0400 Respiratory rate 16 /min Madhu Nesheim DO Work Phone: [facility] 12-30-2022 15:55-0400 SaO2% (BldA) [Mass fraction] 98 % Madhu [employer] DO Work Phone: [facility] 12-30-2022 09:51-0400 Body height 167.6 cm Madhu Nesheim DO Work Phone: [facility] 12-30-2022 09:51-0400 Body mass index (BMI) [Percentile] Per age and sex 63.33 % Madhu [employer] DO Work Phone: [facility] 12-30-2022 09:51-0400 Body mass index (BMI) [Ratio] 22.6 kg/m2 Madhu Adea Work Phone: [facility] 12-30-2022 09:51-0400 Body weight 63.5 kg Madhu [employer] DO Work Phone: [employer] Encounters Encounter Date Encounter Type Care Provider Facility Start: 06-13-2024 End: 06-13-2024 ambulatory Fracisco PENDLETON Facility:[facility] Start: 04-24-2024 End: 04-24-2024 ambulatory Fracisco PENDLETON Facility:[facility] Start: 03-12-2024 End: 03-13-2024 Refill Rikki Chavez MD Work Phone: [facility] [employer] [facility] Comment on above: Anxiety; Recurrent major depressive disorder, remission status unspecified (HCC); Mood disorder (HCC) Start: 03-08-2024 End: 03-08-2024 Emergency department patient visit [facility] Facility:[facility] Start: 02-28-2024 End: 02-28-2024 ambulatory [facility] Start: 02-14-2024 End: 02-14-2024 Emergency department patient visit Ed Physician Provider Facility:[facility] Start: 01-29-2024 End: 01-29-2024 Office outpatient visit 15 minutes Rikki Chavez MD Work Phone: [facility] Comment on above: Severe episode of re current major depressive disorder, without psychotic features (HCC) (Primary Dx); Anxiety; Recurrent major depressive disorder, remission status unspecified (HCC); Mood disorder (HCC); Low vitamin D level Start: 01-29-2024 End: 01-29-[address] [facility] Start: 01-23-2024 End: 01-24-2024 Emergency department patient visit No Primary Care Physician Facility:[facility] Start: 12-29-2023 End: 12-31-2023 Refill Sammie Choi MD Work Phone: [facility] Comment on above: Nausea; Decreased appetite Start: 12-18-2023 Telephone encounter Jaime Tejeda MD Work Phone: [facility] General Obstetrics and Gynecology Comment on above: Missed Appointment ( No show) Start: 12-16-2023 Telephone encounter Yassine PENDLETON Work Phone: [facility] Comment on above: Results Start: 12-15-2023 ambulatory No Primary Car e Physician Facility:[facility] Start: 12-15-2023 End: 12-15-2023 Evaluation and management of inpatient No Primary Care Physician Facility:[facility] Start: 12-14-2023 End: 12-14-2023 ambulatory VENITA ANTUNEZ Facility:[facility] Start: 12-14-2023 End: 12-14-2023 Patient encounter procedure Yassine PENDLETON Work Phone: [facility] Comment on above: Urinary tract infect ion with hematuria, site unspecified (Primary Dx); Burning with urination; Blister of left foot, initial encounter Start: 10-09-2023 End: 10-09-2023 Emergency department patient visit NAYLA COY [facility] Emergency Dept Comment on above: Dizziness (Primary D x) Start: 08-27-2023 End: 08-27-2023 Office outpatient new 45 minutes Sammie Choi MD Work Phone: [facility] Comment on above: Recurrent major depr essive disorder, remission status unspecified (HCC) (Primary Dx); Routine screening for STI (sexually transmitted infection); Need for hepatitis C screening test; Encounter for screening for HIV; Anxiety; Nausea; Decreased appetite Start: 08-27-2023 End: 08-27-2023 ambulatory SAMMIE CHOI [facility] Start: 04-19-2023 Telephone encounter Nayla bansal MD Work Phone: [facility] Clinical Communication Comment on above: Appointment; New Pat ient Start: 04-17-2023 End: 04-19-2023 ambulatory [facility] Start: 03-13-2023 End: 03-13-2023 Patient encounter procedure Jaime Macias MD Work Phone: [facility] Obstetrics and Gynecology Comment on above: Encounter for IUD in sertion (Primary Dx) Start: 03-13-2023 End: 03-13-2023 ambulatory VENITA ANTUNEZ Facility:[facility] Start: 03-12-2023 End: 03-12-2023 ambulatory VENITA ANTUNEZ Facility:[facility] Start: 01-25-2023 Telephone encounter Jaime Tejeda MD Work Phone: [facility] Obstetrics & Gynecology Comment on above: Orders Start: 01-23-2023 End: 01-23-2023 Patient encounter procedure Jaime Macias MD Work Phone: [facility] Obstetrics and Gynecology Comment on above: Menorrhagia with irr egular cycle (Primary Dx); Migraine without status migrainosus, not intractable, unspecified migraine type; Encounter for initial prescription of intrauterine contraceptive device (IUD) Start: 01-23-2023 End: 01-23-2023 ambulatory JAIME MACIAS Facility:[facility] Start: 12-30-2022 End: 12-30-2022 Evaluation and management of inpatient Madhu Mattie Esparza DO Work Phone: [facility] Comment on above: Ingestion of substan ce, intentional self-harm, initial encounter (HCC) (Primary Dx) Start: 07-10-2022 End: 07-10-2022 ambulatory [facility] Start: 07-07-2022 End: 07-07-2022 ambulatory [facility] Start: 12-01-2021 End: 12-01-2021 ambulatory [facility] Procedures Date Procedure Procedure Detail Performing Clinician Start: 12-14-2023 Urnls dip stick/tabl et rgnt auto w/o microscopy Yassine PENDLETON Work Phone: Start: 10-09-2023 Comprehensive metabo lic panel Stephany PENDLETON-C Work Phone: Start: 10-09-2023 Ecg routine ecg w/le ast 12 lds trcg only w/o i&r Stephany PENDLETON-C Work Phone: Start: 08-27-2023 Iadna chlamydia trac homatis amplified probe tq Sammie Choi MD Work Phone: Start: 12-30-2022 Assay of lactate Ross Cheatham MD Work Phone: Start: 12-30-2022 Comprehensive metabo lic panel Madhu G Betyheim DO Work Phone: Start: 12-30-2022 End: 12-30-2022 Drug screen analgesics non-opioid 1 or 2 Madhu G Betyheim DO Work Phone: Start: 12-30-2022 Ecg routine ecg w/le ast 12 lds trcg only w/o i&r Madhu G Betyheim DO Work Phone: Plan of Treatment Date Care Activity Detail Author Start: 2079 RSV Immunization for Adults (1 - 1-dose 75+ series) RSV Immunization for Adults (1 - 1-dose 75+ series) [facility] Start: 2064 RSV Immunization age d 60 or older (1 - 1-dose 60+ series) RSV Immunization aged 60 or older (1 - 1-dose 60+ series) [facility] Start: 2054 Zoster Vaccines (1 of 2) Zoste r Vaccines (1 of 2) [facility] Start: 10-21-2025 DTaP/Tdap/Td Vaccine s (7 - Td or Tdap) DTaP/Tdap/Td Vaccines (7 - Td or Tdap) [facility] Start: 10-21-2025 Urine microalbumin profile DTaP,Tdap,Td Vaccine (7 - Td or Tdap) [facility] Start: 08-26-2024 Screening for Chlamy genia trachomatis Chlamydia and Gonorrhea Screening [facility] Start: 04-19-2024 Diabetes mellitus screening Diabetes Screening [facility] Start: 04-18-2024 Adolescent Depressio n Screening Adolescent Depression Screening [facility] Start: 02-19-2024 End: 02-19-2024 Patient encounter procedure 02/19/2024 2:45 PM EDT Office Visit [facility] [address] [place] [address] Rikki Chavez MD [address] [place] [address] [facility] Start: 01-29-2024 End: 01-28-2025 25-hydroxyvitamin D3 [Mass/volume] in Serum or Plasma Vitamin D Deficiency Screening (Vit D 25) Lab Routine Low vitamin D level Expected: 01/29/2024 (Approximate), Expires: 01/28/2025 [facility] Comment on above: Expected: 01/29/2024 (Approximate), Expires: 01/28/2025 Start: 01-29-2024 End: 01-28-2025 Thyrotropin [Units/volume] in Serum or Plasma TSH Lab Routine Anxiety Expected: 01/29/2024 (Approximate), Expires: 01/28/2025 [facility] Work Phone: Comment on above: Expected: 01/29/2024 (Approximate), Expires: 01/28/2025 Start: 01-13-2024 COVID-19 Vaccine ( season) COVID-19 Vaccine () [facility] Start: 01-13-2024 COVID-19 Vaccine ( season) COVID-19 Vaccine () [facility] Start: 01-13-2024 Influenza vaccination [facility] Start: 12-18-2023 End: 12-18-2023 Patient encounter procedure 12/18/2023 3:00 PM EDT Office Visit [facility] Obstetrics and Gynecology [address] [place] [address] Jaime Macias MD [address] [place], [place] [id number] Grabiel Cedricguerdaarash [facility] Obstetrics and Gynecology Comment on above: Grabiel Faitharash Start: 10-18-2023 Depression Monitoring Depression Mon itoring [facility] Start: 10-18-2023 Depresssion Monitoring Depresssion M onitoring [facility] Start: 08-27-2023 End: 08-26-2024 Hepatitis C virus Ab [Presence] in Serum or Plasma by Immunoassay Hepatitis C antibody Lab Routine Need for hepatitis C screening test Expected: 08/27/2023 (Approximate), Expires: 08/26/2024 [facility] Work Phone: Comment on above: Expected: 08/27/2023 (Approximate), Expires: 08/26/2024 Start: 08-27-2023 End: 08-26-2024 HIV 1+2 Ab+HIV1 p24 Ag [Presence] in Serum or Plasma by Immunoassay HIV-1 and HIV-2 Antigen-Antibody Screen Lab Routine Encounter for screening for HIV Expected: 08/27/2023 (Approximate), Expires: 08/26/2024 [facility] Comment on above: Expected: 08/27/2023 (Approximate), Expires: 08/26/2024 Start: 06-01-2023 End: 06-01-2023 Patient encounter procedure 06/01/2023 10:45 AM EST Office Visit [facility] [address] [place] [id number] Nayla Coy MD [address] [place] [address] [facility] Start: 01-25-2023 End: 03-27-2023 Choriogonadotropin.beta subunit [Units/volume] in Serum or Plasma HCG QUANTITATIVE Lab Routine Secondary amenorrhea Expected: 01/25/2023, Expires: 03/27/2023 [facility] Work Phone: Comment on above: Expected: 01/25/2023 , Expires: 03/27/2023 Start: 01-12-2023 Covid-19 Vaccine ( season) Covid-19 Vaccine ( season) [facility] Start: 01-12-2023 Influenza vaccination Influenza Vacc ine (#1) [facility] Start: 2022 Anxiety Screening Anxiety Screening [facility] Start: 2022 Chlamydia Screening (18-24) Chlamydia Screening (18-24) [facility] Start: 2022 Depression Screening Depression Scre ening [facility] Start: 2022 Diabetes mellitus screening Diabetes Screening [facility] Start: 2022 GC (Gonorrhea) Scree kayla (18-24) GC (Gonorrhea) Screening (18-24) [facility] Start: 2022 Hepatitis [facility] Start: 2022 Hepatitis C Scre[facility] Start: 2022 HIV Screening HIV Screening [facility] Start: 2022 HIV screening HIV Screening [facility] Start: 2022 Screening for Chlamy genia trachomatis Chlamydia Screening (18) [facility] Start: 05-14-2022 Depression Assessment Depression Ass essment [facility] Start: 01-26-2022 COVID-19 Vaccine (3 - Booster for Pfizer series) COVID-19 Vaccine (3 - Booster for Pfizer series) [facility] Start: 01-26-2022 Covid-19 Vaccine (4 - Pfizer series) Covid-19 Vaccine (4 - Pfizer series) [facility] Start: 12-29-2021 Meningococcal B Vacc ine: Consider Based On Risk (2 of 2 - Risk Bexsero 2-dose series) Meningococcal B Vaccine: Consider Based On Risk (2 of 2 - Risk Bexsero 2-dose series) [facility] Start: 2020 Meningococcal B Vacc ine: Consider Based On Risk (1 of 2 - Patient Seeks Protection) Meningococcal B Vaccine: Consider Based On Risk (1 of 2 - Patient Seeks Protection) [facility] Start: 2020 Meningococcal Conjug ate Vaccine (1 - 2-dose series) Meningococcal Conjugate Vaccine (1 - 2-dose series) [facility] Start: 2018 Peds To Adult Transi tion Annual Assessment Peds To Adult Transition Annual Assessment [facility] Start: 2016 Adolescent Depressio n Screening Adolescent Depression Screening [facility] Start: 2016 Depression Screening Depression Scre ening [facility] Start: 2016 Peds To Adult Transi tion Initial Discussion Peds To Adult Transition Initial Discussion [facility] Start: 2013 HPV Vaccine (1 - 2-d ose series) HPV Vaccine (1 - 2-dose series) [facility] Start: 2011 Urine microalbumin profile DTaP,Tdap,Td Vaccine (1 - Tdap) [facility] Start: 02-15-2005 Application of denta l fluoride varnish Fluoride Varnish [facility] Start: 2004 Hepatitis B Vaccine (1 of 3 - 3-dose series) Hepatitis B Vaccine (1 of 3 - 3-dose series) [facility] Start: 2004 HIV screening HIV Screening [facility] Start: 2004 Screening for Chlamy genia trachomatis Chlamydia and Gonorrhea Screening [facility] Bacteria identified in Urine by Culture URINE CULTURE Microbiology Routine Burning with urination Ordered: 12/14/2023 [facility] Work Phone: Comment on above: Ordered: 12/14/2023 ECG 12 lead ECG 12 lead CV E CG STAT 10/09/2023 4:22 PM EDT [facility] Work Phone: [facility] Immunizations Immunization Date Immunization Notes Care Provider Fa cility 12-01-2021 meningococcal B vacc ine, recombinant, OMV, adjuvanted Rikki Chavez MD Work Phone: [facility] 12-01-2021 Meningococcal Polysaccharide A,C,Y,W-135 TT Conjugate Rikki Chavez MD Work Phone: [facility] 06-24-2019 Influenza, injectabl e, Madin Kelley Canine Kidney, preservative free, quadrivalent Rikki Chavez MD Work Phone: [facility] 06-24-2019 influenza virus vacc ine, unspecified formulation Madhu Nesheim DO Work Phone: [facility] 01-23-2018 influenza, injectabl e, quadrivalent, preservative free Rikki Chavez MD Work Phone: [facility] 05-10-2016 hepatitis A vaccine, pediatric/adolescent dosage, 2 dose schedule Rikki Chavez MD Work Phone: [facility] 05-10-2016 Human Papillomavirus 9-valent vaccine Rikki Chavez MD Work Phone: [facility] 05-10-2016 influenza, injectable,quadrivalent, preservative free, pediatric Rikki Chavez MD Work Phone: [facility] 12-24-2015 Human Papillomavirus 9-valent vaccine Rikki Chavez MD Work Phone: [facility] 10-22-2015 hepatitis A vaccine, pediatric/adolescent dosage, 2 dose schedule Rikki Chavez MD Work Phone: [facility] 10-22-2015 Human Papillomavirus 9-valent vaccine Rikki Chavez MD Work Phone: [facility] 10-22-2015 meningococcal polysaccharide (groups A, C, Y and W-135) diphtheria toxoid conjugate vaccine (MCV4P) Rikki Chavez MD Work Phone: [facility] 10-22-2015 tetanus toxoid, redu sarah diphtheria toxoid, and acellular pertussis vaccine, adsorbed Rikki Chavez MD Work Phone: [facility] 11-16-2009 diphtheria, tetanus toxoids and acellular pertussis vaccine, unspecified formulation Rikki Chavez MD Work Phone: [facility] 11-16-2009 measles, mumps, rube lla, and varicella virus vaccine Rikki Chavez MD Work Phone: [facility] 11-16-2009 poliovirus vaccine, inactivated Rikki Chavez MD Work Phone: [facility] 04-16-2008 influenza, seasonal, injectable Rikki Chavez MD Work Phone: [facility] 04-25-2006 influenza virus vacc ine, whole virus Rikki Chavez MD Work Phone: [facility] 09-20-2005 diphtheria, tetanus toxoids and acellular pertussis vaccine, unspecified formulation Rikki Chavez MD Work Phone: [facility] 09-20-2005 haemophilus influenz ae type b vaccine, PRP-T conjugate Rikki Chavez MD Work Phone: [facility] 07-05-2005 measles, mumps and r ubella virus vaccine Rikki Chavez MD Work Phone: [facility] 07-05-2005 pneumococcal conjuga te vaccine, 7 valent Rikki Chavez MD Work Phone: [facility] 07-05-2005 varicella virus vaccine Margaux Chavez MD Work Phone: [facility] 03-20-2005 influenza virus vacc ine, whole virus Rikki Chavez MD Work Phone: [facility] 03-20-2005 poliovirus vaccine, inactivated Rikki Chavez MD Work Phone: [facility] 2004 diphtheria, tetanus toxoids and acellular pertussis vaccine, unspecified formulation Rikki Chavez MD Work Phone: [facility] 2004 haemophilus influenz ae type b vaccine, PRP-T conjugate Rikki Chavez MD Work Phone: [facility] 2004 hepatitis B vaccine, pediatric or pediatric/adolescent dosage Rikki Chavez MD Work Phone: [facility] 2004 pneumococcal conjuga te vaccine, 7 valent Rikki Chavez MD Work Phone: [facility] 2004 diphtheria, tetanus toxoids and acellular pertussis vaccine, unspecified formulation Rikki Chavez MD Work Phone: [facility] 2004 haemophilus influenz ae type b vaccine, PRP-T conjugate Rikki Chavez MD Work Phone: [facility] 2004 pneumococcal conjuga te vaccine, 7 valent Rikki Chavez MD Work Phone: [facility] 2004 poliovirus vaccine, inactivated Rikki Chavez MD Work Phone: [facility] 2004 diphtheria, tetanus toxoids and acellular pertussis vaccine, unspecified formulation Rikki Chavez MD Work Phone: [facility] 2004 haemophilus influenz ae type b vaccine, PRP-T conjugate Rikki Chavez MD Work Phone: [facility] 2004 hepatitis B vaccine, pediatric or pediatric/adolescent dosage Rikki Chavez MD Work Phone: [facility] 2004 pneumococcal conjuga te vaccine, 7 valent Rikki Chavez MD Work Phone: [facility] 2004 poliovirus vaccine, inactivated Rikki Chavez MD Work Phone: [facility] 2004 hepatitis B vaccine, pediatric or pediatric/adolescent dosage Rikki Chavez MD Work Phone: [facility] Payers Date Payer Category Payer Self-pay 2017 [place] [facility] - [facility] [id number] 2017 Unknown [id number] 2017 Unknown [id number] 2004 Unknown [id number] [id number] 2004 Unknown [id number] [id number] 1980 Unknown [id number] [id number] Unknown [id number] [id number] Unknown [id number] [id number] Unknown [id number] [id number] Unknown [id number] [id number] Unknown [id number] [id number] Unknown [id number] Unknown [id number] [id number] Unknown [id number] [id number] Unknown [id number] [id number] Unknown [id number] [id number] Unknown [id number] [id number] Social History Date Type Detail Facility Start: 12-30-2022 End: 08-27-2023 Tobacco smoking status NHIS Never smoked tobacco [facility] Start: 12-30-2022 End: 08-27-2023 Tobacco use and exposure Smokeless tobacco non-user [facility] Start: 12-30-2022 End: 08-27-2023 Alcohol intake Lifetime non-drinker (finding) [facility] Start: 12-30-2022 End: 04-18-2023 History of Social function [facility] Start: 12-30-2022 End: 04-18-2023 Tobacco use panel [facility] Start: 2004 Sex Assigned At Not on file [facility] Start: 12-20-2022 End: 12-30-2022 Exposure to SARS-CoV-2 (event) Not sure [facility] Do you belong to any clubs or organizations such as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 manager memory loss, forgetfulness, abrupt personality change MEDICAL [...] vomiting, dysphagia GENITOU (more content not included)... [facility] 04-18-2023 Note Sraa Chiang is a 17 y.o.female No chief [...] 20 mg daily) Patient was referred to [facility] Psychiatry by Dr. Murcia after overdose (December 2022) Patient denies significant medical history. 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 Lives at [...] use: Never Vitals: 04/17/23 1932 04/17/23 1958 04/18/237 04/18/23926 BP: 136/82 110/71 103/66 Pulse: 79 72 72 Resp: 20 16 16 Temp: 36.8 ?C (98.3 ?F) 36.8 ?C (98.2 ?F) 36.9 ?C (98.5 ?F) TempSrc: Temporal Temporal Temporal SpO2: 100% 98% 97% Height: 1.676 m (5' 6) Review of Systems Constitutional: Negative for fatigue [...] symptoms at present Plan Will admit to [facility], and discuss medication alternative regimen to present Rx (decrease lexapro and add mirtazapine, versus trial of SNRI, versus augmentation with SGA). Follow up with [facility]iat[facility] provider in [place], versus [place] . Patient likely unable due to work schedule to participate in PHP or IOP. [facility] 03-13-2023 Note HNO ID: [id number] Author: Jaime Macias MD Service: ? Author [...] MD, MD IUD INFO: Type: KYLEENA Lot#: [id number] Expiration Date: Anesthesia: The uterus was sounded [...] (5YRS) 19.5MG INTRAUTERINE DEVICE Jaime Macias MD [facility] 03-13-2023 History of Presen t illness Narrative [...] MD, MD IUD INFO: Type: KYLEENA Lot#: [id number] Expiration Date: Anesthesia: The uterus was sounded [...] Jaime Macias MD documented in this encounter [facility] 01-23-2023 History of Presen t illness [...] hematuria, nocturia, incontinence. and Reports menstrual problem PLATEN GRINDER: Reports irregular vaginal bleeding MUSCULOSKELETAL: Denies any [...] Haider Macias MD documented in this encounter [facility] 01-23-2023 Note HNO ID: [id number] Author: Jaime Macias MD Service: ? Author Type: Physician Type: Progress Notes Filed: 01/23/2023 2:58 PM Note Text: Sara Chiang is an 17 year old [...] hematuria, nocturia, incontinence. and Reports menstrual problem PLATEN GRINDER: Reports irregular vaginal bleeding MUSCULOSKELETAL: Denies any [...] ICD10: Z30.014 - Rx Haider Macias MD [facility] 12-30-2022 Hospital Discharg e instructions Jayjay Cheatham MD - 12/30/2022 4:56 PM EDT As tolerated Jayjay Cheatham MD - 12/30/2022 4:56 PM EDT Regular diet documented in this encounter [facility] 12-30-2022 Consult note Associated Order (s): IP CONSULT TO PSYCHIATRY [facility]SULT [facility] PATIENT NAME: Sara Chiang : 2005 ADMISSION DATE: 12/30/2022 REASON FOR CONSULT: overdose CHIEF COMPLAINT AND IDENTIFYING INFORMATION: Sara Chiang is a 17 y.o., not individual who was hospitalized at [facility] for overdose on Lexapro on 12/30/2022. HISTORY OF PRESENT ILLNESS: Sara is currently admitted to [facility] for medical management following an overdose on [...] OR ondansetron, polyethylene glycol (PEG) 3350 [facility] Allergies: No Known Allergies REVIEW OF [...] (Temporal) Resp 16 Ht 1.676 m (5' 6) Wt 63.5 kg (140 lb) LMP 12/16/2022 [...] (Temporal) Resp 16 Ht 1.676 m (5' 6) Wt 63.5 kg (140 lb) LMP 12/16/2022 [...] restart when returns home. Will refer to [facility] Psych including PHP/IOP. OK for discharge home [...] to contact the dictating provider for clarification. [employer] Phone: 12-30-2022 Consult note Associated Order (s): IP CONSULT TO PSYCHIATRY [facility]SULT [facility] PATIENT NAME: Sara Chiang : 2005 ADMISSION DATE: 12/30/2022 REASON FOR CONSULT: overdose CHIEF COMPLAINT AND IDENTIFYING INFORMATION: Sara Chiang is a 17 y.o., not individual who was hospitalized at [facility] for overdose on Lexapro on 12/30/2022. HISTORY OF PRESENT ILLNESS: Sara is currently admitted to [facility] for medical management following an overdose on [...] (Temporal) Resp 16 Ht 1.676 m (5' 6) Wt 63.5 kg (140 lb) LMP 12/16/2022 [...] (Temporal) Resp 16 Ht 1.676 m (5' 6) Wt 63.5 kg (140 lb) LMP 12/16/2022 [...] restart when returns home. Will refer to [facility] Psych including PHP/IOP. OK for discharge home [...] provider for clarification. documented in this encounter [facility] 12-30-2022 History and physical note Images from the original note were not included. Attending History and Physical Admit Date: 12/30/2022 PCP: [facility] CHIEF COMPLAINT: lexapro overdose/possible suicide attempt Reason [...] Extended Emergency Contact Information Primary Emergency Contact: JenkinsMeg Relation: Mother Code status: Full Code -see [...] Daily weights Full code Inpatient consult to Psychiatry--[facility] PSYCHIATRY Initiate Oxygen Therapy Protocol ECG 12 lead Insert peripheral IV Initiate observation status Admit to inpatient Suicide precautions Please forward a copy of this H&P to the patient's PCP. Thank you. [facility] 12-30-2022 History and physical note Images from the original note were not included. Attending History and Physical Admit Date: 12/30/2022 PCP: [facility] CHIEF COMPLAINT: lexapro overdose/possible suicide attempt Reason [...] Daily weights Full code Inpatient consult to Psychiatry--[facility] PSYCHIATRY Initiate Oxygen Therapy Protocol ECG 12 lead Insert peripheral IV Initiate observation status Admit to inpatient Suicide precautions Please forward a copy of this H&P to the patient's PCP. Thank you. documented in this encounter [facility] 12-30-2022 Emergency department Note Patient moved to with protective services. Malinda Hernández RN 12/30/22 08 [facility] 12-30-2022 Emergency department Note Patient moved to with protective services. Malinda Hernández RN 12/30/22818 Emergency Department Encounter [facility] ED Patient: Sara Chiang : 2005 [...] Temp Source Heart Rate Source Patient Position 08/19/23 0422 08/19/23 0422 08/19/23 0422 08/19/23 0433 99 % Temporal Monitor Sitting BP Location [...] 406 ms QTC Interval 484 ms P Secor 54 degrees QRS Secor 30 degrees T Wave Secor 37 degrees MI Interval 134 ms Radiographs: No orders to display Procedures/EKG: EKG Interpreted in Calvin software by myself SCREENINGS EMERGENCY DEPARTMENT COURSE [...] Ingestion of substance, intentional self-harm, initial encounter ([facility]) Diagnostics interpreted by me: Personally reviewed EKG [...] sepsis or septic shock (if yes, use .sepsiscoremeasure) - no Critical Care note: This patient was unstable and required constant supervision by me for 45 minutes during their visit. The patient's condition requiring intervention included: Concern for overdose. The interventions included: Consultation with poison control, documentation, additional history taking, frequent reevaluation. This critical care time did not include time for procedures or time spent by the physicians hardware sales assistant if they were caring for this patient. Final Impression 1. Ingestion of substance, intentional self-harm, initial encounter ([facility]) DISPOSITION admit Comment: Please note this report [...] life. Pt states she feels sad at night. Pt has had suicidal thoughts before around 3 years ago. documented in this encounter [facility] 12-30-2022 Note NOTE: This result is for medical treatment only. Analysis performed using non-forensic procedures. [facility] 12-30-2022 Emergency department Triage note Pt presents from home after taking 5, 20mg lexapro at home in an attempt to end her life. Pt states she feels sad at night. Pt has had suicidal thoughts before around 3 years ago. [facility] 12-30-2022 Physician Emergency department Note Emergency Department Encounter [facility] ED Patient: Sara Chiang : 2005 [...] Temp Source Heart Rate Source Patient Position 12/30/2242112/30/2242112/30/2242112/30/22432 99 % Temporal Monitor Sitting BP Location FiO2 (%) 12/30/22432 -- Left arm GENERAL: The patient appears [...] 406 ms QTC Interval 484 ms P Secor 54 degrees QRS Secor 30 degrees T Wave Secor 37 degrees MI Interval 134 ms Radiographs: No orders to display Procedures/EKG: EKG Interpreted in Calvin software by myself SCREENINGS EMERGENCY DEPARTMENT COURSE [...] Ingestion of substance, intentional self-harm, initial encounter ([facility]) Diagnostics interpreted by me: Personally reviewed EKG [...] sepsis or septic shock (if yes, use .sepsiscoremeasure) - no Critical Care note: This patient was unstable and required constant supervision by me for 45 minutes during their visit. The patient's condition requiring intervention included: Concern for overdose. The interventions included: Consultation with poison control, documentation, additional history taking, frequent reevaluation. This critical care time did not include time for procedures or time spent by the physicians hardware sales assistant if they were caring for this patient. Final Impression 1. Ingestion of substance, intentional self-harm, initial encounter ([facility]) DISPOSITION admit Comment: Please note this report has been produced using speech recognition software and may contain errors related to that system including errors in grammar, punctuation, and spelling, as well as words and phrases that may be inappropriate. If there are any questions or concerns please feel free to contact the dictating provider for clarification. Madhu Esparza DO Acute Care [facility] Madhu Esparza DO 12/30/22 0749 Madhu Esparza DO 12/31/22 0007 [facility] Evaluation note Diagnosis Ingestion of substance, accidental or unintentional, initial encounter- Primary Ingestion of substance, intentional self-harm, initial encounter ([facility]) Ingestion of substance, intentional self-harm, initial encounter ([facility]) [facility] Diagnosis Menorrhagia with irregular cycle- Primary Excessive or frequent menstruation Migraine without status migrainosus, not intractable, unspecified migraine type Encounter for initial prescription of intrauterine contraceptive device (IUD) [facility] Diagnosis Secondary amenorrhea- Primary Absence of menstruation [facility] Diagnosis Encounter for IUD insertion- Primary Encounter for insertion of intrauterine contraceptive device documented in this encounter [facility] note* Diagnosis Recurrent major depressive disorder, remission status unspecified ([facility])- Primary Routine screening for STI (sexually transmitted infection) Screening examination for venereal disease Need for hepatitis C screening test Special screening examination for other specified viral diseases Encounter for screening for HIV Anxiety Anxiety state, unspecified Nausea Nausea alone Decreased appetite Anorexia [facility] Diagnosis Dizziness- Primary Dizziness and giddiness [facility]* Diagnosis Urinary tract infection with hematuria, site unspecified- Primary Burning with urination Dysuria Blister of left foot, initial encounter [facility]* Diagnosis Nausea Nausea alone Decreased appetite Anorexia documented in this encounter [facility] note* Diagnosis Severe episode of recurrent major depressive disorder, without psychotic features (HCC)- Primary Anxiety Anxiety state, unspecified Recurrent major depressive disorder, remission status unspecified (HCC) Mood disorder (HCC) Unspecified episodic mood disorder Low vitamin D level documented in this encounter [facility] note* Diagnosis Severe episode of recurrent major depressive disorder, without psychotic features (HCC)- Primary Anxiety Anxiety state, unspecified Recurrent major depressive disorder, remission status unspecified (HCC) Mood disorder (HCC) Unspecified episodic mood disorder Low vitamin D level documented in this encounter [facility] note* Diagnosis Anxiety Anxiety state, unspecified Recurrent major depressive disorder, remission status unspecified (HCC) Mood disorder (HCC) Unspecified episodic mood disorder [facility] Attachments The following attachments cannot be sent through Care Everywhere. * Dizziness, Adult ED (Slovenian) [facility] Attachments The following attachments cannot be sent through Care Everywhere. * Tips for How to Help Your Mood (Slovenian) * Tips for Getting Better Sleep (Slovenian) * Tips to Help You Worry Less (Slovenian) * Generalized Anxiety Disorder (Slovenian) * Depression (Slovenian) [facility]* Attachments The following attachments cannot be sent through Care Everywhere. * Tips for How to Help Your Mood (Slovenian) * Tips for Getting Better Sleep (Slovenian) * Tips to Help You Worry Less (Slovenian) * Generalized Anxiety Disorder (Slovenian) * Depression (Slovenian) [facility] Consultation (Routine) - Pending Review Specialty Diagnoses / Procedures Referred By Princess t Referred To Contact Psychology / Behavioral Health Diagnoses Recurrent major depressive disorder, remission status unspecified (HCC) Procedures [place] OFFICE/OUTPATIENT [facility] 60 MINUTES Sammie Choi MD [address] [facility] [address] [place] [address] Octavia Flynn, PhD [address] [place] [id number] Referral ID Status Reason Start Date Expiration Date Visits Requested Visits Authorized [id number] Pending Review Specialty Services Required 08/27/2023 08/26/2024 1 1 [facility] Purpose Family History No Family [...] section and content) DATE CREATED AUTHOR 02/02/2019 [facility] DATE CREATED AUTHOR AUTHOR'S ORGANIZ ATION 07/10/2022 [facility] DATE CREATED AUTHOR AUTHOR'S ORGANIZ ATION 12/17/2023 [facility] DATE CREATED AUTHOR AUTHOR'S ORGANIZ ATION 12/21/2023 [facility] DATE CREATED AUTHOR AUTHOR'S ORGANIZ ATION 03/13/2024 [facility] DATE CREATED AUTHOR AUTHOR'S ORGANIZ ATION 06/15/2024 [facility] Scheduled Active and Recently Administ ered [...] 1641 (New Bag - Prov ider: Cami Foote RN)1741 (Stopped - Provider: Cami Foote RN) Continuous Medication Order 12/28/2022 12/29/2022 12/30/2022 sodium chloride 0.9 % infusion 125 mL/hr, IntraVENous, Continuous, Starting on 12/30/22 at 1000 1022 (New Bag - Prov ider: Michael Perez RN)1619 (Rate/Dose Change - Provider: Cami Foote, JONG) PRN Medication Order 12/28/2022 12/29/2022 12/30/2022 acetaminophen [...]
Care Teams (unrecognized sec tion and content) Chief Pharmacist Relationship Specialty Start Date End Date Jasmin Chambers [address] [place] [id number] PCP - General 12/30/22 Chief Pharmacist Relationship Specialty Start Date End Date Venita Antunez DO PCP - General Pediatrics 09/16/20 Chief Pharmacist Relationship Specialty Start Date End Date Venita Antunez DO PCP - General Pediatrics 09/16/20 Chief Pharmacist Relationship Specialty Start Date End Date Venita Antunez DO PCP - General Pediatrics 09/16/20 Chief Pharmacist Relationship Specialty Start Date End Date Sammie Choi MD [address] [address] PCP - General Family Medicine 08/27/23 Chief Pharmacist Relationship Specialty Start Date End Date Nayla Coy MD [address] [place] [address] PCP - General Family Medicine 10/09/23 Jaime Macias MD [address] [phone] Gynecology 10/09/23 Chief Pharmacist Relationship Specialty Start Date End Date Venita Antunez DO PCP - General Pediatrics 09/16/20 Chief Pharmacist Relationship Specialty Start Date End Date Venita Antunez DO PCP - General Pediatrics 09/16/20 Chief Pharmacist Relationship Specialty Start Date End Date Nayla Coy MD [address] [place] [address] PCP - General Family Medicine 10/09/23 Jaime Macias MD [address] [phone] Gynecology 10/09/23 Chief Pharmacist Relationship Specialty Start Date End Date Nayla Coy MD [address] [place] [address] PCP - General Family Medicine 10/09/23 Jaime Macias MD [address] [phone] Gynecology 10/09/23 Chief Pharmacist Relationship Specialty Start Date End Date Nayla Coy MD [address] [place] [address] PCP - General Family Medicine 10/09/23 Jaime Macias MD [address] [phone] Gynecology 10/09/23 Chief Pharmacist Relationship Specialty Start Date End Date Nayla Coy MD [address] [place] [id number] PCP - General Family Medicine 10/09/23 Jaime Macias MD [facility] [place] [address] Gynecology 10/09/23 Source Comments (unrecognize d section and content) In the event this informatio n is protected by the Federal Confidentiality of Alcohol and Drug Abuse Patient Records regulations: The Federal rules restrict any use of the information to criminally investigate or prosecute any alcohol or drug abuse patient.[facility] the event this information is protected by the Federal Confidentiality of Alcohol and Drug Abuse Patient Records regulations: The Federal rules restrict any use of the information to criminally investigate or prosecute any alcohol or drug abuse patient.[facility] the event this information is protected by the Federal Confidentiality of Alcohol and Drug Abuse Patient Records regulations: The Federal rules restrict any use of the information to criminally investigate or prosecute any alcohol or drug abuse patient.[facility] the event this information is protected by the Federal Confidentiality of Alcohol and Drug Abuse Patient Records regulations: The Federal rules restrict any use of the information to criminally investigate or prosecute any alcohol or drug abuse patient.[facility] the event this information is protected by the Federal Confidentiality of Alcohol and Drug Abuse Patient Records regulations: The Federal rules restrict any use of the information to criminally investigate or prosecute any alcohol or drug abuse patient.[facility] the event this information is protected by the Federal Confidentiality of Alcohol and Drug Abuse Patient Records regulations: The Federal rules restrict any use of the information to criminally investigate or prosecute any alcohol or drug abuse patient.[facility] Reason for Visit (unrecogniz ed section and content) Reason Comments New Patient control Reason Comments Orders Reason Comments Procedure Kyleena Specialty Diagnoses / Procedures Referred By Princess crowley Referred To Contact PARTS DATA WRITER Diagnoses Encounter for removal of intrauterine contraceptive device Encounter for insertion of intrauterine contraceptive device Procedures LEVONORGESTREL-RELEASING INTR CONTRACEPTIVE (KYLEENA), 19.5 MG [employer] [address] [place] [address] Referral ID Status Reason Start Date Expiration Date Visits Re quested Visits Authorized [id number] 1 1 Reason Onset Date Comments Appointment [...] BE BASED ON THE PRIMARY CLINICAL RECORDS. [employer] provides no warranty or guarantee of the accuracy or completeness of information in this document.
== END 2025-01-18 00:48 | disposition home or self-care (01) ==
LOC: ED 00:43
PROVIDERS: Emergency Provider Emergency Medicine; PCP Family Medicine; Visit Provider Emergency Medicine
DX: L03.011 Cellulitis of right finger (principal); Z79.899 Other long term (current) drug therapy; F41.8 Other specified anxiety disorders; W22.09XA Striking against other stationary object, initial encounter
CPT/HCPCS: 99282

== ENCOUNTER 2025-03-16 18:59 | Emergency (ER) | payer BC, SELFPAY ==
[2025-03-16 18:59] VITALS: BP 108/69; PULSE 85; RESP 16; TEMP 36.8; O2SAT 100; BMI 31.5
--- NOTE | 2025-03-16 20:34 | US_ITS ---
PROCEDURE: US/Venous Duplex Imag/Limited/Uni
--- NOTE | 2025-03-16 21:48 | ED.VIS.LOWEX ---
HPI History of Present Illness HPI Narrative: Patient presents with right lower leg pain that has been intermittent for the past month. Patient states her pain is mainly over her right calf. Patient denies any trauma or injury. Patient describes her pain as cramping. Patient states it is worse with walking. Patient states it is also worse when she stands from a seated position. Patient states she has taken ibuprofen in the past which has helped somewhat. Patient denies any paresthesias or weakness. Patient admits to some subjective chills. Patient denies any chest pain or shortness of breath. Chief Complaint: Lower Extremity Injury Informant: patient Onset/Context/Timing Onset: Month(s) (1) Context: Gradual Onset Timing: Intermittent Quality of Pain: - (Cramping) Location: Right calf Worsened by: Walking, standing from a seated position Relieved by: Ibuprofen Associated Symptoms Associated Symptoms: Negative for Parasthesia, Weakness or Loss of Funtion [facility] Medical History Depression Anxiety Scoliosis Home Medications ?Medication ?Instructions ?Recorded ?Last Taken ?Type escitalopram oxalate 20 mg tablet 20 mg PO QHS mood 12/15/23 12/14/23 19:00 History (Lexapro) 20 mg lorazepam 1 mg tablet (Ativan) 1 mg PO BID PRN anxiety 3 days #6 01/24/24 Unknown Rx tabs benzocaine 15 mg-menthol 3.6 mg 1 anup mucous membrane Q2H PRN sore 06/13/24 Unknown Rx lozenges (Cepacol Sore Throat throat #16 ea (benzocaine-menthol)) aripiprazole 5 mg tablet 5 mg PO QHS 01/18/25 Unknown History clindamycin HCl 300 mg capsule 300 mg PO 4X/DAY 7 days #28 caps 01/18/25 Unknown Rx (Cleocin HCl) ipratropium bromide 21 mcg (0.03 2 spray intranasal BID-TID PRN 03/12/25 Unknown Rx %) nasal spray postnasal drainage #30 mL Allergy/AdvReac Type Severity Reaction Status Date / Time No Known Allergies Allergy Verified 03/16/25 19:00 no surgical history Social History Smoking Status: Current every day smoker tobacco type: e-cigarettes ROS ROS ED Constitutional Constitutional ED: Reports chills; Denies fever(s) Eyes Eyes: Denies blurry vision or change in vision ENT ENT ED: Denies rhinorrhea or sore throat Cardiovascular Cardiovascular: Denies chest pain or palpitations Respiratory/Chest Respiratory/Chest: Denies cough or dyspnea Gastrointestinal Gastrointestinal: Reports nausea and vomiting Genitourinary Genitourinary ED: Denies dysuria or hematuria Musculoskeletal Musculoskeletal: Denies back pain or neck pain Integumentary Denies abscess or rash Neurologic Neurologic: Denies headache(s) or weakness Allergic/Immunologic Allergic/Immunologic ED: Denies mouth swelling or urticaria EXAM Physical Exam Const Vital Signs: 03/16/25 18:59 Temperature 98.2 F Temperature Source Oral Pulse Rate 85 Respiratory Rate 16 Blood Pressure 108/69 Blood Pressure Mean 82 Pulse Ox 100 Oxygen Delivery Method Room Air Positive well nourished and well developed Constitutional Narrative: BMI is 31.5. General Appearance ED: well developed and NAD HEENT Reports moist mucous membranes Neck full ROM and supple Extremity normal to inspection Extremity Narrative: There is mild tenderness over the right calf. There is minimal edema. There is no ecchymosis noted. There is good range of motion. There is no pain with dorsiflexion of the right ankle. Pedal pulses are equal bilaterally. Neuro oriented x3, CN's II-XII intact bilaterally, moves all extremities and no sensory deficits noted Sensorium / Orientation: alert Motor Exam: strength 5/5 throughout Psych mental status grossly normal MDM MDM MDM Narrative Medical decision making narrative: Differential diagnosis includes DVT, muscle strain, and contusion. Venous duplex of the right lower extremity will be obtained to assess for DVT. Radiography Diagnostic Testing: Clinical Impression(s) from Imaging Studies Venous Duplex 03/16/25 20:34 IMPRESSION: No acute occlusive deep vein thrombosis. Reading Location: [facility] Venous duplex of the right lower extremity was obtained. There is no evidence of DVT noted. This was interpreted by the radiologist and was also independently reviewed by myself. Treatment and Re-Evaluation Narrative: Patient was advised of her findings. Patient was instructed to ice and elevate the right lower leg. Patient was instructed to take Tylenol or ibuprofen as needed for pain. Patient was instructed to follow-up with her primary care physician in 5 to 7 days. Patient understood and was agreeable with the plan. All questions were answered. Discharge Plan Triage Chief Complaint: Lower Extremity Injury ED Provider: Urban Martel Dx/Rx/DC Orders Clinical Impression: Pain in right lower leg, Body mass index (BMI) of 31.0 to 31.9 in adult, Nicotine vapor product user Instructions: ED Muscle Strain, Extremity Prescriptions: No Action Cepacol Sore Throat (byron-men) 15-3.6 mg lozenge 1 anup mucous membrane Q2H PRN (Reason: sore throat) Qty: 16 0RF ipratropium bromide 21 mcg (0.03 %) spray,non-aerosol 2 spray intranasal BID-TID PRN (Reason: postnasal drainage) Qty: 30 0RF Rx Instructions: administer into each nostril escitalopram oxalate [Lexapro] 20 mg tablet 20 mg PO QHS Patient Comments: pt takes at hs lorazepam [Ativan] 1 mg tablet 1 mg PO BID MDD 2 PRN (Reason: anxiety) 3 Days Qty: 6 0RF aripiprazole 5 mg tablet 5 mg PO QHS clindamycin HCl [Cleocin HCl] 300 mg capsule 300 mg PO 4X/DAY 7 Days Qty: 28 0RF Primary Care Provider: Ashlyn Mart Referrals: Ashlyn Mart MD [Primary Care Provider, Family Practice] - 5-7 Days Print Language: [place]ian Disposition Disposition: Home, Self Care Discharge Date/Time: 03/16/25 22:03
== END 2025-03-16 22:03 | disposition home or self-care (01) ==
PROVIDERS: Emergency Provider Emergency Medicine; PCP Family Medicine; Visit Provider Emergency Medicine
DX: M79.661 Pain in right lower leg (principal); R11.2 Nausea with vomiting, unspecified; F17.290 Nicotine dependence, other tobacco product, uncomplicated; Z79.899 Other long term (current) drug therapy
CPT/HCPCS: 93971; 99282